=== PATIENT | female | born 1960 | race Caucasian/White ===

== ENCOUNTER 2020-04-12 08:00 | Outpatient (CLI) | payer OTHER, SELFPAY ==
--- NOTE | ~2020-04-12 | MM_ITS ---
EXAMINATION: MM screening cisco BI w dragan HISTORY: Screening TECHNIQUE: Craniocaudal and mediolateral oblique 3-D tomosynthesis images were obtained and synthetic 2-D images were generated. CAD analysis was submitted and interpreted. COMPARISON: No prior mammogram is available for comparison at this institution. BREAST PARENCHYMAL COMPOSITION: There are scattered areas of fibroglandular density. FINDINGS: There is a new focal asymmetry laterally in the right breast on CC view. The left breast is stable without evidence for malignancy. IMPRESSION: 1. Focal right breast asymmetry laterally in the right breast on CC view. 2. Additional mammographic views and possible breast ultrasound are recommended. BI-RADS Category 0: Incomplete: Needs additional imaging evaluation. Reviewed, dictated and finalized at location A. CAL PRACTITIONERS IMPRESSION: 1. Focal right breast asymmetry laterally in the right breast on CC view. 2. Additional mammographic views and possible breast ultrasound are recommended . BI-RADS Category 0: Incomplete: Needs additional imaging evaluation.
== END 2020-04-12 08:01 | disposition home or self-care (01) ==
PROVIDERS: PCP Nurse Practitioner Adult Health; Visit Provider Nurse Practitioner Adult Health
DX: Z12.31 Encounter for screening mammogram for malignant neoplasm of breast (principal); R92.8 Other abnormal and inconclusive findings on diagnostic imaging of breast
CPT/HCPCS: 77063; 77067

== ENCOUNTER 2020-05-13 11:16 | Outpatient (CLI) | payer OTHER, SELFPAY ==
--- NOTE | ~2020-05-13 | MMUS_ITS ---
EXAMINATION: MM diagnostic mammo unilat RT, US breast RT limited HISTORY: Right breast asymmetry on screening mammogram TECHNIQUE: Additional 3-D tomosynthesis images of the right breast were performed and synthetic 2-D i mages were generated. CAD analysis was submitted and interpreted. High resolution limited right breas t ultrasound was performed. COMPARISON: 04/12/2020, 04/17/2018, 03/13/2017 BREAST PARENCHYMAL COMPOSITION: There are scattered areas of fibroglandular density. FINDINGS: MAMMOGRAPHIC FINDINGS: There is an 8 mm oval, equal density mass with indistinct margins in the middle third of the outer br east at the 10:00 location 11 cm from the nipple. No suspicious calcification or architectural distor tion are identified. ULTRASOUND: There is a 6 mm x 5 mm oval, circumscribed, parallel mass with thin internal septation at the 10:00 l ocation 8 cm from the nipple. On some images, there is a questionable tiny peripheral nodular compone nt. The mass demonstrates posterior acoustic enhancement and no internal vascularity. IMPRESSION: 1. Probably benign right breast mass. 2. Recommend 6 month follow-up right diagnostic mammogram and ultrasound BI-RADS category 3, probably benign findings. Reviewed, dictated and finalized at location A. IMPRESSION: 1. Probably benign right breast mass. 2. Recommend 6 month follow-up right diagnostic mammogram and ultrasound BI-RADS category 3, probably benign findings.
== END 2020-05-13 11:17 | disposition home or self-care (01) ==
PROVIDERS: PCP Nurse Practitioner Adult Health; Visit Provider Nurse Practitioner Adult Health
DX: R92.8 Other abnormal and inconclusive findings on diagnostic imaging of breast (principal)
CPT/HCPCS: 76642; 77065

== ENCOUNTER 2020-12-02 11:17 | Outpatient (CLI) | payer OTHER, SELFPAY ==
--- NOTE | ~2020-12-02 | CT_ITS ---
EXAMINATION: CT shoulder LT wo con DATE: 12/02/2020 12:04 INDICATION: Primary osteoarthritis, left shoulder. TECHNIQUE: Computed tomography (CT) of the left shoulder was performed without intravenous contrast. Automated exposure control and iterative reconstruction technique were employed. The dose-length prod uct was 437.48 mGy-cm. COMPARISON: Left shoulder radiographs 11/08/2020 FINDINGS: Bone alignment is normal. No fracture. There is mild osteoarthritis of acromioclavicular renzo int and severe osteoarthritis of glenohumeral joint. There is a benign bone island in the glenoid. Th ere is no asymmetric fatty atrophy of the rotator cuff muscle bellies. IMPRESSION: 1. Severe glenohumeral joint osteoarthritis. Reviewed, dictated and finalized at location A.
== END 2020-12-02 11:18 | disposition home or self-care (01) ==
LOC: ANHIMG 11:20
PROVIDERS: PCP Nurse Practitioner Adult Health; Visit Provider Orthopaedic Surgery
DX: Z01.818 Encounter for other preprocedural examination (principal); M19.012 Primary osteoarthritis, left shoulder
CPT/HCPCS: 73200

== ENCOUNTER 2021-01-12 11:55 | Outpatient (CLI) | payer OTHER, SELFPAY ==
--- NOTE | 2021-01-12 12:57 | ECG_ITS ---
Measurements Intervals [place] Rate: 74 P: 46 KS: 238 QRS: 17 QRSD: 88 T: 25 QT: 397 QTc: 442 Interpretive Statements SINUS RHYTHM WITH FIRST DEGREE AV BLOCK LOW QRS VOLTAGE IN PRECORDIAL LEADS BORDERLINE R WAVE PROGRESSION, ANTERIOR LEADS CONSIDER INFERIOR INFARCT, AGE INDETERMINATE BASELINE ARTIFACT- I, III, AVR, AVL ABNORMAL ECG Electronically Signed On 01-12-2021 13:22:59 STEAM TENDER by Damon Yu D.O.
[2021-01-12 13:36] LABS: Basophils Absolute Auto 0.1 K/mm3 (0.0-0.1); Basophils Percent Auto 0.6 % (0.2-1.2); Eosinophils Absolute Auto 0.2 K/mm3 (0-0.3); Eosinophils Percent Auto 2.1 % (0-4.4); Hematocrit 43.1 % (37.0-47.0); Hemoglobin 14.3 g/dL (12.0-15.0); Immature Granulocyte Absolute 0.03 K/mm3 (0.00-0.031); Immature Granulocyte Percent A 0.3 % (0-0.5); Lymphocytes Absolute Auto 2.32 K/mm3 (0.9-3.2); Lymphocytes Percent Auto 24.7 % (18.3-44.2); Mean Corpuscular HGB Conc 33.2 g/dl (32-36); Mean Corpuscular Hemoglobin 32.6 pg (26-34); Mean Corpuscular Volume 98.2 fl (80-100); Monocytes Absolute Auto 0.9 K/mm3 (0.1-0.6); Monocytes Percent Auto 9.2 % (2.6-8.5); Neutrophils Absolute Auto 5.9 K/mm3 (1.3-6.7); Neutrophils Percent Auto 63.1 % (45.5-73.1); Platelet Count Result 315 k/mm3 (150-375); Red Blood Count 4.39 M/mm3 (4.2-5.4); Red Cell Distribution Width 12.2 % (11.5-14.5); White Blood Count 9.4 K/mm3 (4.5-10.0)
[2021-01-12 13:42] LABS: Anion Gap 9 mmol/L (8-16); Blood Urea Nitrogen 14 mg/dL (7-17); Calcium 9.4 mg/dL (8.4-10.2); Carbon Dioxide 32 mmol/L (22-30); Chloride 99 mmol/L (98-107); Estimated Glomerular Filt Rate > 60; Glucose 102 mg/dL (65-110); Potassium 3.8 mmol/L (3.4-5.0); Sodium 140 mmol/L (137-145)
== END 2021-01-12 11:56 | disposition home or self-care (01) ==
LOC: ANHSURGERY 11:58
PROVIDERS: Anesthesiology; PCP Nurse Practitioner Adult Health; Visit Provider Orthopaedic Surgery
DX: M19.012 Primary osteoarthritis, left shoulder (principal); I10 Essential (primary) hypertension; Z01.818 Encounter for other preprocedural examination; I44.0 Atrioventricular block, first degree
CPT/HCPCS: 36415; 80048; 85025; 87081; 93005

== ENCOUNTER 2021-02-07 01:28 | Day surgery (SDC) | payer OTHER, SELFPAY ==
[2021-01-12 12:05] VITALS: BMI 36.6
--- NOTE | 2021-01-12 12:37 | PC.NURSE ---
Report to the Outpatient Waiting Room, entrance under the green pavilion located off [facility], at time _1000 on date 02/07/21 . OR Time: _1200 . - You and your visitor will be asked a series of questions to screen for COVID 19 for your protection. - A mask is required within the hospital. - Only one visitor is allowed at this time. Patient visitors will be guided where to wait when not with patient. Preoperative COVID Testing Requirements: No COVID Test needed if: (proof is required; if not received patient will have Rapid Test prior to entry) - Patient has received COVID Vaccine at least 14 days prior to procedure date or - Patient has positive COVID test result within last 90 days of surgery date. COVID Test needed if above criteria is not met If not COVID vaccinated a COVID test must be conducted within 72 hours of surgery and patient is asked to isolate self from time of testing until procedure. You will go to the [facility] Testing Site for your COVID testing. The [facility] site is located at the corner of [address] [facility]. You will only be called if COVID results are positive and your surgeon may reschedule your elective surgery date. Patients may have clear liquids (water, carbonated beverages, clear teas, apple juice) until 3 hours prior to surgery with a maximum of 20 ounces. - No food from midnight until time of surgery - Infants may have breast milk until 4 hours before surgery, formula 6 hours prior to surgery. - Children will be allowed to drink immediately following surgery. If applicable, please bring a bottle or sippy cup to assist with drinking. Juice, water, soda, and popsicles are readily available. For infants on formula, please bring formula the day of surgery. Pacifiers are allowed. Take the following medications with a SIP of water the morning of surgery: ____INHALER AND LEVOTHYROXINE Medications to discontinue per physician ___ALL VITAMINS AND SUPPLEMENTS 3 DAYS PRE OP Date to take last dose__02/03/21 Please no make-up, nail martiniquais, hairspray, perfume, deodorant, or body powder the day of surgery. No jewelry (including any body piercings) or valuables the day of surgery, leave them at home. Please take a shower or bath the night before, or the morning of, surgery with an antibacterial soap. Wear comfortable, loose fitting clothing. Children are encouraged to wear pajamas. - Jewelry must be removed prior to entering the operating room. Rings and piercings that are not removed may be cut off. - The hospital will not accept responsibility for valuables. - Please leave all valuables, including medications, at home the day of surgery. If you are going home after surgery, a licensed front load trash truck driver must drive you home. - NO public transportation without another adult. - We recommend that an adult stay with you for 24 hours following discharge. - We also recommend that you do not drive, make important decision, drink alcoholic beverages, or take any drugs that were not prescribed by your health care provider for at least 24 hours after your discharge time. For Pediatric surgeries, we recommend two adults accompany the child home (only one inside the building at this time). Follow any additional instructions given to you from your surgeon. VERBAL instructions given to ___PATIENT AND SPOUSE and asked if any additional questions and then verbalized understanding. Patient advised to call surgeon office or pre surgery nurse liaison [phone] if any additional questions.
[2021-01-12 12:59] VITALS: BP 152/75; PULSE 85; RESP 16; TEMP 36.6; O2SAT 98
--- NOTE | 2021-02-03 13:31 | WPDANESEPPF ---
Anes - Initial Pre Proc Eval Procedure: Operation Date: 02/07/21 12:00 Proposed Procedures p Left Anatomic Total Shoulder Arthroplasty - Raoul Chong MD Date/Time: 02/03/21 13:31 Surgeon: Raoul Chong MD Pre Op Diagnosis: primary OA left shoulder Patient Data Age: 60 Gender: F Height: 1.73 m Weight: 109.2 kg Last Vital Signs Temp 36.6 C 01/12/21 12:59 Pulse 85 01/12/21 12:59 Resp 16 01/12/21 12:59 BP 152/75 H 01/12/21 12:59 Pulse Ox 98 01/12/21 12:59 Allergies Allergy/AdvReac Type Severity Reaction Status Date / Time acetone Allergy Severe ANAPHYLAXIS Verified 02/07/21 10:34 carrot Allergy Unknown Gastrointestinal Verified 02/07/21 10:34 Upset omeprazole Allergy Unknown Diarrhea Verified 02/07/21 10:34 pollen extracts Allergy Unknown Unknown Verified 02/07/21 10:34 Sulfa (Sulfonamide Allergy Unknown Rash AND Verified 02/07/21 10:34 Antibiotics) HIVES NSAIDS (Non-Steroidal AdvReac Unknown HX GI BLEED Verified 02/07/21 10:34 Anti-Inflamma SHRIMP AdvReac Unknown GI UPSET. Uncoded 02/07/21 10:34 Home Medications Medication Instructions Recorded Confirmed Type levothyroxine 25 mcg PO DAILY 03/06/19 02/07/21 History montelukast 10 mg PO DAILY 03/06/19 01/12/21 History verapamil 180 mg PO HS 03/06/19 02/07/21 History acetaminophen 650 mg 650 mg PO Q12H 01/12/21 01/12/21 History tablet,extended release acetaminophen [Tylenol Arthritis] 650 mg PO Q8H PRN 01/12/21 01/12/21 History albuterol sulfate 1 puff INHALATION PRN PRN 01/12/21 01/12/21 History albuterol sulfate 90 mcg/actuation 1 puff INHALATION Q4H PRN 01/12/21 01/12/21 History aerosol inhaler beclomethasone dipropionate 40 2 inh INHALATION Q12H 01/12/21 01/12/21 History mcg/actuation HFA breath activated aerosol beclomethasone dipropionate [Qvar 2 inh INHALATION BID 01/12/21 02/07/21 History RediHaler] calcium carbonate-vitamin D3 2 tablet PO DAILY 01/12/21 02/07/21 History [Calcium 600 + D(3)] cetirizine [Zyrtec] 10 mg PO DAILY 01/12/21 02/07/21 History chlorthalidone 50 mg PO QAM 01/12/21 01/12/21 History fluticasone furoate 27.5 1 spray INTRANASAL DAILY 01/12/21 01/12/21 History mcg/actuation nasal spray,suspension fluticasone propionate [Flonase 1 spray INTRANASAL HS 01/12/21 01/12/21 History Allergy Relief] rizatriptan 10 mg PO PRN PRN 01/12/21 01/12/21 History rizatriptan 10 mg tablet 10 mg PO ONCE 01/12/21 01/12/21 History valacyclovir 1 gram tablet 1,000 mg PO DAILY 01/12/21 01/12/21 History Patient hx anesthesia problems: none Family hx anesthesia problems: none Results Review: All pre-operative results and documents have been reviewed as part of the pre-operative evaluation. [facility] Past Medical History Medical History (Updated 02/03/21 @ 13:32 by Frank Rose MD) Asthma Hypertension Hypothyroid Migraine Obesity Surgical History Surgical History History of adenoidectomy (~1986) History of (~1984) History of eye surgery (~1977) History of kyphoplasty (~11/29/17) History of myringotomy (~1986) Marino - w/Tube Placement History of total left knee replacement (~07/30/18) Presence of left artificial knee joint Family History Family History Father Family history of chronic obstructive pulmonary disease Family history of congestive heart failure Other Family history of atrial fibrillation Family history of malignant neoplasm Family history of osteoarthritis Hypertension Social History Social History Alcohol intake: never Living arrangements: with family Spiritual care concerns: No Anes - Eval Final PreProcedure Day of Procedure 02/03/21 13:31 Patient weight: obese Heart: regular rate and rhythm Lungs: clear to auscultation and normal air movement
--- NOTE | 2021-02-03 13:33 | WPDANESPNB ---
Anes - Peripheral Nerve Block Date/Time: 02/03/21 13:33 I have discussed with the patient/family/POA the placement of a peripheral nerve block for post-operative pain management, including associated risks, benefits, complications, and side effects. Alternative methods of post-operative analgesia were detailed. Questions were solicited and answers provided to the satisfaction of the patient/family/POA. Time-Out: A pre-procedural Time-Out was completed immediately before starting the procedure and confirmed: Patient Identification, Site, Procedure, Patient Position and the Availability of Requisite Equipment. Clinical Indications: Acute post-operative pain management requested by the operative surgeon. Nerve Block Insertion Note Anes-nerve block: supraclavicular left Patient position: supine Skin prep: chlorhexidine Needle: 22 gauge, stimulating, insulated echogenic needle. Needle length: 80 mm Technique: ultrasound (in plane) Injectate: bupivacaine 0.5% with epi 5 mcg/ml (20cc) Observations: tolerated well Complications: none Procedure start time:: 1255 Procedure end time:: 1300
[2021-02-07] VITALS (9 sets, daily range): BP systolic 105–159; BP diastolic 43–102; PULSE 84–96; RESP 11–19; TEMP 36–37.7; O2SAT 93–100; BMI 36.1
--- NOTE | ~2021-02-07 | XR_ITS ---
XR shoulder LT min 2V DATE: 02/07/2021 17:38 INDICATION: Post operative left total shoulder TECHNIQUE: 4 views COMPARISON: 12/02/2020 CT left shoulder 11/08/2020 left shoulder FINDINGS: There is interval left glenohumeral joint replacement since 12/02/2020. Diffuse osteopenia. IMPRESSION: Left glenohumeral joint replacement Reviewed, dictated and finalized at location A. INUM POOL INSTALLER
[2021-02-07] MEDS: TRANEXAMIC ACID 1,000MG/ISO100 1,000 MG/100 ML BAG 200 MG IVPB (10:51)
[2021-02-07] MEDS: ACETAMINOPHEN 500 MG TABLET 1000 MG PO (10:52)
[2021-02-07] MEDS: LACTATED RINGERS 1,000 ML 30 ML IV CONT ×2 (10:52→17:12)
--- NOTE | 2021-02-07 11:59 | SUR.PREOP ---
1130; PT NOTIFIED SURGERY WILL BE DELAYED ABOUT 1 HOUR. PT VERBALIZED UNDERSTANDING.
--- NOTE | 2021-02-07 12:39 | WPDANESEPPF ---
Anes - Initial Pre Proc Eval Procedure: Operation Date: 02/07/21 12:00 Proposed Procedures p Left Anatomic Total Shoulder Arthroplasty - Raoul Chong MD Date/Time: 02/07/21 12:39 Surgeon: Raoul Chong MD Pre Op Diagnosis: primary OA left shoulder Patient Data Age: 60 Gender: F Height: 1.73 m Weight: 108 kg Last Vital Signs Temp 36.0 C L 02/07/21 10:09 Pulse 96 02/07/21 10:09 Resp 18 02/07/21 10:09 BP 159/102 H 02/07/21 10:09 Pulse Ox 96 02/07/21 10:09 Allergies Allergy/AdvReac Type Severity Reaction Status Date / Time acetone Allergy Severe ANAPHYLAXIS Verified 02/07/21 10:34 carrot Allergy Unknown Gastrointestinal Verified 02/07/21 10:34 Upset omeprazole Allergy Unknown Diarrhea Verified 02/07/21 10:34 pollen extracts Allergy Unknown Unknown Verified 02/07/21 10:34 Sulfa (Sulfonamide Allergy Unknown Rash AND Verified 02/07/21 10:34 Antibiotics) HIVES NSAIDS (Non-Steroidal AdvReac Unknown HX GI BLEED Verified 02/07/21 10:34 Anti-Inflamma SHRIMP AdvReac Unknown GI UPSET. Uncoded 02/07/21 10:34 Home Medications Medication Instructions Recorded Confirmed Type levothyroxine 25 mcg PO DAILY 03/06/19 02/07/21 History montelukast 10 mg PO DAILY 03/06/19 01/12/21 History verapamil 180 mg PO HS 03/06/19 02/07/21 History acetaminophen 650 mg 650 mg PO Q12H 01/12/21 01/12/21 History tablet,extended release acetaminophen [Tylenol Arthritis] 650 mg PO Q8H PRN 01/12/21 01/12/21 History albuterol sulfate 1 puff INHALATION PRN PRN 01/12/21 01/12/21 History albuterol sulfate 90 mcg/actuation 1 puff INHALATION Q4H PRN 01/12/21 01/12/21 History aerosol inhaler beclomethasone dipropionate 40 2 inh INHALATION Q12H 01/12/21 01/12/21 History mcg/actuation HFA breath activated aerosol beclomethasone dipropionate [Qvar 2 inh INHALATION BID 01/12/21 02/07/21 History RediHaler] calcium carbonate-vitamin D3 2 tablet PO DAILY 01/12/21 02/07/21 History [Calcium 600 + D(3)] cetirizine [Zyrtec] 10 mg PO DAILY 01/12/21 02/07/21 History chlorthalidone 50 mg PO QAM 01/12/21 01/12/21 History fluticasone furoate 27.5 1 spray INTRANASAL DAILY 01/12/21 01/12/21 History mcg/actuation nasal spray,suspension fluticasone propionate [Flonase 1 spray INTRANASAL HS 01/12/21 01/12/21 History Allergy Relief] rizatriptan 10 mg PO PRN PRN 01/12/21 01/12/21 History rizatriptan 10 mg tablet 10 mg PO ONCE 01/12/21 01/12/21 History valacyclovir 1 gram tablet 1,000 mg PO DAILY 01/12/21 01/12/21 History Laboratory Tests 02/07/21 10:50 Blood Type A Positive Antibody Screen Negative Patient hx anesthesia problems: none Family hx anesthesia problems: none Results Review: All pre-operative results and documents have been reviewed as part of the pre-operative evaluation. [facility] Past Medical History Medical History (Updated 02/03/21 @ 13:32 by Frank Rose MD) Asthma Hypertension Hypothyroid Migraine Obesity Surgical History Surgical History History of adenoidectomy (~1986) History of (~1984) History of eye surgery (~1977) History of kyphoplasty (~11/29/17) History of myringotomy (~1986) Marino - w/Tube Placement History of total left knee replacement (~07/30/18) Presence of left artificial knee joint Family History Family History Father Family history of chronic obstructive pulmonary disease Family history of congestive heart failure Other Family history of atrial fibrillation Family history of malignant neoplasm Family history of osteoarthritis Hypertension Social History Social History Alcohol intake: never Living arrangements: with family Spiritual care concerns: No Anes - Eval Final PreProcedure Day of Procedure 02/07/21 12:39 P
--- NOTE | 2021-02-07 13:03 | WPDHPUPDATE1 ---
History and Physical Update Update Date/Time: 02/07/21 13:03 History and Physical has been reviewed, including an updated exam of the patient. There are NO changes in the patient's condition. Risks, benefits, and alternatives have been discussed and questions answered. Patient agrees to proceed with procedure.
[2021-02-07] MEDS: ceFAZolin 2 GM/D5W 50 ML 2 GM/50 ML BAG IVPB ×2 (13:06→18:45)
[2021-02-07] MEDS: VANCOMYCIN HCL 1,000 MG VIAL 1000 MG TOPICAL (14:07)
--- NOTE | 2021-02-07 17:57 | W.PM.PROC2 ---
Procedure Note - Detailed Date of Procedure 02/07/21 Pre-op Diagnosis primary OA left shoulder Post-op Diagnosis same Procedure Performed Anatomic left total shoulder arthroplasty. Surgeon Raoul Chong MD Hardscape Foreman Armida Rodriguez PA-C Anesthesia general Description of Procedure The patient was given an interscalene block in the preoperative area. Preoperative antibiotics were given. The patient was transferred to the operating room and a general anesthetic was administered. The beach chair position was used at 35 degrees. All bony prominences were padded. The head was carefully stabilized on the [place] hogshead wrecker. A sterile prep and drape was performed in the usual manner with Chloraprep. A longitudinal incision was created at the anterior shoulder just lateral to the deltopectoral interval. Careful dissection was performed to expose the interval and protect the cephalic vein. The vein was retracted medially. The upper border of the pectoralis was released. Anterior circumflex vessel branches were suture ligated. The biceps was tenodesed. A small lesser tuberosity osteotomy was performed after opening the joint capsule at the rotator interval. The inferior capsule was released, exposing the humeral head. Osteophytes were removed. Care was taken to stay on bone to protect the axillary nerve. A Fukuda was placed in the joint. The subscapularis was mobilized, the inferior capsule and long head of triceps released, and the superior and middle glenohumeral ligaments released as well. Attention was turned to the humerus again. The anatomic head cut was taken with the oscillating saw. Sounding and broaching was performed. The neck anteversion and inclination were carefully assessed. Head sizing and offset were determined. The cut protector was placed, and attention was turned to the glenoid. Retractors were placed. Releases were carried out for exposure. Labral tissue was resected. The sizing template was used and a guide pin was placed. No deformity correction was performed. The reamer was placed over the guide pin taken down to create a 2-3 millimeter minimal wall. The peg drill guide was applied and the pegs drilled. The trial component was placed and fit very nicely. Excellent stability was confirmed. The real component was cemented into position. Excess cement was carefully removed. The humerus was prepared for subscapularis repair with the drilling and passage of 3 suture leaders. The real humeral stem and head were impacted into position. The shoulder was copiously irrigated periodically with pulsatile lavage. The shoulder was reduced and the subscapularis repaired with number 5 Ethibond suture modified Douglas-Jus sutures, and reinforced with multiple number 2 Ethibond suture. The rotator interval was reapproximated laterally. The biceps tenodesis was incorporated with the pectoralis tendon repair using 5. Ethibond suture. The deltopectoral space was reapproximated with 2-0 Vicryl. The remaining tissue was closed with 0 Quill and 2-0 Quill running suture and steri-strips. A sterile dressing and shoulder immobilizer was placed. The patient was transferred to the recovery room. Physician physical therapy assistant instructor, Armida Rodriguez PA-C, required for surgery; including patient positioning, draping, tissue retraction, maintaining instrument position, cement removal, wound closure, and dressing placement. Implants Shoulder Innovations Inset Shoulder System; humeral short stem size 32 x 6mm. Offset Humeral Head 16 x 42, R23, Articulation. Glenoid Circular In Line Peg 22 x 6mm. Depuy CMW 2 (quick set) Gentamicin Bone Cement 20 g. Estimated Blood Loss -100.0 Drains No Packing No Pathology none sent Complications No immediate complications Condition stable Disposition PACU
[2021-02-07] MEDS: SODIUM CHLORIDE 0.9% IV 1,000 ML 125 ML IV CONT (18:26)
[2021-02-07] MEDS: ONDANSETRON INJ 4 MG/2 ML VIAL IV PUSH (18:43)
[2021-02-07] MEDS: FLUTICASONE PROPIONATE 0.05% NA SPR 16 GM BTL (*BKC) 1 SPRAY NASAL (22:00)
[2021-02-08] MEDS: FAMOTIDINE 20 MG TABLET PO ×2 (00:05→08:58)
[2021-02-08] MEDS: oxyCODONE HCL (*CRX) 5 MG TAB IR PO ×3 (00:05→11:20)
[2021-02-08] MEDS: VERAPAMIL HCL 180 MG TABLET ER PO (00:05)
[2021-02-08] MEDS: ceFAZolin 2 GM/D5W 50 ML 2 GM/50 ML BAG IVPB ×2 (03:32→10:34)
[2021-02-08 03:36] VITALS: BP 113/59; PULSE 74; RESP 17; TEMP 36.9; O2SAT 98
[2021-02-08] MEDS: LEVOTHYROXINE SODIUM 25 MCG TABLET PO (06:04)
[2021-02-08 07:42] VITALS: BP 125/54; PULSE 88; RESP 16; TEMP 36.8; O2SAT 97
[2021-02-08] MEDS: CHLORTHALIDONE 25 MG TABLET 50 MG PO (08:56)
[2021-02-08] MEDS: ASPIRIN 81 MG ENTERIC TABLET PO (08:57)
[2021-02-08] MEDS: SENNA/DOCUSATE SODIUM TABLET 2 TAB PO (08:57)
[2021-02-08] MEDS: polyethylene glycoL 3350 17 GM POWD.PACK PO (08:58)
--- NOTE | 2021-02-08 10:01 | WPDANESPN ---
Anes - Prog Note Post-Op Date/Time: 02/08/21 10:01 Cardiovascular status: normal Respiratory status: normal Airway patency: baseline Mental status: baseline Post-Op hydration status: normal Vital Signs: Last Vital Signs Temp 98.3 F 02/08/21 07:42 Pulse 88 02/08/21 07:42 Resp 16 02/08/21 07:42 BP 125/54 L 02/08/21 07:42 Pulse Ox 97 02/08/21 07:42 Pain Score (VAS): 0/10 I/O: Intake & Output 02/07/21 02/08/21 02/08/21 23:59 07:59 15:59 Intake Total 650 2482 Balance 650 2482 02/07/21 10:50 Blood Type A Positive Antibody Screen Negative Patient Feedback: Patient satisfied with anesthetic care.
--- NOTE | 2021-02-08 10:45 | PM.DS ---
DS: Admitting Diagnosis Discharge Date 02/08/21 Admitting Diagnosis Glenohumeral joint arthritis DS: Discharge Diagnosis Discharge Diagnosis (1) Status post total replacement of left shoulder: Code(s): Z96.612 - Presence of left artificial shoulder joint Status: Acute Assessment and Plan: Postop day 1: Left total shoulder arthroplasty. Patient tolerated procedure well. No complications. Pain manageable with pain medication. No numbness or tingling. We had a lengthy discussion regarding postoperative wound care, limitations, expectations, and exercises. Patient shows good understanding. She has had initial physical therapy and is tolerating it well. DVT prophylaxis: 81 mg baby aspirin b.i.d. for 14 days. Pain medication: Percocet. Patient has followup appointment with Dr. Chong in 3 weeks. DS: Summary Hospital Course Hospital Course: Left anatomic total shoulder arthroplasty. No complications. Patient has had initial physical therapy and occupational therapy. Status at Discharge Functional status at discharge: independent ambulation Overall status at discharge: patient is progressing back to baseline Time Spent with Patient Time attestation: Total time spent providing and/or coordinating discharge services: Exam Narrative: Overweight 60 y/o Female. Alert and oriented x3. No acute distress. Resting comfortably in chair. Wearing sling. Dressing dry and intact with no drainage. Moderate swelling. Moderate ecchymosis. No erythema. Range of motion limited due to pain. Good finger, wrist, elbow range of motion. Neurologic status intact. Light touch sensation intact. Normal capillary refill. No varicosities. Distal pulses palpable. DS: Data Data Completed and Pending Labs on day of discharge: Labs from last 24 hours 02/07/21 10:50 Blood Type A Positive Antibody Screen Negative Discharge Plan Discharge Patient Disposition: Home, Self-Care Discharge Instructions: See instruction sheet Stand Alone Forms: General Discharge Instructions Follow-up/Referrals: Armida Rodriguez PA [Physician [facility] Sk[facility]der] - Discharge Medications: New aspirin 81 mg tablet,delayed release (DR/EC) 81 mg PO BID 14 Days Qty: 28 RF: 0 oxycodone-acetaminophen 5-325 mg tablet 1 - 2 tablet PO Q4-6H MDD 6 PRN (Reason: pain) Qty: 30 RF: 0 Continued verapamil 180 mg Tablet Extended Release 180 mg PO HS RF: 0 levothyroxine 25 mcg Tablet 25 mcg PO DAILY RF: 0 montelukast 10 mg Tablet 10 mg PO DAILY RF: 0 Qvar RediHaler 40 mcg/actuation HFA aerosol breath activated 2 inh inhalation Q12H RF: 0 albuterol sulfate 90 mcg/actuation HFA aerosol inhaler 1 puff inhalation Q4H PRNRF: 0 Flonase Sensimist 27.5 mcg/actuation spray,suspension 1 spray intranasal DAILY RF: 0 rizatriptan 10 mg tablet 10 mg PO ONCE RF: 0 valacyclovir 1 gram tablet 1,000 mg PO DAILY RF: 0 Qvar RediHaler 40 mcg/actuation HFA aerosol breath activated 2 inh INHALATION BID RF: 0 albuterol sulfate 90 mcg/actuation HFA aerosol inhaler 1 puff INHALATION PRN PRN (Reason: SOB) RF: 0 chlorthalidone 50 mg tablet 50 mg PO QAM RF: 0 rizatriptan 10 mg tablet,disintegrating 10 mg PO PRN PRN (Reason: Migraine Headache) RF: 0 fluticasone propionate [Flonase Allergy Relief] 50 mcg/actuation Chamberlain,Suspension 1 spray INTRANASAL HS RF: 0 cetirizine [Zyrtec] 10 mg Tablet 10 mg PO DAILY RF: 0 calcium carbonate-vitamin D3 600-125 mg-unit Tablet 2 tablet PO DAILY RF: 0 Held acetaminophen 650 mg tablet extended release 650 mg PO Q12H RF: 0 Hold Instructions: Resume on 03/08/21. acetaminophen 650 mg Tablet Extended Release 650 mg PO Q8H PRN (Reason: Pain) RF: 0 Hold Instructions: Resume on 03/08/21.
== END 2021-02-08 11:55 | disposition home or self-care (01) ==
LOC: ANHSURGERY 10:02 → ANHSUROVER 18:06
PROVIDERS: PCP Nurse Practitioner Adult Health; Visit Provider Orthopaedic Surgery
PROC: (CPT 23472; principal; 2021-02-07 12:00)
DX: M19.012 Primary osteoarthritis, left shoulder (principal); G89.18 Other acute postprocedural pain; J45.909 Unspecified asthma, uncomplicated; I10 Essential (primary) hypertension; E03.9 Hypothyroidism, unspecified; E66.9 Obesity, unspecified; Z68.36 Body mass index [BMI] 36.0-36.9, adult; Z79.51 Long term (current) use of inhaled steroids
CPT/HCPCS: 23472; 64415; 36415; 73030; 80048; 85025; 86850; 86900; 86901; 87081; 93005; 97162; 97165; A4565; A9270; C1713; C1776; J0131; J0171; J0330; J0690; J1100; J1885; J2250; J2270; J2370; J2405; J2704; J2710; J2795; J3010; J3370; J7030; J7120

== ENCOUNTER → 2021-03-01 08:05 | Outpatient (CLI) | payer OTHER, SELFPAY ==
[2021-03-01 19:52] LABS: SARS-CoV-2 RNA PCR Negative
== END ==
PROVIDERS: PCP Nurse Practitioner Adult Health; Visit Provider Nurse Practitioner Adult Health
DX: R50.9 Fever, unspecified (principal); Z20.822 Contact with and (suspected) exposure to COVID-19
CPT/HCPCS: C9803; U0003; U0005

== ENCOUNTER 2021-06-16 09:36 | Outpatient (CLI) | payer OTHER, SELFPAY ==
--- NOTE | ~2021-06-16 | MM_ITS ---
EXAMINATION: MM screening cisco BI w dragan HISTORY: Screening mammogram TECHNIQUE: Craniocaudal and mediolateral oblique 3-D tomosynthesis images were obtained and synthetic 2-D images were generated. CAD analysis was submitted and interpreted. COMPARISON: 05/13/2020 diagnostic right mammogram and limited right breast ultrasound 04/12/2020, 04/17/2018 bilateral screening mammogram examinations BREAST PARENCHYMAL COMPOSITION: The breasts are almost entirely fatty. FINDINGS: Interval resolution of previously reported focal lateral right breast asymmetry since 021. There is no evidence of suspicious mass, calcification, or architectural distortion to suggest m alignancy in either breast. There has been no suspicious interval change. IMPRESSION: 1. No mammographic evidence of malignancy. 2. Recommend routine screening mammography in one year. BI-RADS Category 1: Negative Reviewed, dictated and finalized at location A.
== END 2021-06-16 09:37 | disposition home or self-care (01) ==
LOC: ANHIMG 09:37
PROVIDERS: PCP Nurse Practitioner Adult Health; Visit Provider Nurse Practitioner Adult Health
DX: Z12.31 Encounter for screening mammogram for malignant neoplasm of breast (principal)
CPT/HCPCS: 77063; 77067

== ENCOUNTER 2021-11-01 12:48 | Outpatient (CLI) | payer OTHER, SELFPAY ==
--- NOTE | ~2021-11-01 | DEXA_ITS ---
Bone Density Report Name: NIKUNJ RUVALCABA Age: 61 Sex: Female Ethnicity: White Date of : 1960 Indication: postmenopausal; screening for osteoporosis; parental hip fracture; height loss; prior fracture; asthma or emphysema; Referring Provider: ERNIE, SHENG Study: Bone densitometry was performed. Exam Date: November 01, 2021 Accession number: [id number] Bone Density: Region BMD T-score Z-score Classification AP Spine(L1, L2, L4) 0.815 -2.0 -0.5 Osteopenia Femoral Neck (Left) 0.610 -2.2 -0.8 Osteopenia Total Hip (Left) 0.727 -1.8 -0.8 Osteopenia Femoral Neck (Right) 0.789 -0.5 0.8 Normal Total Hip (Right) 0.801 -1.2 -0.1 Osteopenia Total Hip Mean 0.764 -1.5 -0.5 Osteopenia World Health Organization criteria for BMD impression classify patients as: Normal (T-score at or above -1.0), Osteopenia (T-score between -1.0 and -2.5), or Osteoporosis (T-score at or below -2.5). 10-year Fracture Risk: FRAX not reported because: Prior hip or vertebral fracture Clinical Information Provided by Patient: Have had a previous hip or vertebral fracture Has had a low trauma fracture Parent has had a hip fracture Has used the following medications: Vitamin D, Calcium Has the following medical conditions: Asthma or Emphysema Patient maximum height was 68.5 Menopause Age: 49 Onset of menses at age 13 Number of children 2 Impression: The patient has low bone mass, based on the Left Femoral Neck T-score. The patient has risk factors, including: parental hip fracture, previous fracture. Discussion: INCREASED RISK OF FRACTURE DUE TO HISTORY OF FRACTURE. The patient's previous fracture puts the patient at high risk of a future fracture. In untreated patients, the risk of osteoporotic fracture increases approximately two-fold for each 1.0 SD decrease in T-score. Low bone density is not the only risk factor for fracture; also consider factors such as patient's age, frailty or poor health, risk of falling, risk of injury, previous osteoporotic fracture, family history of osteoporosis, cigarette smoking, low body weight, etc. Not everyone with a low trauma fracture has osteoporosis; osteomalacia and other metabolic bone disorders should also be considered. Patients who have osteoporosis should be evaluated for specific diseases and conditions (secondary causes) that may cause or contribute to bone loss and fracture risk. National Osteoporosis Foundation (NOF) recommends pharmacologic intervention for patients with a prior hip or vertebral fracture regardless of BMD T-score. The patient should follow a healthful lifestyle (good nutrition with adequate calcium and vitamin D, and appropriate weight-bearing exercise). Follow-Up: Consider a repeat BMD and Vertebral Fracture Assessment (VFA) exam in 2 years or sooner if medically
== END 2021-11-01 12:49 | disposition home or self-care (01) ==
PROVIDERS: PCP Nurse Practitioner Adult Health; Visit Provider Nurse Practitioner Adult Health
DX: Z78.0 Asymptomatic menopausal state (principal); M85.88 Other specified disorders of bone density and structure, other site; M85.851 Other specified disorders of bone density and structure, right thigh; M85.852 Other specified disorders of bone density and structure, left thigh
CPT/HCPCS: 77080

== ENCOUNTER 2022-01-17 10:23 | Outpatient (CLI) | payer OTHER, SELFPAY ==
--- NOTE | 2022-01-17 11:10 | ECG_ITS ---
Measurements Intervals Sandy Rate: 92 P: 46 AL: 198 QRS: 21 QRSD: 89 T: 30 QT: 355 QTc: 439 Interpretive Statements SINUS RHYTHM WITH OCCASIONAL VENTRICULAR PREMATURE COMPLEXES POSSIBLE LEFT ATRIAL ENLARGEMENT [-0.1mV P WAVE IN V1/V2] LOW QRS VOLTAGE IN PRECORDIAL LEADS [QRS DEFLECTION < 1.0 mV IN CHEST LEADS] COMPARED TO ECG 01/12/2021 13:15:29 NO SIGNIFICANT CHANGES Electronically Signed On 01-17-2022 15:33:05 PRODUCTION DEPARTMENT SUPERVISOR by Marylu De La Cruz M.D.
[2022-01-17 11:15] LABS: Hematocrit 43.5 % (37.0-47.0); Hemoglobin 14.6 g/dL (12.0-15.0)
[2022-01-17 11:24] LABS: Urine Cotinine NEGATIVE
[2022-01-17 11:42] LABS: Hemoglobin A1C 5.7 % (<5.7)
[2022-01-17 16:32] LABS: Albumin Level 4.2 g/dL (3.5-5.1); Estimated Glomerular Filt Rate > 60; Glucose 112 mg/dL (65-110)
== END 2022-01-17 10:24 | disposition home or self-care (01) ==
PROVIDERS: PCP Nurse Practitioner Adult Health; Visit Provider Orthopaedic Surgery
DX: E03.9 Hypothyroidism, unspecified (principal); I10 Essential (primary) hypertension; M16.11 Unilateral primary osteoarthritis, right hip
CPT/HCPCS: 80307; 82040; 82565; 82947; 83036; 85014; 85018; 93005

== ENCOUNTER 2022-03-06 10:34 | Outpatient (CLI) | payer OTHER, SELFPAY ==
[2022-03-06 12:01] LABS: Basophils Absolute Auto 0.1 K/mm3 (0.0-0.1); Basophils Percent Auto 0.5 % (0.2-1.2); Eosinophils Absolute Auto 0.2 K/mm3 (0-0.3); Eosinophils Percent Auto 1.4 % (0-4.4); Hematocrit 43.8 % (37.0-47.0); Hemoglobin 14.4 g/dL (12.0-15.0); Immature Granulocyte Absolute 0.04 K/mm3 (0.00-0.031); Immature Granulocyte Percent A 0.3 % (0-0.5); Lymphocytes Absolute Auto 2.14 K/mm3 (0.9-3.2); Lymphocytes Percent Auto 18.4 % (18.3-44.2); Mean Corpuscular HGB Conc 32.9 g/dl (32-36); Mean Corpuscular Hemoglobin 32.1 pg (26-34); Mean Corpuscular Volume 97.6 fl (80-100); Mean Platelet Volume 9.7 fl (7.4-10.4); Monocytes Absolute Auto 0.8 K/mm3 (0.1-0.6); Neutrophils Absolute Auto 8.4 K/mm3 (1.3-6.7); Neutrophils Percent Auto 72.4 % (45.5-73.1); Platelet Count Result 302 k/mm3 (150-375); Red Blood Count 4.49 M/mm3 (4.2-5.4); Red Cell Distribution Width 12.9 % (11.5-14.5); White Blood Count 11.6 K/mm3 (4.5-10.0)
[2022-03-06 12:07] LABS: Albumin Level 3.9 g/dL (3.5-5.1)
[2022-03-06 12:11] LABS: Anion Gap 5 mmol/L (8-16); Blood Urea Nitrogen 14 mg/dL (7-17); Calcium 9.2 mg/dL (8.4-10.2); Carbon Dioxide 33 mmol/L (22-30); Chloride 101 mmol/L (98-107); Estimated Glomerular Filt Rate > 60; Glucose 99 mg/dL (65-110); Potassium 3.7 mmol/L (3.4-5.0); Sodium 139 mmol/L (137-145)
[2022-03-06 12:31] LABS: Urine Cotinine NEGATIVE
== END 2022-03-06 10:35 | disposition home or self-care (01) ==
PROVIDERS: Anesthesiology; PCP Nurse Practitioner Family; Visit Provider Orthopaedic Surgery
DX: M16.11 Unilateral primary osteoarthritis, right hip (principal); I10 Essential (primary) hypertension; Z01.818 Encounter for other preprocedural examination
CPT/HCPCS: 36415; 80048; 80307; 82040; 85025; 87081

== ENCOUNTER 2022-03-28 02:05 | Day surgery (SDC) | payer OTHER, SELFPAY ==
[2022-03-06 10:47] VITALS: BMI 35.4
--- NOTE | 2022-03-06 11:16 | PC.NURSE ---
Report to the Outpatient Waiting Room, entrance under the green pavilion located off [facility], at time __1200 on date __03/28/22 . Planned Procedure Time: __2:00 PM . Time changes happen often and if your time is changed the preop area will call you the afternoon before. - You and your visitor will be asked to self-screen and do not enter if you have any COVID symptoms. - Only one visitor is requested with a max of two and NO children visitors are allowed at this time. - The patient visitor may be requested to leave or wait in car when not with patient due to distancing restrictions. - A mask is optional within the hospital. Patients may have clear liquids (water, carbonated beverages, clear teas, apple juice) until 3 hours prior to surgery with a maximum of 20 ounces. - No food from midnight until time of surgery - Infants may have breast milk until 4 hours before surgery, infant formula 6 hours prior to surgery. - Children will be allowed to drink immediately following surgery. If applicable, please bring a bottle or sippy cup to assist with drinking. Juice, water, soda, and popsicles are readily available. For infants on formula, please bring formula the day of surgery. Pacifiers are allowed. Take the following medications with a SIP of water the morning of surgery: ___LEVOTHYROXINE Medications to discontinue per physician ___ ALL VITAMINS AND SUPPLEMENTS _3 DAYS PRE OP LAST DOSE 03/24/22 Please no make-up, nail belizean, hairspray, perfume, deodorant, or body powder the day of surgery. No jewelry (including any body piercings) or valuables the day of surgery, leave them at home. Please take a shower or bath the night before, or the morning of, surgery with an antibacterial soap. Wear comfortable, loose fitting clothing. Children are encouraged to wear pajamas. - Jewelry must be removed prior to entering the operating room. Rings and piercings that are not removed may be cut off. - The hospital will not accept responsibility for valuables. - Please leave all valuables, including medications, at home the day of surgery. If you are going home after surgery, a licensed substitute bus driver must drive you home. - NO public transportation without another adult if you receive anesthesia. - We recommend that an adult stay with you for 24 hours following discharge. - We also recommend that you do not drive, make important decision, drink alcoholic beverages, or take any drugs that were not prescribed by your health care provider for at least 24 hours after your discharge time. Follow any additional instructions given to you from your surgeon. If you or anyone in your household have experienced Covid symptoms in the past week, please notify your surgeon or the nurse liaison at the phone number below for possible testing. VERBAL AND WRITTEN instructions given to __PATIENT and asked if any additional questions and then verbalized understanding. Patient advised to call surgeon office or pre surgery nurse liaison [phone] if any additional questions.
[2022-03-06 11:37] VITALS: BP 141/78; PULSE 83; RESP 18; TEMP 37.2; O2SAT 98
--- NOTE | 2022-03-27 15:41 | WPDANESEPPF ---
Anes - Initial Pre Proc Eval Procedure: Operation Date: 03/28/22 10:30 Proposed Procedures p Right Total Hip Arthroplasty - Raoul Chong MD Date/Time: 03/27/22 15:41 Surgeon: Raoul Chong MD Pre Op Diagnosis: primary oa right hip Patient Data Age: 61 Gender: F Height: 1.73 m Weight: 105.7 kg Last Vital Signs Temp 37.2 C 03/06/22 11:37 Pulse 83 03/06/22 11:37 Resp 18 03/06/22 11:37 BP 141/78 H 03/06/22 11:37 Pulse Ox 98 03/06/22 11:37 O2 Del Method Room Air 03/06/22 11:37 Allergies Allergy/AdvReac Type Severity Reaction Status Date / Time acetone Allergy Severe ANAPHYLAXIS Verified 03/06/22 10:50 carrot Allergy Unknown Gastrointestinal Verified 03/06/22 10:50 Upset omeprazole Allergy Unknown Diarrhea Verified 03/06/22 10:50 pollen extracts Allergy Unknown Unknown Verified 03/06/22 10:50 Sulfa (Sulfonamide Allergy Unknown Rash AND Verified 03/06/22 10:50 Antibiotics) HIVES NSAIDS (Non-Steroidal AdvReac Unknown HX GI BLEED Verified 03/06/22 10:50 Anti-Inflamma SHRIMP AdvReac Unknown GI UPSET. Uncoded 03/06/22 10:50 Home Medications Medication Instructions Recorded Confirmed Type levothyroxine 25 mcg tablet 25 mcg PO DAILY 03/06/19 03/06/22 History montelukast 10 mg tablet 10 mg PO DAILY 03/06/19 03/06/22 History verapamil 180 mg tablet,extended 180 mg PO HS 03/06/19 03/06/22 History release acetaminophen 650 mg 650 mg PO Q8H PRN Pain 01/12/21 03/06/22 History tablet,extended release albuterol sulfate 90 mcg/actuation 1 puff inhalation PRN PRN SOB 01/12/21 03/06/22 History aerosol inhaler cetirizine 10 mg tablet (Zyrtec) 10 mg PO DAILY 01/12/21 03/06/22 History chlorthalidone 50 mg tablet 50 mg PO QAM 01/12/21 03/06/22 History fluticasone furoate 27.5 1 spray intranasal DAILY 01/12/21 03/06/22 History mcg/actuation nasal spray,suspension (Flonase Sensimist) rizatriptan 10 mg disintegrating 10 mg PO PRN PRN Migraine Headache 01/12/21 03/06/22 History tablet valacyclovir 1 gram tablet 1,000 mg PO DAILY PRN Cold Sores 02/22/22 03/06/22 History azelastine 137 mcg (0.1 %) nasal 137 mcg intranasal Q12H 03/06/22 03/06/22 History spray aerosol cholecalciferol (vitamin D3) 50 50 mcg PO DAILY 03/06/22 03/06/22 History mcg (2,000 unit) tablet fluticasone fur. 200 mcg-umeclid 1 inh inhalation HS 03/06/22 03/06/22 History 62.5 mcg-vilant 25 mcg inhalat.powder (Trelegy Ellipta) multivitamin 1 tablet PO DAILY 03/06/22 03/06/22 History rosuvastatin 5 mg tablet 5 mg PO HS 03/06/22 03/06/22 History ECG: Date of Service: 01/17/22 Procedure(s): CA 12 lead EKG Accession Number(s): [id number] cc: ~ ? Measurements Intervals? [place]? Rate: ? 92 ? P:? 46 TN: ? 198? QRS:? 21 QRSD: ? 89 ? T:? 30 QT: ? 355? QTc:? 439? Interpretive Statements SINUS RHYTHM WITH OCCASIONAL VENTRICULAR PREMATURE COMPLEXES POSSIBLE LEFT ATRIAL ENLARGEMENT? [-0.1mV P WAVE IN V1/V2] LOW QRS VOLTAGE IN PRECORDIAL LEADS? [QRS DEFLECTION < 1.0 mV IN CHEST LEADS] COMPARED TO ECG 01/12/2021 13:15:29 NO SIGNIFICANT CHANGES Electronically Signed On 01-17-2022 15:33:05 ELECTRICAL ELECTRONICS TECHNICIAN by Marylu De La Cruz M.D. Patient hx anesthesia problems: none Family hx anesthesia problems: none Results Review: All pre-operative results and documents have been reviewed as part of the pre-operative evaluation. [facility] Past Medical History Medical History (Updated 03/27/22 @ 15:42 by Frank Rose MD) Asthma Hyperlipidemia Hypertension Hypothyroid Migraine Obesity Surgical History Surgical History History of adenoidectomy (~1986) History of C-sec
[2022-03-28] VITALS (17 sets, daily range): BP systolic 105–150; BP diastolic 51–85; PULSE 79–97; RESP 12–20; TEMP 36.2–36.7; O2SAT 93–100; BMI 34.7
--- NOTE | ~2022-03-28 | XR_ITS ---
EXAMINATION: XR hip RT min 2V DATE: 03/28/2022 13:55 INDICATION: Right hip arthroplasty. Postop. TECHNIQUE: 2 views of right hip were obtained. COMPARISON: Right hip radiographs 01/12/2022 FINDINGS: There is a total right hip arthroplasty in near-anatomic alignment. No fracture. There is g as in the soft tissues, consistent with recent surgery. IMPRESSION: 1. Total right hip arthroplasty in near-anatomic alignment. Reviewed, dictated and finalized at location A. PICKER
--- NOTE | 2022-03-28 07:25 | WPDHPUPDATE1 ---
History and Physical Update Update Date/Time: 03/28/22 07:25 History and Physical has been reviewed, including an updated exam of the patient. There are NO changes in the patient's condition. Risks, benefits, and alternatives have been discussed and questions answered. Patient agrees to proceed with procedure.
[2022-03-28] MEDS: LACTATED RINGERS 1,000 ML 30 ML IV CONT ×2 (09:35→13:35)
[2022-03-28] MEDS: ACETAMINOPHEN 500 MG TABLET 1000 MG PO (09:42)
[2022-03-28] MEDS: SCOPOLAMINE 1.5 MG PATCH TRANSDERM (09:42)
[2022-03-28] MEDS: TRANEXAMIC ACID 1,000MG/ISO100 1,000 MG/100 ML BAG 200 MG IVPB (10:03)
[2022-03-28] MEDS: ceFAZolin 2 GM/D5W 50 ML 2 GM/50 ML BAG IVPB ×2 (11:09→18:36)
[2022-03-28] MEDS: TRANEXAMIC ACID 1,000 MG/10 ML AMPUL 1000 MG IV PUSH (13:05)
--- NOTE | 2022-03-28 14:10 | SUR.PHASEI ---
1410: Simple mask removed.
[2022-03-28] MEDS: fentaNYL CITRATE INJ (*CRX) 100 MCG/2 ML VIAL 25 MCG IV PUSH ×6 (14:15→14:52)
--- NOTE | 2022-03-28 15:01 | SUR.PHASEI ---
Patient meets PACU discharge criteria, no transfer orders at this time. Patient placed in extended recovery status.
--- NOTE | 2022-03-28 17:13 | W.PM.PROC2 ---
Procedure Note - Detailed Date of Procedure 03/28/22 Pre-op Diagnosis primary oa right hip Post-op Diagnosis Same Procedure Performed Right Total Hip Arthroplasty Surgeon Raoul Chong MD Hvac Design Engineer Armida Rodriguez PA-C Anesthesia General Findings Significant osteoporosis. Poor bone quality. Description of Procedure The patient was given preoperative antibiotics. A general anesthetic was administered. The patient was carefully placed in the lateral decubitus position on the PEG board. The shoulders and hips were carefully positioned for component and leg length positioning reference. The hip was prepped and draped in the usual sterile fashion. A longitudinal incision was created over the posterior aspect of the greater trochanter. Careful dissection was brought down through the deep fascia with electrocautery. A minimally invasive optimized posterior approach to the hip was performed. The short external rotators and capsule were taken down in an L-shaped capsulotomy. The tissue was tagged for later repair using number 2 high strength suture. The femoral neck was measured and taken in situ. The femoral head was removed. The acetabulum was carefully exposed. The inferior capsule was released. The labrum was resected. The acetabulum was sequentially reamed to the intended cup size. The cup was impacted into position with excellent press-fit. Due to the osteoporosis, additional screws were placed x2. Typical anatomic landmarks, including the bony contact points as well as the inferior transverse acetabular ligament were used to confirm cup positioning with preoperative templating. Osteophytes were removed from the inferior and anterior acetabulum. Attention was turned to the femur, which was carefully exposed. The hip was reamed and then broached sequentially. Excellent press-fit was obtained with the broach. The hip was trialed. Measurements were utilized, including the lesser trochanter as well as the center of the femoral head and the tip of the trochanter, and excellent assessment of the offset and leg lengths were confirmed. The real component was impacted into position. Trialing confirmed appropriate leg length and offset with soft tissue balancing as well apparent feel of the leg, both at the knee and the heel. Soft tissues were assessed using the the iliotibial band. Reduction of the posterior capsule and external rotators were also used as a secondary assessment. The hip was copiously irrigated with pulsatile lavage antibiotic solution periodically throughout the procedure. The real components were then assembled and reduced. The hip was stable throughout typical maneuvers, including extension, external rotation to 70 degrees, the position of sleep as well as flexion to 90 degrees with internal rotation past 30 degrees. The short external rotators and capsule were repaired back to the posterior trochanter through drill holes. The deep fascia was repaired with running number 2 Quill suture, followed by 0 Stratafix suture and 2-0 Stratafix suture in the dermis. Steri-Strips were placed on the skin, followed by a sterile silver occlusive dressing. There were no complications. Meticulous hemostasis was maintained with the AquaMantys device. The patient was brought to the recovery room in stable condition. There were no complications. Physician fitter's assistant, Armida Rodriguez PA-C, required for surgery; including patient positioning, draping, tissue retraction, maintaining instrument position, hip dislocation/ relocation, wound closure, and dressing placement. Implants The Accolade II hip stem, 127 degree size 6 , was utilized with excellent press-fit. The 52 mm Trident II acetabular component was impacted with excellent press-fit stability. 10 degree elevated liner polyethylene 36 mm alpha code E. The -2.5, 36 mm Biolox ceramic femoral head was utilized. Estimated Blood Loss 500 Drains No Packing No Pathology None sent Compl
[2022-03-28] MEDS: oxyCODONE HCL (*CRX) 5 MG TAB IR PO (17:30)
[2022-03-28] MEDS: SENNA/DOCUSATE SODIUM TABLET 2 TAB PO (17:58)
[2022-03-28] MEDS: ASPIRIN 81 MG ENTERIC TABLET PO (17:58)
--- NOTE | 2022-03-28 18:57 | ADMGEN ---
This patient, Marlen Pemberton, was admitted to 2 Medical Room 241-01. Patient/family oriented to hospital policies and general routines including ID bracelet, bed and alarms, visiting hours, pain management, procedures, bathroom and other care routines, personal items, smoking policy, room service/diet, and visiting hours. Information on how to activate the Rapid Response Team has been discussed. Patient/Family are encouraged to report perceived risks to care and to ask questions if they do not understand what they are told or what they should do.
[2022-03-28] MEDS: ONDANSETRON INJ 4 MG/2 ML VIAL IV PUSH (19:20)
[2022-03-28] MEDS: FAMOTIDINE 20 MG TABLET PO (22:21)
[2022-03-28] MEDS: ROSUVASTATIN 5 MG TABLET PO (22:21)
[2022-03-28] MEDS: VERAPAMIL HCL 180 MG TABLET ER PO (22:21)
[2022-03-29 01:08] VITALS: BP 103/49; PULSE 94; RESP 18; TEMP 37.2; O2SAT 94
[2022-03-29] MEDS: oxyCODONE HCL (*CRX) 5 MG TAB IR PO (01:11)
[2022-03-29] MEDS: ceFAZolin 2 GM/D5W 50 ML 2 GM/50 ML BAG IVPB ×2 (02:02→10:45)
[2022-03-29 03:54] VITALS: BP 108/50; PULSE 90; RESP 18; TEMP 37.4; O2SAT 94
[2022-03-29] MEDS: LEVOTHYROXINE SODIUM 25 MCG TABLET PO (06:00)
[2022-03-29 06:18] LABS: Basophils Percent Auto 0.2 % (0.2-1.2); Hematocrit 33.9 % (37.0-47.0); Hemoglobin 11.1 g/dL (12.0-15.0); Immature Granulocyte Absolute 0.12 K/mm3 (0.00-0.031); Immature Granulocyte Percent A 0.6 % (0-0.5); Lymphocytes Absolute Auto 1.69 K/mm3 (0.9-3.2); Lymphocytes Percent Auto 8.4 % (18.3-44.2); Mean Corpuscular HGB Conc 32.7 g/dl (32-36); Mean Corpuscular Hemoglobin 31.9 pg (26-34); Mean Corpuscular Volume 97.4 fl (80-100); Mean Platelet Volume 10.4 fl (7.4-10.4); Monocytes Absolute Auto 1.5 K/mm3 (0.1-0.6); Monocytes Percent Auto 7.2 % (2.6-8.5); Neutrophils Absolute Auto 16.8 K/mm3 (1.3-6.7); Neutrophils Percent Auto 83.6 % (45.5-73.1); Platelet Count Result 260 k/mm3 (150-375); Red Blood Count 3.48 M/mm3 (4.2-5.4); Red Cell Distribution Width 12.9 % (11.5-14.5); White Blood Count 20.2 K/mm3 (4.5-10.0)
[2022-03-29 06:27] LABS: Anion Gap 3 mmol/L (8-16); Blood Urea Nitrogen 14 mg/dL (7-17); Calcium 8.1 mg/dL (8.4-10.2); Carbon Dioxide 35 mmol/L (22-30); Chloride 96 mmol/L (98-107); Estimated CRCL calculation 105 ml/min; Estimated Glomerular Filt Rate > 60; Glucose 104 mg/dL (65-110); Potassium 3.2 mmol/L (3.4-5.0); Sodium 134 mmol/L (137-145)
--- NOTE | 2022-03-29 08:01 | P.PNAN_ITS ---
Anes - Prog Note Post-Op Date/Time: 03/29/22 08:01 Cardiovascular status: normal Respiratory status: normal Airway patency: baseline Mental status: baseline Post-Op hydration status: normal Vital Signs: Last Vital Signs Temp 37.4 C 03/29/22 03:54 Pulse 90 03/29/22 03:54 Resp 18 03/29/22 03:54 BP 108/50 L 03/29/22 03:54 Pulse Ox 94 03/29/22 03:54 O2 Del Method Room Air 03/28/22 16:15 O2 Flow Rate 3 03/28/22 16:05 Pain Score (VAS): 0 I/O: Intake & Output 03/28/22 03/29/22 03/29/22 23:59 07:59 15:59 Intake Total 550 450 Output Total 75 Balance 475 450 Laboratory Tests 03/29/22 05:08 03/29/22 05:08 03/28/22 03/29/22 03/29/22 09:38 05:08 05:08 WBC 20.2 H RBC 3.48 L Hgb 11.1 L D Hct 33.9 L MCV 97.4 MCH 31.9 MCHC 32.7 RDW 12.9 Plt Count 260 MPV 10.4 Immature Gran % (Auto) 0.6 H Neut % (Auto) 83.6 H Lymph % (Auto) 8.4 L [place] % (Auto) 7.2 Eos % (Auto) 0.0 Baso % (Auto) 0.2 Lymph # (Auto) 1.69 [place] # (Auto) 1.5 H Eos # (Auto) 0.0 Baso # (Auto) 0.0 Abs Immat Gran (auto) 0.12 H Absolute Neuts (auto) 16.8 H Absolute Nucleated RBC 0.0 Nucleated RBC % 0.0 Sodium 134 L Potassium 3.2 L Chloride 96 L Carbon Dioxide 35 H Anion Gap 3 L BUN 14 Creatinine 0.60 L Estim Creat Clear Calc 105 Estimated GFR > 60 Glucose 104 Calcium 8.1 L Blood Type A Positive Antibody Screen Negative Post-procedural complaints: none Patient Feedback: Patient satisfied with anesthetic care.
[2022-03-29] MEDS: ASPIRIN 81 MG ENTERIC TABLET PO (08:18)
[2022-03-29] MEDS: predniSONE 5 MG TABLET PO (08:18)
[2022-03-29] MEDS: MONTELUKAST SODIUM 10 MG TABLET PO (08:18)
[2022-03-29] MEDS: CHLORTHALIDONE 25 MG TABLET 50 MG PO (08:18)
[2022-03-29] MEDS: polyethylene glycoL 3350 17 GM POWD.PACK PO (08:18)
[2022-03-29] MEDS: FAMOTIDINE 20 MG TABLET PO (08:18)
[2022-03-29] MEDS: SENNA/DOCUSATE SODIUM TABLET 2 TAB PO (08:18)
[2022-03-29] MEDS: oxyCODONE HCL (*CRX) 5 MG TAB IR 10 MG PO ×2 (08:19→12:57)
--- NOTE | 2022-03-29 09:10 | PM.DS ---
DS: Admitting Diagnosis Discharge Date 03/29/22 Admitting Diagnosis OA Right hip DS: Discharge Diagnosis Discharge Diagnosis (1) Status post total hip replacement, right: Code(s): Z96.641 - Presence of right artificial hip joint Status: Acute Assessment and Plan: Postop day 1: Right Total hip arthroplasty. Patient tolerated procedure well. No complications. Pain manageable with pain medication. No numbness or tingling. She does have a slightly elevated white count. Will cover with an extended 10 days of Keflex. Likely just reactionary to surgery. We had a lengthy discussion regarding postoperative wound care, limitations, expectations, and exercises. Patient shows good understanding. Patient has had initial physical therapy and is tolerating it well. DVT prophylaxis: 81 mg baby aspirin b.i.d. for 14 days. Short frequent walks. Pain medication: Percocet. Antibiotic: Keflex for 10 days. Patient has followup appointment with Dr. Chong in 3 weeks DS: Summary Hospital Course Reason for hospitalization: Total hip arthroplasty Hospital Course: Patient tolerated procedure well. Has had initial PT/OT and made good progress. Status at Discharge Functional status at discharge: uses cane/walker Overall status at discharge: patient is progressing back to baseline Time Spent with Patient Time attestation: Total time spent providing and/or coordinating discharge services: Exam Narrative: Overweight 61 y/o female. Resting comfortably in bed. Wearing compression socks bilaterally. Dressing dry and intact with no drainage. Moderate swelling. No ecchymosis. No erythema. No hematoma. Range of motion limited due to pain. Calf nontender. Thigh nontender. Neurologic status intact. No varicosities. Distal pulses palpable. DS: Data Data Completed and Pending Labs on day of discharge: Labs from last 24 hours 03/29/22 03/29/22 03/28/22 05:08 05:08 09:38 WBC 20.2 H RBC 3.48 L Hgb 11.1 L D Hct 33.9 L MCV 97.4 MCH 31.9 MCHC 32.7 RDW 12.9 Plt Count 260 MPV 10.4 Immature Gran % (Auto) 0.6 H Neut % (Auto) 83.6 H Lymph % (Auto) 8.4 L [place] % (Auto) 7.2 Eos % (Auto) 0.0 Baso % (Auto) 0.2 Lymph # (Auto) 1.69 [place] # (Auto) 1.5 H Eos # (Auto) 0.0 Baso # (Auto) 0.0 Abs Immat Gran (auto) 0.12 H Absolute Neuts (auto) 16.8 H Absolute Nucleated RBC 0.0 Nucleated RBC % 0.0 Sodium 134 L Potassium 3.2 L Chloride 96 L Carbon Dioxide 35 H Anion Gap 3 L BUN 14 Creatinine 0.60 L Estim Creat Clear Calc 105 Estimated GFR > 60 Glucose 104 Calcium 8.1 L Blood Type A Positive Antibody Screen Negative Discharge Plan Discharge Patient Disposition: Home, Self-Care Discharge Instructions: Remove the Scopolamine patch that was placed behind your ear (on 03/28/2022) in 72 hours or less. Wash your hands after touching. Follow green instruction sheets. Added an extended oral antibiotic due to elevated white count. Stand Alone Forms: General Discharge Instructions Discharge Medications: New aspirin 81 mg tablet,delayed release (DR/EC) 81 mg PO BID 14 Days Qty: 28 0RF oxycodone-acetaminophen 5-325 mg tablet 1 - 2 tablet PO Q4-6H MDD 6 PRN (Reason: pain) Qty: 30 0RF cephalexin 500 mg capsule 500 mg PO BID 10 Days Qty: 20 0RF Rx Instructions: Take twice a day for 10 days. Continued verapamil 180 mg Tablet Extended Release 180 mg PO HS levothyroxine 25 mcg Tablet 25 mcg PO DAILY montelukast 10 mg Tablet 10 mg PO DAILY Flonase Sensimist 27.5 mcg/actuation spray,suspension 1 spray intranasal DAILY Label Comments: TAKES AT HS Rx Instructions: into each nostril valacyclovir 1 gram tablet 1,000 mg PO DAILY PRN (Reason: Cold Sores) azelastine 137 mcg (0.1 %) aerosol,spray 137 mcg intranasal Q12H PRN (Reaso
[2022-03-29 10:02] VITALS: BP 134/65; PULSE 90; RESP 18; TEMP 37.1; O2SAT 96
== END 2022-03-29 13:25 | disposition home or self-care (01) ==
LOC: ANHSURGERY 09:58 → ANH2MED 16:39
PROVIDERS: Physician Assistant Surgical; PCP Nurse Practitioner Family; Visit Provider Orthopaedic Surgery
PROC: (CPT 27130; principal; 2022-03-28 10:30)
DX: M16.11 Unilateral primary osteoarthritis, right hip (principal); J45.909 Unspecified asthma, uncomplicated; I10 Essential (primary) hypertension; E78.5 Hyperlipidemia, unspecified; E03.9 Hypothyroidism, unspecified; E66.9 Obesity, unspecified; Z68.34 Body mass index [BMI] 34.0-34.9, adult; F12.90 Cannabis use, unspecified, uncomplicated; Z79.51 Long term (current) use of inhaled steroids
CPT/HCPCS: 27130; 36415; 73502; 80048; 80307; 82040; 85025; 86850; 86900; 86901; 87081; 97110; 97161; 97165; 97530; 97535; A9270; C1776; J0131; J0171; J0690; J1100; J1170; J2270; J2405; J2704; J2710; J2795; J3010; J7120; J7512

== ENCOUNTER 2022-08-24 10:18 | Emergency (ER) | payer OTHER, SELFPAY ==
--- NOTE | 2022-08-24 10:23 | ED.SKABFB ---
HPI - Skin/Abscess/Foreign Bdy General Chief complaint: Extremity Injury, Upper Stated complaint: insect bite lt hand Time Seen by Provider: 08/24/22 10:37 Source: patient, RN notes reviewed and old records reviewed Mode of arrival: ambulatory Limitations: no limitations History of Present Illness HPI narrative: 62-year-old female presents to [facility] with complaints of an insect bite to the 1st finger left hand distal dorsal aspect that occurred on Sunday, 3 days ago. No treatment prior to arrival States it keeps getting increasingly red, swollen. Onset (ago): day(s) (3) Treatments prior to arrival: none Related Data Home Medications Medication Instructions Recorded Confirmed levothyroxine 25 mcg tablet 25 mcg PO DAILY 03/06/19 08/24/22 montelukast 10 mg tablet 10 mg PO DAILY 03/06/19 08/24/22 verapamil 180 mg tablet,extended 180 mg PO HS 03/06/19 08/24/22 release acetaminophen 650 mg 650 mg PO Q8H PRN Pain 01/12/21 08/24/22 tablet,extended release albuterol sulfate 90 mcg/actuation 1 puff inhalation PRN PRN SOB 01/12/21 08/24/22 aerosol inhaler cetirizine 10 mg tablet (Zyrtec) 10 mg PO DAILY 01/12/21 08/24/22 chlorthalidone 50 mg tablet 50 mg PO QAM 01/12/21 08/24/22 fluticasone furoate 27.5 1 spray intranasal DAILY 01/12/21 08/24/22 mcg/actuation nasal spray,suspension (Flonase Sensimist) rizatriptan 10 mg disintegrating 10 mg PO PRN PRN Migraine Headache 01/12/21 08/24/22 tablet valacyclovir 1 gram tablet 1,000 mg PO DAILY PRN Cold Sores 02/22/22 08/24/22 azelastine 137 mcg (0.1 %) nasal 137 mcg intranasal Q12H PRN 03/06/22 08/24/22 spray aerosol Allergies fluticasone fur. 200 mcg-umeclid 1 inh inhalation HS 03/06/22 08/24/22 62.5 mcg-vilant 25 mcg inhalat.powder (Trelegy Ellipta) multivitamin 1 tablet PO DAILY 03/06/22 08/24/22 rosuvastatin 5 mg tablet 5 mg PO HS 03/06/22 08/24/22 alendronate 10 mg tablet 10 mg PO WEEKLY 08/24/22 08/24/22 triamcinolone acetonide 0.1 % 1 applic topical BID 08/24/22 08/24/22 topical cream Allergies Allergy/AdvReac Type Severity Reaction Status Date / Time acetone Allergy Severe ANAPHYLAXIS Verified 08/24/22 10:33 omeprazole Allergy Unknown Diarrhea Verified 08/24/22 10:33 pollen extracts Allergy Unknown Unknown Verified 08/24/22 10:33 Sulfa (Sulfonamide Allergy Unknown Rash AND Verified 08/24/22 10:33 Antibiotics) HIVES NSAIDS (Non-Steroidal AdvReac Unknown HX GI BLEED Verified 08/24/22 10:33 Anti-Inflamma Review of Systems Review of Systems: All systems reviewed & are unremarkable except as noted in HPI and below Constitutional: Constitutional: Reports no additional constitutional complaints Eyes: Eyes: Reports no additional eye complaints ENT: Reports system reviewed and no additional complaints, except as documented Cardiovascular: Cardiovascular: Reports no additional cardiovascular complaints, Denies chest pain and Denies dyspnea Respiratory: Respiratory: Reports no additional respiratory complaints, Denies chest congestion, Denies cough and Denies dyspnea Gastrointestinal: Gastrointestinal: Reports no additional gastrointestinal complaints, Denies abdominal pain, Denies nausea and Denies vomiting Musculoskeletal: Musculoskeletal: Reports as per HPI Integumentary/Breasts: Skin/Breast: Reports as per HPI Neurologic: Reports system reviewed and no additional complaints, except as documented Psychiatric: Psychiatric: Reports no additional psychiatric complaints Allergic/Immunologic: Allergic/Immunologic: Reports no additional allergic/immunologic complaints [facility] Past Medical History Medical History Asthma Hyperlipidemia Hypertension Hypothyroid Migraine Obesity Surgical History Surgical History History of adenoidectomy (~1986) History of (~1984) History of eye surgery (~1977) History of kyphopl
[2022-08-24 10:31] VITALS: BP 152/73; PULSE 90; RESP 18; TEMP 36.5; O2SAT 97
[2022-08-24 10:36] VITALS: BP 152/73; PULSE 90; RESP 18; TEMP 36.5; O2SAT 97
== END 2022-08-24 11:00 | disposition home or self-care (01) ==
PROVIDERS: Emergency Provider Nurse Practitioner; PCP Nurse Practitioner Family
DX: S60.362A Insect bite (nonvenomous) of left thumb, initial encounter (principal); W57.XXXA Bitten or stung by nonvenomous insect and other nonvenomous arthropods, initial encounter; J45.909 Unspecified asthma, uncomplicated; E78.5 Hyperlipidemia, unspecified; I10 Essential (primary) hypertension; E03.9 Hypothyroidism, unspecified; Z96.652 Presence of left artificial knee joint; Z96.641 Presence of right artificial hip joint
CPT/HCPCS: 99213; G0463

== ENCOUNTER 2022-09-22 09:17 | Outpatient (CLI) | payer OTHER, SELFPAY ==
--- NOTE | ~2022-09-22 | XR_ITS ---
AP and lateral views of the right hip Clinical history: Pain Findings: No acute fracture or dislocation is seen. Right hip arthroplasty in place. No hardware comp lication is evident. Soft tissues are unremarkable. Impression: No acute abnormality. Right hip arthroplasty in place. Reviewed, dictated and finalized at location . Impression: No acute abnormality. Right hip arthroplasty in place.
== END 2022-09-22 09:18 | disposition home or self-care (01) ==
PROVIDERS: PCP Nurse Practitioner Family; Visit Provider Orthopaedic Surgery
DX: Z47.1 Aftercare following joint replacement surgery (principal)
CPT/HCPCS: 73502

== ENCOUNTER 2022-11-28 09:00 | Outpatient (CLI) | payer OTHER, SELFPAY ==
--- NOTE | ~2022-11-28 | MM_ITS ---
EXAMINATION: MM screening cisco BI w dragan HISTORY: Screening TECHNIQUE: Craniocaudal and mediolateral oblique 3-D tomosynthesis images were obtained and synthetic 2-D images were generated. CAD analysis was submitted and interpreted. COMPARISON: Comparison to multiple prior studies sequentially, with oldest reviewed study dated 09/2014. BREAST PARENCHYMAL COMPOSITION: The breasts are almost entirely fatty. FINDINGS: There is no evidence of suspicious mass, calcification, or architectural distortion to sugg est malignancy in either breast. There has been no suspicious interval change. IMPRESSION: 1. No mammographic evidence of malignancy. 2. Recommend routine screening mammography in one year. BI-RADS Category 1: Negative Reviewed, dictated and finalized at location A.
== END 2022-11-28 09:01 | disposition home or self-care (01) ==
PROVIDERS: PCP Nurse Practitioner Family; Visit Provider Nurse Practitioner Family
DX: Z12.31 Encounter for screening mammogram for malignant neoplasm of breast (principal)
CPT/HCPCS: 77063; 77067

== ENCOUNTER 2023-01-19 12:28 | Outpatient (CLI) | payer OTHER, SELFPAY ==
--- NOTE | 2023-01-23 11:32 | P.PCNPFT_ITS ---
PFT Procedure Performed PFT Procedure Performed Spirometry with Pre/Post Bronchodilator Plethysmography (Lung Vol) Diffusing Cap (DLCO) Flow Vol Loop PFT Interpretation DOS: 01/19/2023 REQUESTING: Almas Ruelas APRN REASON FOR TESTING: asthma PULMONARY FUNCTION TESTS Testing performed and results interpreted in accordance with the 2019 and 2005 ATS /ERS Task Force guidelines respectively using the GLI 2012 reference equations. Repeatability of spirometry FEV1 maneuver pre-bronchodilator and post- bronchodilator Grade A. All testing completed with optimal patient effort and comfort Spirometry: Pre-bronchodilator FEV1 is 1.63 L, 60%, reduced. Pre- bronchodilator FVC is 2.19 L, 63%, reduced. FEV1/FVC ratio 74%, in the normal range. After bronchodilator there is a 16% increase in the FEV1, 1 more 0.90 L, 70%, mildly reduced. After bronchodilator there is a 7% increase in the FVC, 2.35 L, 67%, reduced. FEV1/ FVC ratio is 81%. This is still below normal. The FEF 25-75 is 1.22 L, 52%, low end of normal. After bronchodilator administration there is a 61% increase in the flows, 1.96 L, 84% predicted. Lung volumes: Total lung capacity 3.81 L, 69%, decreased, consistent with restriction. The slow vital capacity is 2.56 L, 74% predicted, significantly higher than the forced vital capacity obtained in spirometry. This difference between these two values is consistent with dynamic airway collapse, and this is seen in obstructive airways. Residual volume is 1.25 L, 57% predicted, decreased. RV/TLC is 33%, normal range. Airway resistance 1.82, 124%, normal. Diffusion: DLCO is 19.1, 84%, normal. DLCO / VA 5.20, 122%, normal. Flow volume loop: Unremarkable. IMPRESSION: This study shows a mild obstructive ventilatory impairment, significant in the small airways, with a robust response to bronchodilator; mild restriction and normal diffusion. This study may represent an overlap of conditions such as asthma plus restriction from another process. No prior studies for comparison. Clinical correlation is recommended. Gricelda Iglesias MD
== END 2023-01-19 12:29 | disposition home or self-care (01) ==
PROVIDERS: PCP Nurse Practitioner Adult Health; Visit Provider Nurse Practitioner Family
DX: J45.909 Unspecified asthma, uncomplicated (principal); R94.2 Abnormal results of pulmonary function studies
CPT/HCPCS: 94060; 94726; 94729

== ENCOUNTER 2023-01-25 15:06 | Outpatient (CLI) | payer OTHER, SELFPAY ==
--- NOTE | ~2023-01-25 | XR_ITS ---
EXAMINATION: XR chest 2V DATE: 01/25/2023 15:21 INDICATION: Abnormal pulmonary function studies TECHNIQUE: PA and lateral views of the chest were obtained. COMPARISON: None FINDINGS: The lungs are clear with no focal airspace opacities, pulmonary edema, pleural effusion or pneumothor ax. The cardiomediastinal silhouette is normal. Moderate degenerative skeletal changes in the visuali zed spine and bilateral shoulders with left total shoulder arthroplasty. IMPRESSION: 1. No acute cardiopulmonary disease. Reviewed, dictated and finalized at location A. K BLENDER
== END 2023-01-25 15:07 | disposition home or self-care (01) ==
PROVIDERS: PCP Nurse Practitioner Adult Health; Visit Provider Nurse Practitioner Family
DX: R06.09 Other forms of dyspnea (principal); R94.2 Abnormal results of pulmonary function studies
CPT/HCPCS: 71046

== ENCOUNTER 2023-03-06 13:26 | Outpatient (CLI) | payer OTHER, SELFPAY ==
--- NOTE | ~2023-03-06 | CT_ITS ---
EXAMINATION:CT diagnostic chest wo con DATE: 03/06/2023 13:56 INDICATION: Other disorders of lung. TECHNIQUE: Computed tomography (CT) of the chest was performed without intravenous contrast. Automate d exposure control and iterative reconstruction technique were employed. The dose-length product (DLP ) was 484.67 mGy-cm. COMPARISON: Chest 2 views 01/25/2023 FINDINGS: There is mild scarring at the lung apices. There is mild atelectasis bilaterally. There is a 3 mm nodule in right lower lobe, likely benign. Calcified bilateral lung nodules and calcified righ t hilar and mediastinal lymph nodes are consistent with old granulomatous disease. No pleural effusio n. The heart size is normal. No pericardial effusion. Calcifications in the spleen are consistent wit h old granulomatous disease. There is a left shoulder arthroplasty. There are bridging endplate osteo phytes at multiple levels in the spine, consistent with diffuse idiopathic skeletal hyperostosis (DIS H). IMPRESSION: 1. No significant lung disease. Reviewed, dictated and finalized at location E. T BREEDER SCIENTIST
[2023-03-08 18:24] LABS: ANA Cascade Screen Negative (Negative)
[2023-03-16 10:50] LABS: Aspergillus fumigatus Negative
== END 2023-03-06 13:27 | disposition home or self-care (01) ==
PROVIDERS: PCP Nurse Practitioner Adult Health; Visit Provider Physician Assistant
DX: J98.4 Other disorders of lung (principal); R06.09 Other forms of dyspnea
CPT/HCPCS: 36415; 71250; 86038; 86225; 86235; 86331; 86364; 86606; 86609

== ENCOUNTER 2023-10-10 09:26 | Outpatient (CLI) | payer OTHER, SELFPAY ==
--- NOTE | 2023-10-11 21:00 | WPDHOMESLEEP ---
Sleep Study - Home Unattended Date of Study: 10/10/23 Ordering Provider: SERGIO Miller Interpreting Provider: Gricelda Iglesias MD Home Sleep Study Type: Watch PAT Height: 1.71 m Weight: 99.79 kg Body Mass Index: 33.9 Neck Circumference (inches): 15.5 [place]: 4 Reason for Sleep Study Snoring over the last few years, multiple episodes of urination during the night, non-restorative sleep Sleep History Marlen Cifuentes is a 63-year-old woman with hypertension, acid reflux and allergies. She has been treated with allergy shots and medications including Zyrtec, Flonase, Astelin, montelukast and Breztri 160/9/4.8. She has a cough productive of significant sputum due to allergens. She rarely awakens from sleep feeling short of breath, rarely awakens at night with heartburn, belching or coughing. She occasionally snores loudly enough that others complain about it. She occasionally has difficulty sleeping when she has a cold. She does not wake up gasping for breath at night. She rarely has breathing problems at night observed by others. She occasionally sweats excessively at night. She occasionally notices her heart pounding or beating irregularly at night. She occasionally falls asleep during the day, occasionally falls asleep involuntarily, never falls asleep while driving. She does not have loss of muscle tone with strong emotion. She does not have daytime difficulties due to excessive sleepiness. She does not feel paralyzed on waking or falling asleep. She does not have vivid dreamlike scenes upon awakening or falling asleep. She does not feel afraid to go to sleep. She does not have nightmares. She frequently remembers her dreams. Interestingly, if she sleeping soundly and needs to urinate, she dreams about trying to find a working bathroom. In her dreams, the toilets are all in operable, broken, clogged, blocked doors. She finally wakes up in goes to the bathroom. Sometimes she awakens hourly to urinate and this is been going on about 5 years. She 1st frequently has racing thoughts. She does not feel sad or depressed. She occasionally has anxiety. She occasionally has muscular tension. She occasionally notices parts of her body jerking. She does not kick at night. She occasionally has aching feelings in her legs. She occasionally has leg pain at night. She she does not have morning jaw pain. She does not grind her teeth during sleep. She occasionally is bothered by pain during the day, occasionally awakened by pain at night, and occasionally wakes up feeling stiff in the morning. She occasionally wakes up with sore achy muscles and pain in the neck and spine. Her normal bedtime is between 9:30 p.m. and 10:00 p.m., falling asleep within 15-30 minutes, typically waking between 2 and 6 times during the night to urinate or get a drink of water. She is able to return to sleep within 15-20 minutes. Her normal wake time is 6:30 a.m. to 7:00 a.m.. She keeps the same schedule on weekends. She estimates getting 8-1/2 hours of sleep at night. She takes naps in the afternoon or evening. A short nap may be refreshing. She is usually drowsy for 1 hour after waking. Tobacco: never smoker Caffeine: 1 cup of coffee in the morning Alcohol: none Recreational substances: none PMFSH Past Medical History Medical History Allergic rhinitis Asthma Hyperlipidemia Hypertension Hypothyroid Migraine Obesity Surgical History Surgical History History of adenoidectomy (~1986) History of (~1984) History of eye surgery (~1977) History of kyphoplasty (~11/29/17) History of myringotomy (~1986) [place] - w/Tube Placement History of total left knee replacement (~07/30/18) History of total right hip replacement (~03/28/22) Presence of left artificial knee joint Family History Family History (Reviewed 10/10
[2023-10-11 21:46] VITALS: BMI 33.9
== END 2023-10-11 13:43 | disposition home or self-care (01) ==
PROVIDERS: PCP Nurse Practitioner Adult Health; Visit Provider Physician Assistant
DX: G47.33 Obstructive sleep apnea (adult) (pediatric) (principal); G47.10 Hypersomnia, unspecified; I10 Essential (primary) hypertension; Z68.33 Body mass index [BMI] 33.0-33.9, adult
CPT/HCPCS: 95800

== ENCOUNTER 2023-11-02 12:18 | Outpatient (CLI) | payer OTHER, SELFPAY ==
--- NOTE | 2023-11-02 | ECHO_ITS ---
Patient Info Name: Marlen Cifuentes Age: 63 years : 1960 Gender: Female Ht: 68 in Wt: 222 lbs BSA: 2.23 m2 HR: 94 bpm BP: 130 / 85 mmHg Heart Rhythm: Sinus Rhythm Technical Quality: Fair Exam Date: 11/02/2023 12:52 PM Exam Location: Echo Lab Patient Status: Outpatient Admit Date: 11/02/2023 Staff Ordering Physician: Almas Ruelas APRN Product Safety Lead: Genesis Mendieta RDCS Attending Provider: Almas Ruelas APRN Referring Physician: Suraj COYNE; Exam Type: CA echo doppler color flow Study Info Indications - asthma Complete two-dimensional, color flow and Doppler transthoracic echocardiogram is performed. Summary 1. Complete two-dimensional, color flow and Doppler transthoracic echocardiogram is performed. 2. Left ventricular chamber dimension is normal. 3. Left ventricular systolic function is normal, estimated at 60-65%. 4. There is mild concentric increased left ventricular wall thickness. 5. The left ventricular diastolic function is grade I diastolic dysfunction. 6. E/e' 7 is not elevated. 7. There is severe aortic valve sclerosis. 8. There is moderate aortic valve stenosis with a peak velocity of 290 cm/s, mean gradient of 18 mmHg, and aortic valve area of 1.1 cm2. 9. There is trace tricuspid valve regurgitation. 10. No pulmonary hypertension, estimated pulmonary arterial systolic pressure is 21 mmHg. Left Ventricle E/e' 7 is not elevated. Left ventricular chamber dimension is normal. Left ventricular systolic function is normal, estimated at 60-65%. There is mild concentric increased left ventricular wall thickness. The left ventricular diastolic function is grade I diastolic dysfunction. Right Ventricle Right ventricular systolic function is normal and with normal TAPSE 2.5 cm. Right ventricular chamber dimension is normal. Left Atria Left atrial chamber dimension is normal. Right Atria Right atrial chamber dimension is normal. Aortic Valve The aortic valve is trileaflet. There is severe aortic valve sclerosis. There is moderate aortic valve stenosis with a peak velocity of 290 cm/s, mean gradient of 18 mmHg, and aortic valve area of 1.1 cm2. There is no aortic valve regurgitation. Pulmonic Valve There is no pulmonic regurgitation. Mitral Valve There is no mitral valve stenosis. There is no mitral valve regurgitation. Tricuspid Valve There is trace tricuspid valve regurgitation. No pulmonary hypertension, estimated pulmonary arterial systolic pressure is 21 mmHg. Pericardium/Pleural There is no pericardial effusion. Inferior Vena Cava Normal inferior vena cava with >50% collapse upon inspiration consistent with normal right atrial pressure, 5 mmHg. Aorta The aortic root size at the sinus of Valsalva is normal. Left Ventricular Outflow Tract Name Value Normal LVOT 2D LVOT Diameter 2.0 cm LVOT Doppler LVOT Peak Gradient 3 mmHg LVOT Mean Gradient 2 mmHg LVOT VTI 20 cm LVOT VTI/AV VTI Ratio 0.3 LVOT Stroke Volume 62 ml LVOT CO 4.0 l/min LVOT CI
--- NOTE | 2023-11-02 15:47 | WPDPFTINT ---
PFT Procedure Performed PFT Procedure Performed Spirometry with Pre/Post Bronchodilator Plethysmography (Lung Vol) Diffusing Cap (DLCO) Flow Vol Loop PFT Interpretation This is a pulmonary function test with pre and post-bronchodilator spirometry, plethysmography and diffusing capacity. The test was performed and results interpreted in accordance with the 2019 and 2005 ATS/ERS Task Force guidelines respectively using the Global Lung Function Initiative-2012 reference equations. Patient demonstrated good effort and cooperation. Reproducibility criteria were met. The quality of the pre bronchodilator spirometry maneuver was Grade A and post bronchodilator spirometry maneuver was Grade A. Findings: Spirometry: The contour the inspiratory and expiratory flow tracing are normal. The pre bronchodilator FVC is 2.49 L, 70% predicted. The pre bronchodilator FEV1 is 1.80 L, 65% predicted. The pre bronchodilator FEV1: FVC ratio 72%. The post bronchodilator FVC is 2.46 L, representing 1% decrease. The post bronchodilator FEV1 is 1.86 L, representing a 3% increase. The post bronchodilator FEV1: FVC ratio 75%. Plethysmography: The total lung capacity is 4.22 L, 74% predicted. The functional residual capacity is 1.76 L, 54% predicted. The residual volume is 1.66 L, 73% predicted. Diffusing capacity: The diffusing capacity unadjusted for hemoglobin and carboxyhemoglobin is 17.4, 76% predicted. The diffusing capacity adjusted for alveolar volume is 4.28, 102% predicted. In comparison to previous pulmonary function testing on 01/19/2023 the post bronchodilator FVC is unchanged from 2.35 L to 2.46 L. The post bronchodilator FEV1 is unchanged from 1.90 L to 1.86 L. The total lung capacity is unchanged from 3.81 L to 4.22 L. The functional residual capacity is increased from 1.54 L to 1.76 L. The residual volume is increased from 1.25 L to 1.66 L. The diffusing capacity unadjusted for hemoglobin and carboxyhemoglobin is unchanged from 19.1 to 17.4. The diffusing capacity adjusted for alveolar volume is decreased from 5.20 to 4.28. Impression: There is a moderate restrictive ventilatory abnormality. The spirometry is normal without evidence of an obstructive abnormality. There is no significant improvement after inhaling a single dose of albuterol. The diffusing capacity is normal. In comparison to previous pulmonary function testing on 01/19/2023 there is no longer a positive bronchodilator response. There has been a greater than anticipated time dependent increase in the functional residual capacity and residual volume. There has been a greater than anticipated time dependent decrease in the diffusing capacity adjusted for alveolar volume with no significant change in the FVC, FEV1, total lung capacity or diffusing capacity unadjusted for hemoglobin and carboxyhemoglobin. Clinical correlation is recommended.
== END 2023-11-02 12:19 | disposition home or self-care (01) ==
PROVIDERS: PCP Nurse Practitioner Adult Health; Visit Provider Nurse Practitioner Family
DX: J45.20 Mild intermittent asthma, uncomplicated (principal)
CPT/HCPCS: 93306; 94060; 94375; 94726; 94729

== ENCOUNTER 2023-12-05 09:41 | Outpatient (CLI) | payer OTHER, SELFPAY ==
--- NOTE | 2024-01-02 08:02 | WPDSLEEPSTUD ---
Sleep Study Date of Study: 12/05/23 Ordering Provider: Almas Ruelas APRN Interpreting Physician: Rylie Cortez DO Sleep Study Type: CPAP Titration Height: 1.7 m Weight: 99.79 kg Body Mass Index: 34.4 Neck Circumference (inches): 16 [place]: 4 Reason for Sleep Study She had a [employer] home sleep test on 10/10/2023 that showed an overall AHI of 71.6 with a RUTHANN of 20.4. Man-Dietrich respirations was present 22.6% of the study. Sleep History Marlen Cifuentes is a 63-year-old woman with hypertension, acid reflux and allergies. She has been treated with allergy shots and medications including Zyrtec, Flonase, Astelin, montelukast and Breztri 160/4.8. She has a cough productive of significant sputum due to allergens. She rarely awakens from sleep feeling short of breath, rarely awakens at night with heartburn, belching or coughing. She occasionally snores loudly enough that others complain about it. She occasionally has difficulty sleeping when she has a cold. She does not wake up gasping for breath at night. She rarely has breathing problems at night observed by others. She occasionally sweats excessively at night. She occasionally notices her heart pounding or beating irregularly at night. She occasionally falls asleep during the day, occasionally falls asleep involuntarily, never falls asleep while driving. She does not have loss of muscle tone with strong emotion. She does not have daytime difficulties due to excessive sleepiness. She does not feel paralyzed on waking or falling asleep. She does not have vivid dreamlike scenes upon awakening or falling asleep. She does not feel afraid to go to sleep. She does not have nightmares. She frequently remembers her dreams. Interestingly, if she sleeping soundly and needs to urinate, she dreams about trying to find a working bathroom. In her dreams, the toilets are all in operable, broken, clogged, blocked doors. She finally wakes up in goes to the bathroom. Sometimes she awakens hourly to urinate and this is been going on about 5 years. She 1st frequently has racing thoughts. She does not feel sad or depressed. She occasionally has anxiety. She occasionally has muscular tension. She occasionally notices parts of her body jerking. She does not kick at night. She occasionally has aching feelings in her legs. She occasionally has leg pain at night. She she does not have morning jaw pain. She does not grind her teeth during sleep. She occasionally is bothered by pain during the day, occasionally awakened by pain at night, and occasionally wakes up feeling stiff in the morning. She occasionally wakes up with sore achy muscles and pain in the neck and spine. Her normal bedtime is between 9:30 p.m. and 10:00 p.m., falling asleep within 15-30 minutes, typically waking between 2 and 6 times during the night to urinate or get a drink of water. She is able to return to sleep within 15-20 minutes. Her normal wake time is 6:30 a.m. to 7:00 a.m.. She keeps the same schedule on weekends. She estimates getting 8-1/2 hours of sleep at night. She takes naps in the afternoon or evening. A short nap may be refreshing. She is usually drowsy for 1 hour after waking. Tobacco: never smoker Caffeine: 1 cup of coffee in the morning Alcohol: none Recreational substances: none PMFSH Past Medical History Medical History Allergic rhinitis Asthma Hyperlipidemia Hypertension Hypothyroid Migraine Obesity Surgical History Surgical History History of adenoidectomy (~1986) History of (~1984) History of eye surgery (~1977) History of kyphoplasty (~11/29/17) History of myringotomy (~1986) Marino - w/Tube Placement History of total left knee replacement (~07/30/18) History of total right hip replacement (~03/28/22) Presence of left artificial knee joint Family History Family History Father Family history of chronic obstructive pulmonary disease Family history of congestive heart failure Other Family history of atrial fibrillation Family history of malignant neoplasm Family history of osteoarthritis Hypertension Social History Social History (Reviewed 11/20/24 @ 08:04 by COSTA Meyer Smoking status: Never smoker Additional smoking assessment comments: DENIES ANY FORM OF TOBACCO USE Alcohol intake: never Substance use: never Other substance usage details: CBD GELS AT HS Lack of Transportation: No Lack of Food: Never True Current Housing: I Have Housing Concerned About Future Housing: No Difficulty Paying Gas/Electric Bills: No Difficulty Paying for Meds: No Currently Unemployed: No Education: Master's Degree or Higher Difficulty w/ Childcare or Family Care: No Living arrangements: with family Spiritual care concerns: No Medications Home Medications Medication Instructions Recorded Confirmed Type albuterol sulfate 90 mcg/actuation 1 puff inhalation PRN PRN SOB 01/12/21 08/22/23 History aerosol inhaler cetirizine 10 mg tablet (Zyrtec) 10 mg PO DAILY 01/12/21 08/22/23 History fluticasone furoate 27.5 1 spray intranasal DAILY 01/12/21 08/22/23 History mcg/actuation nasal spray,suspension (Flonase Sensimist) rizatriptan 10 mg disintegrating 10 mg PO PRN PRN Migraine Headache 01/12/21 08/22/23 History tablet azelastine 137 mcg (0.1 %) nasal 137 mcg intranasal Q12H PRN 03/06/22 08/22/23 History spray Allergies multivitamin 1 tablet PO DAILY 03/06/22 08/22/23 History triamcinolone acetonide 0.1 % 1 applic topical BID PRN 01/08/23 08/22/23 History topical cream epinephrine 0.3 mg/0.3 mL 0.3 ml IM 01/25/23 08/22/23 History injection, auto-injector levothyroxine 25 mcg tablet 25 mcg PO DAILY #90 tabs 03/26/23 08/22/23 Rx montelukast 10 mg tablet 10 mg PO DAILY #90 tabs 03/26/23 08/22/23 Rx budesonide 160 mcg-glycopyr 9 2 inh inhalation BID 03/28/23 08/22/23 History mcg-formot 4.8 mcg/actuation HFA inhaler (Breztri Aerosphere) valacyclovir 1 gram tablet 1,000 mg PO DAILY PRN Cold Sores 04/03/23 08/22/23 Rx #30 tabs verapamil 180 mg tablet,extended 180 mg PO HS #90 tabs 06/05/23 08/22/23 Rx release alendronate 70 mg tablet 70 mg PO WEEKLY #12 tabs 06/11/23 08/22/23 Rx chlorthalidone 50 mg tablet 50 mg PO QAM #90 tabs 06/11/23 08/22/23 Rx rosuvastatin 5 mg tablet 5 mg PO HS #90 tabs 06/18/23 08/22/23 Rx eszopiclone 2 mg tablet 2 mg PO ONCE #1 tablet 10/12/23 Rx Sleep Procedure A full night polysomnogram using the [employer] SleepNewlans multi-channel system recorded the standard physiologic parameters including EEG, EOG, submentalis EMG, anterior tibialis EMG, EKG, body position, nasal and oral airflow using nasal pressure sensor and thermistor.? Respiratory parameters of chest and abdominal movements were recorded with Respiratory Inductance Plethysmography belts. Oxygen saturation was recorded by pulse oximetry. Video monitoring was also performed. Sleep stages, periodic limb movements, and EEG arousals were scored in 30 second epochs according to the criteria of the AASM Scoring Manual. The Apnea-Hypopnea Index was calculated using CMS guidelines for definition of hypopnea with 4% O2 desaturations while scoring respiratory events. Sleep Architecture The total recording time was 457.5 minutes.? The total sleep time was 396.0 minutes. Sleep latency was 5.4 minutes. REM latency was 99.0 minutes. Sleep efficiency was 86.6%. The patient had 16 awakenings for an awakening index of 2.4. Wake after Sleep Onset time was 56.0 minutes. The patient spent 18.0 minutes, 4.5% of total sleep time in Stage N1. The patient spent 133.0 minutes, 33.6% in Stage N2. The patient spent 142.0 minutes, 35.9% in Stage N3. The patient spent 103.0 minutes, 26.0% in Stage REM. Respiratory Analysis The patient had 84 hypopneas, 1 obstructive apnea and 1 central apnea for an overall Apnea Hypopnea Index of 13.0 events per hour. The REM Apnea Hypopnea Index was 2.9. The NREM Apnea Hypopnea Index was 16.6. The patient had a Central Apnea Hypopnea Index of 0.2. There were 8 Respiratory Effort Related Arousals resulting in a RERA index of 1.2 events per hour. The Respiratory Disturbance Index is 14.2 events per hour. There was no evidence of Man-Dietrich Respirations. The patient was started on CPAP 5 cm H2O and titrated to CPAP 16 cm H2O due to hypopneas. The patient was able to fall asleep starting on CPAP 5 cm H2O. The patient was able to achieve REM sleep starting on CPAP 12 cm H2O. The patient was able to achieve a residual AHI less than 5 with both NREM and REM sleep in the supine position on the final 2 pressures. On CPAP 15 cm H2O, the patient spent 53.5 minutes in NREM and 61.5 minutes in REM with 8 hypopneas, resulting in an AHI of 4.2. On CPAP 16 cm H2O, the patient spent 58.5 minutes in NREM and 24.5 minutes in REM with 2 hypopneas, resulting in an AHI of 1.4. The patient had a sleep efficiency of 98.7% on 15 cm H2O and 76.1% on 16 cm H2O. Arousals There were 103 total arousals for an arousal index of 15.6. There were 33 spontaneous arousals for an index of 5.0. ?There were 34 arousals due to respiratory events for an index of 5.2. There were 1 arousals due to periodic limb movements for an index of 0.2.? There were 35 arousals due to isolated limb movements for an index of 5.3. Periodic Limb Movements The patient had 71 isolated limb movements with an index of 10.8. The patient had 22 periodic limb movements with index of 3.3. Patient had a total of 93 limb movements with a total limb movement index of 14.1. Oximetry Data The patient had an average oxygen saturation of 91.4% in sleep with a minimum oxygen saturation of 76.0% and a maximum oxygen saturation of 98.0%. The patient had 94 oxygen desaturations that were 4% or greater resulting in an Oxygen Desaturation Index of 14.2.? The patient spent 72.8 minutes, 16.1% of total sleep time with an oxygen saturation below 88%. Snoring Profile Moderate snoring was present in the beginning of the study. The snoring resolved once the patient was titrated to CPAP 12 cm H2O. Cardiac Profile The EKG showed normal sinus rhythm with frequent PVCs. The patient had an average pulse rate of 71.6 bpm with a minimum pulse rate of 58.0 bpm and a maximum pulse rate of 93.0 bpm. ? EEG Profile No signs of seizure activity seen. Assessment and Plan Assessment and Plan (1) Obstructive sleep apnea: Code(s): G47.33 - Obstructive sleep apnea (adult) (pediatric) Status: Acute Assessment and Plan: The patient was started on CPAP 5 cm H2O and titrated to CPAP 16 cm H2O due to hypopneas. The patient's sleep apnea resolved on the final two pressures. I recommend that the patient be prescribed CPAP 15 cm H2O, size medium Resmed AirTouch F20 full face mask, CPAP filters/tubing and heated humidity. This should be used with all episodes of sleep.? Compliance should be reviewed within 31-90 days of starting therapy for usage greater than 4 hours per night greater than 70% of the nights. The patient should be asked about symptoms such as?excessive daytime sleepiness, quality of sleep, decreased nocturia, increased?mental functioning such as memory, mood, and concentration. Data The data obtained during this sleep study is adequate for interpretation. Certification This sleep study has been reviewed by a board certified sleep medicine physician.
[2024-01-02 12:36] VITALS: BMI 34.4
== END 2023-12-06 07:11 | disposition home or self-care (01) ==
LOC: ANHCSM 09:53
PROVIDERS: PCP Nurse Practitioner Adult Health; Visit Provider Nurse Practitioner Family
DX: G47.33 Obstructive sleep apnea (adult) (pediatric) (principal)
CPT/HCPCS: 95811

== ENCOUNTER 2023-12-10 08:03 | Outpatient (CLI) | payer OTHER, SELFPAY ==
--- NOTE | ~2023-12-10 | DEXA_ITS ---
Bone Density Report Name: NIKUNJ RUVALCABA Age: 63 Sex: Female Ethnicity: White Date of : 1960 Indication: osteopenia; parental hip fracture; height loss; prior fracture; Referring Provider: SHENG KLEIN Study: Bone densitometry was performed. Exam Date: December 10, 2023 Accession number: [id number] Bone Density: Region BMD T-score Z-score Classification AP Spine(L1, L2, L4) 0.872 -1.5 0.2 Osteopenia Femoral Neck (Left) 0.632 -2.0 -0.5 Osteopenia Total Hip (Left) 0.752 -1.6 -0.4 Osteopenia World Health Organization criteria for BMD impression classify patients as: Normal (T-score at or above -1.0), Osteopenia (T-score between -1.0 and -2.5), or Osteoporosis (T-score at or below -2.5). 10-year Fracture Risk: FRAX not reported because: Prior hip or vertebral fracture Previous Exams: Region Exam Age BMD T-score BMD Change BMD Change Date g/cm2 vs Baseline vs Previous AP Spine (L1-L2,L4) 12/10/2023 63 0.872 -1.5 0.057 (7.0%)# 0.057 (7.0%)# 11/01/2021 61 0.815 -2.0 Total Hip(Left) 12/10/2023 63 0.752 -1.6 0.025 (3.4%)# 0.025 (3.4%)# 11/01/2021 61 0.727 -1.8 *Denotes significance at 95% confidence level, LSC for AP Spine = 0.022 g/cm2, LSC for Total Hip = 0.027 g/cm2 # Denotes dissimilar scan types or analysis methods Clinical Information Provided by Patient: Have had a previous hip or vertebral fracture Has had a low trauma fracture Parent has had a hip fracture Has used the following medications: Fosamax (i.e. alendronate), Vitamin D, Calcium Patient maximum height was 68.5 Menopause Age: 49 Drinks caffeinated beverages Onset of menses at age 13 Number of children 2 Impression: The patient has low bone mass, based on the Left Femoral Neck T-score. The patient has risk factors, including: parental hip fracture, previous fracture. No significant bone loss was observed. Discussion: INCREASED RISK OF FRACTURE DUE TO HISTORY OF FRACTURE. The patient's previous fracture puts the patient at high risk of a future fracture. In untreated patients, the risk of osteoporotic fracture increases approximately two-fold for each 1.0 SD decrease in T-score. Low bone density is not the only risk factor for fracture; also consider factors such as patient's age, frailty or poor health, risk of falling, risk of injury, previous osteoporotic fracture, family history of osteoporosis, cigarette smoking, low body weight, etc. Not everyone with a low trauma fracture has osteoporosis; osteomalacia and other metabolic bone disorders should also be considered. Patients who have osteoporosis should be evaluated for specific diseases and conditions (secondary causes) that may cause or contribute to bone loss and fracture risk. National Osteoporosis Foundation (NOF) recommends pharmacologic intervention for patients with a prior hip or vertebral fracture regardless of BMD T-score. The patient should follow a healthful lifestyle (good nutrition with adequate calcium and vitamin D, and appropriate weight-bearing exercise). Follow-Up: Consider a repeat BMD and Vertebral Fracture Assessment (VFA) exam in 2 years or sooner if medically necessary, to reassess this patient's status. Reported by: AXEL on 12/10/2023 8:33:00 AM. Reviewed, dictated and finalized at location [facility] STOV[facility]
== END 2023-12-10 08:04 | disposition home or self-care (01) ==
LOC: ANHIMG 08:05
PROVIDERS: PCP Nurse Practitioner Adult Health; Visit Provider Nurse Practitioner Adult Health
DX: M85.851 Other specified disorders of bone density and structure, right thigh (principal); M85.852 Other specified disorders of bone density and structure, left thigh; M85.88 Other specified disorders of bone density and structure, other site
CPT/HCPCS: 77080

== ENCOUNTER 2024-01-31 10:58 | Outpatient (CLI) | payer OTHER, SELFPAY ==
[2024-01-31 19:46] LABS: Basophils Absolute Auto 0.1 K/mm3 (0.0-0.1); Basophils Percent Auto 0.8 % (0.2-1.2); Eosinophils Absolute Auto 0.2 K/mm3 (0-0.3); Eosinophils Percent Auto 1.7 % (0-4.4); Hematocrit 46.4 % (37.0-47.0); Hemoglobin 14.7 g/dL (12.0-15.0); Immature Granulocyte Absolute 0.01 K/mm3 (0.00-0.031); Immature Granulocyte Percent A 0.1 % (0-0.5); Lymphocytes Absolute Auto 2.33 K/mm3 (0.9-3.2); Mean Corpuscular HGB Conc 31.7 g/dl (32-36); Mean Corpuscular Hemoglobin 31.3 pg (26-34); Mean Corpuscular Volume 98.9 fl (80-100); Mean Platelet Volume 10.7 fl (7.4-10.4); Monocytes Absolute Auto 0.8 K/mm3 (0.1-0.6); Monocytes Percent Auto 8.4 % (2.6-8.5); Platelet Count Result 301 k/mm3 (150-375); Red Blood Count 4.69 M/mm3 (4.2-5.4); Red Cell Distribution Width 12.1 % (11.5-14.5); White Blood Count 9.3 K/mm3 (4.5-10.0)
[2024-01-31 19:55] LABS: Add Urine Microscopic? YES; Appearance Urine Cloudy (Clear); Bacteria Urine 4+ /hpf; Bilirubin Urine Negative (Negative); Blood Urine Negative (Negative); Color Urine Yellow (Yellow); Glucose Urine UA Negative (Negative); Ketones Urine Negative (Negative); Leukocyte Esterase Ur Trace LEU/UL (Negative); Nitrate Urine Positive (Negative); Non Pathogenic Casts 0-2; Protein Urine Negative (Negative); RBC Urine 0-2 /hpf (0-2); Specific Grav Ur 1.019 (1.001-1.035); Squamous Epithelial Cell Urine None Seen /hpf (Few); Urobilinogen Urine 0.2 mg/dL (<2.0)
[2024-01-31 19:57] LABS: Alanine Aminotransferase 21 U/L (6-35); Albumin Level 4.5 g/dL (3.5-5.1); Alkaline Phosphatase 63 U/L (38-126); Anion Gap 4 mmol/L (4-12); Aspartate Amino Transferase 50 U/L (14-36); Bilirubin,Total 0.6 mg/dL (0.2-1.3); Blood Urea Nitrogen 14 mg/dL (7-17); Calcium 9.8 mg/dL (8.4-10.2); Carbon Dioxide 33 mmol/L (22-30); Chloride 101 mmol/L (98-107); Cholesterol 164 mg/dL (0-200); Estimated Glomerular Filt Rate > 60; Glucose 87 mg/dL (65-110); HDL Direct 62 mg/dL; Potassium 3.5 mmol/L (3.4-5.0); Sodium 138 mmol/L (137-145); Triglycerides 137 mg/dL (<150)
[2024-01-31 20:08] LABS: LDL Cholesterol Direct 60 mg/dL
[2024-01-31 20:37] LABS: Thyroid Stimulating Hormone Reflex 0.022 uIU/mL (0.465-4.68)
[2024-01-31 21:44] LABS: Free T4 Free Thyroxine Reflex 1.32 ng/dL (0.78-2.19)
[2024-01-31 23:07] LABS: Total Triiodothyronine (T3) 1.87 NG/ML (0.97-1.69)
== END 2024-01-31 10:59 | disposition home or self-care (01) ==
PROVIDERS: PCP Nurse Practitioner Adult Health; Visit Provider Nurse Practitioner Adult Health
DX: E78.5 Hyperlipidemia, unspecified (principal); R39.9 Unspecified symptoms and signs involving the genitourinary system; G47.33 Obstructive sleep apnea (adult) (pediatric)
CPT/HCPCS: 36415; 80053; 80061; 81001; 84439; 84443; 84480; 85025; 87077; 87086; 87186

== ENCOUNTER 2024-03-27 11:26 | Outpatient (CLI) | payer OTHER, SELFPAY ==
--- NOTE | ~2024-03-27 | XR_ITS ---
HISTORY: anyylosing hyperstosis COMPARISON: None TECHNIQUE: 3 views of the bilateral sacroiliac joints were performed FINDINGS: No acute or subacute fracture,. Joint spaces are preserved and alignment is maintained. Soft tissues are unremarkable without foreign body or significant calcification. Normal mineralization. IMPRESSION: No acute fracture or dislocation. Reviewed, dictated and finalized at location A. SANDER
--- NOTE | ~2024-03-27 | XR_ITS ---
Cervical Spine: AP, lateral, open-mouth views Clinical History: Pain Findings: There is straightening of the normal cervical lordosis. There is advanced degenerative disc narrowing throughout the cervical spine. There is moderate facet arthropathy throughout the cervical spine.. Pre-vertebral soft tissues are unremarkable. Impression: Advanced degenerative spondylosis, as above. Reviewed, dictated and finalized at location . OMA DENTAL ASSISTANT Impression: Advanced degenerative spondylosis, as above.
--- NOTE | ~2024-03-27 | XR_ITS ---
HISTORY: anyylosing hyperstosis COMPARISON: None. Reference is made to CT examination of the lumbar spine performed TECHNIQUE: 4 view lumbar spine. FINDINGS: Lumbar vertebral bodies are normally aligned. There are 5 non-rib bearing lumbar vertebral bodies. Disc spaces and vertebral body heights are well maintained. There are no lytic or sclerotic lesions. Paraspinal soft tissues are unremarkable. Evidence of prior vertebral augmentation is present. IMPRESSION: No acute or subacute fractures are identified. Reviewed, dictated and finalized at location A. OR JAVA ARCHITECT
--- NOTE | ~2024-03-27 | XR_ITS ---
Thoracic spine: Clinical Indication: Ankylosing spondylitis AP and lateral views were performed. No fracture is seen. There is normal alignment of the vertebrae. There is moderate degenerative disc changes throughout the thoracic spine. 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 Paravertebral s oft tissues appear normal. Impression: Moderate degenerative disc disease throughout the thoracic spine. Reviewed, dictated and finalized at location . MANAGER PUBLIC Impression: Moderate degenerative disc disease throughout the thoracic spine.
--- OUTSIDE RECORDS SUMMARY | 2024-03-27 11:39 | XMS_ITS | Referral Summary ---
Author Organization [facility] Address [address] [place] [id number] Care Team Providers Care Main Galley Scullion Name Role Phone Leonora Terrazas NP Primary Care Provider [phone] Allergies Active Allergy Reactions Criticality Noted Date Comments Acetone Anaphylaxis High 06/24/2020 Omeprazole Diarrhea Low 06/24/2020 Slo-Phyllin Anaphylaxis High 11/25/2020 Sulfa (Sulfonamide Antibiotics) Hives Medium 06/12 Sulfamethoxazole-Trimethoprim Rash Medium 2020 Theophylline-Guaifenesin Other (See comments) Low 0 09/06/2016 shakes Medications No known medications Active Problems Problem Noted Date Diagnosed Date Abnormal mammogram 06/24/2020 Social History Tobacco Use Types Packs/Day Years Used Date Smoking Tobacco: Never Personal Safety Answer Date Recorded Getting School Help Needed Not on file 04/07 Comments Unknown Sex and Gender Information Value Date Recorded Sex Assigned at Not on file Legal Sex Female 8:43 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 Gender Identity Not on file Sexual Orientation Not on file Last Filed Vital Signs Vital Sign Reading Time Taken Comments Blood Pressure 131/76 02/25/2016 7:18 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 Pulse 89 02/25/2016 7:18 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 Temperature - - Respiratory Rate - - Oxygen Saturation 93% 02/25/2016 7:18 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 Inhaled Oxygen Concentration - - Weight 104.3 kg (229 lb 15 oz) 11/25/2020 12:07 PM CDT Height 172.7 cm (5' 8 ) 11/25/2020 12:07 PM CDT Body Mass Index 34.96 11/25/2020 12:07 PM CDT Plan of Treatment Not on file Insurance CIGNA IBEW CIGNA IBEW CIGNA IBEW CIGNA IBEW Care Teams Main Galley Scullion Relationship Specialty Start Date End Date Leonora Terrazas NP PCP - General 10/03/16
--- OUTSIDE RECORDS SUMMARY | 2024-03-27 11:39 | XMS_ITS ---
Author Organization [facility] Address [address] [place] [address] Care Team Providers Care Contract Admin Name Role Phone Leonora Lundy Primary Care Provider Maryam Maldonado Unavailable [phone] Missael Ruiz Unavailable [phone] REASON FOR VISIT SCIT - Traditional Schedule Allergy immunotherapy Encounters Encounter Location Date Provider Diagnosis [facility] [address] [facility] [address] [place] [address] 03/27/2024 Missael Ruiz Allergic rhinitis du e to pollen J30.1 ; Allergic rhinitis due to animal (cat) (dog) hair and dander J30.81 ; Other allergic rhinitis J30.89 and Other chronic allergic conjunctivitis H10.45 Assessments Encounter Date Diagnosis (ICD Code) Assessment Notes Treatment Notes Treatment Clinical Notes Section Notes 03/27/2024 Allergic rhinitis due to pollen (ICD-10 - J30.1) 03/27/2024 Allergic rhinitis due to animal (cat) (dog) hair and dander (ICD-10 - J30.81) 03/27/2024 Other allergic rhinitis (ICD-10 - J30.89) 03/27/2024 Other chronic allergic conjunctivitis (ICD-10 - H10.45) Plan Of Treatment Next Appt Details Follow Up: 2 Weeks, Reason: Provider Name:Missael Ruiz , 04/24/2024 10:30:00 AM, [address], [address], [place], [address], Provider Name:Maryam Trujillo , 05/22/2024 10:00:00 AM, [address] [facility], [address], [place], [address], Progress Notes * Marlen PEMBERTONDOB:1960 ( 63 yo F)Acc No.[id number]:03/27/2024 SCIT-Aeroallergen Patient: Marlen LUI Provider: Lorrie Ruiz MD :1960 A ge:63 Y S ex:Female Date:03/27/2024 Address:[address] [place], [place] [id number] Pcp:SON Palafox- Subjective: * Chief Complaints: * 1 . SCIT - Traditional Schedule Allergy immunotherapy. * HPI: * Introduction: The patient is here for scheduled immunotherapy. Please see the attached specialty form regarding the specifics of the administration of these vaccines. As per our protocol, they must undergo a screening health questionnaire (medication changes, reaction(s) to last immunotherapy dose(s), current health status, ACT (if appropriate), self-injectable epinephrine on patient(?) and peak flow (if appropriate)). Also, the patient must wait in our office for 30 minutes after receiving the vaccine(s). Furthermore, every patient must have an epinephrine pen (self-injectable) with them at the time of administration--and carry if for the following 1.5 hours after they leave our office. The patient must also have taken their antihistamine the day of the injection, preferably 2 hours prior. The consent form for SCIT (subcutaneous immunotherapy) is on file. * Medical History: Objective: * Vitals: Assessment: * Assessment: 1. A llergic rhinitis due to pollen - J30.1 (Primary) 2 . A llergic rhinitis due to animal (cat) (dog) hair and dander - J30.81 3 . O ther allergic rhinitis - J30.89 4 . O ther chronic allergic conjunctivitis - H10.45 Plan: * Treatment: * Follow Up: 2 Weeks * Billing Information: * Visit Code: * Procedure Codes: 03702 IMMUNOTHERAPY INJECTIONS. * Electronic signature of Patkevin Ruiz MD, FAAAAI on 03/27/2024 at 11:39 AM ATHLETIC EQUIPMENT CUSTODIAN Sign off status: Pending * Provider: Lorrie Ruiz MD Date: 0 03/27/2024 Generated for Sukhjinder zayas/Wale/Yumiko on: 03/27/2024 11:39 AM ATHLETIC EQUIPMENT CUSTODIAN History and Physical Notes * HPI (History of Present Illness) Category Sub-Category Detail Notes Category Not es *Introduction The patient is here for scheduled immunotherapy. Please see the attached specialty form regarding the specifics of the administration of these vaccines. As per our protocol, they must undergo a screening health questionnaire (medication changes, reaction(s) to last immunotherapy dose(s), current health status, ACT (if appropriate), self-injectable epinephrine on patient(?) and peak flow (if appropriate)). Also, the patient must wait in our office for 30 minutes after receiving the vaccine(s). Furthermore, every patient must have an epinephrine pen (self-injectable) with them at the time of administration--and carry if for the following 1.5 hours after they leave our office. The patient must also have taken their antihistamine the day of the injection, preferably 2 hours prior. The consent form for SCIT (subcutaneous immunotherapy) is on file.
--- OUTSIDE RECORDS SUMMARY | 2024-03-27 11:39 | XMS_ITS | Clinical Summary ---
Author Organization [facility] Address [address] [place] [id number] Care Team Providers Care Shoe Stainer Name Role Phone Leonora Terrazas NP Primary Care Provider [phone] Allergies Active Allergy Reactions Criticality Noted Date Comments Acetone Anaphylaxis High 06/24/2020 Omeprazole Diarrhea Low 06/24/2020 Slo-Phyllin Anaphylaxis High 11/25/2020 Sulfa (Sulfonamide Antibiotics) Hives Medium 06/12 Sulfamethoxazole-Trimethoprim Rash Medium 2020 Theophylline-Guaifenesin Other (See comments) Low 0 09/06/2016 shakes Medications No known medications Active Problems Problem Noted Date Diagnosed Date Abnormal mammogram 06/24/2020 Family History Medical History Relation Name Comments Prostate cancer Maternal Grandfather Breast cancer Maternal Grandmother Endometrial cancer Sister Relation Name Status Comments Maternal Grandfather Maternal Grandmother Sister Social History Tobacco Use Types Packs/Day Years Used Date Smoking Tobacco: Never Personal Safety Answer Date Recorded Getting School Help Needed Not on file 04/07 Comments Unknown Sex and Gender Information Value Date Recorded Sex Assigned at Not on file Legal Sex Female 8:43 AM BORDER GUARD Gender Identity Not on file Sexual Orientation Not on file Obstetrics History Last Filed Vital Signs Vital Sign Reading Time Taken Comments Blood Pressure 131/76 02/25/2016 7:18 AM BORDER GUARD Pulse 89 02/25/2016 7:18 AM BORDER GUARD Temperature - - Respiratory Rate - - Oxygen Saturation 93% 02/25/2016 7:18 AM BORDER GUARD Inhaled Oxygen Concentration - - Weight 104.3 kg (229 lb 15 oz) 11/25/2020 12:07 PM CDT Height 172.7 cm (5' 8 ) 11/25/2020 12:07 PM CDT Body Mass Index 34.96 11/25/2020 12:07 PM CDT Plan of Treatment Not on file Insurance CIGNA IBEW CIGNA IBEW CIGNA IBEW CIGYANG IBEW Care Teams Shoe Stainer Relationship Specialty Start Date End Date Leonora Terrazas NP PCP - General 10/03/16
--- OUTSIDE RECORDS SUMMARY | 2024-03-27 11:39 | XMS_ITS | Data Portability ---
Author Organization [place] [facility] [email or web address], Main Office Address [address] [place] [address] Assessment Encounter Date Assessment Date Assessment LastModified by Organization Details LastModified Time 07/18/2022 07/18/2022 Cologuard negative 02/2022. Mammogram due. Not available 07/18/2022 11:00:06 Plan of Treatment Reminders Order Date Submit Date Provider Last Modified By Organization Details Last Modified Time Details Appointments None recorded. Lab None recorded. Referral None recorded. Procedures None recorded. Surgeries None recorded. Imaging None recorded. Medication Orders Fosamax 70 mg tablet 023 023 [id number], [address] [facility], [place], [place], [id number], 11:01:13 Patient TargetsNo targets recorded. Patient Instructions Encounter Date Encounter Id Patient Instructions Last Modified By Organization Details Last Modified Time 07/18/2022 [id number] FU in 6 mo thyroid, lipid, htn, osteoporosis, migraine, vit d def, asthma, obese Not available 07/18/2022 11:08:47 Reason for Referral None Reported. Results Created Date Observation Date Name Description Value Unit Range Abnormal Flag Note LastModifiedBy Organization Detail LastModifiedTime 07/10/19 21 07/10/2020 vitam in D, 25-hy droxy , total , serum vitamin D,25-oh,tota l,ia 29 NG/mL 30-100 low Vitam in D Statu s 25-OH Vitam in D: Defic iency : <20 ng/mL Insuf ficie ncy: 20 - 29 ng/mL Optim al: > or = 30 ng/mL For 25-OH Vitam in D testi ng on patie nts on D2-jennings pplem entat ion and patie nts for whom quant itati on of D2 and D3 fract ions is requi red, the Quest Assur eD(TM ) 25-OH VIT D, (D2,D 3), LC/MS /MS is recom giuseppe d: order code [id number] (rayray ents >2yrs ). See Note 1 Note 1 For addit ional infor fredy em refer to http: //[facility] ashok Montes stDia gnost ics.c om/fa q/FAQ 199 (This link is being provi ded for infor lucia john/ jadiel molina purpo ses only. ) Not Available [address], [address], 07/10/2020 07:17:19 07/10/19 21 07/10/2020 TSH, serum or plasm a TSH 1.44 mIU/L 0.40-4 .50 normal Not Available [address], [address], 07/10/2020 07:17:19 07/10/19 21 07/10/2020 hepat ic funct ion panel , serum protein, total 7.1 g/dL 6.1-8. 1 normal Not Available [address], [address], 07/10/2020 07:17:18 07/10/19 21 07/10/2020 hepat ic funct ion panel , serum albumin 4.3 g/dL 3.6-5. 1 normal Not Available [address], [address], 07/10/2020 07:17:18 07/10/19 21 07/10/2020 hepat ic funct ion panel , serum globulin 2.8 g/dL_ (calc ) 1.9-3. 7 normal Not Available [address], [address], 07/10/2020 07:17:18 07/10/19 21 07/10/2020 hepat ic funct ion panel , serum albumin/glob ulin ratio 1.5 (calc ) 1.0-2. 5 normal Not Available [address], [address], 07/10/2020 07:17:18 07/10/19 21 07/10/2020 hepat ic funct ion panel , serum bilirubin, total 0.5 mg/dL 0.2-1. 2 normal Not Available [address], [address], 07/10/2020 07:17:18 07/10/19 21 07/10/2020 hepat ic funct ion panel , serum bilirubin, direct 0.1 mg/dL < or = 0.2 normal Not Available [address], [address], 07/10/2020 07:17:18 07/10/19 21 07/10/2020 hepat ic funct ion panel , serum bilirubin, indirect 0.4 mg/dL _(arabella c) 0.2-1. 2 normal Not Available [address], [address], 07/10/2020 07:17:18 07/10/1907/10/2020 hepat ic funct ion panel , serum alkaline phosphatase 85 U/L 37-153 normal Not Available [address] [address] [place], [address], 07/10/2020 07:17:18 07/10/1907/10/2020 hepat ic funct ion panel , serum AST 31 U/L 10-35 normal Not Available [address] [address] [place], [address], 07/10/2020 07:17:18 07/10/1907/10/2020 hepat ic funct ion panel , serum ALT 32 U/L 6-29 high Not Available [address] [address] [place], [address], 07/10/2020 07:17:18 07/10/1907/10/2020 BMP, serum or plasm a glucose 94 mg/dL 65-139 normal Non-f astin g refer ence inter kang Not Available [address], [address], 07/10/2020 07:17:18 07/10/19 21 07/10/2020 BMP, serum or plasm a urea nitrogen (BUN) 14 mg/dL 7-25 normal Not Available [address], [address], 07/10/2020 07:17:18 07/10/1907/10/2020 BMP, serum or plasm a creatinine 0.68 mg/dL 0.50-1 .05 normal For patie nts >49 years of age, the refer ence limit for Creat inine is appro ximat xavi 13% highe r for peopl e ident ified as Afric an-Am ehsan n. Not Available [address] [address] [place], [address], 07/10/2020 07:17:18 07/10/1907/10/2020 BMP, serum or plasm a eGFR non-afr. prydeinig 96 mL/mi n/1.7 3m2 > or = 60 normal Not Available [facility] [address] [address] [place], [address], 07/10/2020 07:17:18 07/10/1907/10/2020 BMP, serum or plasm a eGFR 111 mL/mi n/1.7 3m2 > or = 60 normal Not Available [facility] [address] [address] [place], [address], 07/10/2020 07:17:18 07/10/19 21 07/10/2020 BMP, serum or plasm a BUN/creatini ne ratio not applic able (calc ) 6-22 Not Available [address], [address], 07/10/2020 07:17:18 07/10/19 21 07/10/2020 BMP, serum or plasm a sodium 140 mmol/ L 135-14 6 normal Not Available [address], [address], 07/10/2020 07:17:18 07/10/19 21 07/10/2020 BMP, serum or plasm a potassium 3.6 mmol/ L 3.5-5. 3 normal Not Available [address], [address], 07/10/2020 07:17:18 07/10/19 21 07/10/2020 BMP, serum or plasm a chloride 98 mmol/ L 98-110 normal Not Available [address], [address], 07/10/2020 07:17:18 07/10/19 21 07/10/2020 BMP, serum or plasm a carbon dioxide 33 mmol/ L 20-32 high Not Available [address], [address], 07/10/2020 07:17:18 07/10/19 21 07/10/2020 BMP, serum or plasm a calcium 9.9 mg/dL 8.6-10 .4 normal Not Available [address], [address], 07/10/2020 07:17:18 07/10/19 21 07/10/2020 lipid panel , serum cholesterol, total 209 mg/dL <200 high Not Available [address], [address], 07/10/2020 07:17:18 07/10/19 21 07/10/2020 lipid panel , serum HDL cholesterol 53 mg/dL > or = 50 normal Not Available [address], [address], 07/10/2020 07:17:18 07/10/1907/10/2020 lipid panel , serum triglyceride s 175 mg/dL <150 high Not Available [facility] [address], [address], 07/10/2020 07:17:18 07/10/1907/10/2020 lipid panel , serum LDL-choleste rol 127 mg/dL _(arabella c) high Refer ence range : <100 Cuca able range <100 mg/dL for prima ry preve ntion ; <70 mg/dL for patie nts with CHD or diabe tic patie nts with > or = 2 CHD risk facto rs. LDL-C is now calcu lated using the Jennifer doe-Hop kins sidrau finn n, which is a valid ated novel metho d katerini janet heather r accur acy than the Fried ignacia equat ion in the estim ation of LDL-C . Jennifer doe SS et al. MARNIE. 2013; 310(1 9): 2061- 2068 (http ://ed ucati on.Qu [employer]. com/f aq/FA Q164) Not Available [facility] [address], [address], 07/10/2020 07:17:18 07/10/1907/10/2020 lipid panel , serum chol/HDLC ratio 3.9 (calc ) <5.0 normal Not Available [facility] [address], [address], 07/10/2020 07:17:18 07/10/1907/10/2020 lipid panel , serum non HDL cholesterol 156 mg/dL _(arabella c) <130 high For patie nts with diabe yenny plus 1 major ASCVD risk facto r, treat ing to a non-H DL-C goal of <100 mg/dL (LDL- C of <70 mg/dL ) is consi dered a carlotta malone optio n. Not Available [facility] [address] [place], [address], 07/10/2020 07:17:18 01/28/20 21 01/28/2021 VITAM IN D,25- OH,TO GÓMEZ,I A vitamin D,25-oh,tota l,ia 43 NG/mL 30-100 normal Vitam in D Statu s 25-OH Vitam in D: Defic iency : <20 ng/mL Insuf ficie ncy: 20 - 29 ng/mL Optim al: > or = 30 ng/mL For 25-OH Vitam in D testi ng on patie nts on D2-jennings pplem entat ion and patie nts for whom quant itati on of D2 and D3 fract ions is requi red, the Quest Assur eD(TM ) 25-OH VIT D, (D2,D 3), LC/MS /MS is recom giuseppe d: order code [id number] (rayray ents >2yrs ). See Note 1 Note 1 For addit ional infor fredy em refer to http: //darek Chapman gnost ics.c om/fa q/FAQ 199 (This link is being provi ded for infor lucia john/ jadiel molina purpo ses only. ) Not Available [facility] [address] [address] [place], [address], 01/28/2021 12:47:55 01/28/20 21 01/28/2021 TSH TSH 2.24 mIU/L 0.40-4 .50 normal Not Available [facility] [address] [address] [place], [address], 01/28/2021 12:47:54 01/28/20 21 01/28/2021 LIPID PANEL , STAND ANTHONY cholesterol, total 222 mg/dL <200 high Not Available [facility] [address] [address] [place], [address], 01/28/2021 12:47:53 01/28/20 21 01/28/2021 LIPID PANEL , STAND ANTHONY HDL cholesterol 60 mg/dL > or = 50 normal Not Available [facility] [address] [place] [address], [address], 01/28/2021 12:47:53 01/28/20 21 01/28/2021 LIPID PANEL , STAND ANTHONY triglyceride s 170 mg/dL <150 high Not Available [address], [address], 01/28/2021 12:47:53 01/28/20 21 01/28/2021 LIPID PANEL , STAND ANTHONY LDL-choleste rol 131 mg/dL _(arabella c) high Refer ence range : <100 Cuca able range <100 mg/dL for prima ry preve ntion ; <70 mg/dL for patie nts with CHD or diabe tic patie nts with > or = 2 CHD risk facto rs. LDL-C is now calcu lated using the Jennifer n-Hop kins calcu finn n, which is a valid ated novel denisse grimm than the Fried ignacia equat ion in the estim ation of LDL-C . Jennifer doe SS et al. MARNIE. 2013; 310(1 9): 2061- 2068 (http ://ed ucati on.Ger lee [employer]. com/f aq/FA Q164) Not Available [address], [address], 01/28/2021 12:47:53 01/28/20 21 01/28/2021 LIPID PANEL , STAND ANTHONY chol/HDLC ratio 3.7 (calc ) <5.0 normal Not Available [facility] [address] [place] [address], [address], 01/28/2021 12:47:53 01/28/20 21 01/28/2021 LIPID PANEL , STAND ANTHONY non HDL cholesterol 162 mg/dL _(arabella c) <130 high For patie nts with diabe yenny plus 1 major ASCVD risk facto r, treat ing to a non-H DL-C goal of <100 mg/dL (LDL- C of <70 mg/dL ) is madelin laguerre peuti c optio n. Not Available [facility] [address] [address], [place], [address], 01/28/2021 12:47:53 08/27/19 22 08/27/2021 VITAM IN D, 25-HY DROXY vitamin D, 25-hydroxy 43.0 NG/mL 30.0-1 00.0 Vitam in D defic iency has been defin ed by the Insti tute of Medic ine and an Endoc rine Socie ty pract ice guide line as a level of serum 25-OH vitam in D less than 20 ng/mL (1,2) . The Endoc rine Socie ty went on to furth er defin e vitam in D insuf ficie ncy as a level betwe en 21 and 29 ng/mL (2). 1. IOM (Inst itute of Medic ine). 2009. Dieta ry refer ence intak es for calci um and D. Alton li [place]: [facility] . 2. Angel Luis damon MF, Bib hamm [place], Rufino off-F usha i MONROE, et al. Evalu ation , treat ment, and preve ntion of vitam in D defic iency : an Endoc rine Socie ty clini arabella pract ice guide line. JCEM. 2010; 96(7) :1911 -30. Not Available [facility] ([facility]) [address] [facility], [place], [address], 08/31/2021 03:07:29 08/27/19 22 08/30/2021 THYRO ID STIMU LATIN G HORMO NE TSH-icma 2.3 uu/mL Refer ence Range : Non-P regna nt Adult 0.450 -4.50 0 Pregn justice First Trime ster 0.100 -4.00 0 Secon d Trime ster 0.200 -4.00 0 Third Trime ster 0.300 -4.50 0 Not Available [facility] [address] [facility], [place], [address], 08/31/2021 03:07:29 08/27/19 22 08/27/2021 LIPID PANEL cholesterol, total 216 mg/dL 100-19 9 above high normal Not Available [facility] ([facility]) [address] [place], [address], 08/31/2021 03:07:28 08/27/19 22 08/27/2021 LIPID PANEL triglyceride s 106 mg/dL 0-149 Not Available [facility] ([facility]) [address] [place], [address], 08/31/2021 03:07:28 08/27/19 22 08/27/2021 LIPID PANEL HDL cholesterol 59 mg/dL >39 Not Available [facility] ([facility]) [address] [place], [address], 08/31/2021 03:07:28 08/27/19 22 08/27/2021 LIPID PANEL VLDL cholesterol arabella 19 mg/dL 5-40 Not Available [facility] ([facility]) [address] [place], [address], 08/31/2021 03:07:28 08/27/19 22 08/27/2021 LIPID PANEL LDL chol calc ([facility]) 138 mg/dL 0-99 above high normal Not Available [facility] ([facility]) [address] [place], [address], 08/31/2021 03:07:28 08/27/19 22 08/27/2021 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 METAB OLIC PANEL (14) glucose 93 mg/dL 65-99 Not Available [facility] ([facility]) [address] [place], [address], 08/31/2021 03:07:28 08/27/19 22 08/27/2021 COMP. METAB OLIC PANEL (14) BUN 15 mg/dL 8-27 Not Available [facility] ([facility]) [address] [place], [address], 08/31/2021 03:07:28 08/27/19 22 08/27/2021 COMP. METAB OLIC PANEL (14) creatinine 0.66 mg/dL 0.57-1 .00 Not Available [facility] ([facility]) [address] [place], [address], 08/31/2021 03:07:28 08/27/19 22 08/27/2021 COMP. METAB OLIC PANEL (14) eGFR 100 mL/mi n/1.7 3 >59 Not Available [facility] ([facility]) [address] [place], [address], 08/31/2021 03:07:28 08/27/19 22 08/27/2021 COMP. METAB OLIC PANEL (14) BUN/creatini ne ratio 23 12-28 Not Available [facility] ([facility]) [address] [place], [address], 08/31/2021 03:07:28 08/27/19 22 08/27/2021 COMP. METAB OLIC PANEL (14) sodium 142 mmol/ L 134-14 4 Not Available [facility] ([facility]) [address] [place], [address], 08/31/2021 03:07:28 08/27/19 22 08/27/2021 COMP. METAB OLIC PANEL (14) potassium 4.0 mmol/ L 3.5-5. 2 Not Available [facility] ([facility]) [address] [place], [address], 08/31/2021 03:07:28 08/27/19 22 08/27/2021 COMP. METAB OLIC PANEL (14) chloride 99 mmol/ L 96-106 Not Available [facility] ([facility]) [address] [place], [address], 08/31/2021 03:07:28 08/27/19 22 08/27/2021 COMP. METAB OLIC PANEL (14) carbon dioxide, total 28 mmol/ L 20-29 Not Available [facility] ([facility]) [address] [place], [address], 08/31/2021 03:07:28 08/27/19 22 08/27/2021 COMP. METAB OLIC PANEL (14) calcium 9.4 mg/dL 8.7-10 .3 Not Available [facility] ([facility]) [address] [place], [address], 08/31/2021 03:07:28 08/27/19 22 08/27/2021 COMP. METAB OLIC PANEL (14) protein, total 6.6 g/dL 6.0-8. 5 Not Available [facility] ([facility]) [address] [place], [address], 08/31/2021 03:07:28 08/27/19 22 08/27/2021 COMP. METAB OLIC PANEL (14) albumin 4.1 g/dL 3.8-4. 8 Not Available [facility] ([facility]) [address] [place], [address], 08/31/2021 03:07:28 08/27/19 22 08/27/2021 COMP. METAB OLIC PANEL (14) globulin, total 2.5 g/dL 1.5-4. 5 Not Available [facility] ([facility]) [address] [place], [address], 08/31/2021 03:07:28 08/27/19 22 08/27/2021 COMP. METAB OLIC PANEL (14) A/G ratio 1.6 1.2-2. 2 Not Available [facility] ([facility]) [address] [place], [address], 08/31/2021 03:07:28 08/27/19 22 08/27/2021 COMP. METAB OLIC PANEL (14) bilirubin, total 0.3 mg/dL 0.0-1. 2 Not Available [facility] ([facility]) [address] [place], [address], 08/31/2021 03:07:28 08/27/19 22 08/27/2021 COMP. METAB OLIC PANEL (14) alkaline phosphatase 78 IU/L 44-121 Not Available [facility] ([facility]) [address] [place], [address], 08/31/2021 03:07:28 08/27/19 22 08/27/2021 COMP. METAB OLIC PANEL (14) AST (SGOT) 21 IU/L 0-40 Not Available [facility] ([facility]) [address] [place], [address], 08/31/2021 03:07:28 08/27/19 22 08/27/2021 COMP. METAB OLIC PANEL (14) ALT (SGPT) 17 IU/L 0-32 Not Available [facility] ([facility]) [address] [place], [address], 08/31/2021 03:07:28 07/07/19 23 07/07/2022 LIPID PANEL , STAND ANTHONY cholesterol, total 132 mg/dL <200 normal Not Available [facility] [address] [place], [address], 07/07/2022 08:34:15 07/07/19 23 07/07/2022 LIPID PANEL , STAND ANTHONY HDL cholesterol 68 mg/dL > or = 50 normal Not Available [facility] [address] [place], [address], 07/07/2022 08:34:15 07/07/1907/07/2022 LIPID PANEL , STAND ANTHONY triglyceride s 77 mg/dL <150 normal Not Available [facility] [address] [address] [place], [address], 07/07/2022 08:34:15 07/07/1907/07/2022 LIPID PANEL , STAND ANTHONY LDL-choleste rol 48 mg/dL _(arabella c) normal Refer ence range : <100 Cuca able range <100 mg/dL for prima ry preve ntion ; <70 mg/dL for patie nts with CHD or diabe tic patie nts with > or = 2 CHD risk facto rs. LDL-C is now calcu lated using the Jennifer doe-Hop kins vesna briseno n, which is a valid ated novel leydao d joe gonzales heather r accur acy than the Fried ignacia equat ion in the estim ation of LDL-C . Jennifer doe SS et al. MARNIE. 2013; 310(1 9): 2061- 2068 (http ://ed ucati on.Ger [employer]. com/f aq/FA Q164) Not Available [facility] [address] [place], [address], 07/07/2022 08:34:15 07/07/1907/07/2022 LIPID PANEL , STAND ANTHONY chol/HDLC ratio 1.9 (calc ) <5.0 normal Not Available [facility] [address] [place], [address], 07/07/2022 08:34:15 07/07/1907/07/2022 LIPID PANEL , STAND ANTHONY non HDL cholesterol 64 mg/dL _(arabella c) <130 normal For patie nts with diabe yenny plus 1 major ASCVD risk facto r, treat ing to a non-H DL-C goal of <100 mg/dL (LDL- C of <70 mg/dL ) is consi dered a thera peuti c optio n. Not Available [facility] [address] [place], [address], 07/07/2022 08:34:15 07/07/19 23 07/07/2022 TSH W/REF AMY TO FT4 TSH w/reflex to FT4 1.55 mIU/L 0.40-4 .50 normal Not Available [facility] [address] , [place], [address], 07/07/2022 08:34:17 12/03/19 21 12/02/2020 XR, shoul tremaine No observ ation record ed. [id number] [address], [place], [address], 04/12/2022 05:18:19 06/17/19 22 06/16/2021 MAMMO , scree masoud, digit al, bilat eral No observ ation record ed. [id number] [address], [place], [address], 04/12/2022 05:18:19 11/09/19 22 11/01/2021 DEXA No observ ation record ed. [id number] Not Available 04/12/2022 05:18:19 03/28/19 23 03/28/2022 XR, arthr ogram , hip No observ ation record ed. [id number] [address], [place], [address], 04/12/2022 05:18:19 04/26/19 23 04/19/2022 XR, hip + pelvi s, unila teral No observ ation record ed. [email or web address] [address], [place], [address], 04/26/2022 09:38:51 05/24/19 23 05/17/2022 XR, hip + pelvi s, bilat eral No observ ation record ed. [email or web address] [facility] [address], [place], [address], 05/23/2022 17:54:58 09/23/1909/22/2022 XR, hip, unila teral No observ ation record ed. [email or web address] [facility] [address], [place], [address], 09/22/2022 11:36:04 11/29/1911/28/2022 MAMMO , scree masoud, bilat eral No observ ation record ed. [facility] [address] [facility] [address], [place], [address], 11/30/2022 08:49:32 Result Notes None recorded. Problems Name Problem SNOMED Code Status Onset Date Resolution Date Notes Provider Name and Address Organization Details Recorded Time Edema of lower extremit y 078271785 Completed Not Available [facility] 3 05:11:07 Tricuspi d valve regurgit ation 057272300 Completed Not Available [facility] 3 05:11:07 History of total knee arthropl asty 99829263451 05 Active 2018 Not Available [facility] 3 17:52:04 Asthma 026278521 Active Not Available [facility] 3 17:52:04 Sciatica 05701655 Completed Not Available [facility] 3 05:11:08 Osteopen ia 884781056 Active 2017 Diagnose d Not Available [facility] 3 17:52:04 Systolic murmur 00589253 Active Not Available [facility] 3 17:52:04 Pain in left knee Active 2018 Not Available [facility] 3 17:52:04 Vitamin D deficien cy 60949416 Active Not Available [facility] 3 17:52:04 Migraine 58699450 Active Not Available [facility] 3 17:52:04 Osteoart hritis 839241313 Active Not Available [facility] 3 17:52:04 Hypothyr oidism 15439184 Active Not Available [facility] 3 17:52:04 Obesity 235758351 Active Not Available [facility] 3 17:52:04 Refracto ry migraine 599097692 Completed Not Available [facility] 3 05:11:08 Environm ental allergy 517468654 Active 2019 Not Available [facility] 3 17:52:04 Small vessel cerebrov ascular disease 519027804 Completed Not Available [facility] 3 05:11:08 Seasonal allergy 752384604 Active Not Available [facility] 3 17:52:04 Hip pain 75526257 Active Not Available [facility] 3 17:52:04 Hyperlip idemia 81873796 Active Not Available [facility] 3 17:52:04 Essentia l hyperten amilcar 86063131 Active Not Available [facility] 3 17:52:04 Aortic valve regurgit ation 23941375 Active Not Available [facility] 3 17:52:04 Allergic rhinitis 31019344 Active Not Available [facility] 3 17:52:04 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 Procedures Surgical History Date Name Laterality Status Provider Name and Address Organization Details Recorded Time 11/29/19 Most Recent Mammogram completed [address]I [address], [place], [address], [place] [facility] 11/29/2022 07:50:47 03/28/19 23 total replacement of right hip joint completed Not Available [facility] 04/12/2022 05:05:00 11/02/19 22 Most Recent Bone Density completed Not Available [facility] 04/12/2022 05:04:57 02/09/20 21 total shoulder replacement completed Not Available [facility] 04/12/2022 05:05:00 02/12/19 19 Knee Replacement completed Not Available [facility] 04/12/2022 05:05:00 06/23/19 17 Date of Last Colonoscopy completed Not Available [facility] 04/12/2022 05:04:57 06/23/19 17 Colonoscopy completed Not Available [facility] 04/13/19 23 05:05:00 Ear Tubes completed Not Available [facility] 0 04/12/2022 05:05:00 completed Not Available [facility] 0 04/12/2022 05:05:00 Eye Surgery completed Not Available [facility] 04/12/2022 05:05:00 Imaging Results Imaging Date Name Status LastModified by Organiz ation Details LastModified Time 03/28/2022 XR, arthrogram, hip completed [id number], [address], 04/12/2022 05:18:19 11/01/2021 DEXA completed [id number] Information not available 04/12/2022 05:18:19 06/16/2021 MAMMO, screening, digital, bilateral completed [id number] [place] [address], [address], 04/12/2022 05:18:19 12/02/2020 XR, shoulder completed [id number] [place] [address], [address], 04/12/2022 05:18:19 04/19/2022 XR, hip + pelvis, unilateral completed [email or web address] [address] [place] [address] [place], [address], 04/26/2022 09:38:51 05/17/2022 XR, hip + pelvis, bilateral completed [address], [address], 05/23/2022 17:54:58 09/22/2022 XR, hip, unilateral completed [address], [address], 09/22/2022 11:36:04 11/28/2022 MAMMO, screening, bilateral completed [address], [address], 11/30/2022 08:49:32 Procedure Notes None recorded. Medical Equipment None Reported. Allergies Allergen ID Allergen Name Allergen Category Reaction Reaction Severity Criticality Documentation Date Start Date Code Code System Note Provider Name and Address Organization Details Recorded Time 9484 Substance with sulfonami de structure and antibacte rial mechanism of action (substanc e) medicatio n rash Not available Not available 04/12/2022 15585 8003 SNOMED Not Available [facility] 3 05:17:55 9485 theophyll ine anhydrous medicatio n Not available Not available Not available 04/12/2022 07854 RxNorm shake s Not Available [facility] 3 05:17:55 9486 omeprazol e medicatio n Not available Not available Not available 04/12/2022 7646 RxNorm Not Available [facility] 3 05:17:55 9487 Bactrim medicatio n rash Not available Not available 04/12/2022 24047 9 RxNorm Not Available [facility] 3 05:17:55 9488 acetone medicatio n anaphylax is severe Not available 04/12/2022 178 RxNorm Not Available [facility] 3 05:17:55 Medications Name Sig Start Date Stop Date Status Note LastModified by Organization Details LastModified Time verapamil ER (SR) 120 mg tablet,ext ended release TAKE 1 TABLET BY MOUTH DAILY active Not Available Not Available No t Available cyclobenza lianet 10 mg tablet TAKE 1 TABLET BY MOUTH TWICE DAILY NEEDED 10/08 completed Not Available Not Available Not Available amoxicilli n 500 mg capsule Take 4 capsules every day by oral route for 1 day. active Not Available Not Available No t Available doxycyclin e hyclate 100 mg capsule Take 1 capsule twice a day by oral route for 10 days. active Not Available Not Available No t Available triamcinol one acetonide 0.5 % topical cream APPLY A THIN LAYER TO THE AFFECTED AREA(S) left hand BY TOPICAL ROUTE 2 TIMES PER DAY for 10-14 days active Not Available Not Available No t Available azithromyc in 250 mg tablet TAKE 2 TABLETS (500 MG) BY ORAL ROUTE ONCE DAILY FOR 1 DAY THEN 1 TABLET (250 MG) BY ORAL ROUTE ONCE DAILY FOR 4 DAYS 03/08 completed Not Available Not Available Not Available valacyclov ir 1 gram tablet TK 1 T PO TID FOR 10 DAYS 2022 active Not Available Not Available Not Avai lable hydrocodon e 5 mg-acetami nophen 325 mg tablet Take 1 tablet every 6 hours by oral route as needed. 11/06 completed Not Available Not Available Not Available metronidaz ole 0.75 % (37.5 mg/5 gram) vaginal gel 10/29 completed Not Available Not Available Not Available prednisone 20 mg tablet 09/01 completed Not Available Not Available Not Available alendronat e 70 mg tablet TAKE 1 TABLET BY MOUTH EVERY WEEK active Not Available Not Available No t Available rizatripta n 10 mg tablet 02/15 completed Not Available Not Available Not Available simvastati n 10 mg tablet Take 1 tablet by mouth daily 06/04 completed Not Available Not Available Not Available prednisone 5 mg tablet TAKE 1 TABLET BY MOUTH DAILY FOR 3 WEEKS 07/18 completed Not Available Not Available Not Available chlorthali done 25 mg tablet TK 1 T PO QD active Not Available Not Available No t Available chlorthali done 50 mg tablet TAKE 1 TABLET BY MOUTH EVERY DAY 2022 active Not Available Not Available Not Avai lable ciprofloxa therese 500 mg tablet active Not Available Not Available Not Available amitriptyl ine 50 mg tablet TK 2 TS PO QHS active Not Available Not Available No t Available triamcinol one acetonide 0.1 % topical cream APPLY TOPICALL Y TO THE AFFECTED AREA THREE TIMES DAILY 07/18 completed Not Available Not Available Not Available levothyrox ine 25 mcg tablet TAKE 1 TABLET BY MOUTH DAILY active Not Available Not Available No t Available Kenalog 40 mg/mL suspension for injection Take 1 mL every day by injectio n route. 10/08 completed Not Available Not Available Not Available verapamil ER 180 mg 24 hr capsule,ex tended release TAKE 1 CAPSULE BY MOUTH DAILY 2022 active Not Available Not Available Not Avai lable oxycodone- acetaminop hen 5 mg-325 mg tablet TAKE 1-2 TABLETS BY MOUTH EVERY 4 TO 6 HOURS NEEDED FOR PAIN MAX OF 6 PER DAY 07/18 completed Not Available Not Available Not Available Guaiatussi n AC 10 mg-100 mg/5 mL oral liquid 01/18 completed Not Available Not Available Not Available rizatripta n 10 mg disintegra ting tablet DISSOLVE 1 TABLET ON THE TONGUE AT ONSET OF HEADACHE AND REPEAT IN 2 HOURS IF NEEDED. MAX OF 2 TABLETS DAILY. active Not Available Not Available No t Available flunisolid e 25 mcg (0.025 %) nasal spray 2 sprays each nostril bid 07/20 completed Not Available Not Available Not Available cephalexin 500 mg capsule TAKE 1 CAPSULE BY MOUTH TWICE DAILY FOR 10 DAYS 07/18 completed Not Available Not Available Not Available pantoprazo le 40 mg tablet,del ayed release 06/05 completed Not Available Not Available Not Available erythromyc in 5 mg/gram (0.5 %) eye ointment active Not Available Not Available Not Available acyclovir 5 % topical ointment APPLY TO THE AFFECTED AREA(S) BY TOPICAL ROUTE EVERY 3 HOURS 6 TIMES PER DAY active Not Available Not Available No t Available nitrofuran toin macrocryst al 100 mg capsule TK 1 C PO Q 6 H WITH MEALS FOR 7 DAYS. active Not Available Not Available No t Available Qvar 40 mcg/actuat ion Metered Aerosol oral inhaler USE 2 PUFFS TWICE DAILY active Not Available Not Available No t Available omeprazole 20 mg capsule,de layed release Take 1 capsule every day by oral route for 30 days. active Not Available Not Available No t Available lisinopril 20 mg-hydroch lorothiazi de 25 mg tablet TAKE 1 TABLET DAILY 07/01 completed pt takes 1/2 a tablet Not Available Not Available Not Available montelukas t 10 mg tablet TAKE 1 TABLET BY MOUTH DAILY active Not Available Not Available No t Available hydrochlor othiazide 25 mg tablet Take 1 tablet every day by oral route for 30 days. active Not Available Not Available No t Available mupirocin 2 % topical ointment APPLY WITH A QTIP TOPICALL Y TO THE AFFECTED AREA TWICE DAILY FOR 5 DAYS 07/18 completed Not Available Not Available Not Available ergocalcif katy (vitamin D2) 1,250 mcg (50,000 unit) capsule TAKE 1 CAPSULE BY MOUTH EVERY WEEK 07/20 completed Not Available Not Available Not Available azelastine 137 mcg (0.1 %) nasal spray USE 2 SPRAYS IN EACH NOSTRIL TWICE DAILY active Not Available Not Available No t Available epinephrin e 0.3 mg/0.3 mL injection, auto-injec tor INJECT IN THE MUSCLE DIRECTED IF EXPOSURE TO ACETINE active Not Available Not Available No t Available levofloxac in 500 mg tablet 03/08 completed Not Available Not Available Not Available methylpred nisolone 4 mg tablets in a dose pack FPD active Not Available Not Available Not Available albuterol sulfate HFA 90 mcg/actuat ion aerosol inhaler INHALE 2 PUFFS BY MOUTH EVERY 4 TO 6 HOURS NEEDED active Not Available Not Available No t Available doxycyclin e hyclate 100 mg tablet Take 1 tablet twice a day by oral route for 10 days. active Not Available Not Available No t Available amoxicilli n 875 mg-potassi um clavulanat e 125 mg tablet Take 1 tablet every 12 hours by oral route for 10 days. active Not Available Not Available No t Available amoxicilli n 500 mg-potassi um clavulanat e 125 mg tablet TK 1 T PO Q 12 H FOR 10 DAYS 07/15 completed Not Available Not Available Not Available rosuvastat in 5 mg tablet TAKE 1 TABLET BY MOUTH EVERY DAY active Not Available Not Available No t Available nitrofuran toin monohydrat e/macrocry stals 100 mg capsule Take 1 capsule every 12 hours by oral route for 7 days. 06/28 completed pt is not taking Not Available Not Available Not Available Glucosamin e sulfate 01/17 completed Not Available Not Available Not Available hydrochlor othiazide 12.5 mg tablet Take 1 tablet every day by oral route. active Not Available Not Available No t Available Xifaxan 550 mg tablet TK 1 T PO BID 04/03 completed Not Available Not Available Not Available Suprep Bowel Prep Kit 17.5 gram-3.13 gram-1.6 gram oral solution MIX AND DRINK UTD 07/17 completed Not Available Not Available Not Available Pennsaid 20 mg/gram/ac tuation (2 %) topical soln in metered-do se pump apply TWO pumps TWICE DAILY 07/17 completed Not Available Not Available Not Available Fluvirin 2597-8026 45 mcg (15 mcg x 3)/0.5 mL intramuscu lar suspension ADM 0.5ML IM UTD active Not Available Not Available No t Available Fluvirin 9752-7608 45 mcg (15 mcg x 3)/0.5 mL intramuscu lar suspension ADM 0.5ML IM UTD 04/03 completed Not Available Not Available Not Available Qvar RediHaler 80 mcg/actuat ion HFA breath activated aerosol INHALE 2 PUFFS BY MOUTH TWICE DAILY 07/18 completed Not Available Not Available Not Available Qvar RediHaler 40 mcg/actuat ion HFA breath activated aerosol Inhale 2 puffs twice a day by inhalati on route. 01/17 completed Not Available Not Available Not Available Shingrix (PF) 50 mcg/0.5 mL intramuscu lar suspension , kit ADMINIST ER 0.5ML IN THE MUSCLE DIRECTED 07/20 completed Not Available Not Available Not Available Afluria Quad (PF) 60 mcg (15 mcg x 4)/0.5 mL IM syringe ADM 0.5ML IM UTD 10/08 completed Not Available Not Available Not Available Flucelvax Quad (PF) 60 mcg (15 mcg x 4)/0.5 mL IM syringe ADM 0.5ML IM UTD 07/20 completed Not Available Not Available Not Available ID NOW COVID-19 Test Kit TEST DIRECTED TODAY 02/15 completed Not Available Not Available Not Available Flucelvax Quad (PF) 60 mcg (15 mcg x 4)/0.5 mL IM syringe active Not Available Not Available N ot Available Trelegy Ellipta 200 mcg-62.5 mcg-25 mcg powder for inhalation INHALE 1 PUFF BY MOUTH EVERY DAY active Not Available Not Available No t Available Vitals Date Recorded Body mass index (BMI) Body mass index (BMI) Body mass index (BMI) Body mass index (BMI) Body height Body height Body height Body height Oxygen saturation Oxygen saturation in Arterial blood by Pulse oximetry Oxygen saturation Oxygen saturation in Arterial blood by Pulse oximetry Oxygen saturation Oxygen saturation in Arterial blood by Pulse oximetry Oxygen saturation Oxygen saturation in Arterial blood by Pulse oximetry Heart rate Heart rate Heart rate Heart rate Respiratory rate Body temperature Body temperature Body temperature Body weight Body weight Body weight Body weight Systolic blood pressure Diastolic blood pressure Systolic blood pressure Diastolic blood pressure Systolic blood pressure Diastolic blood pressure Systolic blood pressure Diastolic blood pressure Provider Name and Address Organization Details Last Updated DateTime 3 38.3 kg/m2 37.6 kg/m2 37.4 kg/m2 36.5 kg/m2 170.18 cm 170.18 cm 170.18 cm 170.18 cm 96 % 96 % 94 % 94 % 96 % 96 % 98 % 98 % 94 /min 109 /min 94 /min 105 /min 16 /min 97.3 [degF] 96.7 [degF] 97 [degF] 492598. 34 g 954778. 17 g 333101. 58 g 358109. 02 g 134 mm[Hg] 86 mm[Hg] 140 mm[Hg] 84 mm[Hg] 136 mm[Hg] 82 mm[Hg] 164 mm[Hg] 88 mm[Hg] Not Available [employer] 3 05:08:36 Date Recorded Body height Body mass index (BMI) Body weight Body temperature Heart rate Respiratory rate Oxygen saturation Oxygen saturation in Arterial blood by Pulse oximetry Pain severity - 0-10 verbal numeric rating [Score] - Reported Systolic blood pressure Diastolic blood pressure Provider Name and Address Organization Details Last Updated DateTime 3 170.18 cm 36.2 kg/m2 740369. 24 g 97.3 [degF] 88 /min 16 /min 93 % 93 % 0 140 mm[Hg] 80 mm[Hg] PADMINI Mullen [facility] [place] [employer] 3 10:18:54 Social History Question Answer Notes LastModified by Organizat ion Details LastModified Time Tobacco Smoking Status Never Smoker AM[facility] [place] [employer] 07/18/2022 09:55:49 Do You Have An Advance Directive? Yes Information not available 07/18/2022 What Is Your Level Of Alcohol Consumption? None Socially Information not available 07/18/2022 Is Blood Transfusion Acceptable In An Emergency? Yes Information not available 07/18/2022 What Is Your Level Of Caffeine Consumption? Occasional 1 Cup In Am Information not available 07/18/2022 What Is Your Code Status? Full Code Information not available 07/18/2022 In The 14 Days Before Symptom Onset, Have You Had Close Contact With A Laboratory-conf jb [id number] While That Case Was Ill? No Information not available 07/18/2022 Are You Currently Employed? No Information not available 07/18/2022 What Type Of Diet Are You Following? REGULAR Tries To Eat Healthy [id number] Information not available 04/12/2022 What Is The Highest Grade Or Level Of School You Have Completed Or The Highest Degree You Have Received? 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 60 Information not available 07/18/2022 Have There Been Any Changes To Your Family Or Social Situation? No [email or web address] Information not available 07/18/2022 Are There Any Guns Present In Your Home? No [email or web address] Information not available 07/18/2022 Do You Use Insect Repellent Routinely? Yes [email or web address] Information not available 07/18/2022 Where Do You Live[place] [email or web address] Information not available 07/18/2022 Do You Have A Medical Power Of Senior Sales Consultant? Yes Information not available 07/18/2022 Do You Have Any Pets? No [email or web address] Information not available 07/18/2022 What Is Your Relationship Status? [id number] Information not available 04/12/2022 Do You Use Your Seat Belt Or Car Seat Routinely? Yes Information not available 07/18/2022 Do You Have Smoke And Carbon Monoxide Detectors In Your Home? Yes [email or web address] Information not available 07/18/2022 Are You Passively Exposed To Smoke? No [email or web address] Information not available 07/18/2022 Are There Any Smokers In Your House? No [email or web address] Information not available 07/18/2022 Do You Participate In Social Media? Yes Information not available 07/18/2022 What Types Of Sporting Activities Do You Participate In? Swimming Information not available 07/18/2022 Do You Feel Stressed (tense, Restless, Nervous, Or Anxious, Or Unable To Sleep At Night)? [id number] [email or web address] Information not available 07/18/2022 Do You Use Sunscreen Routinely? Yes [email or web address] Information not available 07/18/2022 Have You Recently Traveled Abroad? No [email or web address] Information not available 07/18/2022 Do You Have Any Dietary Restrictions? No [email or web address] Information not available 07/18/2022 Sex: Unknown Functional Status Question Answer Note LastModified by [employer] ion Details LastModified Time What is your exercise level? Occasional swimming Information not available 07/18/2022 Mental Status None recorded. Family History Relationship Description Onset Age of this Age Resolved Age Notes LastModified by Organization Details LastModified Time Father Hypertensive disorder [id number] Not available 04/12/2022 05:05:04 Father Atrial fibrillation [email or web address] Not available 07/2022 09:55:48 Mother Hypertensive disorder [id number] Not available 04/12/2022 05:05:04 Mother Atrial fibrillation [email or web address] Not available 07/2022 09:55:48 Paternal Grandmother Hypertensive disorder [id number] Not available 04/12/2022 05:05:04 Paternal Grandfather Hypertensive disorder [id number] Not available 04/12/2022 05:05:04 Paternal Uncle Myocardial infarction [id number] Not available 04/12/2022 05:05:04 Maternal Grandfather Alzheimer's disease [email or web address] Not available 2022 09:55:48 Maternal Grandfather Malignant tumor of prostate [email or web address] Not available 2022 09:55:48 Maternal Grandfather Malignant neoplasm of brain [email or web address] Not available 2022 09:55:48 Maternal Grandmother Malignant tumor of breast [email or web address] Not available 2022 09:55:48 Sister Malignant neoplasm of uterus [email or web address] Not available 2022 09:55:48 Medical History Condition Response ARTHRITIS Y ALLERGIES/HAYFEVER Y EYE PROBLEMS Y EAR OR HEARING PROBLEMS Y ASTHMA Y HEADACHES/MIGRAINES Y DIZZINESS Y KIDNEY DISEASE Y HYPERTENSION Y ANEMIA/BLOOD DISORDER Y BRONCHITIS Y Gynecological History Statement/Question Response If Post Menopausal, Age at Menopause 48 Date of Last Mammogram 06/16/2021 Date of Last Colonoscopy 06/22/2016 Most Recent Mammogram 11/28/2022 Most Recent Bone Density 11/01/2021 Obstetrics History GPAL:G 2 P 2 0 0 2 Type Value Full Term 2 Living 2 Total 2 Immunizations Vaccine Type Date Status Note Provider Nam e and Address Organization Details Recorded Time COVID-19, mRNA, LNP-S, PF, 100 mcg/0.5mL dose or 50 mcg/0.25mL dose 1 completed Not Available [facility] 07/21/2022 17:52:05 Influenza, split virus, quadrivalent, preservative 1 completed Not Available [facility] 07/21/2022 17:52:05 Influenza, split virus, quadrivalent, preservative 0 completed Not Available [facility] 07/21/2022 17:52:05 Influenza, split virus, quadrivalent, preservative 9 completed Not Available [facility] 07/21/2022 17:52:05 Influenza, split virus, quadrivalent, preservative 8 completed Not Available [facility] 07/21/2022 17:52:05 Influenza, split virus, trivalent, preservative 5 completed Not Available [facility] 07/21/2022 17:52:05 Tdap 1 completed Not Available [facility] 07/21/2022 17:52:05 Influenza, split virus, quadrivalent, PF 4 completed Not Available [facility] 07/21/2022 17:52:05 pneumococcal polysaccharide PPV23 4 completed [facility] 07/[facility]/2022 17:52:05 Past Encounters Encounter ID Performer Location Encounter Start Date Encounter Closed Date Diagnosis/Indication Diagnosis SNOMED-CT Code Diagnosis ICD10 Code Diagnosis Note [id number] [facility] [address] [place] [address] [place] [address] 07/20/2020 00:00:00 07/20/2020 11:04:56 [id number] [facility] [address] [place] [address] [place] [address] 01/20/2021 00:00:00 01/20/2021 11:06:33 [id number] [facility] [address] [place] [address] [place] [address] 07/20/2021 00:00:00 07/20/2021 11:29:[id number] [address] 02/15/2022 00:00:00 02/15/2022 14:58:38 [id number] Alice Mcconnell NP [address] [address] 07/18/2022 09:52:42 07/18/2022 11:09:49 Hypothyroidism 82424439 E03.9 levothyrox ine 25 mcg po daily.[facility] 07/06/22 ok. Hyperlipidemia 48884136 E78.5 Rosuvastat in 5 mg po nightly.2022 good Essential hypertension 67540873 I10 Verapamil ER 180 mg po daily.Chlo rthalidone 50 mg Osteopenia 227695333 M85 .80 Imani wants pt treated for osteoporos is due to looking at bone health after dexa. Allergic rhinitis 424348 04 J30.9 stable. Osteoarthritis 497304584 M19.90 Migraine 27947116 G43.90 9 Stable. Vitamin D deficiency 347 97541 E55.9 Vit d 2000 Iu po daily.Calc ium 1100 po daily. Asthma 986476059 J45.90 9 Albuterol inhaler prn. Obesity 733729597 E66.9 Diet and exercise routinely. Osteoporosis 10945736 M8 1.0 Imani wants pt on medication for osteoporos is after seeing in her bones. Had to use a larger giovanny due to deteriorat ion. Dexa 'osteopeni a' in 2021.On vit d3 2000 IU and calcium 1100 mg daily. Health Concerns Section Related Observation LastModified by Organization Detai ls LastModified Time None Recorded Concern Status LastModified by Organization Details LastModified Time None Recorded Advance Directives Directive Y: Payers Encounter Date Sequence Insurance Name Policy Number Policy Henning Covered Member ID Henning Member ID Guarantor Name 07/18/2022 1 [employer] PLAN - DOS PRIOR TO 02.12.23 (PPO) Nitin Cifuentes [id number] Marlen Cifuentes Notes Date Note Type Note Provider Name and Address Organization Details Recorded Time 07/18/2022 text/html Here for check u p 6 mo, last office visit new patient on 02/15/22. Thyroid- Takes meds daily on empty stomach.Lipid- Trying to eat well balanced meals,htn- stable.allergic rhinitis- stable.osteoarthr itis- Has been seeing Imani and was told she has osteoporosis. Had Dexa stating ostepoenia. Here today asking for fosamax be started. Will get note from imani stating his views of pt bone status.Migraine- sucralose is a trigger. Recently found out mouthwash and toothpaste had sucralose. Had a couple in one week, but now better. Only one migraine in the past month.vit d deficiency- Taking daily supplement with calcium.asthma- Flare on sunday. 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 Was beter, but also used inhaler- wasn't helping. Air quality was worse.Obesity- Diet and exercise when able. Alice Mcconnell, HALI [address] [facility], [facility] [address], [place], [address], [place] [employer] 07/18/2022 11:09:08 OBGyn Episode No OBEpisode recorded.
--- OUTSIDE RECORDS SUMMARY | 2024-03-27 11:40 | XMS_ITS | Referral Summary ---
Author Organization [facility] Address [address] [place] [address] Care Team Providers Care Chemical Research Worker Name Role Phone iKntigist Leonora FRANCO-COMMUNITY ORGANIZER Primary Care Provider + Source Comments [facility],non-owned Affiliates and Associated Physician Practices is amultiple site organization consisting of ambulatory clinics and hospital sitesin [place], [place], [place] and [place]. This disclosure is being madepursuant to the Care Everywhere program and may not contain all information available regarding this patient. Last updated 17.[facility] Allergies Active Allergy Reactions Criticality Noted Date Comments Omeprazole Diarrhea Low 09/06/2016 Sulfa Drugs Rash Medium 09/06/2016 Theophylline-Guaifenesin Other Low 09/06/2016 shakes Medications * Be aware that medications may not be up to date on this document. Alwaysverify current medications with the patient. Medication Sig Dispensed Refills Start Date End Date Status PROAIR HFA 108 (90 BASE) MCG/ACT inhaler 07/26/2017 Act karen QVAR REDIHALER 40 MCG/ACT inhaler 06/20/2017 Active chlorthalidone (HYGROTON) 25 MG tablet Take 25 mg by mouth once daily 06/09/2017 Active Multiple Minerals-Vitamins (CALCIUM & VIT D3 BONE HEALTH PO) Take 2,000 mg by mouth once daily Active vitamin D, ergocalciferol, (DRISDOL) 77691 UNITS capsule Take 50,000 Units by mouth every 7 days 1 08/02/2017 Active CRANBERRY CONCENTRATE PO Take 1,000 mg by mouth once daily Active flunisolide (NASALIDE) 25 MCG/ACT (0.025%) nasal solution 06/09/2017 Active GLUCOSAMINE HCL PO Take 3,000 mg by mouth once daily Active levothyroxine (SYNTHROID) 25 MCG tablet Take 25 mcg by mouth once daily 06/25/2017 Active montelukast (SINGULAIR) 10 MG tablet Take 10 mg by mouth once daily 06/28/2017 Active Multiple Vitamins-Minerals (MULTIVITAMIN ADULT PO) Take 1 tablet by mouth once daily Active rizatriptan, disintegrating, (MAXALT BRIDGE WORKER) 10 MG tablet Take 10 mg by mouth Activ e valACYclovir (VALTREX) 1 GM tablet Take 2,000 mg by mouth 2 times daily as needed Active verapamil CR (ISOPTIN-SR) 120 MG tablet Take 120 mg by mouth once daily 07/05/2017 Active OtherIndications:Inst a-Flex Advanced Supplement Take 1 tablet by mouth once daily Reasons: Insta-Flex Advanced Supplement Active TURMERIC CURCUMIN PO Take 375 mg by mouth once daily Active Guggulipid-Black Pepper (GUGLIPID/BIOPERINE PO) Take 1 tablet by mouth once daily Active Active Problems Problem Noted Date Diagnosed Date Small intestinal bacterial overgrowth 08/22/2017 Fatty liver 08/22/2017 Social History Tobacco Use Types Packs/Day Years Used Date Smoking Tobacco: Never Smokeless Tobacco: Never Alcohol Use Standard Drinks/Week Comments No 0 (1 standard drink = 0.6 oz pur e alcohol) Sex and Gender Information Value Date Recorded Sex Assigned at Not on file Gender Identity Not on file Sexual Orientation Not on file Last Filed Vital Signs Vital Sign Reading Time Taken Comments Blood Pressure 169/83 08/22/2017 11:22 AM CDT Pulse 103 08/22/2017 11:22 AM CDT Temperature 36.6 C (97.9 F) 08/22/2017 11:22 AM CDT Respiratory Rate 18 09/06/2016 8:07 AM CDT Oxygen Saturation 94% 08/22/2017 11:22 AM CDT Inhaled Oxygen Concentration - - Weight 101.4 kg (223 lb 8 oz) 08/22/2017 11:22 A M CDT Height 172.7 cm (5' 8 ) 08/22/2017 11:22 AM CDT Body Mass Index 33.98 08/22/2017 11:22 AM CDT Plan of Treatment Not on file Procedures Procedure Name Priority Date/Time Associated Diagnosis Comments HEMOGLOBIN A1C (EXTERNAL RESULT ENTRY) Routine 06/19/2017 LIPID PROFILE (EXTERAL RESULT ENTRY) Routine 06/19/2017 HEPATITIS C RNA QUANTITATIVE Routine 09/08/2016 12:39 PM CDT from Last 3 Months or Most Recently Relevant to Health Maintenance Results * (ABNORMAL) LIPID PROFILE (EXTERAL RESULT ENTRY) (06/19/2017) Cholesterol (EXTERNAL RESULT) 207(A) 140 - 199 mg/dL Triglycerides (EXTERNAL RESULT) 109 0 - 150 mg/dL HDL (EXTERNAL RESULT) 62 >40 mg/dL LDL (EXTERNAL RESULT) 123 0 - 130 mg/dL VLDL (EXTERNAL RESULT) mg/dL Chol HDL Ratio (External Result) Blood BLOOD SPECIMEN / Unknown 06/19/2017 Historical Provider LAB - CHEMISTRY O RDERABLES * HEMOGLOBIN A1C (EXTERNAL RESULT ENTRY) (06/19/2017) Pathologist [facility] Hemoglobin A1c (EXTERNAL RESULT) 5.4 4 - 6 % Blood BLOOD SPECIMEN / Unknown 06/19/2017 Historical Provider LAB - CHEMISTRY O RDERABLES * HEPATITIS C RNA QUANTITATIVE PCR (09/08/2016 12:39 PM CDT) Pathologist [facility] Hepatitis C Virus RNA IU/mL HCV Not Detected IU/mL [facility] Test Information [facility] Comment:The quantitative ran ge of this assay is 15 IU/mL to 100 million IU/mL. 09/08/2016 12:3 9 PM CDT 09/08/2016 Narrative [facility] [employer] ([employer]) - 09/10/2016 6:39 AM CDT Performed at: [address] [place] [id number] Desk Director: Leonid Starks MD, Phone: [phone] Arlene Chen MD LAB - CHEMISTRY ORDERABLES [facility] (АННА) from Last 3 Months or Most Recently Relevant to Health Maintenance Care Teams Chemical Research Worker Relationship Specialty Start Date End Date Leonora Terrazas APRN-TERRIE [address] [facility] [address] [place] [address] PCP - General 08/22/17
--- OUTSIDE RECORDS SUMMARY | 2024-03-27 11:40 | XMS_ITS ---
Author Organization [facility] Address [address] [place] [address] Care Team Providers Care Currency Machine Operator Name Role Phone Leonora Lundy Primary Care Provider María Elena mcclureamanda RonnieMaryam Unavailable [phone] JosephMissael Unavailable [phone] REASON FOR VISIT SCIT - Traditional Schedule Allergy immunotherapy Medications Medication SIG (Take, Route, Frequency, Duration) Notes Start Date End Date Status Xopenex HFA 45 MCG/ACT 2 puffs Inhalation every 4 hrs for 30 days 11/22/2023 Active Breztri Aerosphere 160 MCG-4.8 MCG-9 MCG/INH 2 PUFF(S) INHALED 2 TIMES A DAY0 for 90 DAYS *Please review and pick correct strength-formula tion from Medispan options. If intended option is not shown, discontinue and re-order from Quick Search* 03/22/2023 Active TRELEGY ELLIPTA 200 mcg-62.5 mcg-25 mcg/inh INHALE 1 PUFF BY MOUTH EVERY DAY for 90 Not-Taking VENTOLIN HFA 90 mcg/inh 2 puff(s) inhaled every 6 hours for 30 day(s) Not-Taking AZELASTINE HYDROCHLORIDE NASAL 137 mcg/inh 2 spray(s) intranasally 2 times a day for 30 days Not-Taking ROSUVASTATIN 5 mg 1 tab(s) orally once a day Not-Taking VALACYCLOVIR 1 g 1 tab(s) orally 2 times a day for 10 day(s) Not-Taking RIZATRIPTAN 10 mg 1 tab(s) orally once a day Not-Taking VERAPAMIL 180 mg/24 hours 1 cap(s) orally once a day for 30 day(s) Not-Taking 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 Not-Taking FOSAMAX 70 mg 1 tab(s) orally once a week Not-Taking CHLORTHALIDONE 50 mg 1 tab(s) orally once a day for 30 day(s) Not-Taking LEVOTHYROXINE 25 mcg (0.025 mg) 1 tab(s) orally once a day for 30 day(s) Not-Taking Ventolin HFA 108 (90 Base) MCG/ACT 2 puff(s) inhaled every 6 hours for 30 day(s) Active Azelastine HCl 137 MCG/SPRAY 2 spray(s) intranasally 2 times a day for 30 days Active valACYclovir HCl 1 GM 1 tab(s) orally 2 times a day for 10 day(s) Active Rizatriptan Benzoate 10 MG 1 tab(s) orally once a day Active Verapamil HCl ER 180 MG 1 cap(s) orally once a day for 30 day(s) Active Louisa Nasal Moisturizer *Please review and pick correct strength-formula tion from Baland[employer] options. If intended option is not shown, discontinue and re-order from Quick Search* Active Trelegy Ellipta 200 MCG-62.5 MCG-25 MCG/INH INHALE 1 PUFF BY MOUTH EVERY DAY for 90 *Please review and pick correct strength-formula tion from Baland[employer] options. If intended option is not shown, discontinue and re-order from Quick Search* Not-Taking Fosamax 70 MG 1 tab(s) orally once a week Active Chlorthalidone 50 MG 1 tab(s) orally once a day for 30 day(s) Active Levothyroxine Sodium 25 MCG 1 tab(s) orally once a day for 30 day(s) Active Rosuvastatin Calcium 5 MG 1 tab(s) orally once a day Active LEVALBUTEROL TARTRATE HFA 45 MCG/INH 2 PUFF(S) INHALED EVERY 4 HOURS for 30 DAYS *Please review for potential replacement for e-prescription and drug interaction check* Active ZyrTEC Allergy 10 MG 1 tab(s) orally once a day Active Flonase Allergy Relief 50 MCG/ACT 2 spray(s) intranasally Qday Active EpiPen 2-Anatoly 0.3 MG/0.3ML as directed intramuscularly once Active Famotidine 40 MG 1 tab(s) orally 1 hour prior to SCIT Active Montelukast Sodium 10 MG 1 tab(s) orally once a day Active SIT (TRADITIONAL) variable per schedule SC per schedule for to be determined Active MONTELUKAST 10 mg 1 tab(s) orally once a day Active BREZTRI AEROSPHERE 160 mcg-4.8 mcg-9 mcg/inh 2 puff(s) inhaled 2 times a day0 for 90 days Active Triamcinolone Acetonide 0.1 % 1 jackson applied topically 3 times a day Active FAMOTIDINE 40 mg 1 tab(s) orally 1 hour prior to SCIT Active ZYRTEC 10 mg 1 tab(s) orally once a day Active FLONASE 50 mcg/inh 2 spray(s) intranasally Qday Active AZELASTINE HYDROCHLORIDE NASAL 137 mcg/inh 2 spray(s) intranasally 2 times a day Active NASAL WASHES N/A as directed intranasally as needed Active EPIPEN 2-ANATOLY 0.3 mg as directed intramuscularly once Active TRIAMCINOLONE TOPICAL 0.1% 1 jackson applied topically 3 times a day Active Encounters Encounter Location Date Provider Diagnosis [facility] [email or web address] [facility] [address] [place] [address] 02/28/2024 Missael Ruiz Allergic rhinitis du e to pollen J30.1 ; Allergic rhinitis due to animal (cat) (dog) hair and dander J30.81 ; Other allergic rhinitis J30.89 and Other chronic allergic conjunctivitis H10.45 Assessments Encounter Date Diagnosis (ICD Code) Assessment Notes Treatment Notes Treatment Clinical Notes Section Notes 02/28/2024 Allergic rhinitis due to pollen (ICD-10 - J30.1) 02/28/2024 Allergic rhinitis due to animal (cat) (dog) hair and dander (ICD-10 - J30.81) 02/28/2024 Other allergic rhinitis (ICD-10 - J30.89) 02/28/2024 Other chronic allergic conjunctivitis (ICD-10 - H10.45) Plan Of Treatment Next Appt Details Follow Up: 2 Weeks, Reason: Provider Name:Missael Ruiz , 04/24/2024 10:30:00 AM, [address], [address], [place], [address], Provider Name:Maryam Trujillo , 05/22/2024 10:00:00 AM, [address] [facility], [address], [place], [address], Progress Notes * Marlen PEMBERTONDOB:1960 ( 63 yo F)Acc No.[id number]:02/28/2024 SCIT-Aeroallergen Patient: Marlen LUI Provider: Lorrie Ruiz MD :1960 A ge:63 Y S ex:Female Date:02/28/2024 Address:[address] [place], [place] [id number] Pcp:Leonora Terrazas, [facility]- Subjective: * Chief Complaints: * S CIT - Traditional Schedule Allergy immunotherapy * HPI: * Introduction: The patient is [...] immunotherapy) is on file. * Medical History: * Surgical History: * Hospitalization/Major Diagno stic Procedure: * Medications: T akingTRIAMCINOLONE TOPICAL 0.1% cream 1 jackson applied topically 3 times a day ZYRTEC 10 mg tablet 1 tab(s) orally once a day FLONASE 50 mcg/inh spray 2 spray(s) intranasally Qday AZELASTINE HYDROCHLORIDE NASAL 137 mcg/inh spray 2 spray(s) intranasally 2 times a day NASAL WASHES N/A 1 quart of sterilized tap water or distilled water, 1 tsp NaCl, 1 pinch of baking soda as directed intranasally as needed EPIPEN 2-ANATOLY 0.3 mg kit as directed intramuscularly once FAMOTIDINE 40 mg tablet 1 tab(s) orally 1 hour prior to SCIT SIT (TRADITIONAL) variable see record per schedule SC per schedule MONTELUKAST 10 mg tablet 1 tab(s) orally once a day BREZTRI AEROSPHERE 160 mcg- 4.8 mcg-9 mcg/inh aerosol 2 puff(s) inhaled 2 times a day0 Triamcinolone Acetonide 0.1 % Cream 1 jackson applied topically 3 times a day ZyrTEC Allergy 10 MG Tablet 1 tab(s) orally once a day Flonase Allergy Relief 50 MCG/ACT Suspension 2 spray(s) intranasally Qday EpiPen 2-Anatoly 0.3 MG/0.3ML Solution Auto-injector as directed intramuscularly once Famotidine 40 MG Tablet 1 tab(s) orally 1 hour prior to SCIT Montelukast Sodium 10 MG Tablet 1 tab(s) orally once a day LEVALBUTEROL TARTRATE HFA 45 MCG/INH AEROSOL 2 PUFF(S) INHALED EVERY 4 HOURS , Notes to Pharmacist: *Please review for potential replacement for e-prescription and drug interaction check*Fosamax 70 MG Tablet 1 tab(s) orally once a week Chlorthalidone 50 MG Tablet 1 tab(s) orally once a day Levothyroxine Sodium 25 MCG Tablet 1 tab(s) orally once a day Rosuvastatin Calcium 5 MG Tablet 1 tab(s) orally once a day valACYclovir HCl 1 GM Tablet 1 tab(s) orally 2 times a day Rizatriptan Benzoate 10 MG Tablet 1 tab(s) orally once a day Verapamil HCl ER 180 MG Capsule Extended Release 24 Hour 1 cap(s) orally once a day Louisa Nasal Moisturizer , Notes to Pharmacist: *Please review and pick correct strength-formulation from [employer] options. If intended option is not shown, discontinue and re-order from Quick Search*Ventolin HFA 108 (90 Base) MCG/ACT Aerosol Solution 2 puff(s) inhaled every 6 hours Azelastine HCl 137 MCG/SPRAY Solution 2 spray(s) intranasally 2 times a day Xopenex HFA 45 MCG/ACT Aerosol 2 puffs Inhalation every 4 hrs Breztri Aerosphere 160 MCG-4.8 MCG-9 MCG/INH AEROSOL 2 PUFF(S) INHALED 2 TIMES A DAY0 , Notes to Pharmacist: *Please review and pick correct strength-formulation from Balandras options. If intended option is not shown, discontinue and re-order from Quick Search*Taking TRIAMCINOLONE TOPICAL 0.1% cream 1 jackson applied topically 3 times a day Taking ZYRTEC 10 mg tablet 1 tab(s) orally once a day Taking FLONASE 50 mcg/inh spray 2 spray(s) intranasally Qday Taking AZELASTINE HYDROCHLORIDE NASAL 137 mcg/inh spray 2 spray(s) intranasally 2 times a day Taking NASAL WASHES N/A 1 quart of sterilized tap water or distilled water, 1 tsp NaCl, 1 pinch of baking soda as directed intranasally as needed Taking EPIPEN 2-ANATOLY 0.3 mg kit as directed intramuscularly once Taking FAMOTIDINE 40 mg tablet 1 tab(s) orally 1 hour prior to SCIT Taking SIT (TRADITIONAL) variable see record per schedule SC per schedule Taking MONTELUKAST 10 mg tablet 1 tab(s) orally once a day Taking BREZTRI AEROSPHERE 160 mcg-4.8 mcg-9 mcg/inh aerosol 2 puff(s) inhaled 2 times a day0 Taking Triamcinolone Acetonide 0.1 % Cream 1 jackson applied topically 3 times a day Taking ZyrTEC Allergy 10 MG Tablet 1 tab(s) orally once a day Taking Flonase Allergy Relief 50 MCG/ACT Suspension 2 spray(s) intranasally Qday Taking EpiPen 2-Anatoly 0.3 MG/0.3ML Solution Auto-injector as directed intramuscularly once Taking Famotidine 40 MG Tablet 1 tab(s) orally 1 hour prior to SCIT Taking Montelukast Sodium 10 MG Tablet 1 tab(s) orally once a day Taking LEVALBUTEROL TARTRATE HFA 45 MCG/INH AEROSOL 2 PUFF(S) INHALED EVERY 4 HOURS , Notes to Pharmacist: *Please review for potential replacement for e-prescription and drug interaction check*Taking Fosamax 70 MG Tablet 1 tab(s) orally once a week Taking Chlorthalidone 50 MG Tablet 1 tab(s) orally once a day Taking Levothyroxine Sodium 25 MCG Tablet 1 tab(s) orally once a day Taking Rosuvastatin Calcium 5 MG Tablet 1 tab(s) orally once a day Taking valACYclovir HCl 1 GM Tablet 1 tab(s) orally 2 times a day Taking Rizatriptan Benzoate 10 MG Tablet 1 tab(s) orally once a day Taking Verapamil HCl ER 180 MG Capsule Extended Release 24 Hour 1 cap(s) orally once a day Taking Louisa Nasal Moisturizer , Notes to Pharmacist: *Please review and pick correct strength-formulation from Balandras options. If intended option is not shown, discontinue and re-order from Quick Search*Taking Ventolin HFA 108 (90 Base) MCG/ACT Aerosol Solution 2 puff(s) inhaled every 6 hours Taking Azelastine HCl 137 MCG/SPRAY Solution 2 spray(s) intranasally 2 times a day Taking Xopenex HFA 45 MCG/ACT Aerosol 2 puffs Inhalation every 4 hrs Taking Breztri Aerosphere 160 MCG-4.8 MCG-9 MCG/INH AEROSOL 2 PUFF(S) INHALED 2 TIMES A DAY0 , Notes to Pharmacist: *Please review and pick correct strength-formulation from Balandras options. If intended option is not shown, discontinue and re-order from Quick Search*Not-Taking/PRNTrelegy Ellipta 200 MCG-62.5 MCG-25 MCG/INH POWDER INHALE 1 PUFF BY MOUTH EVERY DAY , Notes to Pharmacist: *Please review and pick correct strength-formulation from Balandras options. If intended option is not shown, discontinue and re-order from Quick Search*FOSAMAX 70 mg tablet 1 tab(s) orally once a week CHLORTHALIDONE 50 mg tablet 1 tab(s) orally once a day LEVOTHYROXINE 25 mcg (0.025 mg) tablet 1 tab(s) orally once a day ROSUVASTATIN 5 mg tablet 1 tab(s) orally once a day VALACYCLOVIR 1 g tablet 1 tab(s) orally 2 times a day RIZATRIPTAN 10 mg tablet 1 tab(s) orally once a day VERAPAMIL 180 mg/24 hours capsule, extended release 1 cap(s) orally once a day 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 TRELEGY ELLIPTA 200 mcg-62.5 mcg-25 mcg/inh powder INHALE 1 PUFF BY MOUTH EVERY DAY VENTOLIN HFA 90 mcg/inh aerosol 2 puff(s) inhaled every 6 hours AZELASTINE HYDROCHLORIDE NASAL 137 mcg/inh spray 2 spray(s) intranasally 2 times a day Not-Taking/PRN Trelegy Ellipta 200 MCG-62.5 MCG-25 MCG/INH POWDER INHALE 1 PUFF BY MOUTH EVERY DAY , Notes to Pharmacist: *Please review and pick correct strength-formulation from Medispan options. If intended option is not shown, discontinue and re-order from Quick Search*Not-Taking/PRN FOSAMAX 70 mg tablet 1 tab(s) orally once a week Not- Taking/PRN CHLORTHALIDONE 50 mg tablet 1 tab(s) orally once a day Not-Taking/PRN LEVOTHYROXINE 25 mcg (0.025 mg) tablet 1 tab(s) orally once a day Not-Taking/PRN ROSUVASTATIN 5 mg tablet 1 tab(s) orally once a day Not-Taking/PRN VALACYCLOVIR 1 g tablet 1 tab(s) orally 2 times a day Not-Taking/PRN RIZATRIPTAN 10 mg tablet 1 tab(s) orally once a day Not-Taking/PRN VERAPAMIL 180 mg/24 hours capsule, extended release 1 cap(s) orally once a day Not-Taking/PRN 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 Not-Taking/PRN TRELEGY ELLIPTA 200 mcg-62.5 mcg-25 mcg/inh powder INHALE 1 PUFF BY MOUTH EVERY DAY Not-Taking/PRN VENTOLIN HFA 90 mcg/inh aerosol 2 puff(s) inhaled every 6 hours Not-Taking/PRN AZELASTINE HYDROCHLORIDE NASAL 137 mcg/inh spray 2 spray(s) intranasally 2 times a day Objective: * Vitals: Assessment: * Assessment: 1. A llergic rhinitis due to pollen - J30.1 (Primary) 2 . A llergic rhinitis due to animal (cat) (dog) hair and dander - J30.81 3 . O ther allergic rhinitis - J30.89 4 . O ther chronic allergic conjunctivitis - H10.45 Plan: * Treatment: * Procedure Codes: 9 5117 IMMUNOTHERAPY INJECTIONS * Follow Up: 2 Weeks * Billing Information: * Visit Code: * Procedure Codes: 95649 IMMUNOTHERAPY INJECTIONS. * MACHINE SET UP OPERATOR Sign off status: Completed true * Provider: Lorrie Ruiz MD Date: 0 02/28/2024 Generated for Sukhjinder zayas/Wale/Yumiko on: 0 03/27/2024 11:39 AM BAG MACHINE SET UP OPERATOR History and Physical Notes * HPI (History [...]
--- OUTSIDE RECORDS SUMMARY | 2024-03-27 11:40 | XMS_ITS ---
Author Organization [facility] Address [address] [place] [address] Care Team Providers Care Health Unit Supervisor Name Role Phone Leonora Lundy Primary Care Provider María Elena mcclureamanda RonnieMaryam Unavailable [phone] JosephMissael Unavailable [phone] REASON FOR VISIT SCIT - Traditional Schedule Allergy immunotherapy Medications Medication SIG (Take, Route, Frequency, Duration) Notes Start Date End Date Status TRELEGY ELLIPTA 200 mcg-62.5 mcg-25 mcg/inh INHALE 1 PUFF BY MOUTH EVERY DAY for 90 Not-Taking Breztri Aerosphere 160 MCG-4.8 MCG-9 MCG/INH 2 PUFF(S) INHALED 2 TIMES A DAY0 for 90 DAYS *Please review and pick correct strength-formula tion from Medispan options. If intended option is not shown, discontinue and re-order from Quick Search* 03/22/2023 Active VENTOLIN HFA 90 mcg/inh 2 puff(s) inhaled every 6 hours for 30 day(s) Not-Taking AZELASTINE HYDROCHLORIDE NASAL 137 mcg/inh 2 spray(s) intranasally 2 times a day for 30 days Not-Taking Xopenex HFA 45 MCG/ACT 2 puffs Inhalation every 4 hrs for 30 days 11/22/2023 Active RIZATRIPTAN 10 mg 1 tab(s) orally once a day Not-Taking VERAPAMIL 180 mg/24 hours 1 cap(s) orally once a day for 30 day(s) Not-Taking 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 Not-Taking ROSUVASTATIN 5 mg 1 tab(s) orally once a day Not-Taking VALACYCLOVIR 1 g 1 tab(s) orally 2 times a day for 10 day(s) Not-Taking LEVOTHYROXINE 25 mcg (0.025 mg) 1 tab(s) orally once a day for 30 day(s) Not-Taking Ventolin HFA 108 (90 Base) MCG/ACT 2 puff(s) inhaled every 6 hours for 30 day(s) Active Azelastine HCl 137 MCG/SPRAY 2 spray(s) intranasally 2 times a day for 30 days Active FOSAMAX 70 mg 1 tab(s) orally once a week Not-Taking CHLORTHALIDONE 50 mg 1 tab(s) orally once a day for 30 day(s) Not-Taking Rizatriptan Benzoate 10 MG 1 tab(s) orally once a day Active Verapamil HCl ER 180 MG 1 cap(s) orally once a day for 30 day(s) Active Dewey Nasal Moisturizer *Please review and pick correct strength-formula tion from Ecovision options. If intended option is not shown, discontinue and re-order from Quick Search* Active Trelegy Ellipta 200 MCG-62.5 MCG-25 MCG/INH INHALE 1 PUFF BY MOUTH EVERY DAY for 90 *Please review and pick correct strength-formula tion from Ecovision options. If intended option is not shown, discontinue and re-order from Quick Search* Not-Taking valACYclovir HCl 1 GM 1 tab(s) orally 2 times a day for 10 day(s) Active Rosuvastatin Calcium 5 MG 1 tab(s) orally once a day Active Levothyroxine Sodium 25 MCG 1 tab(s) orally once a day for 30 day(s) Active LEVALBUTEROL TARTRATE HFA 45 MCG/INH 2 PUFF(S) INHALED EVERY 4 HOURS for 30 DAYS *Please review for potential replacement for e-prescription and drug interaction check* Active Fosamax 70 MG 1 tab(s) orally once a week Active Chlorthalidone 50 MG 1 tab(s) orally once a day for 30 day(s) Active ZyrTEC Allergy 10 MG 1 tab(s) orally once a day Active Flonase Allergy Relief 50 MCG/ACT 2 spray(s) intranasally Qday Active EpiPen 2-Anatoly 0.3 MG/0.3ML as directed intramuscularly once Active Famotidine 40 MG 1 tab(s) orally 1 hour prior to SCIT Active Montelukast Sodium 10 MG 1 tab(s) orally once a day Active Triamcinolone Acetonide 0.1 % 1 jackson applied topically 3 times a day Active MONTELUKAST 10 mg 1 tab(s) orally once a day Active BREZTRI AEROSPHERE 160 mcg-4.8 mcg-9 mcg/inh 2 puff(s) inhaled 2 times a day0 for 90 days Active FAMOTIDINE 40 mg 1 tab(s) orally 1 hour prior to SCIT Active SIT (TRADITIONAL) variable per schedule SC per schedule for to be determined Active ZYRTEC 10 mg 1 tab(s) orally [...] Active Encounters Encounter Location Date Provider Diagnosis [facility] [address] [facility] [address] [place] [address] 01/31/2024 Missael Ruiz Allergic rhinitis du e to pollen J30.1 ; Allergic rhinitis due to animal (cat) (dog) hair and dander J30.81 ; Other allergic rhinitis J30.89 and Other chronic allergic conjunctivitis H10.45 Assessments Encounter Date Diagnosis (ICD Code) Assessment Notes Treatment Notes Treatment Clinical Notes Section Notes 01/31/2024 Allergic rhinitis due to pollen (ICD-10 - J30.1) 01/31/2024 Allergic rhinitis due to animal (cat) (dog) hair and dander (ICD-10 - J30.81) 01/31/2024 Other allergic rhinitis (ICD-10 - J30.89) 01/31/2024 Other chronic allergic conjunctivitis (ICD-10 - H10.45) Plan Of Treatment Next Appt Details Follow Up: 2 Weeks, Reason: Provider Name:Missael Ruiz , 04/24/2024 10:30:00 AM, [address], [address], [place], [address], Provider Name:Maryam Trujillo , 05/22/2024 10:00:00 AM, [address] [facility], [address], [place], [address], Progress Notes * Marlen PEMBERTONDOB:1960 ( 63 yo F)Acc No.[id number]:01/31/2024 SCIT-Aeroallergen Patient: Marlen LUI Provider: Lorrie Ruiz MD :1960 A ge:63 Y S ex:Female Date:01/31/2024 Address:[address] [place], [place] [id number] Pcp:Leonora Terrazas, [facility]- Subjective: * Chief Complaints: * S CIT [...] Hour 1 cap(s) orally once a day Dewey Nasal Moisturizer , Notes to Pharmacist: *Please review and pick correct strength-formulation from Scopelyan options. If intended option is not shown, [...] *Please review and pick correct strength-formulation from Ecovision options. If intended option is not shown, [...] 1 cap(s) orally once a day Taking Dewey Nasal Moisturizer , Notes to Pharmacist: *Please review and pick correct strength-formulation from Ecovision options. If intended option is not shown, [...] *Please review and pick correct strength-formulation from Ecovision options. If intended option is not shown, discontinue and re-order from Quick Search*Not-Taking/PRNTrelegy Ellipta 200 MCG-62.5 MCG-25 MCG/INH POWDER INHALE 1 PUFF BY MOUTH EVERY DAY , Notes to Pharmacist: *Please review and pick correct strength-formulation from Ecovision options. If intended option is not shown, [...] Information: * Visit Code: * Procedure Codes: 54742 IMMUNOTHERAPY INJECTIONS. * E GROOMER Sign off status: Completed true * Provider: Lorrie Ruiz MD Date: 04/02/2023 Generated for Sukhjinder zayas/Wale/Yumiko on: 0 03/27/2024 11:39 AM HORSE GROOMER History and Physical Notes * HPI (History [...]
--- OUTSIDE RECORDS SUMMARY | 2024-03-27 11:40 | XMS_ITS | Clinical Summary ---
Author Organization [facility] Address [address] [place] [address] Care Team Providers Care Restaurant Hourly Team Member Name Role Phone Mk Leonora FRANCO-OPEN HEARTH MELTER Primary Care Provider + Source Comments [facility] [employer],non-owned Affiliates and Associated Physician Practices is amultiple site organization consisting of ambulatory clinics and hospital sitesin [place], [place], [place] and [place]. This disclosure is being madepursuant to the Care Everywhere program and may not contain all information available regarding this patient. Last updated 17.[facility] [employer] Allergies Active Allergy Reactions Criticality Noted Date [...] once daily Active vitamin D, ergocalciferol, (DRISDOL) 83147 UNITS capsule Take 50,000 Units by mouth [...] mouth once daily Active rizatriptan, disintegrating, (MAXALT CIRCULAR HEAD SAW OPERATOR) 10 MG tablet Take 10 mg by [...] 08/22/2017 11:22 AM CDT Plan of Treatment Health Maintenance Due Date Last Done Comments REBECCA (AGES 45-75) - COL ON CA SCREENING 1960 COLON MONITORING 1960 COLONOSCOPY - COLON CA SCREENING 1960 CT COLONOGRAPHY - COLON CA SCREENING 1960 Colorectal Cancer Screening 1960 FIT - COLON CA SCREENING 1960 FLEX SIG - COLON CA SCREENING 1960 MAMMOGRAM 1960 PAP SMEAR 1960 HIV SCREENING 08/20/1975 DTAP/TDAP/TD VACCINES (1 - Tdap) 08/20/1979 PNEUMOCOCCAL VACCINE 50+ (1 of 1 - PCV) 2010 ZOSTER VACCINE (1 of 2) 2010 SCREENING FOR DIABETES 06/19/2020 8, 06/19/2017 LIPID TESTING 06/19/2022 06/19/2017, 06/19/2017 COVID-19 VACCINE (1 - 2023-2 5 season) 2023 INFLUENZA VACCINE (#1) 2023 DEPRESSION SCREENING 02/13/2024 Respiratory Syncytial Virus (RSV) Vaccine Pt: or over 60 yrs (1 - 1-dose 75+ series) 08/20/2035 HEPATITIS C SCREENING Completed 09/08/2016 HEPATITIS B VACCINE Aged Out No longe r eligible based on patient's age to complete this topic HIB VACCINE Aged Out No longer eligi ble based on patient's age to complete this topic HPV VACCINE Aged Out No longer eligi ble based on patient's age to complete this topic MENINGOCOCCAL (Group B) VACCINE Aged Out No longer eligible b ased on patient's age to complete this topic MENINGOCOCCAL VACCINE Aged Out No milagros lizeth eligible based on patient's age to complete this topic PNEUMOCOCCAL VACCINE Aged Out No long er eligible based on patient's age to complete this topic Procedures Procedure Name Priority Date/Time Associated Diagnosis [...] HEMOGLOBIN A1C (EXTERNAL RESULT ENTRY) (06/19/2017) Pathologist [facility] Hemoglobin A1c (EXTERNAL RESULT) 5.4 4 - 6 % Blood BLOOD SPECIMEN / Unknown 06/19/2017 Historical Provider LAB - CHEMISTRY O RDERABLES * HEPATITIS C RNA QUANTITATIVE PCR (09/08/2016 12:39 PM CDT) Pathologist [facility] Hepatitis C Virus RNA IU/mL HCV Not Detected IU/mL [facility] [address] [employer] ([employer]) Test Information [facility] [address] ([employer]) Comment:The quantitative ran ge of this assay is 15 IU/mL to 100 million IU/mL. 09/08/2016 12:3 9 PM CDT 09/08/2016 Narrative [facility] [address] [facility] (АННА) - 09/10/2016 6:39 AM CDT Performed at: [address] [place] [id number] Landscape Painter: Leonid Starks MD, Phone: [phone] Arlene Chen MD LAB - CHEMISTRY ORDERABLES [facility] [address] [employer] BECCMOSHE) from Last 3 Months or Most Recently Relevant to Health Maintenance Care Teams Restaurant Hourly Team Member Relationship Specialty Start Date End Date Leonora Terrazas APRN-TERRIE [address] [address] PCP - General 08/22/17
--- OUTSIDE RECORDS SUMMARY | 2024-03-27 11:40 | XMS_ITS | Patient Health Summary ---
Author Organization [facility] Address [address] [place] [address] Care Team Providers Care Geomorphology Teacher Name Role Phone Kintigist Leonora GAMEZ-COMMERCIAL LINES MANAGER Primary Care Provider + Note from [facility],non-owned Affiliates and Associated Physician Practices is amultiple site organization consisting of ambulatory clinics and hospital sitesin [place], [place], [place] and [place]. This disclosure is being madepursuant to the Care Everywhere program and may not contain all information available regarding this patient. Last updated 17.[facility] Allergies * Omeprazole(Diarrhea) -Low Criticality * Sulfa Drugs(Rash) -Medium Criticality * Theophylline-Guaifenesin(Other) -Low Criticality Medications * Be aware that medications may not be up to date on this document. Alwaysverify current medications with the patient. * PROAIR HFA 108 (90 BASE) MCG/ACT inhaler(Started 07/26/2017) * QVAR REDIHALER 40 MCG/ACT inhaler(Started 06/20/2017) * chlorthalidone (HYGROTON) 25 MG tablet(Started 06/09/2017) Take 25 mg by mouth once daily * Multiple Minerals-Vitamins (CALCIUM & VIT D3 BONE HEALTH PO) Take 2,000 mg by mouth once daily * vitamin D, ergocalciferol, (DRISDOL) 42085 UNITS capsule(Started 08/02/2017) Take 50,000 Units by mouth every 7 days 1 refill left * CRANBERRY CONCENTRATE PO Take 1,000 mg by mouth once daily * flunisolide (NASALIDE) 25 MCG/ACT (0.025%) nasal solution(Started 06/09/2017) * GLUCOSAMINE HCL PO Take 3,000 mg by mouth once daily * levothyroxine (SYNTHROID) 25 MCG tablet(Started 06/25/2017) Take 25 mcg by mouth once daily * montelukast (SINGULAIR) 10 MG tablet(Started 06/28/2017) Take 10 mg by mouth once daily * Multiple Vitamins-Minerals (MULTIVITAMIN ADULT PO) Take 1 tablet by mouth once daily * rizatriptan, disintegrating, (MAXALT JACK WINDER) 10 MG tablet Take 10 mg by mouth * valACYclovir (VALTREX) 1 GM tablet Take 2,000 mg by mouth 2 times daily as needed * verapamil CR (ISOPTIN-SR) 120 MG tablet(Started 07/05/2017) Take 120 mg by mouth once daily * Other Take 1 tablet by mouth once daily Reasons: Insta-Flex Advanced Supplement * TURMERIC CURCUMIN PO Take 375 mg by mouth once daily * Guggulipid-Black Pepper (GUGLIPID/BIOPERINE PO) Take 1 tablet by mouth once daily Active Problems Problem Noted Date Diagnosed Date [...] Mass Index 33.98 08/22/2017 11:22 AM CDT Procedures * VITAMIN D HYDROXY (EXTERNAL RESULT)(Performed 06/20/2017) * VITAMIN D HYDROXY (EXTERNAL RESULT)(Performed 06/19/2017) * HEMOGLOBIN A1C (EXTERNAL RESULT ENTRY)(Performed 06/19/2017) * COMP MET PANEL (EXTERNAL RESULT ENTRY)(Performed 06/19/2017) * LIPID PROFILE (EXTERAL RESULT ENTRY)(Performed 06/19/2017) * COMP MET PANEL (EXTERNAL RESULT ENTRY)(Performed 06/19/2017) * LIPID PROFILE (EXTERAL RESULT ENTRY)(Performed 06/19/2017) * TSH (EXTERNAL RESULT ENTRY)(Performed 06/19/2017) * HEMOGLOBIN A1C (EXTERNAL RESULT ENTRY)(Performed 06/19/2017) * HEPATITIS C RNA QUANTITATIVE(Performed 09/08/2016) Results * (ABNORMAL) VITAMIN D HYDROXY (EXTERNAL RESULT) (06/20/2017) Only the most recent of2 resultswithin the time period is included. Vitamin D Hydroxy (External Result) 23.3(A) 30 - 100 Blood 06/20/2017 Historical Provider LAB - CHEMISTRY O RDERABLES * COMP MET PANEL (EXTERNAL RESULT ENTRY) (06/19/2017) Only the most recent of2 resultswithin the time period is included. Glucose (EXTERNAL) mg/dL Sodium (EXTERNAL RESULT) 144 137 - 145 mmol/L Potassium (EXTERNAL RESULT) 4.4 3.5 - 5.1 mmol/L Chloride (EXTERNAL RESULT) 98 98 - 107 mmol/L CO2 (EXTERNAL) mmol/L Calcium (EXTERNAL RESULT) 9.9 8.4 - 10.2 mg/dL Anion Gap (EXTERNAL RESULT) 16.4 14 - 22 mmol/L BUN (EXTERNAL RESULT) mg/dL Creatinine (EXTERNAL RESULT) 0.67 0.66 - 1.25 mg/dl Alkaline Phosphatase (EXTERNAL RESULT) U/L ALT (EXTERNAL RESULT) U/L AST (EXTERNAL RESULT) U/L Protein Total (EXTERNAL RESULT) gm/dL Albumin (EXTERNAL RESULT) gm/dL Bilirubin Total (EXTERNAL RESULT) mg/dL eGFR MDRD (EXTERNAL RESULT) mL/min/1.7 3m2 eGFR (EXTERNAL) mL/min/1.7 3m2 Blood BLOOD SPECIMEN / Unknown 06/19/2017 Historical Provider LAB - CHEMISTRY O RDERABLES * (ABNORMAL) LIPID PROFILE (EXTERAL RESULT ENTRY) (06/19/2017) Only the most recent of2 resultswithin the time period is included. Cholesterol (EXTERNAL RESULT) 207(A) 140 - 199 mg/dL Triglycerides (EXTERNAL RESULT) 109 150 mg/dL HDL (EXTERNAL RESULT) 62 40 mg/dL LDL (EXTERNAL RESULT) 123 0 - 130 mg/dL VLDL (EXTERNAL RESULT) mg/dL Chol HDL Ratio (External Result) Blood BLOOD SPECIMEN / Unknown 06/19/2017 Historical Provider LAB - CHEMISTRY O RDERABLES * TSH (EXTERNAL RESULT ENTRY) (06/19/2017) TSH (EXTERNAL RESULT) 2.080 0.465 - 4.680 uIU/mL Blood BLOOD SPECIMEN / Unknown 06/19/2017 Historical Provider LAB - CHEMISTRY O RDERABLES * HEMOGLOBIN A1C (EXTERNAL RESULT ENTRY) (06/19/2017) Only the most recent of2 resultswithin the time period is included. Hemoglobin A1c (EXTERNAL RESULT) 5.4 4.0 - 6.0 % Blood BLOOD SPECIMEN / Unknown 06/19/2017 Historical Provider LAB - CHEMISTRY O RDERABLES * HEPATITIS C RNA QUANTITATIVE PCR (09/08/2016 12:39 PM CDT) Hepatitis C Virus RNA IU/mL HCV Not Detected IU/mL [facility] [employer] ([employer]) Test Information [facility] ([employer]) Comment:The quantitative ran ge of this assay is 15 IU/mL to 100 million IU/mL. 09/08/2016 12:3 9 PM CDT 09/08/2016 Narrative [facility] (АННА) - 09/10/2016 6:39 AM CDT Performed at: - [address] [id number] Net Ui Developer: Leonid Starks MD, Phone: [phone] Arlene Chen MD LAB - CHEMISTRY ORDERABLES [facility] (АННА) Care Teams Geomorphology Teacher Relationship Specialty Start Date End Date Leonora Terrazas APRN-COMMERCIAL LINES MANAGER [address] [address] PCP - General 08/22/17
== END 2024-03-27 11:27 | disposition home or self-care (01) ==
PROVIDERS: PCP Nurse Practitioner Adult Health; Visit Provider Internal Medicine
DX: M48.10 Ankylosing hyperostosis [Forestier], site unspecified (principal); G89.29 Other chronic pain
CPT/HCPCS: 72040; 72070; 72110; 72202

== ENCOUNTER 2024-04-11 11:08 | Outpatient (CLI) | payer OTHER, SELFPAY | END 2024-04-11 11:09 | disposition home or self-care (01) | PROVIDERS: PCP Nurse Practitioner Adult Health; Visit Provider Orthopaedic Surgery | DX: M19.011 Primary osteoarthritis, right shoulder (principal) | CPT/HCPCS: 73200 ==

== ENCOUNTER 2024-06-18 11:09 | Outpatient (CLI) | payer OTHER, SELFPAY ==
--- NOTE | 2024-06-18 11:24 | ECG_ITS ---
Test Date: 2024-06-18 11:33:20 Measurements Intervals [place] Rate: 74 P: 49 MT: 239 QRS: 12 QRSD: 97 T: 23 QT: 423 QTc: 471 Interpretive Statements SINUS RHYTHM WITH FIRST DEGREE AV BLOCK LOW QRS VOLTAGE IN PRECORDIAL LEADS [QRS DEFLECTION < 1.0 mV IN CHEST LEADS] POSSIBLE ANTERIOR MYOCARDIAL INFARCTION [30 ms Q WAVE IN V3/V4, OR R < 0.2 mV IN V4], PROBABLY OLD INFERIOR MYOCARDIAL INFARCTION [40+ ms Q WAVE AND/OR ST/T ABNORMALITY IN II/aVF], PROBABLY OLD No previous ECG available for comparison Electronically Signed On 06-18-2024 14:11:18 CDT by Marylu De La Cruz M.D.
[2024-06-18 11:31] LABS: Hemoglobin 13.8 g/dL (12.0-15.0)
--- OUTSIDE RECORDS SUMMARY | 2024-06-18 11:56 | XMS_ITS | Referral Summary ---
Author Organization [facility] Address [address] [place] [phone] Care Team Providers Care Director Software Development Name Role Phone Leonora Terrazas NP Primary Care Provider [phone] Allergies Active Allergy Reactions Criticality Noted Date [...] on file Legal Sex Female 8:43 AM SHIATSU THERAPIST Gender Identity Not on file Sexual Orientation Not on file Last Filed Vital Signs Vital Sign Reading Time Taken Comments Blood Pressure 131/76 02/25/2016 7:18 AM SHIATSU THERAPIST Pulse 89 02/25/2016 7:18 AM SHIATSU THERAPIST Temperature - - Respiratory Rate - - Oxygen Saturation 93% 02/25/2016 7:18 AM SHIATSU THERAPIST Inhaled Oxygen Concentration - - Weight 104.3 kg (229 lb 15 oz) 11/25/2020 12:07 PM CDT Height 172.7 cm (5' 8 ) 11/25/2020 12:07 PM CDT Body Mass Index 34.96 11/25/2020 12:07 PM CDT Plan of Treatment Not on file Insurance CIGNA IBEW CIGNA IBEW CIGNA IBEW CIGNA IBEW Care Teams Director Software Development Relationship Specialty Start Date End Date Leonora Terrazas NP PCP - General 10/03/16
--- OUTSIDE RECORDS SUMMARY | 2024-06-18 11:56 | XMS_ITS | Clinical Summary ---
Author Organization [facility] Address [address] [place] [address] Care Team Providers Care Workers' Compensation Commissioner Name Role Phone Leonora Terrazas NP Primary Care Provider [phone] Allergies Active Allergy Reactions Criticality Noted Date [...] on file Legal Sex Female 8:43 AM IN FLIGHT TECHNICIAN Gender Identity Not on file Sexual Orientation Not on file Obstetrics History Last Filed Vital Signs Vital Sign Reading Time Taken Comments Blood Pressure 131/76 02/25/2016 7:18 AM IN FLIGHT TECHNICIAN Pulse 89 02/25/2016 7:18 AM IN FLIGHT TECHNICIAN Temperature - - Respiratory Rate - - Oxygen Saturation 93% 02/25/2016 7:18 AM IN FLIGHT TECHNICIAN Inhaled Oxygen Concentration - - Weight 104.3 kg (229 lb 15 oz) 11/25/2020 12:07 PM CDT Height 172.7 cm (5' 8 ) 11/25/2020 12:07 PM CDT Body Mass Index 34.96 11/25/2020 12:07 PM CDT Plan of Treatment Not on file Insurance CIGNA IBEW CIGNA IBEW CIGNA IBEW CIGYANG IBEW Care Teams Workers' Compensation Commissioner Relationship Specialty Start Date End Date Leonora Terrazas NP PCP - General 10/03/16
[2024-06-18 11:57] LABS: Albumin Level 4.3 g/dL (3.5-5.1); Estimated Glomerular Filt Rate > 60; Glucose 94 mg/dL (65-110)
--- OUTSIDE RECORDS SUMMARY | 2024-06-18 11:57 | XMS_ITS ---
Author Organization [facility] [employer] ([address]) Address [address] [place] [address] Care Team Providers Care Sand Sifter Name Role Phone Leonora Lundy Primary Care Provider María Elena Maryam Paredes Unavailable [phone] Allergies Allergen (clinical drug ingredient) Drug/Non Drug Allergy documented on EMR Reaction Allergy Type Onset Date Status omeprazole Omeprazole diarrhea Drug Allergy Activ e Sulfamethoxazole hives Drug Allergy Active albuterol Ventolin HFA other reaction Drug Allergy Active REASON FOR VISIT Presumed asthma - reports diagnosis years ago. The last 2 years with persistent dyspnea, cough, and thick mucus. Previously on QVAR. Stepped up to Trelegy with clinical improvement but no changed in spirometry. Sent to Pulmonary recently. Now on Breztri., ARC f/u, continues on meds, avoidance andSCIT. Tolerating without issues. Had large local reactionm at a prior visit with Vials C and D. Nowheld at a 0.2 dosing., JAIMEE - now on CPAP, Now followed by Pulmonary, Slated for shoulder replacement Medications Medication SIG (Take, Route, Frequency, Duration) Notes Start Date End Date Status VERAPAMIL 180 mg/24 hours 1 cap(s) orally once a day for 30 day(s) Not-Taking 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 Not-Taking AZELASTINE HYDROCHLORIDE NASAL 137 mcg/inh 2 spray(s) intranasally 2 times a day for 30 days Not-Taking TRELEGY ELLIPTA 200 mcg-62.5 mcg-25 mcg/inh INHALE 1 PUFF BY MOUTH EVERY DAY for 90 Not-Taking VENTOLIN HFA 90 mcg/inh 2 puff(s) inhale d every 6 hours for 30 day(s) Not-Taking LEVOTHYROXINE 25 mcg (0.025 mg) 1 tab(s) orally once a day for 30 day(s) Not-Taking ROSUVASTATIN 5 mg 1 tab(s) orally once a day Not-Taking CHLORTHALIDONE 50 mg 1 tab(s) orally onc e a day for 30 day(s) Not-Taking VALACYCLOVIR 1 g 1 tab(s) orally 2 times a day for 10 day(s) Not-Taking RIZATRIPTAN 10 mg 1 tab(s) orally once a day Not-Taking FOSAMAX 70 mg 1 tab(s) orally once a week Not-Taking AZELASTINE HYDROCHLORIDE NASAL 137 mcg/inh 2 spray(s) intranasally 2 times a day Not-Taking Breztri Aerosphere 160-9-4.8 MCG/ACT INHALE 2 PUFFS BY MOUTH TWICE A DAY for 30 Active Ventolin HFA 108 (90 Base) MCG/ACT 2 puff(s) inhaled every 6 hours for 30 day(s) Not-Taking Trelegy Ellipta 200 MCG-62.5 MCG-25 MCG/INH INHALE 1 PUFF BY MOUTH EVERY DAY for 90 *Please review and pick correct strength-formul ation from [employer]ero Rock options. If intended option is not shown, discontinue and re-order from Quick Search* Not-Taking Verapamil HCl ER 180 MG 1 cap(s) orally once a day for 30 day(s) Active Berkshire Nasal Moisturizer *Please review and pick correct strength-formul ation from [employer]ero Rock options. If intended option is not shown, discontinue and re-order from Quick Search* Active valACYclovir HCl 1 GM 1 tab(s) orally 2 times a day for 10 day(s) Active Rizatriptan Benzoate 10 MG 1 tab(s) orally once a day Active Azelastine HCl 137 MCG/SPRAY 2 spray(s) intranasally 2 times a day for 30 days Active Levothyroxine Sodium 25 MCG 1 tab(s) orally once a day for 30 days Active Rosuvastatin Calcium 5 MG 1 tab(s) orally once a day Active Fosamax 70 MG 1 tab(s) orally once a week Active Chlorthalidone 50 MG 1 tab(s) orally onc e a day for 30 day(s) Active LEVALBUTEROL TARTRATE HFA 45 MCG/INH 2 PUFF(S) INHALED EVERY 4 HOURS for 30 DAYS *Please review for potential replacement for e-prescription and drug interaction check* Active MONTELUKAST 10 mg 1 tab(s) orally once a day Active BREZTRI AEROSPHERE 160 mcg-4.8 mcg-9 mcg/inh 2 puff(s) inhaled 2 times a day0 for 90 days Active Xopenex HFA 45 MCG/ACT 2 puffs Inhalatio n every 4 hrs for 30 days Active Famotidine 40 MG 1 tab(s) orally 1 hour prior to SCIT Active Montelukast Sodium 10 MG 1 tab(s) orally once a day Active SIT (TRADITIONAL) variable per schedule SC per schedule for to be determined Active Flonase Allergy Relief 50 MCG/ACT 2 spray(s) intranasally Qday Active EpiPen 2-Ramya 0.3 MG/0.3ML as directed intramuscularly once Active ZyrTEC Allergy 10 MG 1 tab(s) orally onc e a day Active FAMOTIDINE 40 mg 1 tab(s) orally 1 hour prior to SCIT Active Hydroxychloroquine Sulfate 200 MG as directed Orally Active FLONASE 50 mcg/inh 2 spray(s) intranasally Qday Active Triamcinolone Acetonide 0.1 % 1 jackson applied topically 3 times a day Active NASAL WASHES N/A as directed intranasally as needed Active EPIPEN 2-RAMYA 0.3 mg as directed intramuscularly once Active TRIAMCINOLONE TOPICAL 0.1% 1 jackson applied topically 3 times a day Active Azelastine HCl 137 MCG/SPRAY 2 sprays in each nostril Nasally Twice a day for 30 days As needed 5 Active ZYRTEC 10 mg 1 tab(s) orally once a day Active Triamcinolone Acetonide 0.1 % 1 application Externally Twice a day for 5 days 5 Active Social History Tobacco Use: Social History Observation Description Date Details (start date - stop date) Never Smoker NA - NA Tobacco Control (Standard) Question Answer Notes Tobacco use: Nonsmoker AUDIT-C (Standard) Question Answer Notes Did you have a drink containing alcohol in the p ast year? No Points 0 Interpretation Negative Vital Signs Blood pressure systolic 137 mm Hg 05/23/19 25 Blood pressure diastolic 76 mm Hg 025 Respiratory Rate 17 /min 05/22/2024 Height 67 in 05/22/2024 Weight 237 lbs 05/22/2024 BMI 37.12 kg/m2 05/22/2024 Oximetry 96 % 05/22/2024 Encounters Encounter Location Date Provider Diagnosis [facility] [address] [place] [address] 05/22/2024 Maryam Trujillo Moderate persistent asthma, uncomplicated J45.40 ; Chronic rhinitis J31.0 ; Allergic rhinitis due to pollen J30.1 ; Allergic rhinitis due to animal (cat) (dog) hair and dander J30.81 ; Other allergic rhinitis J30.89 ; Other chronic allergic conjunctivitis H10.45 ; Allergic contact dermatitis due to other agents L23.89 and Allergic contact dermatitis due to plants, except food L23.7 Assessments Encounter Date Diagnosis (ICD Code) Assessment Notes Treatment Notes Treatment Clinical Notes Section Notes 05/22/2024 Moderate persistent asthma, uncomplicated (ICD-10 - J45.40) 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 As above since 2021 she was having reduction in lung function + increased episodes of dyspnea, coughing, and mucus production. She feels GUILLERMO makes breathing worse .Stepped up to Trelegy in 11/2021 clinically improved but no improvement on spirometry. I sent her to Pulmonary questioning her diagnosis of asthm and to r/o restrictive lung disease. Did not tolerate after PFT. It showed mild restriction with normal DLCO. Records requested for reivew. Suspects she needs a methacholine challenge. This also just may be a weight issues. Slated to see Cardiology again. She does not tolerate albuterol. Would stick to Lealbuterol - will request records and send my note over to Larisa. Will request Pulmonary records -pulse ox readings at home between 96-94%. Normal in office today -Continue Breztri due to hoarseness and throat irritation with Trelegy. Again want input by Pulmonary -IgE=33 VYE=481 -last CXR was normal 05/22/2024 Chronic rhinitis (ICD-10 - J31.0) Previously treated with nasal washes and Mupirocin with clean q-tip BID x 5 days. Then switch to AYR, now using PRN 05/22/2024 Allergic rhinitis due to pollen (ICD-10 - J30.1) Marlen clearly suffers from atopic disease based upon skin testing. She continues on meds, avoidance measures and SCIT with great control of symptoms. - Encouraged meds as above. Discussed increasing SCIT frequency PRN for symptomatic control. - Not due for dosing today. Hold at reduced dosing of 0.2 mL for Vials C an D. Discussed titrating weekly as tolerated. Consider refomulation of shots if she continues to have symptom regression. As she is due for new vials will see if she can titrate weekly to a higher dose - Increase SCIT frequency PRN in peak seasons for increased symptoms 05/22/2024 Allergic rhinitis due to animal (cat) (dog) hair and dander (ICD-10 - J30.81) Follow allergen avoidance, meds and continue SCIT as an adjunctive treatment to current regimen. 05/22/2024 Other allergic rhinitis (ICD-10 - J30.89) Follow allergen avoidance, meds and continue SCIT as an adjunctive treatment to current regimen. 05/22/2024 Other chronic allergic conjunctivitis (ICD-10 - H10.45) I encouraged allergy avoidance measures and meds as above. If symptoms persist, consider adding additional medications including intraocular antihistamine/ma st cell stabilizer, PRN and continue SCIT as an adjunctive measure. 05/22/2024 Allergic contact dermatitis due to other agents (ICD-10 - L23.89) S/p patch testing with several positives. She continues avoidance without any interval rashes - Continue prn triamcinolone. - Skin is clear today 05/22/2024 Allergic contact dermatitis due to plants, except food (ICD-10 - L23.7) History of recurrent urushiol dermatitis. Also reports dermatitis to other plants, including honeysuckle. Recommend continued avoidance. Wear long pants and avoid yard work where offending plants grow - No issues currently 05/22/2024 Other Plan Of Treatment Medication Medication Name Sig Start Date Stop Date Notes MONTELUKAST 10 mg 1 tab(s) orally once a day BREZTRI AEROSPHERE 160 mcg-4.8 mcg-9 mcg/inh 2 puff(s) inhaled 2 times a day0 for 90 days Xopenex HFA 45 MCG/ACT 2 puffs Inhalatio n every 4 hrs for 30 days SIT (TRADITIONAL) variable per schedule SC per schedule for to be determined FAMOTIDINE 40 mg 1 tab(s) orally 1 ho ur prior to SCIT FLONASE 50 mcg/inh 2 spray(s) intranasally Qday NASAL WASHES N/A as directed intranas ally as needed EPIPEN 2-RAMYA 0.3 mg as directed intramus cularly once TRIAMCINOLONE TOPICAL 0.1% 1 jackson applied topically 3 times a day Azelastine HCl 137 MCG/SPRAY 2 sprays in each nostril Nasally Twice a day for 30 days 05/22/2024 ZYRTEC 10 mg 1 tab(s) orally once a day Triamcinolone Acetonide 0.1 % 1 application Externally Twice a day for 5 days 05/22/2024 Treatment Notes Assessment Notes Moderate persistent asthma, uncomplicate d 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 As above since 2021 she was having reduction in lung function + increased episodes of dyspnea, coughing, and mucus production. She feels GUILLERMO makes breathing worse .Stepped up to Trelegy in 11/2021 clinically improved but no improvement on spirometry. I sent her to Pulmonary questioning her diagnosis of asthm and to r/o restrictive lung disease. Did not tolerate after PFT. It showed mild restriction with normal DLCO. Records requested for bessie. Suspects she needs a methacholine challenge. This also just may be a weight issues. Slated to see Cardiology again. She does not tolerate albuterol. Would stick to Lealbuterol - will request records and send my note over to Larisa. Will request Pulmonary records -pulse ox readings at home between 96-94%. Normal in office today -Continue Breztri due to hoarseness and throat irritation with Trelegy. Again want input by Pulmonary -IgE=33 DRL=121 -last CXR was normal Chronic rhinitis Previously treated w ith nasal washes and Mupirocin with clean q-tip BID x 5 days. Then switch to AYR, now using PRN Allergic rhinitis due to pollen Marlen clearly suffers from atopic disease based upon skin testing. She continues on meds, avoidance measures and SCIT with great control of symptoms. - Encouraged meds as above. Discussed increasing SCIT frequency PRN for symptomatic control. - Not due for dosing today. Hold at reduced dosing of 0.2 mL for Vials C an D. Discussed titrating weekly as tolerated. Consider refomulation of shots if she continues to have symptom regression. As she is due for new vials will see if she can titrate weekly to a higher dose - Increase SCIT frequency PRN in peak seasons for increased symptoms Allergic rhinitis due to ani mal (cat) (dog) hair and dander Follow allergen avoidance, meds and continue SCIT as an adjunctive treatment to current regimen. Other allergic rhinitis Follow allergen avoidance, meds and continue SCIT as an adjunctive treatment to current regimen. Other chronic allergic conjunctivitis I encouraged allergy avoidance measures and meds as above. If symptoms persist, consider adding additional medications including intraocular antihistamine/mast cell stabilizer, PRN and continue SCIT as an adjunctive measure. Allergic contact dermatitis due to other agents S/p patch testing with several positives. She continues avoidance without any interval rashes - Continue prn triamcinolone. - Skin is clear today Allergic contact dermatitis due to plants, except food History of recurrent urushiol dermatitis. Also reports dermatitis to other plants, including honeysuckle. Recommend continued avoidance. Wear long pants and avoid yard work where offending plants grow - No issues currently Next Appt Details Follow Up: 4 Weeks,6 Months, Reason: SCIT,Evaluation and Management Provider Name:Missael Ruiz , 06/19/2024 10:30:00 AM, [facility], [address], [phone], Provider Name:Maryam Trujillo , 11/20/2024 10:00:00 AM, [facility] [facility], [address] [place] [address], [phone], Procedure Notes * Category Sub-Category Detail Notes SCIT Traditional Aeroallergen Schedul e Administration:: Full dosing administered per SOP and [facility]'s titration schedule and/or specific instructions as outlined on the patient's shot record; see attached for specifics re: content, concentration, volume and location of injection(s). Progress Notes * Marlen PEMBERTONDOB:1960 ( 63 yo F)Acc No.[id number]:05/22/2024 Asthma F/U Patient: Rick Marlen EMANUEL Provider: Santo Trujillo PA-C :1960 A ge:63 Y S ex:Female Date:05/22/2024 Address:[address] [place] [address] [place], [place] [id number] Pcp:Leonora Terrazas, ANP- Subjective: * Chief Complaints: * P resumed asthma - reports diagnosis years ago. The last 2 years with persistent dyspnea, cough, and thick mucus. Previously on QVAR. Stepped up to Trelegy with clinical improvement but no changed in spirometry. Sent to Pulmonary recently. Now on Breztri.ARC f/u, continues on meds, avoidance and SCIT. Tolerating without issues. Had large local reactionm at a prior visit with Vials C and D. Now held at a 0.2 dosing.JAIMEE - now on CPAPNow followed by PulmonarySlated for shoulder replacement * HPI: * Introduction: I had the pleasure of seeing Lorrie Pemberton, a 63 y/o female with ARC, asthma, urticaria and allergic contact dermatitis who returns for continued evaluation and management. She returns doing well. Vials C and D were lowered in the past due to large locals. She is doing well on shots. Last seen by Pulmonary in January. Continues Breztri and Levalbuterol. Now followed by Dr. Iglesias, Almas Ruelas and Larisa Crocker of Pulmonary. S/P PFT, CXR< and nodule as well as blood test and alpha-1. She continues Trelegy but she has questions today to review. Historically I met Marlen in 2021. At the time she was having episodes of dyspnea, coughing, and thick mucus production despite QVAR. She had been on inhalers for years but she states her asthma diagnosis was from a prior provider. Spirometry here has never demonstrated reversbility but she has also been on controllers. With the additional of Trelegy she clincially responded with less symptoms but spirometry still suggestive of restriction with borderline FVC. With the step up to Trelegy 200 there was no change in lung function. I questioned her diagnosis of asthma and found that she took rather shallow breaths. Sent to Pulmonary for evaluation. PFT showed restriction and she had a paradoxical response to albuterol with dypnea, tightness, tingling of arms and legs. Took her hours to recover. She does have a history of an arrhythma, was followed by Cardiology for years, Plans on going back at the recommendation of her PCP. H er only complaint today is persistent mucus/PND. She also has woke up twice gasping for breath. No prior sleep study. She continues to receive immunotherapy for ARC, tolerating wihtout issues. AIE on hand for today's dosing. Having increased mucus this fall. 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 Re contact dermatitis, she completed patch testing in 10/2019 with several positives (records attached to chart), and is practicing avoidance. No interval rash. Today, she reports no fevers, chills, night sweats or other constitutional symptoms . The patient is here for scheduled specific allergen immunotherapy. Please see the attached specialty form regarding the specifics of the administration of these vaccines. As per our protocol, they must undergo a screening health questionnaire (medication changes, reaction(s) to last immunotherapy dose(s), current health status, ACT (if appropriate), self-injectable epinephrine on patient(?) and peak flow (if appropriate)). Also, the patient must wait in our office for 30 minutes after receiving immunotherapy. Furthermore, every patient must have an epinephrine pen (self-injectable) with them at the time of administration--and carry if for the following 1.5 hours after they leave our office. The patient must also have taken their antihistamine the day of the injection, preferably 2 hours prior. The consent form for SCIT (subcutaneous immunotherapy) is on file. * ROS: A LLERGY: Positive p er the HPI and history, otherwise unremarkable.?runny nose Y es. s cratchy throat Y es. i tchy eyes Y es. e ar fullness?Yes. s inus congestion Y es. S PECIAL SENSES: Positve for n one. c ataracts Y es. g laucoma?No. l oss of hearing N o. i tching in ears Y es. r inging in ears Y es.?loss of balance N o. l oss of smell N o. d ry eyes Y es. e xcessive tearing N o. i tching eyes Y es. l oss of taste N o. c onjunctivitis Y es.?ear infections Y es. C ONSTITUTIONAL: weight gain N o. l oss of appetite N o. f ever?No. w eakness N o. w eight loss N o. f atigue N o. n ight sweats?No. P ositive for n one. E NT: cold N o. c ough Y es. e pistaxis N o. h earing loss N o. s ore throat Y es. r inging in ears Y es. s inus pain?Yes. P ositive p er the HPI and history, otherwise unremarkable. R ESPIRATORY: shortness of breath Y es. c hest pain N o. c hest congestion Y es. c ough Y es. P ositive p er the HPI and history, otherwise unremakable. O PHTHALMOLOGY: diminished vision N o. e ye irritation Y es. d rainage from eyes Y es. b lurring of vision Y es. s easonal eye sx Y es. P ositive for p er the HPI and history, othewise unremarkable. i tching Y es. s ensitivity to light Y es. d ischarge Y es. w atering Y es. s welling of the eyelids?No. r edness Y es. E NDOCRINOLOGY: fatigue N o. p olydipsia N o. p olyuria Y es. w eight loss N o. s leep disturbance N o. c old intolerance N o. h eat intolerance Y es. d iabetes N o. P ositive for n one. C ARDIOLOGY: chest pain N o. p alpitations Y es. l eg edema?Yes. d izziness N o. s hortness of breath Y es. P ositive for n one.? G ASTROENTEROLOGY: dysphagia N o. a bdominal pain N o. v omiting?No. c onstipation N o. d iarrhea N o. b lood in stool N o. i ndigestion N o. h emorrhoids N o. P ositive for n one. U ROLOGY: difficulty urinating N o. b lood in urine N o. f requent urination Y es. u rinary incontinence Y es. P ositive for n one. ? D ERMATOLOGY: rash Y es. m ole Y es. l umps N o. d ry or sensitive skin Y es. h nidhi (urticaria) Y es. a cne N o. s kin cancer?No. P ositive for p er the HPI and history, otherwise unremakable. N EUROLOGY: headache Y es. t ingling numbness N o. s eizures N o. i nsomnia N o. m lisa loss N o. d izziness N o. g ait abnormality N o. P ositive for n one. H EMATOLOGY/LYMPH: Positive for n one. M USCULOSKELETAL: joint swelling Y es. j oint pain Y es. l eg cramps Y es. j oint stiffness Y es. s ciatica Y es. o steoporosis N o. f racture Y es. c arpal tunnel Y es. g out N o. P ositive for n one.? P SYCHOLOGY: high stress level N o. d epression N o. s leep disturbances N o. s uicidal ideation N o. e ating disorder N o. m ental or physical abuse N o. a nxiety N o. P ositive for n one. F EMALE REPRODUCTIVE: heavy periods N o. h ot flashes Y es. a bnormal vaginal discharge N o. s exually active Y es. f requent yeat infections N o.?pelvic pain N o. b reast pain Y es. n ipple discharge N o. A re you ? N o. A re you planning on a future pregancy? N o. A ll other review of systems per the HPI and history, othwise unremarkable. * Medical History: * Surgical History: E ye muscle reattachment 02/27/1977C-section 12/22/1984Adenoidectomy 09/21/1986Total knee replacement 07/30/2018Kyphoplasty 12/27/2017shoulder replacement 1Right hip replacement 03/28/2022 * Hospitalization/Major Diagno stic Procedure: G astric bleed 02/27/2015 * Family History: F ather: Yes. M other: Yes. P aternal Grand Father: No. P aternal Grand Mother: Yes. M aternal Grand Father: Yes. M aternal Grand Mother: Yes. S iblings: Yes. C jeffersondren: Yes. 3 sister(s) - healthy. 2 daughter(s) - healthy. . both daughters have asthma 1 daughter allergic to pine trees. * Social History: M arital Status What is your marital status? m arried A lcohol Screening Do you ever drink alcoholic beverages? Y es Number of drinks per occasion: 1 Frequency? E very 6 months S moking Have you ever smoked tobacco: n ever smoked Are you a : n ever smoker R ecreational drug use Have you ever used recreational drugs? N o D etails on consumption of certain products? Do you regularly consume products with aspartame; Equal or NutraSweet? N o Do you regularly consume products with artificial coloring??No Have you ever noticed worsening of your rash with these food items? N o E xercise What kind(s) of exercise do you perform regularly? o ther,age-appropriate participation in physical activites How often do you perform this exercise? w eekly A re any of the following personal care products containing fragrance, dye or preservatives used regularly? Shampoo: Y es Conditioner: Y es Soap: Y es Laundry Detergent: Y es Fabric Softener: N o Deodorant: Y es Perfume, cologne, after shave: N o Air freshners or other scented products: N o Hair coloring dyes or rinses: N o Other: N o O ccupation Are you currenly employed? N o Have you had any job with high exposure to fumes, chemicals, dust or other noxious substances? N o Are you currently a student? N o E nvironmental History Living environment: p rivate home Where is the home located? [place] Age of home: 1 4 How long have you lived there? 5 years or more How many people live in the home? 2 H ome description Basement: Y es Any water damage in basement? N o Smokers in the home? N o Smokers outside the home? N o Air Conditioning? Y es Central Air? Y es Forced air heating? Y es Gas or electric? o ther Fireplace? N o Wood burning stove? N o Do you vacuum the home? N o Air purification systems? Y es Is it a HEPA (high-efficiency particulate air filter)? Y es Ionizer on air purification system? Y es Pillow and mattress dust-proof encasings? Y es Do you use a humidifier? Y es Whole house or room? w hole house humidifier Does it have a humidistat? Y es Is it used year-round, seasonal, or as needed? s easonal Is the humidifier cleaned regularly? Y es Do you own any pets? N o Fabric softeners used? N o Plants in the home? Y es How many? 1 0 Where are they kept? k itchen,outside,other room in home Is there carpeting in your bedroom? Y es Age of carpet? 1 4 Do you have xcph-lo-ifym carpeting? Y es What is the age of your carpeting? 1 4 What is the age of your mattress (years)? 1 What material(s) are used to manufacture your bedding and pillow? s ynthetic What is the age of your pillow (years)? 1 What material are your bedding items made of? n atural fiber (e.g. cotton) Do you sleep with quilts or blankets or a duvet? Y es What material? n atural fiber (e.g. cotton) T obacco Control (Standard) Tobacco use: N onsmoker A BUCKY-C (Standard) Did you have a drink containing alcohol in the past year? N o Points 0 Interpretation N egative * Medications: T akingHydroxychloroquine Sulfate 200 MG Tablet as directed Orally SIT (TRADITIONAL) variable see record per schedule SC per schedule Triamcinolone Acetonide 0.1 % Cream 1 jackson applied topically 3 times a day ZyrTEC Allergy 10 MG Tablet 1 tab(s) orally once a day Flonase Allergy Relief 50 MCG/ACT Suspension 2 spray(s) intranasally Qday EpiPen 2-Ramya 0.3 MG/0.3ML Solution Auto-injector as directed intramuscularly [...] Hour 1 cap(s) orally once a day [place] Nasal Moisturizer , Notes to Pharmacist: *Please review and pick correct strength-formulation from [employer] [place] options. If intended option is not shown, discontinue and re-order from Quick Search*Azelastine HCl 137 MCG/SPRAY Solution 2 spray(s) intranasally 2 times a day Breztri Aerosphere 160-9-4.8 MCG/ACT Aerosol INHALE 2 PUFFS BY MOUTH TWICE A DAY Taking Hydroxychloroquine Sulfate 200 MG Tablet as directed Orally Taking SIT (TRADITIONAL) variable see record per schedule SC per schedule Taking Triamcinolone Acetonide 0.1 % Cream 1 jackson applied topically 3 times a day Taking ZyrTEC Allergy 10 MG Tablet 1 tab(s) orally once a day Taking Flonase Allergy Relief 50 MCG/ACT Suspension 2 spray(s) intranasally Qday Taking EpiPen 2-Ramya 0.3 MG/0.3ML Solution Auto-injector as directed intramuscularly [...] 1 cap(s) orally once a day Taking [place] Nasal Moisturizer , Notes to Pharmacist: *Please review and pick correct strength-formulation from [employer] [place] options. If intended option is not shown, discontinue and re-order from Quick Search*Taking Azelastine HCl 137 MCG/SPRAY Solution 2 spray(s) intranasally 2 times a day Taking Breztri Aerosphere 160-9-4.8 MCG/ACT Aerosol INHALE 2 PUFFS BY MOUTH TWICE A DAY Not-Taking/PRNVentolin HFA 108 (90 Base) MCG/ACT Aerosol Solution 2 puff(s) inhaled every 6 hours Xopenex HFA 45 MCG/ACT Aerosol 2 puffs Inhalation every 4 hrs TRIAMCINOLONE TOPICAL 0.1% cream 1 jackson applied [...] soda as directed intranasally as needed EPIPEN 2-RAMYA 0.3 mg kit as directed intramuscularly once FAMOTIDINE 40 mg tablet 1 tab(s) orally 1 hour prior to SCIT MONTELUKAST 10 mg tablet 1 tab(s) orally once a day BREZTRI AEROSPHERE 160 mcg-4.8 mcg-9 mcg/inh aerosol 2 puff(s) inhaled 2 times a day0 Trelegy Ellipta 200 MCG-62.5 MCG-25 MCG/INH POWDER INHALE 1 PUFF BY MOUTH EVERY DAY , Notes to Pharmacist: *Please review and pick correct strength-formulation from [employer] [place] options. If intended option is not shown, [...] 2 spray(s) intranasally 2 times a day Medication List reviewed and reconciled with the patientNot-Taking/PRN Ventolin HFA 108 (90 Base) MCG/ACT Aerosol Solution 2 puff(s) inhaled every 6 hours Not-Taking/PRN Xopenex HFA 45 MCG/ACT Aerosol 2 puffs Inhalation every 4 hrs Not-Taking/PRN TRIAMCINOLONE TOPICAL 0.1% cream 1 jackson applied topically 3 times a day Not-Taking/PRN ZYRTEC 10 mg tablet 1 tab(s) orally once a day Not-Taking/PRN FLONASE 50 mcg/inh spray 2 spray(s) intranasally Qday Not-Taking/PRN AZELASTINE HYDROCHLORIDE NASAL 137 mcg/inh spray 2 spray(s) intranasally 2 times a day Not-Taking/PRN NASAL WASHES N/A 1 quart of sterilized tap water or distilled water, 1 tsp NaCl, 1 pinch of baking soda as directed intranasally as needed Not-Taking/PRN EPIPEN 2-RAMYA 0.3 mg kit as directed intramuscularly once Not-Taking/PRN FAMOTIDINE 40 mg tablet 1 tab(s) orally 1 hour prior to SCIT Not-Taking/PRN MONTELUKAST 10 mg tablet 1 tab(s) orally once a day Not-Taking/PRN BREZTRI AEROSPHERE 160 mcg-4.8 mcg-9 mcg/inh aerosol 2 puff(s) inhaled 2 times a day0 Not-Taking/PRN Trelegy Ellipta 200 MCG-62.5 MCG-25 MCG/INH POWDER INHALE 1 PUFF BY MOUTH EVERY DAY , Notes to Pharmacist: *Please review and pick correct strength-formulation from [employer] options. If intended option is not shown, discontinue and re-order from Quick Search*Not-Taking/PRN FOSAMAX 70 mg tablet 1 tab(s) orally once a week Not-Taking/PRN CHLORTHALIDONE 50 mg tablet 1 tab(s) orally once a day Not-Taking/PRN LEVOTHYROXINE 25 mcg (0.025 mg) tablet 1 tab(s) orally once a day Not-Taking/PRN ROSUVASTATIN 5 mg tablet 1 tab(s) orally once a day Not-Taking/PRN VALACYCLOVIR 1 g tablet 1 tab(s) orally 2 times a day Not- Taking/PRN RIZATRIPTAN 10 mg tablet 1 tab(s) orally [...] 2 spray(s) intranasally 2 times a day Medication List reviewed and reconciled with the patient * Allergies: S ulfamethoxazole: hivesOmeprazole: diarrheaVentolin HFA: other reactionno[Allergies Verified] Objective: * Vitals: B P:137/76mm Hg, HR:95/min, RR:17/min, Pulse Oximetry:96%, ACT:24, Ht: 67 in, Wt: 237 lbs, BMI:37.12Index. * Examination: G eneral examination: General appearance: p leasant, well-developed, well-nourished, female, in no apparent distress, speaking in full sentences - using a walker. HEENT: c onjunctiva are clear bilaterally, no tenderness to palpation of the sinuses, TM's without evidence of acute infection, turbinates 2+ swollen and pale inferiorly bilaterally, clear rhinorrhea is present, no polyps noted, no septal perforation, anterior nasal passge with dryness, b/l septum with slight excoriation, bleeding, and crusting, posterior oropharynx is clear, no exudates, no tongue swelling, and uvula is midline. Oral cavity: n ormal, no lesions. Neck, thyroid : s upple, non-tender, no anterior cervical lymphadenopathy. Heart: R RR, S1-S2, no murmurs, no rubs, no gallops. Lungs: c lear to auscultation and percussion in all lung ford, no wheezes or crackles. Neurologic exam: u nremarkable. Skin: normal, no rash, dermatographism, urticaria, angioedema. Peripheral pulses: n ormal (2+) bilaterally. Back: n ormal. Extremities: n ormal ROM, no clubbing, no cyanosis, no edema. Genitalia: n ot performed. Assessment: * Assessment: 1. M oderate persistent asthma, uncomplicated - J45.40 (Primary) 2 . C hronic rhinitis - J31.0 3 . A llergic rhinitis due to pollen - J30.1 ?4. A llergic rhinitis due to animal (cat) (dog) hair and dander - J30.81 5 . Other allergic rhinitis - J30.89 6 . O ther chronic allergic conjunctivitis - H10.45 7 . A llergic contact dermatitis due to other agents - L23.89 ? 8 . A llergic contact dermatitis due to plants, except food - L23.7 Plan: * Treatment: 2. C hronic rhinitis Notes: Previously treated with nasal washes and Mupirocin with clean q-tip BID x 5 days. Then switch to AYR, now using PRN 3. A llergic rhinitis due to pollen Continue ZYRTEC tablet, 10 mg, 1 tab(s), orally, once a day; C ontinue FLONASE spray, 50 mcg/inh, 2 spray(s), intranasally, Qday; C ontinue NASAL WASHES 1 quart of sterilized tap water or distilled water, 1 tsp NaCl, 1 pinch of baking soda, N/A, as directed, intranasally, as needed; C ontinue EPIPEN 2-RAMYA kit, 0.3 mg, as directed, intramuscularly, once; C ontinue FAMOTIDINE tablet, 40 mg, 1 tab(s), orally, 1 hour prior to SCIT; I ncrease SIT (TRADITIONAL) see record, variable, per schedule, SC, per schedule, to be determined; S tart Triamcinolone Acetonide Ointment, 0.1 %, 1 application, Externally, Twice a day, 5 days, 60 g, Refills 0; S tart Azelastine HCl Solution, 137 MCG/SPRAY, 2 sprays in each nostril, Nasally, Twice a day As needed, 30 days, 1, Refills 3. Notes: Marlen clearly suffers from atopic disease based upon skin testing. She continues on meds, avoidance measures and SCIT with great control of symptoms. - Encouraged meds as above. Discussed increasing SCIT frequency PRN for symptomatic control. - Not due for dosing today. Hold at reduced dosing of 0.2 mL for Vials C an D. Discussed titrating weekly as tolerated. Consider refomulation of shots if she continues to have symptom regression. As she is due for new vials will see if she can titrate weekly to a higher dose - Increase SCIT frequency PRN in peak seasons for increased symptoms 4. A llergic rhinitis due to animal (cat) (dog) hair and dander Notes: Follow allergen avoidance, meds and continue SCIT as an adjunctive treatment to current regimen. 5. O ther allergic rhinitis Notes: Follow allergen avoidance, meds and continue SCIT as an adjunctive treatment to current regimen. 6. O ther chronic allergic conjunctivitis Notes: I encouraged allergy avoidance measures and meds as above. If symptoms persist, consider adding additional medications including intraocular antihistamine/mast cell stabilizer, PRN and continue SCIT as an adjunctive measure. 7. A llergic contact dermatitis due to other agents Continue TRIAMCINOLONE TOPICAL cream, 0.1%, 1 jackson, applied topically, 3 times a day. Notes: S/p patch testing with several positives. She continues avoidance without any interval rashes - Continue prn triamcinolone. - Skin is clear today 8. A llergic contact dermatitis due to plants, except food Notes: History of recurrent urushiol dermatitis. Also reports dermatitis to other plants, including honeysuckle. Recommend continued avoidance. Wear long pants and avoid yard work where offending plants grow - No issues currently * Procedures: S CIT: Traditional Aeroallergen Schedule A dministration: F ull dosing administered per SOP and AAIC's titration schedule and/or specific instructions as outlined on the patient's shot record; see attached for specifics re: content, concentration, volume and location of injection(s). * Procedure Codes: G 8427 DOC MEDS VERIFIED W/PT OR [id number] PT-FOCUSED HLTH RISK [id number] Kaushik Trujillo Incident-[id number] TOT # ED VSTS & IP HOSP<2 PAST 12 [id number] IMMUNOTHERAPY INJECTIONS * Preventive Medicine: Counseling: D iet a s tolerated. E xercise C ontinue activity as usual, Consider GUILLERMO use PRN, prior to exercise as per the asthma action plan, Avoid heavy lifting on days of allergy immunotherapy. M edication instruction: W atch for side effects of prescribed medications, Nasal steroid/antihistamine instruction: avoid septum, Injectable epinephrine education and instruction w/ discussion of signs and symptoms of anaphylaxis and reasons to seek urgent or emergent care, Use prescribed inhaler(s) with spacer. If taking a inhaled corticorsteroid rinse out mouth after use and brush teeth. Oral hygiene reviewed at length. , [place] teeth or rinse out mouth after the use of oral, inhaled steroids to prevent oral thrush, Use 2 puffs of GUILLERMO with spacer prior to exercise and environmental exposures known to cause wheezing, Singulair (montelukast: serious neuropsychiatric events have been reported in patients; monitor for neuropsychiatric symptoms.? E ducation: G ENERAL EDUCATION:, Our staff spent an additional 30 minutes in direct contact with the patient educating them on their current diagnoses and proper treatment and prevention of symptoms and the proper use of medications, ASTHMA EDUCATION:, Our staff updated an asthma action plan with the patient/family, Our staff reviewed the patient's asthma action plan. E ducation 2: A RC EDUCATION:, Our staff discussed the appropriate allergen avoidance measures and medication utilization including upper airway hygiene with nasal washes given the patient's clinical status and diagnoses, SCIT EDUCATION:, Discussed allergy immunotherapy including the relative risks, benefits and alternatives to this treatment as an adjunctive measure to current therapy, Allergy Immunotherapy: Risks: bleeding, infection, allergic reaction, anaphylaxis = severe allergic reaction that can cause ; Benefits: reduced need for medications, improved symptoms, disease modification. Alternatives: watch/wait, change medication regimen, improve allergy avoidance measures, Our staff discussed the warning signs of anaphylaxis and the indications to use self-injectable epinephrine and seek urgent or emergent care. P atient education material sent to portal? Y es C are goal follow up plan BMI management provided Y es Above Normal BMI Follow-up G iving encouragement to exercise B P Management: PRE-HYPERTENSIVE FOLLOW-UP PLAN: P atient follow-up planned and scheduled LIFESTYLE RECOMMENDATION: H ypertension education FIRST HYPERTENSIVE BP READING FOLLOW-UP PLAN: F ollow-up 1 month REFERRAL TO ALTERNATIVE / PRIMARY CARE PROVIDER: Jenni kiddal to general physician Screenings: F all Risk Fall Risk Assessment: N o falls in the past year * Follow Up: 4 Weeks,6 Months (Reason: SCIT,Evaluation and Management) * Billing Information: * Visit Code: 88810 Office Visit, Est Pt., Level 4. Modifiers: 25 * Procedure Codes: G8427 DOC MEDS VERIFIED W/[place]. [address] PT-FOCUSED HLTH RISK ASSMT. 45872 SantoLisseth Trujillo Incident-to. G9521 TOT # ED VSTS & IP HOSP<2 PAST 12 M. 89964 IMMUNOTHERAPY INJECTIONS. * Electronically signed by Reshma Trujillo PA-C, [facility] C[facility] SERVICESRancho on 05/22/2024 at 10:42 AM CDT Sign off status: Completed true * Provider: Santo Trujillo PA-C Date: 0 05/22/2024 Generated for Sukhjinder zayas/Wale/Austinsmitting on: 0 06/18/2024 11:57 AM CDT History and Physical Notes * HPI (History of Present Illness) Category Sub-Category Detail Notes Category Notes *Introduction I had the pleasure of seeing Marlen Pemberton, a 63 y/o female with ARC, asthma, urticaria and allergic contact dermatitis who returns for continued evaluation and management. She returns doing well. Vials C and D were lowered in the past due to large locals. She is doing well on shots. Last seen by Pulmonary in January. Continues Breztri and Levalbuterol. Now followed by Dr. Iglesias, Almas Ruelas and Larisa Crocker of Pulmonary. S/P PFT, CXR< and nodule as well as blood test and alpha-1. She continues Trelegy but she has questions today to review. Historically I met Marlen in 2021. At the time she was having episodes of dyspnea, coughing, and thick mucus production despite QVAR. She had been on inhalers for years but she states her asthma diagnosis was from a prior provider. Spirometry here has never demonstrated reversbility but she has also been on controllers. With the additional of Trelegy she clincially responded with less symptoms but spirometry still suggestive of restriction with borderline FVC. With the step up to Trelegy 200 there was no change in lung function. I questioned her diagnosis of asthma and found that she took rather shallow breaths. Sent to Pulmonary for evaluation. PFT showed restriction and she had a paradoxical response to albuterol with dypnea, tightness, tingling of arms and legs. Took her hours to recover. She does have a history of an arrhythma, was followed by Cardiology for years, Plans on going back at the recommendation of her PCP. Her only complaint today is persistent mucus/PND. She also has woke up twice gasping for breath. No prior sleep study. She continues to receive immunotherapy for ARC, tolerating wihtout issues. AIE on hand for today's dosing. Having increased mucus this fall. 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 Re contact dermatitis, she completed patch testing in 10/2019 with several positives (records attached to chart), and is practicing avoidance. No interval rash. Today, she reports no fevers, chills, night sweats or other constitutional symptoms The patient is here for scheduled specific allergen immunotherapy. Please see the attached specialty form regarding the specifics of the administration of these vaccines. As per our protocol, they must undergo a screening health questionnaire (medication changes, reaction(s) to last immunotherapy dose(s), current health status, ACT (if appropriate), self-injectable epinephrine on patient(?) and peak flow (if appropriate)). Also, the patient must wait in our office for 30 minutes after receiving immunotherapy. Furthermore, every patient must have an epinephrine pen (self-injectable) with them at the time of administration--and carry if for the following 1.5 hours after they leave our office. The patient must also have taken their antihistamine the day of the injection, preferably 2 hours prior. The consent form for SCIT (subcutaneous immunotherapy) is on file. Examination Category Sub-Category Detail Notes Category Not es General examination HEENT: conjunctiva are clear bilaterally, no tenderness to palpation of the sinuses, TM's without evidence of acute infection, turbinates 2+ swollen and pale inferiorly bilaterally, clear rhinorrhea is present, no polyps noted, no septal perforation, anterior nasal passge with dryness, b/l septum with slight excoriation, bleeding, and crusting, posterior oropharynx is clear, no exudates, no tongue swelling, and uvula is midline Neck, thyroid : supple, non-tender, no anterior cervical lymphadenopathy Heart: RRR, S1-S2, no murmu rs, no rubs, no gallops Lungs: clear to auscultatio n and percussion in all lung ford, no wheezes or crackles Extremities: normal ROM, no clubb ing, no cyanosis, no edema General appearance: pleasant, well-devel oped, well-nourished, female, in no apparent distress, speaking in full sentences - using a walker Skin: normal, no rash, tremaine matographism, urticaria, angioedema Neurologic exam: unremarkable Oral cavity: normal,no lesions Peripheral pulses: normal (2+) bilatera lly Back: normal Genitalia: not performed
--- OUTSIDE RECORDS SUMMARY | 2024-06-18 11:57 | XMS_ITS ---
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 Name Role Phone Leonora Lundy Primary Care Provider María Elena Maryam Paredes Unavailable [phone] Missael Ruiz Unavailable [phone] REASON FOR VISIT SCIT - Traditional Schedule Allergy immunotherapy Medications Medication SIG (Take, Route, Frequency, Duration) Notes Start Date End Date Status Rosuvastatin Calcium 5 MG 1 tab(s) orally once a day Active valACYclovir HCl 1 GM 1 tab(s) orally 2 times a day for 10 day(s) Active Rizatriptan Benzoate 10 MG 1 tab(s) orally once a day Active Verapamil HCl ER 180 MG 1 cap(s) orally once a day for 30 day(s) Active Levothyroxine Sodium 25 MCG 1 tab(s) orally once a day for 30 day(s) Active Famotidine 40 MG 1 tab(s) orally [...] once a day for 30 day(s) Active BREZTRI AEROSPHERE 160 mcg-4.8 mcg-9 mcg/inh 2 puff(s) inhaled 2 times a day0 for 90 days Active Triamcinolone Acetonide 0.1 % 1 jackson applied topically 3 times a day Active ZyrTEC Allergy 10 MG 1 tab(s) orally once a day Active Flonase Allergy Relief 50 MCG/ACT 2 spray(s) intranasally Qday Active EpiPen 2-Anatoly 0.3 MG/0.3ML as directed intramuscularly once Active NASAL WASHES N/A as directed intranasally as needed Active EPIPEN 2-ANATOLY 0.3 mg as directed intramuscularly once Active FAMOTIDINE 40 mg 1 tab(s) orally 1 hour prior to SCIT Active SIT (TRADITIONAL) variable per schedule SC per schedule for to be determined Active MONTELUKAST 10 mg 1 tab(s) orally once a day Active TRIAMCINOLONE TOPICAL 0.1% 1 jackson applied topically 3 times a day Active ZYRTEC 10 mg 1 tab(s) orally once a day Active FLONASE 50 mcg/inh 2 spray(s) intranasally Qday Active AZELASTINE HYDROCHLORIDE NASAL 137 mcg/inh 2 spray(s) intranasally 2 times a day Active Breztri Aerosphere 160 MCG-4.8 MCG-9 MCG/INH 2 PUFF(S) INHALED 2 TIMES A DAY0 for 90 DAYS *Please review and pick correct strength-formula tion from [employer] options. If intended option is not shown, discontinue and re-order from Quick Search* 03/22/2023 Active 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 Not-Taking TRELEGY ELLIPTA 200 mcg-62.5 mcg-25 mcg/inh INHALE 1 PUFF BY MOUTH EVERY DAY for 90 Not-Taking VENTOLIN HFA 90 mcg/inh 2 puff(s) inhaled every 6 hours for 30 day(s) Not-Taking AZELASTINE HYDROCHLORIDE NASAL 137 mcg/inh 2 spray(s) intranasally 2 times a day for 30 days Not-Taking Xopenex HFA 45 MCG/ACT 2 puffs Inhalation every 4 hrs for 30 days 11/22/2023 Active ROSUVASTATIN 5 mg 1 tab(s) orally once a day Not-Taking VALACYCLOVIR 1 g 1 tab(s) orally 2 times a day for 10 day(s) Not-Taking RIZATRIPTAN 10 mg 1 tab(s) orally once a day Not-Taking VERAPAMIL 180 mg/24 hours 1 cap(s) orally once a day for 30 day(s) Not-Taking LEVOTHYROXINE 25 mcg (0.025 mg) 1 tab(s) orally once a day for 30 day(s) Not-Taking Trelegy Ellipta 200 MCG-62.5 MCG-25 MCG/INH INHALE 1 PUFF BY MOUTH EVERY DAY for 90 *Please review and pick correct strength-formula tion from [employer] options. If intended option is not shown, discontinue and re-order from Quick Search* Not-Taking Ventolin HFA 108 (90 Base) MCG/ACT 2 puff(s) inhaled every 6 hours for 30 day(s) Active Azelastine HCl 137 MCG/SPRAY 2 spray(s) intranasally 2 times a day for 30 days Active FOSAMAX 70 mg 1 tab(s) orally once a week Not-Taking CHLORTHALIDONE 50 mg 1 tab(s) orally once a day for 30 day(s) Not-Taking [place] Nasal Moisturizer *Please review and pick correct strength-formula tion from [employer] options. If intended option is not shown, discontinue and re-order from Quick Search* Active Encounters Encounter Location Date Provider Diagnosis [facility] [address] [facility] [employer] [address] [place] [address] 04/24/2024 Missael Ruiz Allergic rhinitis du e to pollen J30.1 ; Allergic rhinitis due to animal (cat) (dog) hair and dander J30.81 ; Other allergic rhinitis J30.89 and Other chronic allergic conjunctivitis H10.45 Assessments Encounter Date Diagnosis (ICD Code) Assessment Notes Treatment Notes Treatment Clinical Notes Section Notes 04/24/2024 Allergic rhinitis due to pollen (ICD-10 - J30.1) 04/24/2024 Allergic rhinitis due to animal (cat) (dog) hair and dander (ICD-10 - J30.81) 04/24/2024 Other allergic rhinitis (ICD-10 - J30.89) 04/24/2024 Other chronic allergic conjunctivitis (ICD-10 - H10.45) Plan Of Treatment Next Appt Details Follow Up: 2 Weeks, Reason: Provider Name:Missael Ruiz , 06/19/2024 10:30:00 AM, [address] [employer], [address], [place], [address], Provider Name:Maryam Trujillo , 11/20/2024 10:00:00 AM, [address] [facility], [address], [place], [address], Progress Notes * Marlen PEMBERTONDOB:1960 ( 63 yo F)Acc No.[id number]:04/24/2024 SCIT-Aeroallergen Patient: Marlen LUI Provider: Lorrie Ruiz MD :1960 A ge:63 Y S ex:Female Date:04/24/2024 Address:[address] [place], [place] [id number] Pcp:Leonora Terrazas [facility]- Subjective: * Chief Complaints: * [...] Hour 1 cap(s) orally once a day [place] Nasal Moisturizer , Notes to Pharmacist: *Please review and pick correct strength-formulation from [employer] options. If intended option is not shown, [...] *Please review and pick correct strength-formulation from [employer] options. If intended option is not shown, [...] 1 cap(s) orally once a day Taking [place] Nasal Moisturizer , Notes to Pharmacist: *Please review and pick correct strength-formulation from [employer] options. If intended option is not shown, [...] *Please review and pick correct strength-formulation from [employer] options. If intended option is not shown, discontinue and re-order from Quick Search*Not-Taking/PRNTrelegy Ellipta 200 MCG-62.5 MCG-25 MCG/INH POWDER INHALE 1 PUFF BY MOUTH EVERY DAY , Notes to Pharmacist: *Please review and pick correct strength-formulation from [employer] options. If intended option is not shown, [...] Information: * Visit Code: * Procedure Codes: 93254 IMMUNOTHERAPY INJECTIONS. * Sign off status: Completed true * Provider: Lorrie Ruiz MD Date: 0 04/24/2024 Generated for Sukhjinder zayas/Wale/[place] on: 0 06/18/2024 11:57 AM CDT History [...]
--- OUTSIDE RECORDS SUMMARY | 2024-06-18 11:57 | XMS_ITS | Clinical Summary ---
Author Organization [facility] Address [address] [place] [address] Care Team Providers Care Emergency Management Coordinator Name Role Phone Kintigist Leonora FRANCO-CRIMP SETTER Primary Care Provider + Source Comments [facility],non-owned Affiliates and Associated Physician Practices is amultiple site organization consisting of ambulatory clinics and hospital sitesin [place], [place], [place] and [place]. This disclosure is being madepursuant to the Care Everywhere program and may not contain all information available regarding this patient. Last updated 17.[facility] Allergies Active Allergy Reactions Criticality Noted Date Comments Omeprazole Diarrhea Low 09/06/2016 Sulfa Drugs Rash Medium 09/06/2016 Theophylline-Guaifenesin Other Low 09/06/2016 shakes Medications * Be aware that medications may not be up to date on this document. Alwaysverify current medications with the patient. PROAIR HFA 108 (90 BASE) MCG/ACT inhaler 8 Active QVAR REDIHALER 40 MCG/ACT inhaler 8 Active chlorthalidone (HYGROTON) 25 MG tablet Take 25 mg by mouth once daily 8 Active Multiple Minerals-Vitamin s (CALCIUM & VIT D3 BONE HEALTH PO) Take 2,000 mg by mouth once daily Active vitamin D, ergocalciferol, (DRISDOL) 58999 UNITS capsule Take 50,000 Units by mouth every 7 days 1 8 Active CRANBERRY CONCENTRATE PO Take 1,000 mg by mouth once daily Active flunisolide (NASALIDE) 25 MCG/ACT (0.025%) nasal solution 8 Active GLUCOSAMINE HCL PO Take 3,000 mg by mouth once daily Active levothyroxine (SYNTHROID) 25 MCG tablet Take 25 mcg by mouth once daily 8 Active montelukast (SINGULAIR) 10 MG tablet Take 10 mg by mouth once daily 8 Active Multiple Vitamins-Mineral s (MULTIVITAMIN ADULT PO) Take 1 tablet by mouth once daily Active rizatriptan, disintegrating, (MAXALT BEHAVIOR SUPPORT SPECIALIST) 10 MG tablet Take 10 mg by mouth Active valACYclovir (VALTREX) 1 GM tablet Take 2,000 mg by mouth 2 times daily as needed Active verapamil CR (ISOPTIN-SR) 120 MG tablet Take 120 mg by mouth once daily 8 Active OtherIndications :Insta-Flex Advanced Supplement Take 1 tablet by mouth once daily Reasons: Insta-Flex Advanced Supplement Active TURMERIC CURCUMIN PO Take 375 mg by mouth once daily Active Guggulipid-Black Pepper (GUGLIPID/BIOPER INE PO) Take 1 tablet by mouth once daily Active Active Problems Problem Noted Date Diagnosed Date Small intestinal bacterial overgrowth 08/22/2017 Fatty liver 08/22/2017 Social History Tobacco Use Types Packs/Day Years Used Date Smoking Tobacco: Never Smokeless Tobacco: Never Alcohol Use Standard Drinks/Week Comments No 0 (1 standard drink = 0.6 oz pur e alcohol) Comments Unknown Sex and Gender Information Value Date Recorded Sex Assigned at Not on file Legal Sex Female 2:37 PM CDT Gender Identity Not on file Sexual Orientation [...] Health Maintenance Due Date Last Done Comments COLOGUARD (AGES 45-75) - COL ON CA SCREENING 1960 COLON MONITORING 1960 COLONOSCOPY - COLON CA SCREENING 1960 CT COLONOGRAPHY - COLON CA SCREENING 1960 Colorectal Cancer Screening 1960 FIT - COLON CA SCREENING 1960 FLEX SIG - COLON CA SCREENING 1960 MAMMOGRAM 1960 HIV SCREENING 08/20/1975 DTAP/TDAP/TD VACCINES (1 - Tdap) 08/20/1979 PNEUMOCOCCAL VACCINE 50+ (1 of 1 - PCV) 2010 ZOSTER VACCINE (1 of 2) 2010 SCREENING FOR DIABETES 06/19/2020 8, 06/19/2017 LIPID TESTING 06/19/2022 06/19/2017, 06/19/2017 COVID-19 VACCINE (1 - 2023-2 5 season) 2023 DEPRESSION SCREENING 02/13/2024 INFLUENZA VACCINE (Season Ended) 2024 Respiratory Syncytial Virus (RSV) Vaccine Pt: or [...] complete this topic MENINGOCOCCAL (Group B) VACCINE SHARED DECISION-MAKING Aged Out No longer eligible based on patient's age to complete this topic MENINGOCOCCAL GROUPS A/C/Y/W VACCINE Aged Out No longer eligible b [...] Unknown 06/19/2017 Historical Provider LAB - CHEMISTRY ORDERABLE S Final Result * HEMOGLOBIN A1C (EXTERNAL RESULT ENTRY) (06/19/2017) Pathologist [facility] Hemoglobin A1c (EXTERNAL RESULT) 5.4 4 - 6 % Blood BLOOD SPECIMEN / Unknown 06/19/2017 Historical Provider LAB - CHEMISTRY ORDERABLE S Final Result * HEPATITIS C RNA QUANTITATIVE PCR (09/08/2016 12:39 PM CDT) Pathologist [facility] Hepatitis C Virus RNA IU/mL HCV Not Detected IU/mL [facility] ([facility]) Test Information [facility] ([facility]) Comment:The quantitative ran ge of this assay is 15 IU/mL to 100 million IU/mL. 09/08/2016 12:3 9 PM CDT 09/08/2016 Narrative [facility] ([facility]) - 09/10/2016 6:39 AM CDT Performed at: [facility] [id number] [place] Supervisor: Leonid Starks MD, Phone: [phone] Arlene Chen MD LAB - CHEMISTR Y ORDERABLES Final Result [facility] ([facility]) [address] [place] [address] from Last 3 Months or Most Recently Relevant to Health Maintenance Insurance [facility] Care Teams Emergency Management Coordinator Relationship Specialty Start Date End Date Leonora Terrazas APRN-CNP [address] [id number] PCP - General 08/22/17
--- OUTSIDE RECORDS SUMMARY | 2024-06-18 11:57 | XMS_ITS ---
Author Organization [facility] [employer] [place] ([address]) Address [address] [place] [address] Care Team Providers Care Brand Sales Manager Name Role Phone Leonora Lundy Primary Care Provider María Elena Maryam Paredes Unavailable [phone] Missael Ruiz Unavailable [phone] REASON FOR VISIT SCIT - Traditional Schedule Allergy immunotherapy Medications Medication SIG (Take, Route, Frequency, Duration) Notes Start Date End Date Status Azelastine HCl 137 MCG/SPRAY 2 spray(s) intranasally 2 times a day for 30 days Active FOSAMAX 70 mg 1 tab(s) orally once a week Not-Taking CHLORTHALIDONE 50 mg 1 tab(s) orally once a day for 30 day(s) Not-Taking LEVOTHYROXINE 25 mcg (0.025 mg) 1 tab(s) orally once a day for 30 day(s) Not-Taking ROSUVASTATIN 5 mg 1 tab(s) orally once a day Not-Taking Rizatriptan Benzoate 10 MG 1 tab(s) orally once a day Active Verapamil HCl ER 180 MG 1 cap(s) orally once a day for 30 day(s) Active Corcovado Nasal Moisturizer *Please review and pick correct strength-formula tion from Medispan options. If intended option is not shown, discontinue and re-order from Quick Search* Active Trelegy Ellipta 200 MCG-62.5 MCG-25 MCG/INH INHALE 1 PUFF BY MOUTH EVERY DAY for 90 *Please review and pick correct strength-formula tion from Datamspan options. If intended option is not shown, discontinue and re-order from Quick Search* Not-Taking Ventolin HFA 108 (90 Base) MCG/ACT 2 puff(s) inhaled every 6 hours for 30 day(s) Active Fosamax 70 MG 1 tab(s) orally [...] times a day for 10 day(s) Active Flonase Allergy Relief 50 MCG/ACT 2 [...] for e-prescription and drug interaction check* Active SIT (TRADITIONAL) variable per schedule SC [...] 1 tab(s) orally once a day Active FAMOTIDINE 40 mg 1 tab(s) orally 1 hour prior to SCIT Active FLONASE 50 mcg/inh 2 spray(s) intranasally Qday Active AZELASTINE HYDROCHLORIDE NASAL 137 mcg/inh 2 spray(s) intranasally 2 times a day Active NASAL WASHES N/A as directed intranasally as needed Active EPIPEN 2-ANATOLY 0.3 mg as directed intramuscularly once Active TRIAMCINOLONE TOPICAL 0.1% 1 jackson applied topically 3 times a day Active ZYRTEC 10 mg 1 tab(s) orally once a day Active AZELASTINE HYDROCHLORIDE NASAL 137 mcg/inh 2 spray(s) intranasally 2 times a day for 30 days Not-Taking Xopenex HFA 45 MCG/ACT 2 puffs Inhalation every 4 hrs for 30 days 11/22/2023 Active Breztri Aerosphere 160 MCG-4.8 MCG-9 MCG/INH 2 PUFF(S) INHALED 2 TIMES A DAY0 for 90 DAYS *Please review and pick correct strength-formula tion from TenTwenty7an options. If intended option is not shown, discontinue and re-order from Quick Search* 03/22/2023 Active RIZATRIPTAN 10 mg 1 tab(s) orally once a day Not-Taking VERAPAMIL 180 mg/24 hours 1 cap(s) orally once a day for 30 day(s) Not-Taking 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 Not-Taking TRELEGY ELLIPTA 200 mcg-62.5 mcg-25 mcg/inh INHALE 1 PUFF BY MOUTH EVERY DAY for 90 Not-Taking VENTOLIN HFA 90 mcg/inh 2 puff(s) inhaled every 6 hours for 30 day(s) Not-Taking VALACYCLOVIR 1 g 1 tab(s) orally 2 times a day for 10 day(s) Not-Taking Encounters Encounter Location Date Provider Diagnosis [facility] [address] [facility] [address] [place] [address] 03/27/2024 Missael Ruiz Allergic rhinitis du e [...] Name:Missael Ruiz , 06/19/2024 10:30:00 AM, [address], [place], [address], Provider Name:Maryam Trujillo , 11/20/2024 10:00:00 AM, [address] [facility] [address], [place], [address], Progress Notes * Marlen PEMBERTONDOB:1960 ( 63 yo F)Acc No.[id number]:03/27/2024 SCIT-Aeroallergen Patient: Marlen LUI Provider: Lorrie Ruiz MD :1960 A ge:63 Y S ex:Female Date:03/27/2024 Address:[address] [place], [place] [id number] Pcp:Leonora Terrazas [facility]- Subjective: * Chief Complaints: * S CIT [...] Hour 1 cap(s) orally once a day Corcovado Nasal Moisturizer , Notes to Pharmacist: *Please review and pick correct strength-formulation from GigsWiz options. If intended option is not shown, [...] *Please review and pick correct strength-formulation from Datamspan options. If intended option is not shown, [...] 1 cap(s) orally once a day Taking Corcovado Nasal Moisturizer , Notes to Pharmacist: *Please review and pick correct strength-formulation from GigsWiz options. If intended option is not shown, [...] *Please review and pick correct strength-formulation from GigsWiz options. If intended option is not shown, discontinue and re-order from Quick Search*Not-Taking/PRNTrelegy Ellipta 200 MCG-62.5 MCG-25 MCG/INH POWDER INHALE 1 PUFF BY MOUTH EVERY DAY , Notes to Pharmacist: *Please review and pick correct strength-formulation from GigsWiz options. If intended option is not shown, [...] Information: * Visit Code: * Procedure Codes: 60798 IMMUNOTHERAPY INJECTIONS. * EL MAN Sign off status: Completed true * Provider: Lorrie Ruiz MD Date: 0 03/27/2024 Generated for Sukhjinder zayas/Faxing/eTransmitting on: 0 06/18/2024 11:56 AM CDT History and Physical Notes * [...]
--- OUTSIDE RECORDS SUMMARY | 2024-06-18 11:58 | XMS_ITS | Patient Health Record ---
Author Organization Formerly [facility] ([address]) Address [address] [place] [address] Care Team Providers Care Staff Field Engineer Name Role Phone Leonora Lundy Primary Care Provider María Elena Maryam Paredes Unavailable [phone] Missael Ruiz Unavailable [phone] [employer], Provider Unavailable Unavailab le Allergies Allergen (clinical drug ingredient) Drug/Non Drug Allergy documented on EMR Reaction Allergy Type Onset Date Status omeprazole Omeprazole diarrhea Drug Allergy Activ e Sulfamethoxazole hives Drug Allergy Active albuterol Ventolin HFA other reaction Drug Allergy Active Reason For Referral No Information Medications Medication SIG (Take, Route, Frequency, Duration) Notes Start Date End Date Status SIT (TRADITIONAL) variable per schedule SC per schedule for to be determined Active Levothyroxine Sodium 25 MCG 1 tab(s) orally once a day for 30 days Active LEVOTHYROXINE 25 mcg (0.025 mg) 1 tab(s) orally once a day for 30 day(s) Not-Taking MONTELUKAST 10 mg 1 tab(s) orally once a day Active Rosuvastatin Calcium 5 MG 1 tab(s) orally once a day Active ROSUVASTATIN 5 mg 1 tab(s) orally once a day Not-Taking BREZTRI AEROSPHERE 160 mcg-4.8 mcg-9 mcg/inh 2 puff(s) inhaled 2 times a day0 for 90 days Active Fosamax 70 MG 1 tab(s) orally once a week Active FOSAMAX 70 mg 1 tab(s) orally once a week Not-Taking Xopenex HFA 45 MCG/ACT 2 puffs Inhalatio n every 4 hrs for 30 days Active Chlorthalidone 50 MG 1 tab(s) orally onc e a day for 30 day(s) Active CHLORTHALIDONE 50 mg 1 tab(s) orally onc e a day for 30 day(s) Not-Taking Verapamil HCl ER 180 MG 1 cap(s) orally once a day for 30 day(s) Active VERAPAMIL 180 mg/24 hours 1 cap(s) orally once a day for 30 day(s) Not-Taking [place] Nasal Moisturizer *Please review and pick correct strength-formul ation from iRewind options. If intended option is not shown, discontinue and re-order from Quick Search* Active valACYclovir HCl 1 GM 1 tab(s) orally 2 times a day for 10 day(s) Active VALACYCLOVIR 1 g 1 tab(s) orally 2 times a day for 10 day(s) Not-Taking Rizatriptan Benzoate 10 MG 1 tab(s) orally once a day Active RIZATRIPTAN 10 mg 1 tab(s) orally once a day Not-Taking LEVALBUTEROL TARTRATE HFA 45 MCG/INH 2 PUFF(S) INHALED EVERY 4 HOURS for 30 DAYS *Please review for potential replacement for e-prescription and drug interaction check* Active Trelegy Ellipta 200 MCG-62.5 MCG-25 MCG/INH INHALE 1 PUFF BY MOUTH EVERY DAY for 90 *Please review and pick correct strength-formul ation from iRewind options. If intended option is not shown, discontinue and re-order from Quick Search* Not-Taking EPIPEN 2-ANATOLY 0.3 mg as directed intramuscularly once Active FAMOTIDINE 40 mg 1 tab(s) orally 1 hour prior to SCIT Active Azelastine HCl 137 MCG/SPRAY 2 spray(s) intranasally 2 times a day for 30 days Active Hydroxychloroquine Sulfate 200 MG as directed Orally Active TRIAMCINOLONE TOPICAL 0.1% 1 jackson applied topically 3 times a day Active Azelastine HCl 137 MCG/SPRAY 2 sprays in each nostril Nasally Twice a day for 30 days As needed 5 Active Flonase Allergy Relief 50 MCG/ACT 2 spray(s) intranasally Qday Active ZYRTEC 10 mg 1 tab(s) orally once a day Active EpiPen 2-Anatoly 0.3 MG/0.3ML as directed intramuscularly once Active 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 Not-Taking FLONASE 50 mcg/inh 2 spray(s) intranasally Qday Active Triamcinolone Acetonide 0.1 % 1 jackson applied topically 3 times a day Active AZELASTINE HYDROCHLORIDE NASAL 137 mcg/inh 2 spray(s) intranasally 2 times a day Not-Taking Triamcinolone Acetonide 0.1 % 1 application Externally Twice a day for 5 days 5 Active ZyrTEC Allergy 10 MG 1 tab(s) orally onc e a day Active Breztri Aerosphere 160-9-4.8 MCG/ACT INHALE 2 PUFFS BY MOUTH TWICE A DAY for 30 Active Ventolin HFA 108 (90 Base) MCG/ACT 2 puff(s) inhaled every 6 hours for 30 day(s) Not-Taking NASAL WASHES N/A as directed intranasally as needed Active AZELASTINE HYDROCHLORIDE NASAL 137 mcg/inh 2 spray(s) intranasally 2 times a day for 30 days Not-Taking Famotidine 40 MG 1 tab(s) orally 1 hour prior to SCIT Active TRELEGY ELLIPTA 200 mcg-62.5 mcg-25 mcg/inh INHALE 1 PUFF BY MOUTH EVERY DAY for 90 Not-Taking Montelukast Sodium 10 MG 1 tab(s) orally once a day Active VENTOLIN HFA 90 mcg/inh 2 puff(s) inhale d every 6 hours for 30 day(s) Not-Taking Immunizations Vaccine Route Administration Date Status Comme nts COVID-19 (Moderna) Unknown 04/14/2020 Administered COVID-19 (Moderna) Unknown 05/17/2020 Administered DTaP < 7 y/o Unknown 09/26/1965 Administered Portal Inf ormation FluZone Quadrivalent Unknown 10/30/2018 Administered Po rtal Information H1N1 Influenza Unknown 10/28/2009 Administered Portal I nformation Influenza Unknown 12/27/2014 Administered Portal Infor mation NOC Fluzone Quadrivalent Unknown 11/27/2019 Refused NOC Influenza-Afluria PFS Unknown 11/04/2020 Administer ed NOC Pneumovax 23 Unknown 10/29/2013 Administered Portal Information NOC Tdap Unknown 09/12/2010 Administered Portal Infor mation Allergy Immunotherapy Weekly Unknown 02/12/2005 Administered Portal Informati on Social History Tobacco Use: Social History Observation Description Date Details (start date - stop date) Never Smoker NA - NA Tobacco Control (Standard) Question Answer Notes Tobacco use: Nonsmoker AUDIT-C (Standard) Question Answer Notes Did you have a drink containing alcohol in the p ast year? No Points 0 Interpretation Negative Problems Problem Type SNOMED Code ICD Code Onset Dates Problem Status W/U Status Risk Notes Problem Idiopathic urticaria (08582571) Idiopathic urticaria (L50.1) Active confirmed Problem Angioneurotic edema (35470807) Angioneurotic edema, initial encounter (T78.3XXA) Active confirmed Problem Eruption of skin (879644564) Rash and other nonspecific skin eruption (R21) Active confirmed Problem Chronic allergic conjunctivitis (86471117) Other chronic allergic conjunctivitis (H10.45) Active confirmed Problem Allergic rhinitis caused by pollen (disorder) (01769063) Allergic rhinitis due to pollen (J30.1) Active confirmed Problem Allergic rhinitis caused by animal hair and dander (935073443891340) Allergic rhinitis due to animal (cat) (dog) hair and dander (J30.81) Active confirmed Problem Allergic rhinitis (77040316) Other allergic rhinitis (J30.89) Active confirmed Problem Chronic rhinitis (13733425) Chronic rhinitis (J31.0) Active confirmed Problem Uncomplicated mild persistent asthma (283714192) Mild persistent asthma, uncomplicated (J45.30) Active confirmed Problem Allergic contact dermatitis caused by plant material (disorder) (2719396985774194 1) Allergic contact dermatitis due to plants, except food (L23.7) Active confirmed Problem Allergic contact dermatitis (615041519) Allergic contact dermatitis due to other agents (L23.89) Active confirmed Problem Elevated blood pressure reading without diagnosis of hypertension (470631807) Elevated blood-pressure reading, without diagnosis of hypertension (R03.0) Active confirmed Problem Allergic rhinitis caused by pollen (disorder) (02194027) Allergic rhinitis due to pollen (J30.1) Active confirmed Problem Allergic rhinitis caused by animal hair and dander (622330669476211) Allergic rhinitis due to animal (cat) (dog) hair and dander (J30.81) Active confirmed Problem Allergic rhinitis (56322772) Other allergic rhinitis (J30.89) Active confirmed Problem Uncomplicated moderate persistent asthma (134268817) Moderate persistent asthma, uncomplicated (J45.40) Active confirmed Problem Chronic allergic conjunctivitis (09620624) Other chronic allergic conjunctivitis (H10.45) Active confirmed Vital Signs Respiratory Rate 17 /min 05/22/2024 Oximetry 96 % 05/22/2024 Blood pressure diastolic 76 mm Hg 05/22/2024 Height 67 in 05/22/2024 Blood pressure systolic 137 mm Hg 05/22/2024 Weight 237 lbs 05/22/2024 BMI 37.12 kg/m2 05/22/2024 Encounters Encounter Location Date Provider Diagnosis [address] [address] 07/28/2023 Provider [facility] [address] [place] [phone] 07/17/2023 Missael Ruiz Allergic rhinitis du e to pollen J30.1 ; Allergic rhinitis due to animal (cat) (dog) hair and dander J30.81 ; Other allergic rhinitis J30.89 and Other chronic allergic conjunctivitis H10.[address] [address] 08/22/2023 Missael Ruiz Allergic rhinitis du e to pollen J30.1 ; Allergic rhinitis due to animal (cat) (dog) hair and dander J30.81 ; Other allergic rhinitis J30.89 and Other chronic allergic conjunctivitis H10.[address] [address] 09/24/2023 Missael Ruiz Allergic rhinitis du e to pollen J30.1 ; Allergic rhinitis due to animal (cat) (dog) hair and dander J30.81 ; Other allergic rhinitis J30.89 and Other chronic allergic conjunctivitis H10.[address] [address] 10/23/2023 Missael Ruiz Allergic rhinitis du e to pollen J30.1 ; Allergic rhinitis due to animal (cat) (dog) hair and dander J30.81 ; Other allergic rhinitis J30.89 and Other chronic allergic conjunctivitis H10.[address] [address] 11/22/2023 Maryam Young Moderate persistent asthma, uncomplicated J45.40 ; Chronic rhinitis J31.0 ; Allergic rhinitis due to pollen J30.1 ; Allergic rhinitis due to animal (cat) (dog) hair and dander J30.81 ; Other allergic rhinitis J30.89 ; Other chronic allergic conjunctivitis H10.45 ; Allergic contact dermatitis due to other agents L23.89 ; Allergic contact dermatitis due to plants, except food L23.7 and Elevated blood-pressure reading, without diagnosis of hypertension R03.0 [facility] [address] [place] [phone] 12/20/2023 Missael Ruiz Allergic rhinitis du e to pollen J30.1 ; Allergic rhinitis due to animal (cat) (dog) hair and dander J30.81 ; Other allergic rhinitis J30.89 and Other chronic allergic conjunctivitis H10.45 [facility] [address] [place] [address] 12/27/2023 Missael Ruiz Allergic rhinitis du e to pollen J30.1 ; Allergic rhinitis due to animal (cat) (dog) hair and dander J30.81 ; Other allergic rhinitis J30.89 and Other chronic allergic conjunctivitis H10.45 [facility] [address] [place] [address] 01/03/2024 Missael Ruiz Allergic rhinitis du e to pollen J30.1 ; Allergic rhinitis due to animal (cat) (dog) hair and dander J30.81 ; Other allergic rhinitis J30.89 and Other chronic allergic conjunctivitis H10.45 [facility] [address] [place] [address] 01/31/2024 Missael Ruiz Allergic rhinitis du e to pollen J30.1 ; Allergic rhinitis due to animal (cat) (dog) hair and dander J30.81 ; Other allergic rhinitis J30.89 and Other chronic allergic conjunctivitis H10.[address] [address] 02/28/2024 Missael Ruiz Allergic rhinitis du e to pollen J30.1 ; Allergic rhinitis due to animal (cat) (dog) hair and dander J30.81 ; Other allergic rhinitis J30.89 and Other chronic allergic conjunctivitis H10.45 [facility] [address] [place] [address] [employer] [address] [address] 03/27/2024 Missael Ruiz Allergic rhinitis du e to pollen J30.1 ; Allergic rhinitis due to animal (cat) (dog) hair and dander J30.81 ; Other allergic rhinitis J30.89 and Other chronic allergic conjunctivitis H10.45 [facility] [address] [place] [phone] 04/24/2024 Missael Ruiz Allergic rhinitis du e to pollen J30.1 ; Allergic rhinitis due to animal (cat) (dog) hair and dander J30.81 ; Other allergic rhinitis J30.89 and Other chronic allergic conjunctivitis H10.45 [facility] [address] [place] [phone] 05/22/2024 Maryam Young Moderate persistent asthma, uncomplicated J45.40 ; Chronic rhinitis J31.0 ; Allergic rhinitis due to pollen J30.1 ; Allergic rhinitis due to animal (cat) (dog) hair and dander J30.81 ; Other allergic rhinitis J30.89 ; Other chronic allergic conjunctivitis H10.45 ; Allergic contact dermatitis due to other agents L23.89 and Allergic contact dermatitis due to plants, except food L23.[address] [address] 07/17/2023 Maryam Young Moderate persistent asthma, uncomplicated J45.40 [facility] [address] [place] [phone] 10/23/2023 Maryam Young Moderate persistent asthma, uncomplicated J45.[address] [address] 11/22/2023 Maryam Young [address] [address] 12/31/2023 Maryam Young Moderate persistent asthma, uncomplicated J45.[address] [address] 11/12/2023 Maryam Young [address] [address] 11/20/2023 Maryam Young [place] [id number] [facility] [address] [place] [address] 11/20/2023 Maryam Trujillo Assessments Encounter Date Diagnosis (ICD Code) Assessment Notes Treatment Notes Treatment Clinical Notes Section Notes 07/17/2023 Allergic rhinitis due to pollen (ICD-10 - J30.1) 08/22/2023 Allergic rhinitis due to pollen (ICD-10 - J30.1) 07/17/2023 Moderate persistent asthma, uncomplicated (ICD-10 - J45.40) 09/24/2023 Allergic rhinitis due to pollen (ICD-10 - J30.1) 10/23/2023 Allergic rhinitis due to pollen (ICD-10 - J30.1) 10/23/2023 Moderate persistent asthma, uncomplicated (ICD-10 - J45.40) 11/22/2023 Chronic rhinitis (ICD-10 - J31.0) Previously treated with nasal washes and Mupirocin with clean q-tip BID x 5 days. Then switch to AYR, now using PRN 11/22/2023 Moderate persistent asthma, uncomplicated (ICD-10 - J45.40) Asthma diagnosis carried from prior bagman/woman in [place] since 1991. As above since 2021 she [...] Trelegy. Again want input by Pulmonary -IgE=33 JZU=166 -last CXR was normal 12/20/2023 Allergic rhinitis due to pollen (ICD-10 - J30.1) 12/27/2023 Allergic rhinitis due to pollen (ICD-10 - J30.1) 12/31/2023 Moderate persistent asthma, uncomplicated (ICD-10 - J45.40) 01/03/2024 Allergic rhinitis due to pollen (ICD-10 - J30.1) 01/31/2024 Allergic rhinitis due to pollen (ICD-10 - J30.1) 02/28/2024 Allergic rhinitis due to pollen (ICD-10 - J30.1) 03/27/2024 Allergic rhinitis due to pollen (ICD-10 - J30.1) 04/24/2024 Allergic rhinitis due to pollen (ICD-10 - J30.1) 05/22/2024 Chronic rhinitis (ICD-10 - J31.0) Previously treated with nasal washes and Mupirocin with clean q-tip BID x 5 days. Then switch to AYR, now using PRN 05/22/2024 Moderate persistent asthma, uncomplicated (ICD-10 - J45.40) Asthma diagnosis carried from prior bagman/woman in [place] since 1991. As above since 2021 she [...] Trelegy. Again want input by Pulmonary -IgE=33 NQY=944 -last CXR was normal 05/22/2024 Allergic rhinitis due to pollen (ICD-10 [...] PRN in peak seasons for increased symptoms 04/24/2024 Allergic rhinitis due to animal (cat) (dog) hair and dander (ICD-10 - J30.81) 03/27/2024 Allergic rhinitis due to animal (cat) (dog) hair and dander (ICD-10 - J30.81) 02/28/2024 Allergic rhinitis due to animal (cat) (dog) hair and dander (ICD-10 - J30.81) 01/31/2024 Allergic rhinitis due to animal (cat) (dog) hair and dander (ICD-10 - J30.81) 01/03/2024 Allergic rhinitis due to animal (cat) (dog) hair and dander (ICD-10 - J30.81) 12/27/2023 Allergic rhinitis due to animal (cat) (dog) hair and dander (ICD-10 - J30.81) 12/20/2023 Allergic rhinitis due to animal (cat) (dog) hair and dander (ICD-10 - J30.81) 11/22/2023 Allergic rhinitis due to pollen (ICD-10 - [...] PRN in peak seasons for increased symptoms 10/23/2023 Allergic rhinitis due to animal (cat) (dog) hair and dander (ICD-10 - J30.81) 09/24/2023 Allergic rhinitis due to animal (cat) (dog) hair and dander (ICD-10 - J30.81) 08/22/2023 Allergic rhinitis due to animal (cat) (dog) hair and dander (ICD-10 - J30.81) 07/17/2023 Allergic rhinitis due to animal (cat) (dog) hair and dander (ICD-10 - J30.81) 07/17/2023 Other allergic rhinitis (ICD-10 - J30.89) 08/22/2023 Other allergic rhinitis (ICD-10 - J30.89) 09/24/2023 Other allergic rhinitis (ICD-10 - J30.89) 10/23/2023 Other allergic rhinitis (ICD-10 - J30.89) 12/20/2023 Other allergic rhinitis (ICD-10 - J30.89) 12/27/2023 Other allergic rhinitis (ICD-10 - J30.89) 11/22/2023 Allergic rhinitis due to animal (cat) (dog) hair and dander (ICD-10 - J30.81) Follow allergen avoidance, meds and continue SCIT as an adjunctive treatment to current regimen. 01/03/2024 Other allergic rhinitis (ICD-10 - J30.89) 01/31/2024 Other allergic rhinitis (ICD-10 - J30.89) 02/28/2024 Other allergic rhinitis (ICD-10 - J30.89) 03/27/2024 Other allergic rhinitis (ICD-10 - J30.89) 04/24/2024 Other allergic rhinitis (ICD-10 - J30.89) 05/22/2024 Allergic rhinitis due to animal (cat) (dog) hair and dander (ICD-10 - J30.81) Follow allergen avoidance, meds and continue SCIT as an adjunctive treatment to current regimen. 05/22/2024 Other allergic rhinitis (ICD-10 - J30.89) Follow allergen avoidance, meds and continue SCIT as an adjunctive treatment to current regimen. 04/24/2024 Other chronic allergic conjunctivitis (ICD-10 - H10.45) 03/27/2024 Other chronic allergic conjunctivitis (ICD-10 - H10.45) 02/28/2024 Other chronic allergic conjunctivitis (ICD-10 - H10.45) 01/31/2024 Other chronic allergic conjunctivitis (ICD-10 - H10.45) 12/20/2023 Other chronic allergic conjunctivitis (ICD-10 - H10.45) 01/03/2024 Other chronic allergic conjunctivitis (ICD-10 - H10.45) 12/27/2023 Other chronic allergic conjunctivitis (ICD-10 - H10.45) 11/22/2023 Other allergic rhinitis (ICD-10 - J30.89) Follow allergen avoidance, meds and continue SCIT as an adjunctive treatment to current regimen. 10/23/2023 Other chronic allergic conjunctivitis (ICD-10 - H10.45) 07/17/2023 Other chronic allergic conjunctivitis (ICD-10 - H10.45) 09/24/2023 Other chronic allergic conjunctivitis (ICD-10 - H10.45) 08/22/2023 Other chronic allergic conjunctivitis (ICD-10 - H10.45) 11/22/2023 Other chronic allergic conjunctivitis (ICD-10 - H10.45) I encouraged allergy avoidance measures and meds as above. If symptoms persist, consider adding additional medications including intraocular antihistamine/mast cell stabilizer, PRN and continue SCIT as an adjunctive measure. 05/22/2024 Other chronic allergic conjunctivitis (ICD-10 - [...] prn triamcinolone. - Skin is clear today 11/22/2023 Allergic contact dermatitis due to other agents (ICD-10 - L23.89) S/p patch testing with several positives. She continues avoidance without any interval rashes - Continue prn triamcinolone. - Skin is clear today 11/22/2023 Allergic contact dermatitis due to plants, except food (ICD-10 - L23.7) History of recurrent urushiol dermatitis. Also reports dermatitis to other plants, including honeysuckle. Recommend continued avoidance. Wear long pants and avoid yard work where offending plants grow - No issues currently 05/22/2024 Allergic contact dermatitis due to plants, except food (ICD-10 - L23.7) History of recurrent urushiol dermatitis. Also reports dermatitis to other plants, including honeysuckle. Recommend continued avoidance. Wear long pants and avoid yard work where offending plants grow - No issues currently 11/22/2023 Elevated blood-pressure reading, without diagnosis of hypertension (ICD-10 - R03.0) BP elevated today without symptoms of urgency or emergency. Continue serial checks and follow-up with PCP, Consider avoiding beta-blockers if antihypertensives are needed given their relative contraindication in the setting of allergen immunotherapy 11/22/2023 Other 05/22/2024 Other Plan Of Treatment Pending Test Test Name Order Date Alpha-1 Antitrypsin Phenotyp ing (Grifols AlphaID-Alphakit) Buccal Swab (FREE) 10/21/2020 Alpha-1 Antitrypsin Phenotyp ing (Grifols AlphaID-Alphakit) Buccal Swab (FREE) 01/27/2021 Next Appt Details Provider Name:Missael HLisseth Ruiz , 06/19/2024 10:30:00 AM, [address] [employer], [address], [address], Provider Name:Maryam Trujillo , 11/20/2024 10:00:00 AM, [address] [employer], [address], [place], [address], Insurance Providers Payer Name Payer Address Payer Phone Subscriber Number Group Number Insured Name Patient Relationship to Insured Coverage Start Date Coverage End Date [employer] [address] [place] [address] [phone] [id number] Nitin Pemberton Spouse - patient is the spouse of the insured 2023 Medical (General) History Medical History History ICD Code Migraines Hypothyroidism, unspecified E03.9 Essential (primary) hypertension I10 Allergic rhinitis due to pollen J30.1 Allergic rhinitis due to animal (cat) (d og) hair and dander J30.81 Other allergic rhinitis J30.89 Other chronic allergic conjunctivitis H1 0.45 Mild persistent asthma, uncomplicated J4 5.30 Allergic contact dermatitis due to plant s, except food L23.7 Surgical History Surgery Date(Month/Year) Eye muscle reattachment 02/27/1977 12/22/1984 Adenoidectomy 09/21/1986 Total knee replacement 07/30/2018 Kyphoplasty 12/27/2017 shoulder replacement 02/07/2021 Right hip replacement 03/28/2022 Hospitalization History Reason Date(Month/Year) Gastric bleed 02/27/2015
--- OUTSIDE RECORDS SUMMARY | 2024-06-18 11:58 | XMS_ITS | Data Portability ---
Author Organization [place] [email or web address], Main Office Address [address] [place] [address] Assessment Encounter Date Assessment Date Assessment LastModified [...] Orders Fosamax 70 mg tablet 023 023 [id number], [address] [facility], [place], [place], [id number], 11:01:13 Patient TargetsNo targets recorded. Patient Instructions Encounter Date Encounter Id Patient Instructions Last Modified By Organization Details Last Modified Time 07/18/2022 [id number] FU in 6 mo thyroid, lipid, htn, [...] /MS is recom giuseppe d: order code [id number] (rayray ents >2yrs ). See Note 1 Note 1 For addit ional infor fredy em refer to http: //[facility] ashok Montes stDia gnost ics.c om/fa q/FAQ 199 (This link is being provi ded for infor lucia john/ jadiel molina purpo ses only. ) Not Available [address], [address], 07/10/2020 07:17:19 07/10/19 21 07/10/2020 TSH, serum or plasm a TSH 1.44 mIU/L 0.40-4 .50 normal Not Available [address], [address], 07/10/2020 07:17:19 07/10/19 21 07/10/2020 hepat ic funct ion panel , serum protein, total 7.1 g/dL 6.1-8. 1 normal Not Available [address], [address], 07/10/2020 07:17:18 07/10/19 21 07/10/2020 hepat ic funct ion panel , serum albumin 4.3 g/dL 3.6-5. 1 normal Not Available [address], [address], 07/10/2020 07:17:18 07/10/19 21 07/10/2020 hepat ic funct ion panel , serum globulin 2.8 g/dL_ (calc ) 1.9-3. 7 normal Not Available [address], [address], 07/10/2020 07:17:18 07/10/19 21 07/10/2020 hepat ic funct ion panel , serum albumin/glob ulin ratio 1.5 (calc ) 1.0-2. 5 normal Not Available [address], [address], 07/10/2020 07:17:18 07/10/19 21 07/10/2020 hepat ic funct ion panel , serum bilirubin, total 0.5 mg/dL 0.2-1. 2 normal Not Available [address], [address], 07/10/2020 07:17:18 07/10/19 21 07/10/2020 hepat ic funct ion panel , serum bilirubin, direct 0.1 mg/dL < or = 0.2 normal Not Available [address], [address], 07/10/2020 07:17:18 07/10/19 21 07/10/2020 hepat ic funct ion panel , serum bilirubin, indirect 0.4 mg/dL _(arabella c) 0.2-1. 2 normal Not Available [address], [address], 07/10/2020 07:17:18 07/10/1907/10/2020 hepat ic funct ion panel , serum alkaline phosphatase 85 U/L 37-153 normal Not Available [address] [address] [place], [address], 07/10/2020 07:17:18 07/10/1907/10/2020 hepat ic funct ion panel , serum AST 31 U/L 10-35 normal Not Available [address] [address] [place], [address], 07/10/2020 07:17:18 07/10/1907/10/2020 hepat ic funct ion panel , serum ALT 32 U/L 6-29 high Not Available [address] [address] [place], [address], 07/10/2020 07:17:18 07/10/1907/10/2020 BMP, serum or plasm a glucose 94 mg/dL 65-139 normal Non-f astin g refer ence inter kang Not Available [address], [address], 07/10/2020 07:17:18 07/10/19 21 07/10/2020 BMP, serum or plasm a urea nitrogen (BUN) 14 mg/dL 7-25 normal Not Available [address], [address], 07/10/2020 07:17:18 07/10/1907/10/2020 BMP, serum or plasm a creatinine 0.68 mg/dL 0.50-1 .05 normal For patie nts >49 years of age, the refer ence limit for Creat inine is appro ximat xavi 13% highe r for peopl e ident ified as Afric an-Am ehsan n. Not Available [address] [address] [place], [address], 07/10/2020 07:17:18 07/10/1907/10/2020 BMP, serum or plasm a eGFR non-afr. turkish 96 mL/mi n/1.7 3m2 > or = 60 normal Not Available [facility] [address] [address] [place], [address], 07/10/2020 07:17:18 07/10/1907/10/2020 BMP, serum or plasm a eGFR 111 mL/mi n/1.7 3m2 > or = 60 normal Not Available [facility] [address] [address] [place], [address], 07/10/2020 07:17:18 07/10/19 21 07/10/2020 BMP, serum or plasm a BUN/creatini ne ratio not applic able (calc ) 6-22 Not Available [address], [address], 07/10/2020 07:17:18 07/10/19 21 07/10/2020 BMP, serum or plasm a sodium 140 mmol/ L 135-14 6 normal Not Available [address], [address], 07/10/2020 07:17:18 07/10/19 21 07/10/2020 BMP, serum or plasm a potassium 3.6 mmol/ L 3.5-5. 3 normal Not Available [address], [address], 07/10/2020 07:17:18 07/10/19 21 07/10/2020 BMP, serum or plasm a chloride 98 mmol/ L 98-110 normal Not Available [address], [address], 07/10/2020 07:17:18 07/10/19 21 07/10/2020 BMP, serum or plasm a carbon dioxide 33 mmol/ L 20-32 high Not Available [address], [address], 07/10/2020 07:17:18 07/10/19 21 07/10/2020 BMP, serum or plasm a calcium 9.9 mg/dL 8.6-10 .4 normal Not Available [address], [address], 07/10/2020 07:17:18 07/10/19 21 07/10/2020 lipid panel , serum cholesterol, total 209 mg/dL <200 high Not Available [address], [address], 07/10/2020 07:17:18 07/10/19 21 07/10/2020 lipid panel , serum HDL cholesterol 53 mg/dL > or = 50 normal Not Available [address], [address], 07/10/2020 07:17:18 07/10/1907/10/2020 lipid panel , serum triglyceride s 175 mg/dL <150 high Not Available [facility] [address], [address], 07/10/2020 07:17:18 07/10/1907/10/2020 lipid panel , serum [...] 2061- 2068 (http ://ed ucati on.Qu Freddy Hapticom. com/f aq/FA Q164) Not Available [facility] [address], [address], 07/10/2020 07:17:18 07/10/1907/10/2020 lipid panel , serum chol/HDLC ratio 3.9 (calc ) <5.0 normal Not Available [facility] [address], [address], 07/10/2020 07:17:18 07/10/1907/10/2020 lipid panel , serum non HDL cholesterol 156 mg/dL _(arabella c) <130 high For patie nts with diabe yenny plus 1 major ASCVD risk facto r, treat ing to a non-H DL-C goal of <100 mg/dL (LDL- C of <70 mg/dL ) is consi dered a carlotta malone optio n. Not Available [facility] [address] [place], [address], 07/10/2020 07:17:18 01/28/20 21 01/28/2021 VITAM IN [...] /MS is recom giuseppe d: order code [id number] (rayray ents >2yrs ). See Note 1 Note 1 For addit ional infor fredy em refer to http: //darek Chapman gnost ics.c om/fa q/FAQ 199 (This link is being provi ded for infor lucia john/ jadiel molina purpo ses only. ) Not Available [facility] [address] [address] [place], [address], 01/28/2021 12:47:55 01/28/20 21 01/28/2021 TSH TSH 2.24 mIU/L 0.40-4 .50 normal Not Available [facility] [address] [address] [place], [address], 01/28/2021 12:47:54 01/28/20 21 01/28/2021 LIPID PANEL , STAND ANTHONY cholesterol, total 222 mg/dL <200 high Not Available [facility] [address] [address] [place], [address], 01/28/2021 12:47:53 01/28/20 21 01/28/2021 LIPID PANEL , STAND ANTHONY HDL cholesterol 60 mg/dL > or = 50 normal Not Available [facility] [address] [place] [address], [address], 01/28/2021 12:47:53 01/28/20 21 01/28/2021 LIPID PANEL , STAND ANTHONY triglyceride s 170 mg/dL <150 high Not Available [address], [address], 01/28/2021 12:47:53 01/28/20 21 01/28/2021 LIPID PANEL [...] 2061- 2068 (http ://ed ucati on.Ger lee Joobilis. com/f aq/FA Q164) Not Available [address], [address], 01/28/2021 12:47:53 01/28/20 21 01/28/2021 LIPID PANEL , STAND ANTHONY chol/HDLC ratio 3.7 (calc ) <5.0 normal Not Available [facility] [address] [place] [address], [address], 01/28/2021 12:47:53 01/28/20 21 01/28/2021 LIPID PANEL , STAND ANTHONY non HDL cholesterol 162 mg/dL _(arabella c) <130 high For patie nts with diabe yenny plus 1 major ASCVD risk facto r, treat ing to a non-H DL-C goal of <100 mg/dL (LDL- C of <70 mg/dL ) is madelin laguerre peuti c optio n. Not Available [facility] [address] [address], [place], [address], 01/28/2021 12:47:53 08/27/19 22 08/27/2021 VITAM IN [...] um and D. Alton li [place]: [facility] . 2. Angel Luis damon MF, Bib hamm [place], Rufino off-F usha i MONROE, et al. Evalu ation , treat ment, and preve ntion of vitam in D defic iency : an Endoc rine Socie ty clini arabella pract ice guide line. JCEM. 2010; 96(7) :1911 -30. Not Available [facility] ([facility]) [address] [facility], [place], [address], 08/31/2021 03:07:29 08/27/19 22 08/30/2021 THYRO ID STIMU LATIN G HORMO NE TSH-icma 2.3 uu/mL Refer ence Range : Non-P regna nt Adult 0.450 -4.50 0 Pregn justice First Trime ster 0.100 -4.00 0 Secon d Trime ster 0.200 -4.00 0 Third Trime ster 0.300 -4.50 0 Not Available [facility] [address] [facility], [place], [address], 08/31/2021 03:07:29 08/27/19 22 08/27/2021 LIPID PANEL cholesterol, total 216 mg/dL 100-19 9 above high normal Not Available [facility] ([facility]) [address] [place], [address], 08/31/2021 03:07:28 08/27/19 22 08/27/2021 LIPID PANEL triglyceride s 106 mg/dL 0-149 Not Available [facility] ([facility]) [address] [place], [address], 08/31/2021 03:07:28 08/27/19 22 08/27/2021 LIPID PANEL HDL cholesterol 59 mg/dL >39 Not Available [facility] ([facility]) [address] [place], [address], 08/31/2021 03:07:28 08/27/19 22 08/27/2021 LIPID PANEL VLDL cholesterol arabella 19 mg/dL 5-40 Not Available [facility] ([facility]) [address] [place], [address], 08/31/2021 03:07:28 08/27/19 22 08/27/2021 LIPID PANEL LDL chol calc ([facility]) 138 mg/dL 0-99 above high normal Not Available [facility] ([facility]) [address] [place], [address], 08/31/2021 03:07:28 08/27/19 22 08/27/2021 LIPID PANEL comment: inpatient care manager rn Not Available [facility] ([facility]) [address] [place], [address], 08/31/2021 03:07:28 08/27/19 22 08/27/2021 COMP. METAB OLIC PANEL (14) glucose 93 mg/dL 65-99 Not Available [facility] ([facility]) [address] [place], [address], 08/31/2021 03:07:28 08/27/19 22 08/27/2021 COMP. METAB OLIC PANEL (14) BUN 15 mg/dL 8-27 Not Available [facility] ([facility]) [address] [place], [address], 08/31/2021 03:07:28 08/27/19 22 08/27/2021 COMP. METAB OLIC PANEL (14) creatinine 0.66 mg/dL 0.57-1 .00 Not Available [facility] ([facility]) [address] [place], [address], 08/31/2021 03:07:28 08/27/19 22 08/27/2021 COMP. METAB OLIC PANEL (14) eGFR 100 mL/mi n/1.7 3 >59 Not Available [facility] ([facility]) [address] [place], [address], 08/31/2021 03:07:28 08/27/19 22 08/27/2021 COMP. METAB OLIC PANEL (14) BUN/creatini ne ratio 23 12-28 Not Available [facility] ([facility]) [address] [place], [address], 08/31/2021 03:07:28 08/27/19 22 08/27/2021 COMP. METAB OLIC PANEL (14) sodium 142 mmol/ L 134-14 4 Not Available [facility] ([facility]) [address] [place], [address], 08/31/2021 03:07:28 08/27/19 22 08/27/2021 COMP. METAB OLIC PANEL (14) potassium 4.0 mmol/ L 3.5-5. 2 Not Available [facility] ([facility]) [address] [place], [address], 08/31/2021 03:07:28 08/27/19 22 08/27/2021 COMP. METAB OLIC PANEL (14) chloride 99 mmol/ L 96-106 Not Available [facility] ([facility]) [address] [place], [address], 08/31/2021 03:07:28 08/27/19 22 08/27/2021 COMP. METAB OLIC PANEL (14) carbon dioxide, total 28 mmol/ L 20-29 Not Available [facility] ([facility]) [address] [place], [address], 08/31/2021 03:07:28 08/27/19 22 08/27/2021 COMP. METAB OLIC PANEL (14) calcium 9.4 mg/dL 8.7-10 .3 Not Available [facility] ([facility]) [address] [place], [address], 08/31/2021 03:07:28 08/27/19 22 08/27/2021 COMP. METAB OLIC PANEL (14) protein, total 6.6 g/dL 6.0-8. 5 Not Available [facility] ([facility]) [address] [place], [address], 08/31/2021 03:07:28 08/27/19 22 08/27/2021 COMP. METAB OLIC PANEL (14) albumin 4.1 g/dL 3.8-4. 8 Not Available [facility] ([facility]) [address] [place], [address], 08/31/2021 03:07:28 08/27/19 22 08/27/2021 COMP. METAB OLIC PANEL (14) globulin, total 2.5 g/dL 1.5-4. 5 Not Available [facility] ([facility]) [address] [facility] [place], [address], 08/31/2021 03:07:28 08/27/19 22 08/27/2021 COMP. METAB OLIC PANEL (14) A/G ratio 1.6 1.2-2. 2 Not Available [facility] ([facility]) [address] [place], [address], 08/31/2021 03:07:28 08/27/19 22 08/27/2021 COMP. METAB OLIC PANEL (14) bilirubin, total 0.3 mg/dL 0.0-1. 2 Not Available [facility] ([facility]) [address] [place], [address], 08/31/2021 03:07:28 08/27/19 22 08/27/2021 COMP. METAB OLIC PANEL (14) alkaline phosphatase 78 IU/L 44-121 Not Available [facility]) [address] [place], [address], 08/31/2021 03:07:28 08/27/19 22 08/27/2021 COMP. METAB OLIC PANEL (14) AST (SGOT) 21 IU/L 0-40 Not Available [facility] ([facility]) [address] [place], [address], 08/31/2021 03:07:28 08/27/19 22 08/27/2021 COMP. METAB OLIC PANEL (14) ALT (SGPT) 17 IU/L 0-32 Not Available [facility] ([facility]) [address] [place], [address], 08/31/2021 03:07:28 07/07/19 23 07/07/2022 LIPID PANEL , STAND ANTHONY cholesterol, total 132 mg/dL <200 normal Not Available [facility] [address] [place], [address], 07/07/2022 08:34:15 07/07/19 23 07/07/2022 LIPID PANEL , STAND ANTHONY HDL cholesterol 68 mg/dL > or = 50 normal Not Available [facility] [address] [place], [address], 07/07/2022 08:34:15 07/07/1907/07/2022 LIPID PANEL , STAND ANTHONY triglyceride s 77 mg/dL <150 normal Not Available [facility] [address] [address] [place], [address], 07/07/2022 08:34:15 07/07/1907/07/2022 LIPID PANEL , STAND [...] 9): 2061- 2068 (http ://ed ucati on.Ger Haeys Hapticom. com/f aq/FA Q164) Not Available [facility] [address] [place], [address], 07/07/2022 08:34:15 07/07/1907/07/2022 LIPID PANEL , STAND ANTHONY chol/HDLC ratio 1.9 (calc ) <5.0 normal Not Available [facility] [address] [place], [address], 07/07/2022 08:34:15 07/07/1907/07/2022 LIPID PANEL , STAND ANTHONY non HDL cholesterol 64 mg/dL _(arabella c) <130 normal For patie nts with diabe yenny plus 1 major ASCVD risk facto r, treat ing to a non-H DL-C goal of <100 mg/dL (LDL- C of <70 mg/dL ) is consi dered a thera peuti c optio n. Not Available [facility] [address] [place], [address], 07/07/2022 08:34:15 07/07/19 23 07/07/2022 TSH W/REF AMY TO FT4 TSH w/reflex to FT4 1.55 mIU/L 0.40-4 .50 normal Not Available [facility] [address] , [place], [address], 07/07/2022 08:34:17 12/03/19 21 12/02/2020 XR, shoul tremaine No observ ation record ed. [id number] [address], [place], [address], 04/12/2022 05:18:19 06/17/19 22 06/16/2021 MAMMO , scree masoud, digit al, bilat eral No observ ation record ed. [id number] [address], [place], [address], 04/12/2022 05:18:19 11/09/19 22 11/01/2021 DEXA No observ ation record ed. [id number] Not Available 04/12/2022 05:18:19 03/28/19 23 03/28/2022 XR, arthr ogram , hip No observ ation record ed. [id number] [address], [place], [address], 04/12/2022 05:18:19 04/26/19 23 04/19/2022 XR, hip + pelvi s, unila teral No observ ation record ed. [email or web address] [address] [address], [place], [address], 04/26/2022 09:38:51 05/24/19 23 05/17/2022 XR, hip + pelvi s, bilat eral No observ ation record ed. [email or web address] [facility] [address], [place], [address], 05/23/2022 17:54:58 09/23/1909/22/2022 XR, hip, unila teral No observ ation record ed. [email or web address] [facility] [address], [place], [address], 09/22/2022 11:36:04 11/29/1911/28/2022 MAMMO , scree masoud, bilat eral No observ ation record ed. [facility] [address] [facility] [address], [place], [address], 11/30/2022 08:49:32 Result Notes None recorded. Problems Name Problem SNOMED Code Status Onset Date Resolution Date Notes Provider Name and Address Organization Details Recorded Time Edema of lower extremit y 068308566 Completed Not Available [facility] 3 05:11:07 Tricuspi d valve regurgit ation 093127218 Completed Not Available [facility] 3 05:11:07 History of total knee arthropl asty 46125882616 05 Active 2018 Not Available [facility] 3 17:52:04 Asthma 127500235 Active Not Available [facility] 3 17:52:04 Sciatica 46681715 Completed Not Available [facility] 3 05:11:08 Osteopen ia 635219720 Active 2017 Diagnose d Not Available [facility] 3 17:52:04 Systolic murmur 57702276 Active Not Available [facility] 3 17:52:04 Pain in left knee Active 2018 Not Available [facility] 3 17:52:04 Vitamin D deficien cy 10126295 Active Not Available [facility] 3 17:52:04 Migraine 60235319 Active Not Available [facility] 3 17:52:04 Osteoart hritis 405839747 Active Not Available [facility] 3 17:52:04 Hypothyr oidism 17636707 Active Not Available [facility] 3 17:52:04 Obesity 867773812 Active Not Available [facility] 3 17:52:04 Refracto ry migraine 142474362 Completed Not Available [facility] 3 05:11:08 Environm ental allergy 831324903 Active 2019 Not Available [facility] 3 17:52:04 Small vessel cerebrov ascular disease 515186053 Completed Not Available [facility] 3 05:11:08 Seasonal allergy 684308534 Active Not Available [facility] 3 17:52:04 Pain of hip region 68700952 Active Not Available [facility] 3 17:52:04 Hyperlip idemia 50053214 Active Not Available [facility] 3 17:52:04 Essentia l hyperten amilcar 97017360 Active Not Available [facility] 3 17:52:04 Aortic valve regurgit ation 01667613 Active Not Available [facility] 3 17:52:04 Allergic rhinitis 63854819 Active Not Available [facility] 3 17:52:04 Osteoart hritis of shoulder region 77725829 Active 2020 Not Available [facility] 3 17:52:04 Urinary tract infectio us disease 15784409 Active 2016 Not Available [facility] 3 17:52:04 Posterio r rhinorrh ea 29099324 Active Not Available [facility] 3 17:52:04 Postmeno pausal state 22125111 Active 2022 Not Available [facility] 3 17:52:04 Palpitat ions 46102461 Completed Not Available [facility] 3 05:11:09 Osteopor osis 25292872 Active 2022 Not Available [facility] 3 17:52:04 Problem Notes None recorded. Procedures Surgical History Date Name Laterality Status Provider Name and Address Organization Details Recorded Time 11/29/19 Most Recent Mammogram completed [address], [place], [address], [place] [facility] 11/29/2022 07:50:47 03/28/19 23 total replacement of right hip joint completed Not Available [facility] 04/12/2022 05:05:00 11/02/19 22 Most Recent Bone Density completed Not Available [facility] 04/12/2022 05:04:57 02/09/20 21 total shoulder replacement completed Not Available [facility] 04/12/2022 05:05:00 02/12/19 19 Knee Replacement completed Not Available [facility] 04/12/2022 05:05:00 06/23/19 17 Date of Last Colonoscopy completed Not Available [facility] 04/12/2022 05:04:57 06/23/19 17 Colonoscopy completed Not Available [facility] 04/13/19 23 05:05:00 Ear Tubes completed Not Available [facility] 0 04/12/2022 05:05:00 completed Not Available [facility] 0 04/12/2022 05:05:00 Eye Surgery completed Not Available [facility] 04/12/2022 05:05:00 Imaging Results Imaging Date Name Status LastModified by Organiz ation Details LastModified Time 03/28/2022 XR, arthrogram, hip completed [id number], [address], 04/12/2022 05:18:19 11/01/2021 DEXA completed [id number] Information not available 04/12/2022 05:18:19 06/16/2021 MAMMO, screening, digital, bilateral completed [id number] [place] [address], [address], 04/12/2022 05:18:19 12/02/2020 XR, shoulder completed [id number] [place] [address], [address], 04/12/2022 05:18:19 04/19/2022 XR, hip + pelvis, unilateral completed [email or web address] [address] [place] [address] [place], [address], 04/26/2022 09:38:51 05/17/2022 XR, hip + pelvis, bilateral completed [address], [address], 05/23/2022 17:54:58 09/22/2022 XR, hip, unilateral completed [address], [address], 09/22/2022 11:36:04 11/28/2022 MAMMO, screening, bilateral completed [address], [address], 11/30/2022 08:49:32 Procedure Notes None recorded. Medical Equipment None Reported. Allergies Allergen ID Allergen Name Allergen Category Reaction Reaction Severity Criticality Documentation Date Start Date Code Code System Note Provider Name and Address Organization Details Recorded Time 9484 Substance with sulfonami de structure and antibacte rial mechanism of action (substanc e) medicatio n rash Not available Not available 04/12/2022 02286 8003 SNOMED Not Available [facility] 3 05:17:55 9485 theophyll ine anhydrous medicatio n Not available Not available Not available 04/12/2022 18394 RxNorm shake s Not Available [facility] 3 05:17:55 9486 omeprazol e medicatio n Not available Not available Not available 04/12/2022 7646 RxNorm Not Available [facility] 3 05:17:55 9487 Bactrim medicatio n rash Not available Not available 04/12/2022 80156 9 RxNorm Not Available [facility] 3 05:17:55 9488 acetone medicatio n anaphylax is severe Not available 04/12/2022 178 RxNorm Not Available [facility] 3 05:17:55 Medications Name Sig Start Date [...] Not Available Not Available Not Available Fluvirin 1132-2262 45 mcg (15 mcg x 3)/0.5 mL intramuscu lar suspension ADM 0.5ML IM UTD active Not Available Not Available No t Available Fluvirin 4968-2124 45 mcg (15 mcg x 3)/0.5 mL [...] Date Recorded Body mass index (BMI) Body height Oxygen saturation Oxygen saturation in Arterial blood by Pulse oximetry Heart rate Body temperature Body weight Systolic blood pressure Diastolic blood pressure Provider Name and Address Organization Details Last Updated DateTime 1 38.3 kg/m2 170.18 cm 96 % 96 % 94 /min 97.3 [degF] 630435. 34 g 134 mm[Hg] 86 mm[Hg] Not Available [facility] 3 05:08:36 Date Recorded Body mass index (BMI) Body height Oxygen saturation Oxygen saturation in Arterial blood by Pulse oximetry Heart rate Body temperature Body weight Systolic blood pressure Diastolic blood pressure Provider Name and Address Organization Details Last Updated DateTime 1 37.6 kg/m2 170.18 cm 94 % 94 % 109 /min 96.7 [degF] 533304. 17 g 140 mm[Hg] 84 mm[Hg] Not Available [facility] 3 05:08:36 Date Recorded Body mass index (BMI) Body height Oxygen saturation Oxygen saturation in Arterial blood by Pulse oximetry Heart rate Body weight Systolic blood pressure Diastolic blood pressure Provider Name and Address Organization Details Last Updated DateTime 2 37.4 kg/m2 170.18 cm 96 % 96 % 94 /min 988493. 58 g 136 mm[Hg] 82 mm[Hg] Not Available [facility] 3 05:08:36 Date Recorded Body mass index (BMI) Body height Oxygen saturation Oxygen saturation in Arterial blood by Pulse oximetry Heart rate Respiratory rate Body temperature Body weight Systolic blood pressure Diastolic blood pressure Provider Name and Address Organization Details Last Updated DateTime 3 36.5 kg/m2 170.18 cm 98 % 98 % 105 /min 16 /min 97 [degF] 748324. 02 g 164 mm[Hg] 88 mm[Hg] Not Available [facility] 3 05:08:36 Date Recorded Body height Body mass index (BMI) Body weight Body temperature Heart rate Respiratory rate Oxygen saturation Oxygen saturation in Arterial blood by Pulse oximetry Pain severity - 0-10 verbal numeric rating [Score] - Reported Systolic blood pressure Diastolic blood pressure Provider Name and Address Organization Details Last Updated DateTime 170.18 cm 36.2 kg/m2 171793. 24 g 97.3 [degF] 88 /min 16 /min 93 % 93 % 0 140 mm[Hg] 80 mm[Hg] Alice Nixon RN [facility] [employer] [facility] 10:18:54 Social History Question Answer Notes LastModified by Organizat ion Details LastModified Time Tobacco Smoking Status Never Smoker Kerry Gravesprince davis, [facility] [employer] [facility] 07/18/2022 09:55:49 Do You Have An Advance Directive? Yes Information not available 07/18/2022 What Is Your Level Of Alcohol Consumption? None Socially Information not available 07/18/2022 Is Blood Transfusion Acceptable In An Emergency? Yes Information not available 07/18/2022 What Is Your Level Of Caffeine Consumption? Occasional 1 Cup In Am Information not available 07/18/2022 What Is Your Code Status? Full Code maria [email or web address] Information not available 07/18/2022 In The 14 Days Before Symptom Onset, Have You Had Close Contact With A Laboratory-conf jb TYSON-19 While That Case Was Ill? No Information not available 07/18/2022 Are You Currently Employed? No Information not available 07/18/2022 What Type Of Diet Are You Following? REGULAR Tries To Eat Healthy [id number] Information not available 04/12/2022 What Is The Highest Grade Or Level Of School You Have Completed Or The Highest Degree You Have Received? 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 60 Information not available 07/18/2022 Have There Been Any Changes To Your Family Or Social Situation? No [email or web address] Information not available 07/18/2022 Are There Any Guns Present In Your Home? No [email or web address] Information not available 07/18/2022 Do You Use Insect Repellent Routinely? Yes [email or web address] Information not available 07/18/2022 Where Do You Live? [place] Information not available 07/18/2022 Do You Have A Medical Power Of [employer]maker [employer]? Yes Information not available 07/18/2022 Do You Have Any Pets? No [email or web address] Information not available 07/18/2022 What Is Your Relationship Status? [id number] Information not available 04/12/2022 Do You Use Your Seat Belt Or Car Seat Routinely? Yes Information not available 07/18/2022 Do You Have Smoke And Carbon Monoxide Detectors In Your Home? Yes [email or web address] Information not available 07/18/2022 Are You Passively Exposed To Smoke? No [email or web address] Information not available 07/18/2022 Are There Any Smokers In Your House? No [email or web address] Information not available 07/18/2022 Do You Participate In Social Media? Yes Information not available 07/18/2022 What Types Of Sporting Activities Do You Participate In? Swimming Information not available 07/18/2022 Do You Feel Stressed (tense, Restless, Nervous, Or Anxious, Or Unable To Sleep At Night)? [id number] [email or web address] Information not available 07/18/2022 Do You Use Sunscreen Routinely? Yes [email or web address] Information not available 07/18/2022 Have You Recently Traveled Abroad? No [email or web address] Information not available 07/18/2022 Do You Have Any Dietary Restrictions? No [email or web address] Information not available 07/18/2022 Sex: Unknown Functional Status Question Answer Note LastModified by Organizat ion Details LastModified Time What is your exercise level? Occasional swimming Information not available 07/18/2022 Mental Status None recorded. Family History Relationship Description Onset Age of this Age Resolved Age Notes LastModified by Organization Details LastModified Time Father Hypertensive disorder [id number] Not available 04/12/2022 05:05:04 Father Atrial fibrillation Not available 07/2022 09:55:48 Mother Hypertensive disorder [id number] Not available 04/12/2022 05:05:04 Mother Atrial fibrillation [email or web address] Not available 07/2022 09:55:48 Paternal Grandmother Hypertensive disorder [id number] Not available 04/12/2022 05:05:04 Paternal Grandfather Hypertensive disorder [id number] Not available 04/12/2022 05:05:04 Paternal Uncle Myocardial infarction [id number] Not available 04/12/2022 05:05:04 Maternal Grandfather Alzheimer's disease Not available 2022 09:55:48 Maternal Grandfather Malignant neoplasm of prostate Not available 2022 09:55:48 Maternal Grandfather Malignant neoplasm of brain [email or web address] Not available 2022 09:55:48 Maternal Grandmother Malignant tumor of breast [email or web address] Not available 2022 09:55:48 Sister Malignant neoplasm of uterus [email or web address] Not available 2022 09:55:48 Medical History Condition Response ARTHRITIS Y HEADACHES/MIGRAINES Y DIZZINESS Y KIDNEY DISEASE Y ALLERGIES/HAYFEVER Y HYPERTENSION Y EYE PROBLEMS Y ANEMIA/BLOOD DISORDER Y EAR OR HEARING PROBLEMS Y ASTHMA Y BRONCHITIS Y Gynecological History Statement/Question Response [...] 50 mcg/0.25mL dose 1 completed Not Available [facility] 07/21/2022 17:52:05 Influenza, split virus, quadrivalent, preservative 1 completed Not Available [facility] 07/21/2022 17:52:05 Influenza, split virus, quadrivalent, preservative 0 completed Not Available [facility] 07/21/2022 17:52:05 Influenza, split virus, quadrivalent, preservative 9 completed Not Available [facility] 07/21/2022 17:52:05 Influenza, split virus, quadrivalent, preservative 8 completed Not Available [facility] 07/21/2022 17:52:05 Influenza, split virus, trivalent, preservative 5 completed Not Available [facility] 07/21/2022 17:52:05 Tdap 1 completed Not Available [facility] 07/21/2022 17:52:05 Influenza, split virus, quadrivalent, PF 4 completed Not Available [facility] 07/21/2022 17:52:05 pneumococcal polysaccharide PPV23 4 completed Not Available [facility] 07/21/2022 17:52:05 Past Encounters Encounter ID Performer Location Encounter Start Date Encounter Closed Date Diagnosis/Indication Diagnosis SNOMED-CT Code Diagnosis ICD10 Code Diagnosis Note [id number] Robb Rodrigues MD [facility] Gene dueñas [address] [place] [address] [place] [address] 07/20/2020 00:00:00 07/20/2020 11:04:56 [id number] Robb Rodrigues MD [facility] Gene lladrián [address] [place] [address] [place] [address] 01/20/2021 00:00:00 01/20/2021 11:06:33 [id number] Robb Rodrigues MD [facility] [place] [address] [place] [address] [place] [address] 07/20/2021 00:00:00 07/20/2021 11:29:22 [id number] Sandro De La Cruz MD [address] [address] 02/15/2022 00:00:00 02/15/2022 14:58:38 [id number] Alice Mcconnell NP [address] [address] 07/18/2022 09:52:42 07/18/2022 11:09:49 Hypothyroidism 44434790 E03.9 levothyrox ine 25 [facility] ok. Hyperlipidemia 40734952 E78.5 Rosuvastat in 5 mg po nightly.2022 good Essential hypertension 63507169 I10 Verapamil ER 180 mg po daily.Chlo rthalidone 50 mg Osteopenia 941966191 M85 .80 Imani wants pt treated for osteoporos is due to looking at bone health after dexa. Allergic rhinitis 059240 04 J30.9 stable. Osteoarthritis 396147271 M19.90 Migraine 31127655 G43.90 9 Stable. Vitamin D deficiency 347 12873 E55.9 Vit d 2000 Iu po daily.Calc ium 1100 po daily. Asthma 068467635 J45.90 9 Albuterol inhaler prn. Obesity 047610949 E66.9 Diet and exercise routinely. Osteoporosis 23707551 M8 1.0 Imani wants pt on medication [...] ID Guarantor Name 07/18/2022 1 [employer] PL[employer] - DOS PRIOR TO 02.12.23 (PPO) Nitin Cifuentes [id number] Marlen Cifuentes Notes Date Note Type Note [...] worse.Obesity- Diet and exercise when able. Alice Mcconnell NP [address] [facility], [facility] [address], [place], [address], [place] [facility] 07/18/2022 11:09:08 OBGyn Episode No OBEpisode recorded.
== END 2024-06-18 11:10 | disposition home or self-care (01) ==
LOC: ANHLAB 11:09
PROVIDERS: PCP Nurse Practitioner Adult Health; Visit Provider Orthopaedic Surgery
DX: M19.011 Primary osteoarthritis, right shoulder (principal); E78.5 Hyperlipidemia, unspecified; I10 Essential (primary) hypertension; I44.0 Atrioventricular block, first degree
CPT/HCPCS: 36415; 82040; 82565; 82947; 85014; 85018; 93005

== ENCOUNTER 2024-07-21 09:31 | Outpatient (CLI) | payer OTHER, SELFPAY ==
--- NOTE | ~2024-07-21 | NM_ITS ---
EXAMINATION: NM ulises stress w perfusion DATE: 07/21/2024 12:20 INDICATION: Preoperative evaluation. TECHNIQUE: Rest images were obtained following intravenous administration of 10.6 mCi Tc99m tetrofosm in (Myoview). The patient was infused intravenously with Lexiscan (Regadenoson). Then, 31.2 mCi Tc99m tetrofosmin (Myoview) was administered intravenously, and stress images were obtained. Data was yoel nstructed into short axis and horizontal and vertical long axis SPECT images. Gated SPECT images were also obtained. COMPARISON: None. FINDINGS: There is no definite reversible or fixed perfusion abnormality to suggest ischemia or infar ction. There is normal left ventricular chamber size, wall motion and ejection fraction. Left ventr icular ejection fraction measures >70%. IMPRESSION: 1. Normal myocardial perfusion at rest and during stress. 2. Left ventricular ejection fraction measuring >70%. Reviewed, dictated and finalized at location A.
--- NOTE | 2024-07-21 09:38 | EST_ITS ---
Patient Info Name: Marlen Pemberton Age: 63 years : 1960 Gender: Female Ht: 68 in Wt: 232 lbs BSA: 2.29 m2 HR: 70 bpm BP: 129 / 86 mmHg Exam Date: 07/21/2024 9:38 AM Patient Status: O Admit Date: 07/21/2024 Exam Type: CA stress ulises w NM A regadenoson stress test was performed. Staff Referring Physician: Leonora Terrazas Attending Provider: Leonora Terrazas Exercise Technologist: Genesis Mendieta Exercise Physician: Damon Yu DO Summary 1. 1. Negative lexiscan stress test for ischemic ST changes by ECG criteria. 2. 2. Stable hemodynamics throughout the test. 3. 3. Nuclear scan to follow and will be reported separately. Please correlate with it. 4. 4. Patient informed of the above results. Protocol: Lexiscan Stress ECG Details Stage: REST Duration (min): 0 min : 58 sec HR (bpm): 70 SBP (mmHg): 129 DBP (mmHg): 86 Stage: REST Duration (min): 10 min : 1 sec HR (bpm): 71 SBP (mmHg): 129 DBP (mmHg): 86 Stage: STAGE 1 Duration (min): 0 min : 59 sec HR (bpm): 88 SBP (mmHg): 136 DBP (mmHg): 63 Stage: RECOVERY Duration (min): 1 min : 0 sec HR (bpm): 88 SBP (mmHg): 136 DBP (mmHg): 63 Stage: RECOVERY Duration (min): 2 min : 0 sec HR (bpm): 85 SBP (mmHg): 136 DBP (mmHg): 63 Stage: RECOVERY Duration (min): 3 min : 0 sec HR (bpm): 89 SBP (mmHg): 134 DBP (mmHg): 70 Stage: RECOVERY Duration (min): 3 min : 31 sec HR (bpm): 88 SBP (mmHg): 134 DBP (mmHg): 70 Rest HR: 71 bpm Peak HR: 90 bpm Rest Sys BP: 129 mmHg Peak Sys BP: 136 mmHg Max Pred HR: 157 bpm % Max Pred HR: 57 % Target HR: 133 bpm Max RPP: 12,240 bpm*mmHg Termination Reason: Completed protocol Cardiac Symptoms: None Total Time: 1 min : 0 sec Rest Napier BP: 86 mmHg Peak Napier BP: 63 mmHg Total Dose: 0.4 mg Resting ECG Sinus rhythm, first degree AV block. Stress ECG No ST changes. Arrhythmias None. Report Signatures
--- OUTSIDE RECORDS SUMMARY | 2024-07-21 10:21 | XMS_ITS | Clinical Summary ---
Author Organization [facility] Address [address] [place] [address] Care Team Providers Care Wood Gang Sawyer Name Role Phone Kintigist Leonora FRANCO-GLASS BEVELER Primary Care Provider + Source Comments [facility],non-owned Affiliates and Associated Physician Practices is amultiple site organization consisting of ambulatory clinics and hospital sitesin [place], [place], [place] and [place]. This disclosure is being madepursuant to the Care Everywhere program and may not contain all information available regarding this patient. Last updated 17.[facility] Allergies Active Allergy Reactions Criticality Noted Date [...] once daily Active vitamin D, ergocalciferol, (DRISDOL) 53210 UNITS capsule Take 50,000 Units by mouth [...] mouth once daily Active rizatriptan, disintegrating, (MAXALT DISPLAY DECORATOR) 10 MG tablet Take 10 mg by [...] A M CDT Height 172.7 cm (5' 8) 08/22/2017 11:22 AM CDT Body Mass Index [...] HEMOGLOBIN A1C (EXTERNAL RESULT ENTRY) (06/19/2017) Pathologist [facility] Hemoglobin A1c (EXTERNAL RESULT) 5.4 4 - 6 % Blood BLOOD SPECIMEN / Unknown 06/19/2017 Historical Provider LAB - CHEMISTRY ORDERABLE S Final Result * HEPATITIS C RNA QUANTITATIVE PCR (09/08/2016 12:39 PM CDT) Pathologist [facility] Hepatitis C Virus RNA IU/mL HCV Not Detected IU/mL [facility] ([facility]) Test Information [facility] ([facility]) Comment:The quantitative ran ge of this assay is 15 IU/mL to 100 million IU/mL. 09/08/2016 12:3 9 PM CDT 09/08/2016 Narrative [facility] ([facility]) - 09/10/2016 6:39 AM CDT Performed at: [facility] [id number] Roller Skater: Leonid Starks MD, Phone: [phone] Arlene Chen MD LAB - CHEMISTR Y ORDERABLES Final Result [facility] ([facility]) [address] [place] [address] from Last 3 Months or Most Recently Relevant to Health Maintenance Insurance [employer] [facility] CARE Care Teams Wood Gang Sawyer Relationship Specialty Start Date End Date Leonora Terrazas APRN-CNP [address] [id number] PCP - General 08/22/17
--- OUTSIDE RECORDS SUMMARY | 2024-07-21 10:21 | XMS_ITS | Data Portability ---
Author Organization [place] [facility] [place], Main Office Address [address] [place] [address] Assessment Encounter Date Assessment Date Assessment LastModified [...] Orders Fosamax 70 mg tablet 023 023 [id number], [address] [facility], [place], [place], [id number], 11:01:13 Patient TargetsNo targets recorded. Patient Instructions Encounter Date Encounter Id Patient Instructions Last Modified By Organization Details Last Modified Time 07/18/2022 [id number] FU in 6 mo thyroid, lipid, htn, [...] /MS is recom giuseppe d: order code [id number] (rayray ents >2yrs ). See Note 1 Note 1 For addit ional infor fredy em refer to http: //[facility] ashok Montes stDia gnost ics.c om/fa q/FAQ 199 (This link is being provi ded for infor lucia john/ jadiel molina purpo ses only. ) Not Available [address], [address], 07/10/2020 07:17:19 07/10/19 21 07/10/2020 TSH, serum or plasm a TSH 1.44 mIU/L 0.40-4 .50 normal Not Available [address], [address], 07/10/2020 07:17:19 07/10/19 21 07/10/2020 hepat ic funct ion panel , serum protein, total 7.1 g/dL 6.1-8. 1 normal Not Available [address], [address], 07/10/2020 07:17:18 07/10/19 21 07/10/2020 hepat ic funct ion panel , serum albumin 4.3 g/dL 3.6-5. 1 normal Not Available [address], [address], 07/10/2020 07:17:18 07/10/19 21 07/10/2020 hepat ic funct ion panel , serum globulin 2.8 g/dL_ (calc ) 1.9-3. 7 normal Not Available [address], [address], 07/10/2020 07:17:18 07/10/19 21 07/10/2020 hepat ic funct ion panel , serum albumin/glob ulin ratio 1.5 (calc ) 1.0-2. 5 normal Not Available [address], [address], 07/10/2020 07:17:18 07/10/19 21 07/10/2020 hepat ic funct ion panel , serum bilirubin, total 0.5 mg/dL 0.2-1. 2 normal Not Available [address], [address], 07/10/2020 07:17:18 07/10/19 21 07/10/2020 hepat ic funct ion panel , serum bilirubin, direct 0.1 mg/dL < or = 0.2 normal Not Available [address], [address], 07/10/2020 07:17:18 07/10/19 21 07/10/2020 hepat ic funct ion panel , serum bilirubin, indirect 0.4 mg/dL _(arabella c) 0.2-1. 2 normal Not Available [address], [address], 07/10/2020 07:17:18 07/10/1907/10/2020 hepat ic funct ion panel , serum alkaline phosphatase 85 U/L 37-153 normal Not Available [address] [address] [place], [address], 07/10/2020 07:17:18 07/10/1907/10/2020 hepat ic funct ion panel , serum AST 31 U/L 10-35 normal Not Available [address] [address] [place], [address], 07/10/2020 07:17:18 07/10/1907/10/2020 hepat ic funct ion panel , serum ALT 32 U/L 6-29 high Not Available [address] [address] [place], [address], 07/10/2020 07:17:18 07/10/1907/10/2020 BMP, serum or plasm a glucose 94 mg/dL 65-139 normal Non-f astin g refer ence inter kang Not Available [address], [address], 07/10/2020 07:17:18 07/10/19 21 07/10/2020 BMP, serum or plasm a urea nitrogen (BUN) 14 mg/dL 7-25 normal Not Available [address], [address], 07/10/2020 07:17:18 07/10/1907/10/2020 BMP, serum or plasm a creatinine 0.68 mg/dL 0.50-1 .05 normal For patie nts >49 years of age, the refer ence limit for Creat inine is appro ximat xavi 13% highe r for peopl e ident ified as Afric an-Am ehsan n. Not Available [address] [address] [place], [address], 07/10/2020 07:17:18 07/10/1907/10/2020 BMP, serum or plasm a eGFR non-afr. fijian 96 mL/mi n/1.7 3m2 > or = 60 normal Not Available [facility] [address] [address] [place], [address], 07/10/2020 07:17:18 07/10/1907/10/2020 BMP, serum or plasm a eGFR 111 mL/mi n/1.7 3m2 > or = 60 normal Not Available [facility] [address] [address] [place], [address], 07/10/2020 07:17:18 07/10/19 21 07/10/2020 BMP, serum or plasm a BUN/creatini ne ratio not applic able (calc ) 6-22 Not Available [address], [address], 07/10/2020 07:17:18 07/10/19 21 07/10/2020 BMP, serum or plasm a sodium 140 mmol/ L 135-14 6 normal Not Available [address], [address], 07/10/2020 07:17:18 07/10/19 21 07/10/2020 BMP, serum or plasm a potassium 3.6 mmol/ L 3.5-5. 3 normal Not Available [address], [address], 07/10/2020 07:17:18 07/10/19 21 07/10/2020 BMP, serum or plasm a chloride 98 mmol/ L 98-110 normal Not Available [address], [address], 07/10/2020 07:17:18 07/10/19 21 07/10/2020 BMP, serum or plasm a carbon dioxide 33 mmol/ L 20-32 high Not Available [address], [address], 07/10/2020 07:17:18 07/10/19 21 07/10/2020 BMP, serum or plasm a calcium 9.9 mg/dL 8.6-10 .4 normal Not Available [address], [address], 07/10/2020 07:17:18 07/10/19 21 07/10/2020 lipid panel , serum cholesterol, total 209 mg/dL <200 high Not Available [address], [address], 07/10/2020 07:17:18 07/10/19 21 07/10/2020 lipid panel , serum HDL cholesterol 53 mg/dL > or = 50 normal Not Available [address], [address], 07/10/2020 07:17:18 07/10/1907/10/2020 lipid panel , serum triglyceride s 175 mg/dL <150 high Not Available [facility] [address], [address], 07/10/2020 07:17:18 07/10/1907/10/2020 lipid panel , serum [...] 2061- 2068 (http ://ed ucati on.Qu Freddy KiteBit. com/f aq/FA Q164) Not Available [facility] [address], [address], 07/10/2020 07:17:18 07/10/1907/10/2020 lipid panel , serum chol/HDLC ratio 3.9 (calc ) <5.0 normal Not Available [facility] [address], [address], 07/10/2020 07:17:18 07/10/1907/10/2020 lipid panel , serum non HDL cholesterol 156 mg/dL _(arabella c) <130 high For patie nts with diabe yenny plus 1 major ASCVD risk facto r, treat ing to a non-H DL-C goal of <100 mg/dL (LDL- C of <70 mg/dL ) is consi dered a carlotta malone optio n. Not Available [facility] [address] [place], [address], 07/10/2020 07:17:18 01/28/20 21 01/28/2021 VITAM IN [...] /MS is recom giuseppe d: order code [id number] (rayray ents >2yrs ). See Note 1 Note 1 For addit ional infor fredy em refer to http: //darek Chapman gnost ics.c om/fa q/FAQ 199 (This link is being provi ded for infor lucia john/ jadiel molina purpo ses only. ) Not Available [facility] [address] [address] [place], [address], 01/28/2021 12:47:55 01/28/20 21 01/28/2021 TSH TSH 2.24 mIU/L 0.40-4 .50 normal Not Available [facility] [address] [address] [place], [address], 01/28/2021 12:47:54 01/28/20 21 01/28/2021 LIPID PANEL , STAND ANTHONY cholesterol, total 222 mg/dL <200 high Not Available [facility] [address] [address] [place], [address], 01/28/2021 12:47:53 01/28/20 21 01/28/2021 LIPID PANEL , STAND ANTHONY HDL cholesterol 60 mg/dL > or = 50 normal Not Available [facility] [address] [place] [address], [address], 01/28/2021 12:47:53 01/28/20 21 01/28/2021 LIPID PANEL , STAND ANTHONY triglyceride s 170 mg/dL <150 high Not Available [address], [address], 01/28/2021 12:47:53 01/28/20 21 01/28/2021 LIPID PANEL [...] 2061- 2068 (http ://ed ucati on.Ger lee Isais. com/f aq/FA Q164) Not Available [address], [address], 01/28/2021 12:47:53 01/28/20 21 01/28/2021 LIPID PANEL , STAND ANTHONY chol/HDLC ratio 3.7 (calc ) <5.0 normal Not Available [facility] [address] [place] [address], [address], 01/28/2021 12:47:53 01/28/20 21 01/28/2021 LIPID PANEL , STAND ANTHONY non HDL cholesterol 162 mg/dL _(arabella c) <130 high For patie nts with diabe yenny plus 1 major ASCVD risk facto r, treat ing to a non-H DL-C goal of <100 mg/dL (LDL- C of <70 mg/dL ) is madelin laguerre peuti c optio n. Not Available [facility] [address], [place], [address], 01/28/2021 12:47:53 08/27/19 22 08/27/2021 VITAM IN [...] um and D. Alton li [place]: [facility] . 2. Angel Luis damon MF, Bib hamm [place], Rufino off-F usha i MONROE, et al. Evalu ation , treat ment, and preve ntion of vitam in D defic iency : an Endoc rine Socie ty clini arabella pract ice guide line. JCEM. 2010; 96(7) :1911 -30. Not Available [facility] ([facility]) [address] [facility], [place], [address], 08/31/2021 03:07:29 08/27/19 22 08/30/2021 THYRO ID STIMU LATIN G HORMO NE TSH-icma 2.3 uu/mL Refer ence Range : Non-P regna nt Adult 0.450 -4.50 0 Pregn justice First Trime ster 0.100 -4.00 0 Secon d Trime ster 0.200 -4.00 0 Third Trime ster 0.300 -4.50 0 Not Available [facility] [address] [facility], [place], [address], 08/31/2021 03:07:29 08/27/19 22 08/27/2021 LIPID PANEL cholesterol, total 216 mg/dL 100-19 9 above high normal Not Available [facility] ([facility]) [address] [place], [address], 08/31/2021 03:07:28 08/27/19 22 08/27/2021 LIPID PANEL triglyceride s 106 mg/dL 0-149 Not Available [facility] ([facility]) [address] [place], [address], 08/31/2021 03:07:28 08/27/19 22 08/27/2021 LIPID PANEL HDL cholesterol 59 mg/dL >39 Not Available [facility] ([facility]) [address] [place], [address], 08/31/2021 03:07:28 08/27/19 22 08/27/2021 LIPID PANEL VLDL cholesterol arabella 19 mg/dL 5-40 Not Available [facility] ([facility]) [address] [place], [address], 08/31/2021 03:07:28 08/27/19 22 08/27/2021 LIPID PANEL LDL chol calc ([facility]) 138 mg/dL 0-99 above high normal Not Available [facility] ([facility]) [address] [place], [address], 08/31/2021 03:07:28 08/27/19 22 08/27/2021 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 METAB OLIC PANEL (14) glucose 93 mg/dL 65-99 Not Available [facility] ([facility]) [address] [place], [address], 08/31/2021 03:07:28 08/27/19 22 08/27/2021 COMP. METAB OLIC PANEL (14) BUN 15 mg/dL 8-27 Not Available [facility] ([facility]) [address] [place], [address], 08/31/2021 03:07:28 08/27/19 22 08/27/2021 COMP. METAB OLIC PANEL (14) creatinine 0.66 mg/dL 0.57-1 .00 Not Available [facility] ([facility]) [address] [place], [address], 08/31/2021 03:07:28 08/27/19 22 08/27/2021 COMP. METAB OLIC PANEL (14) eGFR 100 mL/mi n/1.7 3 >59 Not Available [facility] ([facility]) [address] [place], [address], 08/31/2021 03:07:28 08/27/19 22 08/27/2021 COMP. METAB OLIC PANEL (14) BUN/creatini ne ratio 23 12-28 Not Available [facility] ([facility]) [address] [place], [address], 08/31/2021 03:07:28 08/27/19 22 08/27/2021 COMP. METAB OLIC PANEL (14) sodium 142 mmol/ L 134-14 4 Not Available [facility] ([facility]) [address] [place], [address], 08/31/2021 03:07:28 08/27/19 22 08/27/2021 COMP. METAB OLIC PANEL (14) potassium 4.0 mmol/ L 3.5-5. 2 Not Available [facility] ([facility]) [address] [place], [address], 08/31/2021 03:07:28 08/27/19 22 08/27/2021 COMP. METAB OLIC PANEL (14) chloride 99 mmol/ L 96-106 Not Available [facility] ([facility]) [address] [place], [address], 08/31/2021 03:07:28 08/27/19 22 08/27/2021 COMP. METAB OLIC PANEL (14) carbon dioxide, total 28 mmol/ L 20-29 Not Available [facility] ([facility]) [address] [place], [address], 08/31/2021 03:07:28 08/27/19 22 08/27/2021 COMP. METAB OLIC PANEL (14) calcium 9.4 mg/dL 8.7-10 .3 Not Available [facility] ([facility]) [address] [place], [address], 08/31/2021 03:07:28 08/27/19 22 08/27/2021 COMP. METAB OLIC PANEL (14) protein, total 6.6 g/dL 6.0-8. 5 Not Available [facility] ([facility]) [address] [place], [address], 08/31/2021 03:07:28 08/27/19 22 08/27/2021 COMP. METAB OLIC PANEL (14) albumin 4.1 g/dL 3.8-4. 8 Not Available [facility] ([facility]) [address] [place], [address], 08/31/2021 03:07:28 08/27/19 22 08/27/2021 COMP. METAB OLIC PANEL (14) globulin, total 2.5 g/dL 1.5-4. 5 Not Available [facility] ([facility]) [address] [place], [address], 08/31/2021 03:07:28 08/27/19 22 08/27/2021 COMP. METAB OLIC PANEL (14) A/G ratio 1.6 1.2-2. 2 Not Available [facility] ([facility]) [address] [place], [address], 08/31/2021 03:07:28 08/27/19 22 08/27/2021 COMP. METAB OLIC PANEL (14) bilirubin, total 0.3 mg/dL 0.0-1. 2 Not Available [facility] ([facility]) [address] [place], [address], 08/31/2021 03:07:28 08/27/19 22 08/27/2021 COMP. METAB OLIC PANEL (14) alkaline phosphatase 78 IU/L 44-121 Not Available [facility]) [address] [place], [address], 08/31/2021 03:07:28 08/27/19 22 08/27/2021 COMP. METAB OLIC PANEL (14) AST (SGOT) 21 IU/L 0-40 Not Available [facility] ([facility]) [address] [place], [address], 08/31/2021 03:07:28 08/27/19 22 08/27/2021 COMP. METAB OLIC PANEL (14) ALT (SGPT) 17 IU/L 0-32 Not Available [facility] ([facility]) [address] [place], [address], 08/31/2021 03:07:28 07/07/19 23 07/07/2022 LIPID PANEL , STAND ANTHONY cholesterol, total 132 mg/dL <200 normal Not Available [facility] [address] [place], [address], 07/07/2022 08:34:15 07/07/19 23 07/07/2022 LIPID PANEL , STAND ANTHONY HDL cholesterol 68 mg/dL > or = 50 normal Not Available [facility] [address] [place], [address], 07/07/2022 08:34:15 07/07/1907/07/2022 LIPID PANEL , STAND ANTHONY triglyceride s 77 mg/dL <150 normal Not Available [facility] [address] [address] [place], [address], 07/07/2022 08:34:15 07/07/1907/07/2022 LIPID PANEL , STAND [...] 2061- 2068 (http ://ed ucati on.Ger Hayes KiteBit. com/f aq/FA Q164) Not Available [facility] [address] [place], [address], 07/07/2022 08:34:15 07/07/1907/07/2022 LIPID PANEL , STAND ANTHONY chol/HDLC ratio 1.9 (calc ) <5.0 normal Not Available [facility] [address] [place], [address], 07/07/2022 08:34:15 07/07/1907/07/2022 LIPID PANEL , STAND ANTHONY non HDL cholesterol 64 mg/dL _(arabella c) <130 normal For patie nts with diabe yenny plus 1 major ASCVD risk facto r, treat ing to a non-H DL-C goal of <100 mg/dL (LDL- C of <70 mg/dL ) is consi dered a thera peuti c optio n. Not Available [facility] [address] [place], [address], 07/07/2022 08:34:15 07/07/19 23 07/07/2022 TSH W/REF AMY TO FT4 TSH w/reflex to FT4 1.55 mIU/L 0.40-4 .50 normal Not Available [facility] [address] , [place], [address], 07/07/2022 08:34:17 12/03/19 21 12/02/2020 XR, shoul tremaine No observ ation record ed. [id number] [address], [place], [address], 04/12/2022 05:18:19 06/17/19 22 06/16/2021 MAMMO , scree masoud, digit al, bilat eral No observ ation record ed. [id number] [address], [place], [address], 04/12/2022 05:18:19 11/09/19 22 11/01/2021 DEXA No observ ation record ed. [id number] Not Available 04/12/2022 05:18:19 03/28/19 23 03/28/2022 XR, arthr ogram , hip No observ ation record ed. [id number] [address], [place], [address], 04/12/2022 05:18:19 04/26/19 23 04/19/2022 XR, hip + pelvi s, unila teral No observ ation record ed. [email or web address] [address], [place], [address], 04/26/2022 09:38:51 05/24/19 23 05/17/2022 XR, hip + pelvi s, bilat eral No observ ation record ed. [email or web address] [facility] [address], [place], [address], 05/23/2022 17:54:58 09/23/1909/22/2022 XR, hip, unila teral No observ ation record ed. [email or web address] [facility] [address], [place], [address], 09/22/2022 11:36:04 11/29/1911/28/2022 MAMMO , scree masoud, bilat eral No observ ation record ed. [facility] [address] [facility] [address], [place], [address], 11/30/2022 08:49:32 Result Notes None recorded. Problems Name Problem SNOMED Code Status Onset Date Resolution Date Notes Provider Name and Address Organization Details Recorded Time Edema of lower extremit y 483059804 Completed Not Available [facility] 3 05:11:07 Tricuspi d valve regurgit ation 339088756 Completed Not Available [facility] 3 05:11:07 History of total knee arthropl asty 40112150217 05 Active 2018 Not Available [facility] 3 17:52:04 Asthma 865474625 Active Not Available [facility] 3 17:52:04 Sciatica 09200662 Completed Not Available [facility] 3 05:11:08 Osteopen ia 623636596 Active 2017 Diagnose d Not Available [facility] 3 17:52:04 Systolic murmur 03012960 Active Not Available [facility] 3 17:52:04 Pain in left knee Active 2018 Not Available [facility] 3 17:52:04 Vitamin D deficien cy 67815956 Active Not Available [facility] 3 17:52:04 Migraine 27492394 Active Not Available [facility] 3 17:52:04 Osteoart hritis 437325150 Active Not Available [facility] 3 17:52:04 Hypothyr oidism 87173812 Active Not Available [facility] 3 17:52:04 Obesity 208097772 Active Not Available [facility] 3 17:52:04 Refracto ry migraine 838760128 Completed Not Available [facility] 3 05:11:08 Environm ental allergy 450719285 Active 2019 Not Available [facility] 3 17:52:04 Small vessel cerebrov ascular disease 458801010 Completed Not Available [facility] 3 05:11:08 Seasonal allergy 704035574 Active Not Available [facility] 3 17:52:04 Pain of hip region 39716239 Active Not Available [facility] 3 17:52:04 Hyperlip idemia 52110135 Active Not Available [facility] 3 17:52:04 [facility]ia l hyperten amilcar 89467493 Active Not Available [facility] 3 17:52:04 Aortic valve regurgit ation 64868144 Active Not Available [facility] 3 17:52:04 Allergic rhinitis 99641818 Active Not Available [facility] 3 17:52:04 Osteoart hritis of shoulder region 60459979 Active 2020 Not Available [facility] 3 17:52:04 Urinary tract infectio us disease 39615782 Active 2016 Not Available [facility] 3 17:52:04 Posterio r rhinorrh ea 00691169 Active Not Available [facility] 3 17:52:04 Postmeno pausal state 83367744 Active 2022 Not Available [facility] 3 17:52:04 Palpitat ions 43118934 Completed Not Available [facility] 3 05:11:09 Osteopor osis 02732950 Active 2022 Not Available [facility] 3 17:52:04 Problem Notes None recorded. Procedures Surgical History Date Name Laterality Status Provider Name and Address Organization Details Recorded Time 11/29/19 Most Recent Mammogram completed [address], [place], [address], [place] [facility] 11/29/2022 07:50:47 03/28/19 23 total replacement of right hip joint completed Not Available [facility] 04/12/2022 05:05:00 11/02/19 22 Most Recent Bone Density completed Not Available [facility] 04/12/2022 05:04:57 02/09/20 21 total shoulder replacement completed Not Available [facility] 04/12/2022 05:05:00 02/12/19 19 Knee Replacement completed Not Available [facility] 04/12/2022 05:05:00 06/23/19 17 Date of Last Colonoscopy completed Not Available [facility] 04/12/2022 05:04:57 06/23/19 17 Colonoscopy completed Not Available [facility] 04/13/19 23 05:05:00 Ear Tubes completed Not Available [address] [place] [address] 04/12/2022 05:05:00 completed Not Available [address] [place] [address] 04/12/2022 05:05:00 Eye Surgery completed Not Available [facility] 04/12/2022 05:05:00 Imaging Results None recorded. Procedure Notes None recorded. Medical Equipment None Reported. Allergies Allergen ID Allergen Name Allergen Category Reaction Reaction Severity Criticality Documentation Date Start Date Code Code System Note Provider Name and Address Organization Details Recorded Time 9484 Substance with sulfonami de structure and antibacte rial mechanism of action (substanc e) medicatio n rash Not available Not available 04/12/2022 54241 8003 SNOMED Not Available [facility] 3 05:17:55 9485 theophyll ine anhydrous medicatio n Not available Not available Not available 04/12/2022 45571 RxNorm shake s Not Available [facility] 3 05:17:55 9486 omeprazol e medicatio n Not available Not available Not available 04/12/2022 7646 RxNorm Not Available [facility] 3 05:17:55 9487 Bactrim medicatio n rash Not available Not available 04/12/2022 62021 9 RxNorm Not Available [facility] 3 05:17:55 9488 acetone medicatio n anaphylax is severe Not available 04/12/2022 178 RxNorm Not Available [facility] 3 05:17:55 Medications Name Sig Start [...] Not Available Not Available Not Available Fluvirin 5983-4041 45 mcg (15 mcg x 3)/0.5 mL intramuscu lar suspension ADM 0.5ML IM UTD active Not Available Not Available No t Available Fluvirin 5626-2105 45 mcg (15 mcg x 3)/0.5 mL [...] % 105 /min 16 /min 97 [degF] 503754. 02 g 164 mm[Hg] 88 mm[Hg] Not Available [facility] 3 05:08:36 Date Recorded Body height Body mass index (BMI) Body weight Body temperature Heart rate Respiratory rate Oxygen saturation Oxygen saturation in Arterial blood by Pulse oximetry Systolic blood pressure Diastolic blood pressure Provider Name and Address Organization Details Last Updated DateTime 3 170.18 cm 36.2 kg/m2 413717. 24 g 97.3 [degF] 88 /min 16 /min 93 % 93 % 140 mm[Hg] 80 mm[Hg] Alice Nixon RN [place] [facility] [place] [employer] 3 10:18:54 Date Recorded Body mass index (BMI) Body height Oxygen saturation Oxygen saturation in Arterial blood by Pulse oximetry Heart rate Body temperature Body weight Systolic blood pressure Diastolic blood pressure Provider Name and Address Organization Details Last Updated DateTime 1 38.3 kg/m2 170.18 cm 96 % 96 % 94 /min 97.3 [degF] 933477. 34 g 134 mm[Hg] 86 mm[Hg] Not Available [facility] 3 05:08:36 Date Recorded Body mass index (BMI) Body height Oxygen saturation Oxygen saturation in Arterial blood by Pulse oximetry Heart rate Body weight Systolic blood pressure Diastolic blood pressure Provider Name and Address Organization Details Last Updated DateTime 2 37.4 kg/m2 170.18 cm 96 % 96 % 94 /min 964591. 58 g 136 mm[Hg] 82 mm[Hg] Not Available [facility] 3 05:08:36 Date Recorded Body mass index (BMI) Body height Oxygen saturation Oxygen saturation in Arterial blood by Pulse oximetry Heart rate Body temperature Body weight Systolic blood pressure Diastolic blood pressure Provider Name and Address Organization Details Last Updated DateTime 1 37.6 kg/m2 170.18 cm 94 % 94 % 109 /min 96.7 [degF] 288999. 17 g 140 mm[Hg] 84 mm[Hg] Not Available [facility] 3 05:08:36 Social History Question Answer Notes LastModified by Organizat ion Details LastModified Time Tobacco Smoking Status Never Smoker AMY [place] [employer] 07/18/2022 09:55:49 Do You Have An Advance Directive? Yes Information not available 07/18/2022 Is Blood Transfusion Acceptable In An Emergency? Yes Information not available 07/18/2022 What Is Your Level Of Caffeine Consumption? Occasional 1 Cup In Am Information not available 07/18/2022 What Is Your Code Status? Full Code Information not available 07/18/2022 In The 14 Days Before Symptom Onset, Have You Had Close Contact With A Laboratory-conf jb [facility] While That Case Was Ill? No Information not available 07/18/2022 What Type Of Diet Are You Following? REGULAR Tries To Eat Healthy [id number] Information not available 04/12/2022 What Is The Highest Grade Or Level Of School You Have Completed Or The Highest Degree You Have Received? [id number] Information not available 07/18/2022 How Many Days Of Moderate To Strenuous Exercise, Like A Brisk Walk, Did You Do In The Last 7 Days? 60 Information not available 07/18/2022 Have There Been Any Changes To Your Family Or Social Situation? No [email or web address] Information not available 07/18/2022 Are There Any Guns Present In Your Home? No [email or web address] Information not available 07/18/2022 Do You Use Insect Repellent Routinely? Yes Information not available 07/18/2022 Where Do You Live? [place] [email or web address] Information not available 07/18/2022 Do You Have A Medical Power Of Tape Recorder Mechanic? Yes Information not available 07/18/2022 Do You Have Any Pets? No [email or web address] Information not available 07/18/2022 What Is Your Relationship Status? [id number] Information not available 04/12/2022 Do You Use Your Seat Belt Or Car Seat Routinely? Yes Information not available 07/18/2022 Do You Have Smoke And Carbon Monoxide Detectors In Your Home? Yes [email or web address] Information not available 07/18/2022 Are You Passively Exposed To Smoke? No [email or web address] Information not available 07/18/2022 Are There Any Smokers In Your House? No [email or web address] Information not available 07/18/2022 Do You Participate In Social Media? Yes Information not available 07/18/2022 What Types Of Sporting Activities Do You Participate In? Swimming Information not available 07/18/2022 Do You Use Sunscreen Routinely? Yes [email or web address] Information not available 07/18/2022 Have You Recently Traveled Abroad? No [email or web address] Information not available 07/18/2022 Do You Have Any Dietary Restrictions? No Information not available 07/18/2022 Sex: Unknown Functional Status Question Answer Note LastModified by Organizat ion Details LastModified Time What is your level of alcohol consumption? None socially Information not available 07/18/2022 Are you currently employed? 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 Occasional swimming Information not available 07/18/2022 Mental Status Question Answer Note LastModified by Organization D etails LastModified Time Do you feel stressed (tense, restless, nervous, or anxious, or unable to sleep at night)? [id number] [email or web address] Information not available 07/18/2022 Family History Relationship Description Onset Age of this Age Resolved Age Notes LastModified by Organization Details LastModified Time Father Hypertensive disorder [id number] Not available 04/12/2022 05:05:04 Father Atrial fibrillation [email or web address] Not available 07/2022 09:55:48 Mother Hypertensive disorder [id number] [id number] Not available 04/12/2022 05:05:04 Mother Atrial fibrillation [email or web address] Not available 07/2022 09:55:48 Paternal Grandmother Hypertensive disorder [id number] Not available 04/12/2022 05:05:04 Paternal Grandfather Hypertensive disorder [id number] Not available 04/12/2022 05:05:04 Paternal Uncle Myocardial infarction [id number] Not available 04/12/2022 05:05:04 Maternal Grandfather Alzheimer's disease [email or web address] Not available 2022 09:55:48 Maternal Grandfather Malignant neoplasm of prostate [email or web address] Not available 2022 09:55:48 Maternal Grandfather Malignant neoplasm of brain Not available 2022 09:55:48 Maternal Grandmother Malignant tumor of breast [email or web address] Not available 2022 09:55:48 Sister Malignant neoplasm of uterus [email or web address] Not available 2022 09:55:48 Medical History Condition [...] 50 mcg/0.25mL dose 1 completed Not Available [facility] 07/21/2022 17:52:05 Influenza, split virus, quadrivalent, preservative 1 completed Not Available [facility] 07/21/2022 17:52:05 Influenza, split virus, quadrivalent, preservative 0 completed Not Available [facility] 07/21/2022 17:52:05 Influenza, split virus, quadrivalent, preservative 9 completed Not Available [facility] 07/21/2022 17:52:05 Influenza, split virus, quadrivalent, preservative 8 completed Not Available [facility] 07/21/2022 17:52:05 Influenza, split virus, trivalent, preservative 5 completed Not Available [facility] 07/21/2022 17:52:05 Tdap 1 completed Not Available [facility] 07/21/2022 17:52:05 Influenza, split virus, quadrivalent, PF 4 completed Not Available [facility] 07/21/2022 17:52:05 pneumococcal polysaccharide PPV23 4 completed Not Available [facility] 07/21/2022 17:52:05 Past Encounters Encounter ID Performer Location Encounter Start Date Encounter Closed Date Diagnosis/Indication Diagnosis SNOMED-CT Code Diagnosis ICD10 Code Diagnosis Note [id number] Robb Rodrigues MD [facility] [place] [address] [place] [address] [place] [address] 07/20/2020 00:00:00 07/20/2020 11:04:56 [id number] Robb Rodrigues MD [facility] [place] [address] [place] [address] [place] [address] 01/20/2021 00:00:00 01/20/2021 11:06:33 [id number] Robb Rodrigues MD [facility] [place] [address] [place] [address] [place] [address] 07/20/2021 00:00:00 07/20/2021 11:29:22 [id number] Sandro De La Cruz MD [address] [address] [place] [address] 02/15/2022 00:00:00 02/15/2022 14:58:38 [id number] Alice Mcconnell NP [address] [address] [place] [address] 07/18/2022 09:52:42 07/18/2022 11:09:49 Hypothyroidism 74399709 E03.9 levothyrox ine 25 mcg po daily.Chec ked 07/06/22 ok. Hyperlipidemia 12674306 E78.5 Rosuvastat in 5 mg po nightly.2022 good Essential hypertension 84356071 I10 Verapamil ER 180 mg po daily.Chlo rthalidone 50 mg Osteopenia 273222876 M85 .80 Imani wants pt treated for osteoporos is due to looking at bone health after dexa. Allergic rhinitis 905543 04 J30.9 stable. Osteoarthritis 865522990 M19.90 Migraine 98751617 G43.90 9 Stable. Vitamin D deficiency 347 46550 E55.9 Vit d 2000 Iu po daily.Calc ium 1100 po daily. Asthma 893400914 J45.90 9 Albuterol inhaler prn. Obesity 482634535 E66.9 Diet and exercise routinely. Osteoporosis 62774441 M8 1.0 Imani wants pt on medication [...] ID Guarantor Name 07/18/2022 1 [employer] HEALTH PLAN - DOS PRIOR TO 02.12.23 (PPO) Nitin Cifuentes [id number] Marlen Cifuentes Notes Date Note Type Note [...] exercise when able. Alice Mcconnell, [place] [address] [facility], [facility] [address], [place], [address], [facility] [employer] 07/18/2022 11:09:08 OBGyn Episode No OBEpisode recorded.
--- OUTSIDE RECORDS SUMMARY | 2024-07-21 10:21 | XMS_ITS | Patient Health Record ---
Author Organization [facility] [place] ([address]) Address [address] [place] [address] Care Team Providers Care Wooden Frame Builder Name Role Phone Leonora Lundy Primary Care Provider María Elena Maryam Paredes Unavailable [phone] Missael Ruiz Unavailable [phone] [facility], Provider Unavailable Unavailab le Allergies Allergen (clinical drug ingredient) Drug/Non Drug Allergy documented on EMR Reaction Allergy Type Onset Date Status omeprazole Omeprazole diarrhea Drug Allergy Activ e Sulfamethoxazole hives Drug Allergy Active albuterol Ventolin HFA other reaction Drug Allergy Active Reason For Referral No Information Medications Medication SIG (Take, Route, Frequency, Duration) Notes Start Date End Date Status Flonase Allergy Relief 50 MCG/ACT 2 spray(s) intranasally Qday Active VALACYCLOVIR 1 g 1 tab(s) orally 2 times a day for 10 day(s) Not-Taking EpiPen 2-Anatoly 0.3 MG/0.3ML as directed intramuscularly once Active RIZATRIPTAN 10 mg 1 tab(s) orally once a day Not-Taking TRIAMCINOLONE TOPICAL 0.1% 1 jackson applied topically 3 times a day Active Triamcinolone Acetonide 0.1 % 1 jackson applied topically 3 times a day Active LEVOTHYROXINE 25 mcg (0.025 mg) 1 tab(s) orally once a day for 30 day(s) Not-Taking ZyrTEC Allergy 10 MG 1 tab(s) orally onc e a day Active ROSUVASTATIN 5 mg 1 tab(s) orally once a day Not-Taking FOSAMAX 70 mg 1 tab(s) orally once a week Not-Taking CHLORTHALIDONE 50 mg 1 tab(s) orally onc e a day for 30 day(s) Not-Taking Hydroxychloroquine Sulfate 200 MG as directed Orally Active BREZTRI AEROSPHERE 160 mcg-4.8 mcg-9 mcg/inh 2 puff(s) inhaled 2 times a day0 for 90 days Active Trelegy Ellipta 200 MCG-62.5 MCG-25 MCG/INH INHALE 1 PUFF BY MOUTH EVERY DAY for 90 *Please review and pick correct strength-formul ation from [employer] options. If intended option is not shown, discontinue and re-order from Quick Search* Not-Taking Xopenex HFA 45 MCG/ACT 2 puffs Inhalatio n every 4 hrs for 30 days Active SIT (TRADITIONAL) variable per schedule SC per schedule for to be determined Active Ventolin HFA 108 (90 Base) MCG/ACT 2 puff(s) inhaled every 6 hours for 30 day(s) Not-Taking MONTELUKAST 10 mg 1 tab(s) orally once a day Active AZELASTINE HYDROCHLORIDE NASAL 137 mcg/inh 2 spray(s) intranasally 2 times a day Not-Taking EPIPEN 2-ANATOLY 0.3 mg as directed intramuscularly once Active Azelastine HCl 137 MCG/SPRAY 2 spray(s) intranasally 2 times a day for 30 days Active FAMOTIDINE 40 mg 1 tab(s) orally 1 hour prior to SCIT Active Breztri Aerosphere 160-9-4.8 MCG/ACT INHALE 2 PUFFS BY MOUTH TWICE A DAY for 30 Active FLONASE 50 mcg/inh 2 spray(s) intranasally Qday Active Verapamil HCl ER 180 MG 1 cap(s) orally once a day for 30 day(s) Active NASAL WASHES N/A as directed intranasally as needed Active Blair Nasal Moisturizer *Please review and pick correct strength-formul ation from [employer] options. If intended option is not shown, discontinue and re-order from Quick Search* Active valACYclovir HCl 1 GM 1 tab(s) orally 2 times a day for 10 day(s) Active ZYRTEC 10 mg 1 tab(s) orally once a day Active Rizatriptan Benzoate 10 MG 1 tab(s) orally once a day Active Triamcinolone Acetonide 0.1 % 1 application Externally Twice a day for 5 days 5 Active Rosuvastatin Calcium 5 MG 1 tab(s) orally once a day Active Azelastine HCl 137 MCG/SPRAY 2 sprays in each nostril Nasally Twice a day for 30 days As needed 5 Active AZELASTINE HYDROCHLORIDE NASAL 137 mcg/inh 2 spray(s) intranasally 2 times a day for 30 days Not-Taking Chlorthalidone 50 MG 1 tab(s) orally onc e a day for 30 day(s) Active Levothyroxine Sodium 25 MCG 1 tab(s) orally once a day for 30 days Active LEVALBUTEROL TARTRATE HFA 45 MCG/INH 2 PUFF(S) INHALED EVERY 4 HOURS for 30 DAYS *Please review for potential replacement for e-prescription and drug interaction check* Active TRELEGY ELLIPTA 200 mcg-62.5 mcg-25 mcg/inh INHALE 1 PUFF BY MOUTH EVERY DAY for 90 Not-Taking Fosamax 70 MG 1 tab(s) orally once a week Active VENTOLIN HFA 90 mcg/inh 2 puff(s) inhale d every 6 hours for 30 day(s) Not-Taking Famotidine 40 MG 1 tab(s) orally 1 hour prior to SCIT Active VERAPAMIL 180 mg/24 hours 1 cap(s) orally once a day for 30 day(s) Not-Taking Montelukast Sodium 10 MG 1 tab(s) orally once a day Active 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 Not-Taking Immunizations Vaccine Route Administration Date Status [...] W/U Status Risk Notes Problem Idiopathic urticaria (05543395) Idiopathic urticaria (L50.1) Active confirmed Problem Angioneurotic edema (24239351) Angioneurotic edema, initial encounter (T78.3XXA) Active confirmed Problem Eruption of skin (818509733) Rash and other nonspecific skin eruption (R21) Active confirmed Problem Chronic allergic conjunctivitis (60899393) Other chronic allergic conjunctivitis (H10.45) Active confirmed Problem Allergic rhinitis caused by pollen (disorder) (78069246) Allergic rhinitis due to pollen (J30.1) Active confirmed Problem Allergic rhinitis caused by animal hair and dander (431872151000276) Allergic rhinitis due to animal (cat) (dog) hair and dander (J30.81) Active confirmed Problem Allergic rhinitis (51681916) Other allergic rhinitis (J30.89) Active confirmed Problem Chronic rhinitis (48434542) Chronic rhinitis (J31.0) Active confirmed Problem Uncomplicated mild persistent asthma (494537116) Mild persistent asthma, uncomplicated (J45.30) Active confirmed Problem Allergic contact dermatitis caused by plant material (disorder) (4268671274922218 1) Allergic contact dermatitis due to plants, except food (L23.7) Active confirmed Problem Allergic contact dermatitis (303681458) Allergic contact dermatitis due to other agents (L23.89) Active confirmed Problem Elevated blood pressure reading without diagnosis of hypertension (536481043) Elevated blood-pressure reading, without diagnosis of hypertension (R03.0) Active confirmed Problem Allergic rhinitis caused by pollen (disorder) (06207301) Allergic rhinitis due to pollen (J30.1) Active confirmed Problem Allergic rhinitis caused by animal hair and dander (326822893939334) Allergic rhinitis due to animal (cat) (dog) hair and dander (J30.81) Active confirmed Problem Allergic rhinitis (77784788) Other allergic rhinitis (J30.89) Active confirmed Problem Uncomplicated moderate persistent asthma (982510961) Moderate persistent asthma, uncomplicated (J45.40) Active confirmed Problem Chronic allergic conjunctivitis (73229550) Other chronic allergic conjunctivitis (H10.45) Active confirmed Vital Signs Respiratory Rate 17 /min 05/22/2024 Oximetry 96 % 05/22/2024 Blood pressure diastolic 76 mm Hg 05/22/2024 Height 67 in 05/22/2024 Blood pressure systolic 137 mm Hg 05/22/2024 Weight 237 lbs 05/22/2024 BMI 37.12 kg/m2 05/22/2024 Encounters Encounter Location Date Provider Diagnosis [address] [address] 07/28/2023 Provider [facility] [address] [address] 08/22/2023 Missael Ruiz Allergic rhinitis du e to pollen J30.1 ; Allergic rhinitis due to animal (cat) (dog) hair and dander J30.81 ; Other allergic rhinitis J30.89 and Other chronic allergic conjunctivitis H10.[address] [address] 09/24/2023 Missael Ruiz Allergic rhinitis du e to pollen J30.1 ; Allergic rhinitis due to animal (cat) (dog) hair and dander J30.81 ; Other allergic rhinitis J30.89 and Other chronic allergic conjunctivitis H10.[address] [address] 10/23/2023 Missael Ruiz Allergic rhinitis du e to pollen J30.1 ; Allergic rhinitis due to animal (cat) (dog) hair and dander J30.81 ; Other allergic rhinitis J30.89 and Other chronic allergic conjunctivitis H10.[address] [address] 11/22/2023 Maryam Young Moderate persistent asthma, uncomplicated [...] blood-pressure reading, without diagnosis of hypertension R03.0 [facility] [address] [place] [address] 12/20/2023 Missael Ruiz Allergic rhinitis du e to pollen J30.1 ; Allergic rhinitis due to animal (cat) (dog) hair and dander J30.81 ; Other allergic rhinitis J30.89 and Other chronic allergic conjunctivitis H10.45 [facility] [address] [place] [address] 12/27/2023 Missael Ruiz Allergic rhinitis du e to pollen J30.1 ; Allergic rhinitis due to animal (cat) (dog) hair and dander J30.81 ; Other allergic rhinitis J30.89 and Other chronic allergic conjunctivitis H10.45 [facility] [address] [place] [address] 01/03/2024 Missael Joseph Allergic rhinitis du e to pollen J30.1 ; Allergic rhinitis due to animal (cat) (dog) hair and dander J30.81 ; Other allergic rhinitis J30.89 and Other chronic allergic conjunctivitis H10.45 [facility] [address] [place] [address] 01/31/2024 Missael Joseph Allergic rhinitis du e to pollen J30.1 ; Allergic rhinitis due to animal (cat) (dog) hair and dander J30.81 ; Other allergic rhinitis J30.89 and Other chronic allergic conjunctivitis H10.45 [facility] [address] [place] [address] 02/28/2024 Missael Joseph Allergic rhinitis du e to pollen J30.1 ; Allergic rhinitis due to animal (cat) (dog) hair and dander J30.81 ; Other allergic rhinitis J30.89 and Other chronic allergic conjunctivitis H10.45 [facility] [address] [place] [phone] 03/27/2024 Missaelyun Ruiz Allergic rhinitis du e to pollen J30.1 ; Allergic rhinitis due to animal (cat) (dog) hair and dander J30.81 ; Other allergic rhinitis J30.89 and Other chronic allergic conjunctivitis H10.45 [facility] [address] [place] [address] 04/24/2024 Missael Ruiz Allergic rhinitis du e to pollen J30.1 ; Allergic rhinitis due to animal (cat) (dog) hair and dander J30.81 ; Other allergic rhinitis J30.89 and Other chronic allergic conjunctivitis H10.[address] [address] 05/22/2024 Maryam Young Moderate persistent asthma, uncomplicated J45.40 ; Chronic rhinitis J31.0 ; Allergic rhinitis due to pollen J30.1 ; Allergic rhinitis due to animal (cat) (dog) hair and dander J30.81 ; Other allergic rhinitis J30.89 ; Other chronic allergic conjunctivitis H10.45 ; Allergic contact dermatitis due to other agents L23.89 and Allergic contact dermatitis due to plants, except food L23.7 [facility] [address] [place] [address] 06/19/2024 Missael Ruiz Allergic rhinitis du e to pollen J30.1 ; Allergic rhinitis due to animal (cat) (dog) hair and dander J30.81 ; Other allergic rhinitis J30.89 and Other chronic allergic conjunctivitis H10.45 [facility] [address] [place] [phone] 07/17/2024 Missael Ruiz Allergic rhinitis du e to pollen J30.1 ; Allergic rhinitis due to animal (cat) (dog) hair and dander J30.81 ; Other allergic rhinitis J30.89 and Other chronic allergic conjunctivitis H10.[address] [address] 10/23/2023 Maryam Young Moderate persistent asthma, uncomplicated J45.[address] [address] 11/22/2023 Maryam Young [address] [address] 12/31/2023 Maryam Young Moderate persistent asthma, uncomplicated J45.[address] [address] 11/12/2023 Maryam ANN - [facility] [address] [facility] [address] [place] [address] 11/20/2023 Maryam ANN - [place] [address] [address] 11/20/2023 Maryam Trujillo Assessments Encounter Date Diagnosis (ICD Code) Assessment Notes Treatment Notes Treatment Clinical Notes Section Notes 08/22/2023 Allergic rhinitis due to pollen (ICD-10 - J30.1) 09/24/2023 Allergic rhinitis due to pollen (ICD-10 [...] - J45.40) 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 As above since 2021 she was having reduction in lung function + increased episodes of dyspnea, coughing, and mucus production. She feels GUILLERMO makes breathing worse.Stepped up to Trelegy in 11/2021 clinically improved [...] Trelegy. 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 As above since 2021 she was having reduction in lung function + increased episodes of dyspnea, coughing, and mucus production. She feels GUILLERMO makes breathing worse.Stepped up to Trelegy in 11/2021 clinically improved but no improvement on spirometry. I sent her to Pulmonary questioning her diagnosis of asthm and to r/o restrictive lung disease. Did not tolerate after PFT. It showed mild restriction with normal DLCO. Records requested for melvinw. Suspects she needs a methacholine challenge. This [...] Trelegy. Again want input by Pulmonary -IgE=33 HXO=025 -last CXR was normal 06/19/2024 Allergic rhinitis due to pollen (ICD-10 - J30.1) 07/17/2024 Allergic rhinitis due to pollen (ICD-10 - J30.1) 07/17/2024 Allergic rhinitis due to animal (cat) (dog) hair and dander (ICD-10 - J30.81) 06/19/2024 Allergic rhinitis due to animal (cat) (dog) hair and dander (ICD-10 - J30.81) 05/22/2024 Allergic rhinitis due to pollen (ICD-10 [...] hair and dander (ICD-10 - J30.81) 08/22/2023 Other allergic rhinitis (ICD-10 - J30.89) [...] 04/24/2024 Other allergic rhinitis (ICD-10 - J30.89) 06/19/2024 Other allergic rhinitis (ICD-10 - J30.89) 05/22/2024 Allergic rhinitis due to animal (cat) (dog) hair and dander (ICD-10 - J30.81) Follow allergen avoidance, meds and continue SCIT as an adjunctive treatment to current regimen. 07/17/2024 Other allergic rhinitis (ICD-10 - J30.89) 06/19/2024 Other chronic allergic conjunctivitis (ICD-10 - H10.45) 07/17/2024 Other chronic allergic conjunctivitis (ICD-10 - H10.45) 05/22/2024 Other allergic rhinitis (ICD-10 - J30.89) [...] (FREE) 01/27/2021 Next Appt Details Provider Name:Missael Ruiz , 08/14/2024 10:30:00 AM, [address], [place], [address], Provider Name:Maryam Trujillo , 11/20/2024 10:00:00 AM, [address], [place], [address], Insurance Providers Payer Name Payer Address Payer Phone Subscriber Number Group Number Insured Name Patient Relationship to Insured Coverage Start Date Coverage End Date [employer] [address] [place] [address] [phone] [id number] Nitin Pemberton Spouse - patient is the [...]
--- OUTSIDE RECORDS SUMMARY | 2024-07-21 10:21 | XMS_ITS | CONTINUITY OF CARE DOCUMENT ---
Author Name rachid rashid Address Unknown Organization [facility] Address [address] [place] [address] Phone [phone] Care Team Providers Care Paper Twister Name Role Phone Nazario Cooney MD Unavailable [phone] SHENG WINN Unavailable SHENG WINN Unavailable PROBLEMS Condition Status Date Provider Notes Family History of Hypertension: completed - Us alexis Cooney MD Family History of Hypertension: completed - Us alexis Cooney MD Family History of Hypertension: completed - Us alexis Cooney MD HTN essential active Nazario Cooney MD Hypercholesterolemia active Madelin angeler Asthma, chronic active Nazario Cooney MD Edema, peripheral active Nazario Cooney MD Palpitations active Nazario Cooney MD Shortness of breath on exertion active Chuck Cooney MD Aortic regurgitation, [id number] active Nazario Cooney MD Arthritis active Nazario Cooney MD Preoperative cardiovascular examination active Nazario Cooney MD ENCOUNTERS Date Type Provider Location Encounter Diag nosis 9 - 9 In-person encounter Office Visit Nazario Cooney MD [facility] Family History of Hypertension:Family History of Hypertension:Family History of Hypertension:ArthritisPreoperative cardiovascular examination 9 - 9 In-person encounter Office Visit Nazario Cooney MD [facility] 4 - 4 In-person encounter Office Visit Nazario Cooney MD [facility] 5 - 5 In-person encounter Office Visit Nazario Cooney MD [facility] 5 - 5 In-person encounter Office Visit Nazario Cooney MD [facility] 2 - 2 In-person encounter Office Visit Nazario Cooney MD [facility] 4 - 4 In-person encounter Office Visit Nazario Cooney MD [facility] HTN essentialHypercholesterolemiaAsthma, chronicEdema, peripheralPalpitationsShortness of breath on exertionAortic regurgitation, [id number] VITAL SIGNS Date Observation Value Provider Body Mass Index (Ratio) 36.79 kg/m2 Chuck Cooney MD blood pressure, diastolic 85 mm[Hg] Britney Mejias blood pressure, systolic 163 mm[Hg] Elaine Iverson blood pressure, cuff size regular Raisa Marcelino blood pressure, diastolic 85 mm[Hg] Raisa Marcelino blood pressure, systolic 163 mm[Hg] Champ Marcelino oxygen saturation, oximetry 98 % Nicci Marcelino respiratory rate E&M 18 /min Lilliana Marcelino pulse rate 107 /min [place] tomlin weight E&M 242 [lb_av] Nicci tomlin height E&M 68 [in_i] Nicci tomlin Body Mass Index (Ratio) 36.03 kg/m2 Chuck Cooney MD blood pressure, resting Yes Mary Paiz oxygen saturation, oximetry 96 % Jeannie Paiz respiratory rate E&M 18 /min [facility] Paiz blood pressure, diastolic 102 mm[Hg] To ns Paiz blood pressure, systolic 175 mm[Hg] Ton [facility] pulse rate 106 /min [facility] weight E&M 237 [lb_av] [facility] height E&M 68 [in_i] [facility] Body Mass Index (Ratio) 33.30 kg/m2 Chuck Cooney MD blood pressure, cuff size regular Cy zunilda Ricardo blood pressure, diastolic 80 mm[Hg] Cy zunilda Ricardo blood pressure, systolic 152 mm[Hg] Shira liz Ricardo oxygen saturation, oximetry 97 % Jayne Ricardo respiratory rate E&M 16 /min Jayneliz Ricardo pulse rate 93 /min Jayne Maximcarmela l weight E&M 219 [lb_av] Jayneliz Panbel l height E&M 68 [in_i] Jayneliz Panbel l Body Mass Index (Ratio) 36.40 kg/m2 Chuck Cooney MD blood pressure, diastolic 95 mm[Hg] Essence Doe blood pressure, systolic 176 mm[Hg] Emerald Doe oxygen saturation, oximetry 97 % Pura Doe respiratory rate E&M 18 /min Juan Doe pulse rate 108 /min Pura lopez weight E&M 239.4 [lb_av] Pura berry height E&M 68 [in_i] Pura lopez blood pressure, diastolic 87 mm[Hg] Me miller Ignacia blood pressure, systolic 146 mm[Hg] Taihsa reillyzoie Beth pulse rate 92 /min Latricia Beth oxygen saturation, oximetry 95 % Latricia Beth respiratory rate E&M 15 /min Latricia Beth Body Mass Index (Ratio) 36.64 kg/m2 Alice pacheco Beth weight E&M 241 [lb_av] Latricia Beth blood pressure, diastolic 103 mm[Hg] Me miller Beth blood pressure, systolic 151 mm[Hg] Taisha Beth blood pressure, diastolic 92 mm[Hg] Essence Doe blood pressure, systolic 169 mm[Hg] Emerald Doe pulse rate 91 /min Pura lopez oxygen saturation, oximetry 97 % Pura Doe respiratory rate E&M 16 /min Juan Doe Body Mass Index (Ratio) 36.58 kg/m2 Ivonne Doe weight E&M 240.6 [lb_av] Pura berry height E&M 68 [in_i] Pura Chaudhary melodyzyoa ALLERGIES Allergy Name Onset Date Reaction Criticality Status SULFA High Criticality active HISTORY OF MEDICATION USE Medication Status Instructions Dates Provider Indications Com ments azelastine 137 mcg (0.1 %) aerosol,spray active [place] as directed Nicci Marcelino CYCLOBENZAPRINE HCL 10 MG ORAL TABLET active Take 1 tablet once a day Jayne Ricardo VITAMIN D2 TABLET active Take 1 tablet once a week Jayne Ricardo GLUCOSAMINE-MSM TABLET active Take 1 tablet daily Jyane Ricardo PREDNISONE completed dose pack - Jayne Ricardo Z PACK completed as directed - Jayne Ricardo QVAR 40 MCG/ACT INHALATION AEROSOL SOLUTION active 2 puffs twice daily Pura Doe PROAIR HFA AEROSOL SOLUTION active as directed Pura Doe FLUNISOLIDE 25 MCG/ACT (0.025%) NASAL SOLUTION active as needed Pura Doe VALACYCLOVIR HCL 1 GM ORAL TABLET active as needed Pura Doe SIMVASTATIN 10 MG ORAL TABLET active ONE TAB. AT BEDTIME Pura Doe MONTELUKAST SODIUM 10 MG ORAL TABLET active once daily Pura Doe verapamil 180 mg capsule,ext rel. pellets 24 hr active TAKE 1 CAPSULE BY MOUTH DAILY Fabgama Aden CHLORTHALIDONE 25 MG ORAL TABLET active ONE TAB. 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 Smoking History: Lorrie núñez has never smoked. 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 Smoking History: Lorrie núñez has never smoked. 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 Smoking History: Lorrie núñez has never smoked. 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 Smoking History: Lorrie núñez has never smoked. 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 Smoking History: Lorrie núñez has never smoked. Nazario Cooney MD social history reviewed E&M revi ewed - no changes required Nazario Cooney MD smoking status Never smoker Nazario Cooney MD FUNCTIONAL STATUS Date Observation Value Provider periodic limb movement index absent (0) Latricia Beth FAMILY HISTORY Family Member Condition Full Sister Family History of Hy pertension: Mother Family History of Hy pertension: Father Family History of Hy pertension: INSURANCE PROVIDERS Payer name Policy type / Coverage type [place] red republican ID Adiana [id number] ADVANCE DIRECTIVES Name Date DISCUSSED - NO DECISION MADE TREATMENT PLAN Date Name Performer [id number], N o recurrence. Nazario Cooney MD [id number],S, H er updated medication list for this problem includes: Simvastatin 10 Mg Oral Tablet (Simvastatin) ..... One tab. at bedtime Nazario Cooney MD [id number],S, S lighty elevated in the office today. Patient reports that it generally runs lower. She has white coat hypertension. BP today: 163/85 P rior BP: 175/102 (10/06/2019) Her updated medication list for this problem includes: Verapamil 180 Mg Capsule,ext Rel. Pellets 24 Hr (Verapamil) ..... Take 1 capsule by mouth daily Chlorthalidone 25 Mg Oral Tablet (Chlorthalidone) ..... One tab. daily Nazario Cooney MD [id number],S, R epeated echo. Shows no progression Nazario Cooney MD Cardiology: N o recurrence. Nazario Cooney MD Cardiology: H er updated medication list for this problem includes: Simvastatin 10 Mg Oral Tablet (Simvastatin) ..... One tab. at bedtime Nazario Cooney MD Cardiology: S lighty elevated in the office today. Patient reports that it generally runs lower. She has white coat hypertension. BP today: 163/85 P rior BP: 175/102 (10/06/2019) & #13;Her updated medication list for this problem includes: Verapamil 180 Mg Capsule,ext Rel. Pellets 24 Hr (Verapamil) ..... Take 1 capsule by mouth daily Chlorthalidone 25 Mg Oral Tablet (Chlorthalidone) ..... One tab. daily Nazario Cooney MD Cardiology: R epeated echo. Shows no progression Nazario Cooney MD Cardiology:Repeated echo. Shows no progression Nazario Cooney MD Cardiology: H er updated medication list for this problem includes: Simvastatin 10 Mg Oral Tablet (Simvastatin) ..... One tab. at bedtime Nazario Cooney MD Cardiology:Slighty e levated in the office today. Patient reports that it generally runs lower. She has white coat hypertension. B P today: 175/102 P rior BP: 152/80 (05/17/2018) Prior 10 Yr Risk Heart Disease: Not enough information (11/30/2014) Nazario Cooney MD Cardiology follow up :Repeat BP 154/86 on L arm. Will increase verapamil to 180 mg once daily. BP today: 152/80 P rior BP: 176/95 (02/17/2016) Prior 10 Yr Risk Heart Disease: Not enough information (11/30/2014) Nazario Cooney MD Cardiology follow up:Will repeat echo. Nazario Cooney MD Cardiology:On Simvastatin. Nazario Cooney MD Cardiology:Will see her after 2 years and will have an echo on arrival. Nazario Cooney MD Cardiology:176/95. Elevated BP l ikely related to her URI. Nazario Cooney MD Cardiology: B P today: 146/87 P rior BP: 151/103 (11/30/2014) Nazario Cooney MD Cardiology:Normal ex ercise stress test (11/30/2014) P oor exercise tolerance Nazario Cooney MD Cardiology:Had PFT today, result s pending Nazario Cooney MD Cardiology:mild per TTE (11/12) Nazario Cooney MD Cardiology:Changed H CTZ 25mg q.d. to Chlorthalidone 25mg q.d. Nazario Cooney MD Cardiology: B P today: 169/92 Nazario Cooney MD Date Name Complete Echo Complete Echo Complete Echo STR - Routine Complete Echo HISTORY OF PROCEDURES Procedure Date Procedure Name Provider Procedure Notes S tatus EKG Nazario Cooney MD completed EKG Nazario Cooney MD completed EKG Nazario Cooney MD completed EKG Nazario Cooney MD completed SNOMED-CT: 51398395 Physical Exam, Performed: Pulse Exam of Foot Nazario Cooney MD completed EKG Nazario Cooney MD completed SNOMED-CT: 337200463 398942 Current Medications Documented Nazario Cooney MD completed SNOMED-CT: 536454573 645633 Current Medications Documented Nazario Cooney MD completed SNOMED-CT: 60046123 Physical Exam, Performed: Pulse Exam of Foot Nazario Cooney MD completed BLOOD COUNT HEMOGLOBIN Nazario Cooney MD completed FVC - 68867 Nazario Cooney MD complete d FRC - 72298 Nazario Cooney MD complete d DLCO - 61225 Nazario Cooney MD complet ed SNOMED-CT: 401042090 921642 Current Medications Documented Nazario Cooney MD completed Stress EKG Tasha Cerna MD completed
== END 2024-07-21 09:32 | disposition home or self-care (01) ==
PROVIDERS: PCP Nurse Practitioner Adult Health; Visit Provider Nurse Practitioner Adult Health
DX: Z01.818 Encounter for other preprocedural examination (principal)
CPT/HCPCS: 78452; 93017; A9502; J2785

== ENCOUNTER 2024-08-25 07:46 | Outpatient (CLI) | payer OTHER, SELFPAY ==
--- OUTSIDE RECORDS SUMMARY | 2024-08-25 07:51 | XMS_ITS | Clinical Summary ---
Author Organization [facility] Address [address] [place] [address] Care Team Providers Care Java J2Ee Software Engineer Name Role Phone Kintigist Leonora FRANCO-HELIOTHERAPIST Primary Care Provider + Source Comments [facility] [employer],non-owned Affiliates and Associated Physician Practices is amultiple site organization consisting of ambulatory clinics and hospital sitesin [place], [place], [place] and [place]. This disclosure is being madepursuant to the Care Everywhere program and may not contain all information available regarding this patient. Last updated 17.[facility] [employer] Allergies Active Allergy Reactions Criticality Noted Date [...] once daily Active vitamin D, ergocalciferol, (DRISDOL) 71399 UNITS capsule Take 50,000 Units by mouth [...] mouth once daily Active rizatriptan, disintegrating, (MAXALT GAS ENGINE OPERATOR) 10 MG tablet Take 10 mg [...] season) 2023 DEPRESSION SCREENING 02/13/2024 INFLUENZA VACCINE (#1) 2024 Respiratory Syncytial Virus (RSV) Vaccine Pt: [...] HEMOGLOBIN A1C (EXTERNAL RESULT ENTRY) (06/19/2017) Pathologist [facility] Hemoglobin A1c (EXTERNAL RESULT) 5.4 4 - 6 % Blood BLOOD SPECIMEN / Unknown 06/19/2017 Historical Provider LAB - CHEMISTRY ORDERABLE S Final Result * HEPATITIS C RNA QUANTITATIVE PCR (09/08/2016 12:39 PM CDT) Pathologist [facility] Hepatitis C Virus RNA IU/mL HCV Not Detected IU/mL [facility] ([facility]) Test Information [facility] ([facility]) Comment:The quantitative ran ge of this assay is 15 IU/mL to 100 million IU/mL. 09/08/2016 12:3 9 PM CDT 09/08/2016 Narrative [facility] ([facility]) - 09/10/2016 6:39 AM CDT Performed at: [facility] [id number] Jive Developer: Leonid Starks MD, Phone: [phone] Arlene Chen MD LAB - CHEMISTR Y ORDERABLES Final Result [facility] ([facility]) [address] [place] [address] from Last 3 Months or Most Recently Relevant to Health Maintenance Insurance [facility] Care Teams Java J2Ee Software Engineer Relationship Specialty Start Date End Date Leonora Terrazas APRN-CNP [address] [id number] PCP - General 08/22/17
--- OUTSIDE RECORDS SUMMARY | 2024-08-25 07:51 | XMS_ITS | Clinical Summary ---
Author Organization [facility] Address [address] [place] [phone] Care Team Providers Care Dry Room Operator Name Role Phone Leonora Terrazas NP Primary Care Provider [phone] Allergies Active Allergy Reactions Criticality Noted Date [...] on file Legal Sex Female 8:43 AM RATE QUOTING OPERATOR Gender Identity Not on file Sexual Orientation Not on file Obstetrics History Last Filed Vital Signs Vital Sign Reading Time Taken Comments Blood Pressure 131/76 02/25/2016 7:18 AM RATE QUOTING OPERATOR Pulse 89 02/25/2016 7:18 AM RATE QUOTING OPERATOR Temperature - - Respiratory Rate - - Oxygen Saturation 93% 02/25/2016 7:18 AM RATE QUOTING OPERATOR Inhaled Oxygen Concentration - - Weight 104.3 kg (229 lb 15 oz) 11/25/2020 12:07 PM CDT Height 172.7 cm (5' 8) 11/25/2020 12:07 PM CDT Body Mass Index 34.96 11/25/2020 12:07 PM CDT Plan of Treatment Not on file Insurance CIGNA IBEW CIGNA IBEW CIGNA IBEW CIGYANG IBEW Care Teams Dry Room Operator Relationship Specialty Start Date End Date Leonora Terrazas NP PCP - General 10/03/16
--- OUTSIDE RECORDS SUMMARY | 2024-08-25 07:51 | XMS_ITS | Referral Summary ---
Author Organization [facility] Address [address] [place] [phone] Care Team Providers Care Sales Agent Protective Service Name Role Phone Leonora Terrazas NP Primary Care Provider Allergies Active Allergy Reactions Criticality Noted Date [...] on file Legal Sex Female 8:43 AM COUPON REDEMPTION CLERK Gender Identity Not on file Sexual Orientation Not on file Last Filed Vital Signs Vital Sign Reading Time Taken Comments Blood Pressure 131/76 02/25/2016 7:18 AM COUPON REDEMPTION CLERK Pulse 89 02/25/2016 7:18 AM COUPON REDEMPTION CLERK Temperature - - Respiratory Rate - - Oxygen Saturation 93% 02/25/2016 7:18 AM COUPON REDEMPTION CLERK Inhaled Oxygen Concentration - - Weight 104.3 kg (229 lb 15 oz) 11/25/2020 12:07 PM CDT Height 172.7 cm (5' 8) 11/25/2020 12:07 PM CDT Body Mass Index 34.96 11/25/2020 12:07 PM CDT Plan of Treatment Not on file Insurance CIGNA IBEW CIGNA IBEW CIGNA IBEW CIGNA IBEW Care Teams Sales Agent Protective Service Relationship Specialty Start Date End Date Leonora Terrazas NP PCP - General 10/03/16
--- OUTSIDE RECORDS SUMMARY | 2024-08-25 07:52 | XMS_ITS | Data Portability ---
Author Organization [place] [facility] [email or web address], Main Office Address [address] [place] [address] Assessment Encounter Date Assessment Date Assessment LastModified [...] Orders Fosamax 70 mg tablet 023 023 [id number], [address] [facility], [place], [place], [id number], 11:01:13 Patient TargetsNo targets recorded. Patient Instructions Encounter Date Encounter Id Patient Instructions Last Modified By Organization Details Last Modified Time 07/18/2022 [id number] FU in 6 mo thyroid, lipid, htn, [...] /MS is recom giuseppe d: order code [id number] (rayray ents >2yrs ). See Note 1 Note 1 For addit ional infor fredy em refer to http: //[facility] ashok Montes stDia gnost ics.c om/fa q/FAQ 199 (This link is being provi ded for infor lucia john/ jadiel padillao ses only. ) Not Available [employer] [address], [address], 07/10/2020 07:17:19 07/10/1907/10/2020 TSH, serum or plasm a TSH 1.44 mIU/L 0.40-4 .50 normal Not Available [address] [place], [address], 07/10/2020 07:17:19 07/10/1907/10/2020 hepat ic funct ion panel , serum protein, total 7.1 g/dL 6.1-8. 1 normal Not Available [employer] [address], [address], 07/10/2020 07:17:18 07/10/19 21 07/10/2020 hepat ic funct ion panel , serum albumin 4.3 g/dL 3.6-5. 1 normal Not Available [address], [address], 07/10/2020 07:17:18 07/10/19 21 07/10/2020 hepat ic funct ion panel , serum globulin 2.8 g/dL_ (calc ) 1.9-3. 7 normal Not Available [employer] [address], [address], 07/10/2020 07:17:18 07/10/19 21 07/10/2020 hepat ic funct ion panel , serum albumin/glob ulin ratio 1.5 (calc ) 1.0-2. 5 normal Not Available [address] [address] [place], [address], 07/10/2020 07:17:18 07/10/19 21 07/10/2020 hepat ic funct ion panel , serum bilirubin, total 0.5 mg/dL 0.2-1. 2 normal Not Available [address] [address] [place], [address], 07/10/2020 07:17:18 07/10/19 21 07/10/2020 hepat ic funct ion panel , serum bilirubin, direct 0.1 mg/dL < or = 0.2 normal Not Available [address] [address] [place], [address], 07/10/2020 07:17:18 07/10/19 21 07/10/2020 hepat ic funct ion panel , serum bilirubin, indirect 0.4 mg/dL _(arabella c) 0.2-1. 2 normal Not Available [address] [address] [place], [address], 07/10/2020 07:17:18 07/10/19 21 07/10/2020 hepat ic funct ion panel , serum alkaline phosphatase 85 U/L 37-153 normal Not Available [facility] [address] [address] [place], [address], 07/10/2020 07:17:18 07/10/1907/10/2020 hepat ic funct ion panel , serum AST 31 U/L 10-35 normal Not Available [address] [address] [place], [address], 07/10/2020 07:17:18 07/10/19 21 07/10/2020 hepat ic funct ion panel , serum ALT 32 U/L 6-29 high Not Available [address] [address] [place], [address], 07/10/2020 07:17:18 07/10/1907/10/2020 BMP, serum or plasm a glucose 94 mg/dL 65-139 normal Non-f astin g refer ence inter kang Not Available [address], [address], 07/10/2020 07:17:18 07/10/1907/10/2020 BMP, serum or plasm a urea nitrogen (BUN) 14 mg/dL 7-25 normal Not Available [address] [address] [place], [address], 07/10/2020 07:17:18 07/10/1907/10/2020 BMP, serum or plasm a creatinine 0.68 mg/dL 0.50-1 .05 normal For patie nts >49 years of age, the refer ence limit for Creat inine is appro ximat xavi 13% highe r for peopl e ident ified as Afric an-Am ehsan n. Not Available [address] [address] [place], [address], 07/10/2020 07:17:18 07/10/1907/10/2020 BMP, serum or plasm a eGFR non-afr. puerto rican 96 mL/mi n/1.7 3m2 > or = 60 normal Not Available [facility] [address] [address] [place], [address], 07/10/2020 07:17:18 07/10/1907/10/2020 BMP, serum or plasm a eGFR 111 mL/mi n/1.7 3m2 > or = 60 normal Not Available [facility] [address] [address] [place], [address], 07/10/2020 07:17:18 07/10/19 21 07/10/2020 BMP, serum or plasm a BUN/creatini ne ratio not applic able (calc ) 6-22 Not Available [address], [address], 07/10/2020 07:17:18 07/10/19 21 07/10/2020 BMP, serum or plasm a sodium 140 mmol/ L 135-14 6 normal Not Available [address], [address], 07/10/2020 07:17:18 07/10/19 21 07/10/2020 BMP, serum or plasm a potassium 3.6 mmol/ L 3.5-5. 3 normal Not Available [address], [address], 07/10/2020 07:17:18 07/10/19 21 07/10/2020 BMP, serum or plasm a chloride 98 mmol/ L 98-110 normal Not Available [address], [address], 07/10/2020 07:17:18 07/10/19 21 07/10/2020 BMP, serum or plasm a carbon dioxide 33 mmol/ L 20-32 high Not Available [address], [address], 07/10/2020 07:17:18 07/10/19 21 07/10/2020 BMP, serum or plasm a calcium 9.9 mg/dL 8.6-10 .4 normal Not Available [address], [address], 07/10/2020 07:17:18 07/10/19 21 07/10/2020 lipid panel , serum cholesterol, total 209 mg/dL <200 high Not Available [address], [address], 07/10/2020 07:17:18 07/10/19 21 07/10/2020 lipid panel , serum HDL cholesterol 53 mg/dL > or = 50 normal Not Available [address], [address], 07/10/2020 07:17:18 07/10/19 21 07/10/2020 lipid panel , serum triglyceride s 175 mg/dL <150 high Not Available [employer] [address], [address], 07/10/2020 07:17:18 07/10/1907/10/2020 lipid panel , serum LDL-choleste rol 127 mg/dL _(arabella c) high Refer ence range : <100 Cuca able range <100 mg/dL for prima ry preve ntion ; <70 mg/dL for patie nts with CHD or diabe tic patie nts with > or = 2 CHD risk facto rs. LDL-C is now calcu lated using the Jennifer doe-Hop kins calcu finn n, which is a valid ated novel metho d provi janet heather r accur acy than the Fried ignacia equat ion in the estim ation of LDL-C . Jennifer doe SS et al. MARNIE. 2013; 310(1 9): 2061- 2068 (http ://ed ucati on.Ger Hayes [facility]. [place]umblebee/f aq/FA Q164) Not Available [employer] [address], [address], 07/10/2020 07:17:18 07/10/1907/10/2020 lipid panel , serum chol/HDLC ratio 3.9 (calc ) <5.0 normal Not Available [address], [address], 07/10/2020 07:17:18 07/10/1907/10/2020 lipid panel , serum non HDL cholesterol 156 mg/dL _(arabella c) <130 high For patie nts with diabe yenny plus 1 major ASCVD risk facto r, treat ing to a non-H DL-C goal of <100 mg/dL (LDL- C of <70 mg/dL ) is consi florence chaidezo n. Not Available [employer] [address] [place], [address], 07/10/2020 07:17:18 01/28/20 21 01/28/2021 VITAM IN [...] /MS is recom giuseppe d: order code [id number] (rayray ents >2yrs ). See Note 1 Note 1 For addit ional infor fredy em refer to http: //darek Montes stDia gnost ics.c om/fa q/FAQ 199 (This link is being provi ded for infor lucia john/ jadiel molina purpo ses only. ) Not Available [employer] [address] [address] [place], [address], 01/28/2021 12:47:55 01/28/20 21 01/28/2021 TSH TSH 2.24 mIU/L 0.40-4 .50 normal Not Available [employer] [address] [address] [place], [address], 01/28/2021 12:47:54 01/28/20 21 01/28/2021 LIPID PANEL , STAND ANTHONY cholesterol, total 222 mg/dL <200 high Not Available [employer] [facility] [address] [address] [place], [address], 01/28/2021 12:47:53 01/28/20 21 01/28/2021 LIPID PANEL , STAND ANTHONY HDL cholesterol 60 mg/dL > or = 50 normal Not Available [facility] [address] [place], [address], 01/28/2021 12:47:53 01/28/20 21 01/28/2021 LIPID PANEL , STAND ANTHONY triglyceride s 170 mg/dL <150 high Not Available [address] [address] [facility] [place], [address], 01/28/2021 12:47:53 01/28/20 21 01/28/2021 LIPID PANEL [...] 2061- 2068 (http ://ed ucati on.Ger lee [employer]. com/f aq/FA Q164) Not Available [address] [address] [place], [address], 01/28/2021 12:47:53 01/28/20 21 01/28/2021 LIPID PANEL , STAND ANTHONY chol/HDLC ratio 3.7 (calc ) <5.0 normal Not Available [facility] [address] [facility] [place], [address], 01/28/2021 12:47:53 01/28/20 21 01/28/2021 LIPID PANEL , STAND ANTHONY non HDL cholesterol 162 mg/dL _(arabella c) <130 high For patie nts with diabe yenny plus 1 major ASCVD risk facto r, treat ing to a non-H DL-C goal of <100 mg/dL (LDL- C of <70 mg/dL ) is consberto laguerre peutberto c optio n. Not Available [employer] [facility] [address] [address], [place], [address], 01/28/2021 12:47:53 08/27/19 22 08/27/2021 VITAM IN [...] 1. IOM (Inst itute of Medic ine). 2010. Dieta ry refer ence emmanuel es for calci um and D. Alton li [place]: [facility] . 2. Angel Luis damon MF, Bib hamm [place], Rufino off-F errar i MONROE, et al. Evalu ation , treat ment, and preve ntion of vitam in D defic iency : an Endoc rine Socie ty clini arabella pract ice guide line. JCEM. 2010; 96(7) :1911 -30. Not Available [facility] ([facility]) [address] [facility], [place], [address], 08/31/2021 03:07:29 08/27/19 22 08/30/2021 THYRO ID STIMU LATIN G HORMO NE TSH-icma 2.3 uu/mL Refer ence Range : Non-P regna nt Adult 0.450 -4.50 0 Pregn justice First Trime ster 0.100 -4.00 0 Secon d Trime ster 0.200 -4.00 0 Third Trime ster 0.300 -4.50 0 Not Available [facility] [address] [facility], [place], [address], 08/31/2021 03:07:29 08/27/19 22 08/27/2021 LIPID PANEL cholesterol, total 216 mg/dL 100-19 9 above high normal Not Available [facility] ([facility]) [address] [place], [address], 08/31/2021 03:07:28 08/27/19 22 08/27/2021 LIPID PANEL triglyceride s 106 mg/dL 0-149 Not Available [facility] ([facility]) [address] [place], [address], 08/31/2021 03:07:28 08/27/19 22 08/27/2021 LIPID PANEL HDL cholesterol 59 mg/dL >39 Not Available [facility] ([facility]) [address] [place], [address], 08/31/2021 03:07:28 08/27/19 22 08/27/2021 LIPID PANEL VLDL cholesterol arabella 19 mg/dL 5-40 Not Available [facility] ([facility]) [address] [place], [address], 08/31/2021 03:07:28 08/27/19 22 08/27/2021 LIPID PANEL LDL chol calc ([facility]) 138 mg/dL 0-99 above high normal Not Available [facility] ([facility]) [address] [place], [address], 08/31/2021 03:07:28 08/27/19 22 08/27/2021 LIPID PANEL 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 METAB OLIC PANEL (14) glucose 93 mg/dL 65-99 Not Available [facility] ([facility]) [address] [place], [address], 08/31/2021 03:07:28 08/27/19 22 08/27/2021 COMP. METAB OLIC PANEL (14) BUN 15 mg/dL 8-27 Not Available [facility] ([facility]) [address] [place], [address], 08/31/2021 03:07:28 08/27/19 22 08/27/2021 COMP. METAB OLIC PANEL (14) creatinine 0.66 mg/dL 0.57-1 .00 Not Available [facility] ([facility]) [address] [facility], [place], [address], 08/31/2021 03:07:28 08/27/19 22 08/27/2021 COMP. METAB OLIC PANEL (14) eGFR 100 mL/mi n/1.7 3 >59 Not Available [facility] ([facility]) [address] [place], [address], 08/31/2021 03:07:28 08/27/19 22 08/27/2021 COMP. METAB OLIC PANEL (14) BUN/creatini ne ratio 23 12-28 Not Available [facility] ([facility]) [address] [place], [address], 08/31/2021 03:07:28 08/27/19 22 08/27/2021 COMP. METAB OLIC PANEL (14) sodium 142 mmol/ L 134-14 4 Not Available [facility] ([facility]) [address] [place], [address], 08/31/2021 03:07:28 08/27/19 22 08/27/2021 COMP. METAB OLIC PANEL (14) potassium 4.0 mmol/ L 3.5-5. 2 Not Available [facility] ([facility]) [address] [place], [address], 08/31/2021 03:07:28 08/27/19 22 08/27/2021 COMP. METAB OLIC PANEL (14) chloride 99 mmol/ L 96-106 Not Available [facility] ([facility]) [address] [place], [address], 08/31/2021 03:07:28 08/27/19 22 08/27/2021 COMP. METAB OLIC PANEL (14) carbon dioxide, total 28 mmol/ L 20-29 Not Available [facility] ([facility]) [address] [place], [address], 08/31/2021 03:07:28 08/27/19 22 08/27/2021 COMP. METAB OLIC PANEL (14) calcium 9.4 mg/dL 8.7-10 .3 Not Available [facility] ([facility]) [address] [place], [address], 08/31/2021 03:07:28 08/27/19 22 08/27/2021 COMP. METAB OLIC PANEL (14) protein, total 6.6 g/dL 6.0-8. 5 Not Available [facility] ([facility]) [address] [place], [address], 08/31/2021 03:07:28 08/27/19 22 08/27/2021 COMP. METAB OLIC PANEL (14) albumin 4.1 g/dL 3.8-4. 8 Not Available [facility] ([facility]) [address] [place], [address], 08/31/2021 03:07:28 08/27/19 22 08/27/2021 COMP. METAB OLIC PANEL (14) globulin, total 2.5 g/dL 1.5-4. 5 Not Available [facility] ([facility]) [address] [place], [address], 08/31/2021 03:07:28 08/27/19 22 08/27/2021 COMP. METAB OLIC PANEL (14) A/G ratio 1.6 1.2-2. 2 Not Available [facility] ([facility]) [address] [place], [address], 08/31/2021 03:07:28 08/27/19 22 08/27/2021 COMP. METAB OLIC PANEL (14) bilirubin, total 0.3 mg/dL 0.0-1. 2 Not Available [facility] ([facility]) [address] [place], [address], 08/31/2021 03:07:28 08/27/19 22 08/27/2021 COMP. METAB OLIC PANEL (14) alkaline phosphatase 78 IU/L 44-121 Not Available [facility]) [address] [place], [address], 08/31/2021 03:07:28 08/27/19 22 08/27/2021 COMP. METAB OLIC PANEL (14) AST (SGOT) 21 IU/L 0-40 Not Available [facility] ([facility]) [address] [place], [address], 08/31/2021 03:07:28 08/27/19 22 08/27/2021 COMP. METAB OLIC PANEL (14) ALT (SGPT) 17 IU/L 0-32 Not Available [facility] ([facility]) [address] [place], [address], 08/31/2021 03:07:28 07/07/19 23 07/07/2022 LIPID PANEL , STAND ANTHONY cholesterol, total 132 mg/dL <200 normal Not Available [facility] [address] [place], [address], 07/07/2022 08:34:15 07/07/19 23 07/07/2022 LIPID PANEL , STAND ANTHONY HDL cholesterol 68 mg/dL > or = 50 normal Not Available [facility] [address] [place], [address], 07/07/2022 08:34:15 07/07/1907/07/2022 LIPID PANEL , STAND ANTHONY triglyceride s 77 mg/dL <150 normal Not Available [employer] [address] [address] [place], [address], 07/07/2022 08:34:15 07/07/1907/07/2022 LIPID PANEL , STAND ANTHONY LDL-choleste rol 48 mg/dL _(arabella c) normal Refer ence range : <100 Cuca able range <100 mg/dL for prima ry preve ntion ; <70 mg/dL for patie nts with CHD or diabe tic patie nts with > or = 2 CHD risk facto rs. LDL-C is now calcu lated using the Jennifer doe-[facility] aylin briseno n, which is a valid ated novel metho d joe gonzales heather r accur acy than the Fried ignacia equat ion in the estim ation of LDL-C . Jennifer doe SS et al. MARNIE. 2013; 310(1 9): 2061- 2068 (http ://ed ucati on.Qu Freddy [facility]. com/f aq/FA Q164) Not Available [employer] [facility] [address] [place], [address], 07/07/2022 08:34:15 07/07/1907/07/2022 LIPID PANEL , STAND ANTHONY chol/HDLC ratio 1.9 (calc ) <5.0 normal Not Available [employer] [facility] [address] [place], [address], 07/07/2022 08:34:15 07/07/1907/07/2022 LIPID PANEL , STAND ANTHONY non HDL cholesterol 64 mg/dL _(arabella c) <130 normal For patie nts with diabe yenny plus 1 major ASCVD risk facto r, treat ing to a non-H DL-C goal of <100 mg/dL (LDL- C of <70 mg/dL ) is consi dered a thera peuti c optio n. Not Available [facility] [address] [place], [address], 07/07/2022 08:34:15 07/07/19 23 07/07/2022 TSH W/REF AMY TO FT4 TSH w/reflex to FT4 1.55 mIU/L 0.40-4 .50 normal Not Available [facility] [address] , [place], [address], 07/07/2022 08:34:17 12/03/19 21 12/02/2020 XR, shoul tremaine No observ ation record ed. [id number] [address], [place], [address], 04/12/2022 05:18:19 06/17/19 22 06/16/2021 MAMMO , scree masoud, digit al, bilat eral No observ ation record ed. [id number] [address], [place], [address], 04/12/2022 05:18:19 11/09/19 22 11/01/2021 DEXA No observ ation record ed. [id number] Not Available 04/12/2022 05:18:19 03/28/19 23 03/28/2022 XR, arthr ogram , hip No observ ation record ed. [id number] [facility], [place], [address], 04/12/2022 05:18:19 04/26/19 23 04/19/2022 XR, hip + pelvi s, unila teral No observ ation record ed. [email or web address] [address] [facility] [place], [address], 04/26/2022 09:38:51 05/24/19 23 05/17/2022 XR, hip + pelvi s, bilat eral No observ ation record ed. [email or web address] [facility] [address], [place], [address], 05/23/2022 17:54:58 09/23/1909/22/2022 XR, hip, unila teral No observ ation record ed. [email or web address] [facility] [address] [facility] [address], [place], [address], 09/22/2022 11:36:04 11/29/1911/28/2022 MAMMO , scree masoud, bilat eral No observ ation record ed. [facility] [address] [facility] [address], [place], [address], 11/30/2022 08:49:32 Result Notes None recorded. Problems Name Problem SNOMED Code Status Onset Date Resolution Date Notes Provider Name and Address Organization Details Recorded Time Edema of lower extremit y 348459055 Completed Not Available [facility] 3 05:11:07 Tricuspi d valve regurgit ation 855080339 Completed Not Available [facility] 3 05:11:07 History of total knee arthropl asty 16145019131 05 Active 2018 Not Available [facility] 3 17:52:04 Asthma 018741216 Active Not Available [facility] 3 17:52:04 Sciatica 18952013 Completed Not Available [facility] 3 05:11:08 Osteopen ia 157149745 Active 2017 Diagnose d Not Available [facility] 3 17:52:04 Systolic murmur 41361093 Active Not Available [facility] 3 17:52:04 Pain in left knee Active 2018 Not Available [facility] 3 17:52:04 Vitamin D deficien cy 41058988 Active Not Available [facility] 3 17:52:04 Migraine 68714133 Active Not Available [facility] 3 17:52:04 Osteoart hritis 848056229 Active Not Available [facility] 3 17:52:04 Hypothyr oidism 85096570 Active Not Available [facility] 3 17:52:04 Obesity 909994495 Active Not Available [facility] 3 17:52:04 Refracto ry migraine 321020041 Completed Not Available [facility] 3 05:11:08 Environm ental allergy 020954706 Active 2019 Not Available [facility] 3 17:52:04 Small vessel cerebrov ascular disease 576765795 Completed Not Available [facility] 3 05:11:08 Seasonal allergy 345269863 Active Not Available [facility] 3 17:52:04 Pain of hip region 02264695 Active Not Available [facility] 3 17:52:04 Hyperlip idemia 38567124 Active Not Available [facility] 3 17:52:04 Essentia l hyperten mailcar 59598558 Active Not Available [facility] 3 17:52:04 Aortic valve regurgit ation 92922858 Active Not Available [facility] 3 17:52:04 Allergic rhinitis 71692372 Active Not Available [facility] 3 17:52:04 Osteoart hritis of shoulder region 40991617 Active 2020 Not Available [facility] 3 17:52:04 Urinary tract infectio us disease 41477236 Active 2016 Not Available [facility] 3 17:52:04 Posterio r rhinorrh ea 06051480 Active Not Available [facility] of [facility] 3 17:52:04 Postmeno pausal state 48199865 Active 2022 Not Available [facility] 3 17:52:04 Palpitat ions 54172558 Completed Not Available [facility] 3 05:11:09 Osteopor osis 29173309 Active 2022 Not Available [facility] 3 17:52:04 Problem Notes None recorded. Procedures Surgical History Date Name Laterality Status Provider Name and Address Organization Details Recorded Time 11/29/19 Most Recent Mammogram completed Alice Mcconnell NP [address], [place], [address], [facility] [employer] [facility] 11/29/2022 07:50:47 03/28/19 23 total replacement of right hip joint completed Not Available [facility] 04/12/2022 05:05:00 11/02/19 22 Most Recent Bone Density completed Not Available [facility] 04/12/2022 05:04:57 02/09/20 21 total shoulder replacement completed Not Available [facility] 04/12/2022 05:05:00 02/12/19 19 Knee Replacement completed Not Available [facility] 04/12/2022 05:05:00 06/23/19 17 Date of Last Colonoscopy completed Not Available [facility] 04/12/2022 05:04:57 06/23/19 17 Colonoscopy completed Not Available [facility] 04/13/19 23 05:05:00 Ear Tubes completed Not Available [address] [address] 04/12/2022 05:05:00 completed Not Available [address] [address] 04/12/2022 05:05:00 Eye Surgery completed Not Available [facility] 04/12/2022 05:05:00 Imaging Results None [...] n rash Not available Not available 04/12/2022 80929 8003 SNOMED Not Available [facility] license of [facility] 3 05:17:55 9485 theophyll ine anhydrous medicatio n Not available Not available Not available 04/12/2022 06451 RxNorm shake s Not Available [facility] 3 05:17:55 9486 omeprazol e medicatio n Not available Not available Not available 04/12/2022 7646 RxNorm Not Available [facility] 3 05:17:55 9487 Bactrim medicatio n rash Not available Not available 04/12/2022 76601 9 RxNorm Not Available [facility] 3 05:17:55 9488 acetone medicatio n anaphylax is severe Not available 04/12/2022 178 RxNorm Not Available [facility] 3 05:17:55 Medications Name Sig [...] Not Available Not Available Not Available Fluvirin 6623-5932 45 mcg (15 mcg x 3)/0.5 mL intramuscu lar suspension ADM 0.5ML IM UTD active Not Available Not Available No t Available Fluvirin 8487-5796 45 mcg (15 mcg x 3)/0.5 mL [...] Respiratory rate Body temperature Body weight Systolic And Diastolic Provider Name and Address Organization Details Last Updated DateTime 3 36.5 kg/m2 170.18 cm 98 % 98 % 105 /min 16 /min 97 [degF] 242818. 02 g 164/88 mm[Hg] Not Available [facility] 3 05:08:36 Date Recorded Body height Body mass index (BMI) Body weight Body temperature Heart rate Respiratory rate Oxygen saturation Oxygen saturation in Arterial blood by Pulse oximetry Systolic And Diastolic Provider Name and Address Organization Details Last Updated DateTime 3 170.18 cm 36.2 kg/m2 085151. 24 g 97.3 [degF] 88 /min 16 /min 93 % 93 % 140/80 mm[Hg] Alice Nixon RN [place] [facility] 3 10:18:54 Date Recorded Body mass index (BMI) Body height Oxygen saturation Oxygen saturation in Arterial blood by Pulse oximetry Heart rate Body temperature Body weight Systolic And Diastolic Provider Name and Address Organization Details Last Updated DateTime 1 38.3 kg/m2 170.18 cm 96 % 96 % 94 /min 97.3 [degF] 997984. 34 g 134/86 mm[Hg] Not Available [facility] 3 05:08:36 Date Recorded Body mass index (BMI) Body height Oxygen saturation Oxygen saturation in Arterial blood by Pulse oximetry Heart rate Body weight Systolic And Diastolic Provider Name and Address Organization Details Last Updated DateTime 2 37.4 kg/m2 170.18 cm 96 % 96 % 94 /min 413750. 58 g 136/82 mm[Hg] Not Available [facility] 3 05:08:36 Date Recorded Body mass index (BMI) Body height Oxygen saturation Oxygen saturation in Arterial blood by Pulse oximetry Heart rate Body temperature Body weight Systolic And Diastolic Provider Name and Address Organization Details Last Updated DateTime 1 37.6 kg/m2 170.18 cm 94 % 94 % 109 /min 96.7 [degF] 355198. 17 g 140/84 mm[Hg] Not Available [facility] 3 05:08:36 Social History Question Answer Notes LastModified by Organizat ion Details LastModified Time Tobacco Smoking Status Never Smoker AMY [facility] [email or web address] 07/18/2022 09:55:49 Do You Have An Advance [...] You Following? REGULAR Tries To Eat Healthy [id number] Information not available 04/12/2022 What Is The Highest Grade Or Level Of School You Have Completed Or The Highest Degree You Have Received? [id number] Information not available 07/18/2022 How Many Days Of Moderate To Strenuous Exercise, Like A Brisk Walk, Did You Do In The Last 7 Days? 60 Information not available 07/18/2022 Have There Been Any Changes To Your Family Or Social Situation? No Information not available 07/18/2022 Are There Any Guns Present In Your Home? No [email or web address] Information not available 07/18/2022 Do You Use Insect Repellent Routinely? Yes [email or web address] Information not available 07/18/2022 Where Do You Live? [facility] [email or web address] Information not available 07/18/2022 Do You Have A Medical Power Of Manager Helpdesk? Yes Information not available 07/18/2022 Do You Have Any Pets? No [email or web address] Information not available 07/18/2022 What Is Your Relationship Status? [id number] Information not available 04/12/2022 Do You Use Your Seat Belt Or Car Seat Routinely? Yes Information not available 07/18/2022 Do You Have Smoke And Carbon Monoxide Detectors In Your Home? Yes [email or web address] Information not available 07/18/2022 Are You Passively Exposed To Smoke? No [email or web address] Information not available 07/18/2022 Are There Any Smokers In Your House? No [email or web address] Information not available 07/18/2022 Do You Participate In Social Media? Yes Information not available 07/18/2022 What Types Of Sporting Activities Do You Participate In? Swimming Information not available 07/18/2022 Do You Use Sunscreen Routinely? Yes Information not available 07/18/2022 Have You Recently Traveled Abroad? No [email or web address] Information not available 07/18/2022 Do You Have Any Dietary Restrictions? No [email or web address] Information not available 07/18/2022 Sex: Unknown Functional Status Question Answer Note LastModified by Organizat ion Details LastModified Time What is your level of alcohol consumption? None socially Information not available 07/18/2022 Are you currently employed? 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 Occasional swimming Information not available 07/18/2022 Mental Status Question Answer Note LastModified by Organization D etails LastModified Time Do you feel stressed (tense, restless, nervous, or anxious, or unable to sleep at night)? [id number] [email or web address] Information not available 07/18/2022 Family History Relationship Description Onset Age of this Age Resolved Age Notes LastModified by Organization Details LastModified Time Father Hypertensive disorder [email or web address] [id number] Not available 04/12/2022 05:05:04 Father Atrial fibrillation Not available 07/2022 09:55:48 Mother Hypertensive disorder [email or web address] [id number] Not available 04/12/2022 05:05:04 Mother Atrial fibrillation [email or web address] Not available 07/2022 09:55:48 Paternal Grandmother Hypertensive disorder [id number] [id number] Not available 04/12/2022 05:05:04 Paternal Grandfather Hypertensive disorder [email or web address] [id number] Not available 04/12/2022 05:05:04 Paternal Uncle Myocardial infarction [email or web address].299 [id number] Not available 04/12/2022 05:05:04 Maternal Grandfather Alzheimer's disease Not available 2022 09:55:48 Maternal Grandfather Malignant neoplasm of prostate [email or web address] Not available 2022 09:55:48 Maternal Grandfather Malignant neoplasm of brain [email or web address] Not available 2022 09:55:48 Maternal Grandmother Malignant tumor of breast Not available 2022 09:55:48 Sister Malignant neoplasm of uterus [email or web address] Not available 2022 09:55:48 Medical History Condition [...] 50 mcg/0.25mL dose 1 completed Not Available [facility] 07/21/2022 17:52:05 Influenza, split virus, quadrivalent, preservative 1 completed Not Available [facility] 07/21/2022 17:52:05 Influenza, split virus, quadrivalent, preservative 0 completed Not Available [facility] 07/21/2022 17:52:05 Influenza, split virus, quadrivalent, preservative 9 completed Not Available [facility] 07/21/2022 17:52:05 Influenza, split virus, quadrivalent, preservative 8 completed Not Available On license of [facility] 07/21/2022 17:52:05 Influenza, split virus, trivalent, preservative 5 completed Not Available On license of [facility] 07/21/2022 17:52:05 Tdap 1 completed Not Available On license of [facility] 07/21/2022 17:52:05 Influenza, split virus, quadrivalent, PF 4 completed Not Available On license of [facility] 07/21/2022 17:52:05 pneumococcal polysaccharide PPV23 4 completed Not Available On license of [facility] 07/21/2022 17:52:05 Past Encounters Encounter ID Performer Location Encounter Start Date Encounter Closed Date Diagnosis/Indication Diagnosis SNOMED-CT Code Diagnosis ICD10 Code Diagnosis Note [id number] Robb Rodrigues MD [facility] [place] due[facility]as [facility] [place] [address] [address] 07/20/2020 00:00:00 07/20/2020 11:04:56 [id number] Robb Rodrigues MD [facility] [place] [facility] [place] [place] [address] 01/20/2021 00:00:00 01/20/2021 11:06:33 [id number] Robb Rodrigues MD [facility] [place] [facility] [place] [place] [address] 07/20/2021 00:00:00 07/20/2021 11:29:22 [id number] Sandro De La Cruz MD [facility] [address] [place] [address] 02/15/2022 00:00:00 02/15/2022 14:58:38 [id number] Alice Mcconnell NP [facility] [address] [place] [address] 07/18/2022 09:52:42 07/18/2022 11:09:49 Hypothyroidism 81344378 E03.9 levothyrox ine 25 mcg po daily.Chec ked 07/06/22 ok. Hyperlipidemia 74657665 E78.5 Rosuvastat in 5 mg po nightly.2022 good Essential hypertension 60916498 I10 Verapamil ER 180 mg po daily.Chlo rthalidone 50 mg Osteopenia 878469493 M85 .80 Imani wants pt treated for osteoporos is due to looking at bone health after dexa. Allergic rhinitis 265774 04 J30.9 stable. Osteoarthritis 673632564 M19.90 Migraine 87696063 G43.90 9 Stable. Vitamin D deficiency 347 30216 E55.9 Vit d 2000 Iu po daily.Calc ium 1100 po daily. Asthma 782105106 J45.90 9 Albuterol inhaler prn. Obesity 776930597 E66.9 Diet and exercise routinely. Osteoporosis 44901324 M8 1.0 Imani wants pt on medication [...] None Recorded Advance Directives Directive Y: Payers Insurance Date Sequence Insurance Name Policy Number Policy Henning Covered Member ID Henning Member ID Guarantor Name 07/15/2022 1 [employer] HEALTH PLAN - DOS PRIOR TO 02.12.23 (PPO) Nitin Cifuentes [id number] Marlen Cifuentes Notes Date Note Type Note [...] exercise when able. Alice Mcconnell, HALI [address] [facility] [address], [place], [address], [facility] 07/18/2022 11:09:08 OBGyn Episode No OBEpisode recorded.
--- OUTSIDE RECORDS SUMMARY | 2024-08-25 07:52 | XMS_ITS | Patient Health Record ---
Author Organization [facility] [place] ([address]) Address [address] [place] [address] Care Team Providers Care Regional Guide Name Role Phone Leonora Lundy Primary Care Provider Maryam Maldonado Unavailable [phone] Missael Ruiz Unavailable [phone] Allergies Allergen (clinical drug ingredient) Drug/Non Drug [...] mcg/inh INHALE 1 PUFF BY MOUTH EVERY DAY; Duration: 90 Not-Taking VENTOLIN HFA 90 mcg/inh 2 puff(s) inhale d every 6 hours; Duration: 30 day(s) Not-Taking AZELASTINE HYDROCHLORIDE NASAL 137 mcg/inh 2 spray(s) intranasally 2 times a day; Duration: 30 days Not-Taking Triamcinolone Acetonide 0.1 % 1 application Externally Twice a day; Duration: 5 days 5 Active Azelastine HCl 137 MCG/SPRAY 2 sprays in each nostril Nasally Twice a day; Duration: 30 days As needed 5 Active Levothyroxine Sodium 25 MCG 1 tab(s) orally once a day; Duration: 30 days Active Rosuvastatin Calcium 5 MG 1 tab(s) orally once a day Active TRIAMCINOLONE TOPICAL 0.1% 1 jackson applied topically 3 times a day Active valACYclovir HCl 1 GM 1 tab(s) orally 2 times a day; Duration: 10 day(s) Active ZYRTEC 10 mg 1 tab(s) orally once a day Active Rizatriptan Benzoate 10 MG 1 tab(s) orally once a day Active FLONASE 50 mcg/inh 2 spray(s) intranasally Qday Active Verapamil HCl ER 180 MG 1 cap(s) orally once a day; Duration: 30 day(s) Active VALACYCLOVIR 1 g 1 tab(s) orally 2 times a day; Duration: 10 day(s) Not-Taking NASAL WASHES N/A as directed intranasally as needed Active RIZATRIPTAN 10 mg 1 tab(s) orally once a day Not-Taking EPIPEN 2-ANATOLY 0.3 mg as directed intramuscularly once Active VERAPAMIL 180 mg/24 hours 1 cap(s) orally once a day; Duration: 30 day(s) Not-Taking 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 Not-Taking Famotidine 40 MG 1 tab(s) orally 1 hour prior to SCIT Active Montelukast Sodium 10 MG 1 tab(s) orally once a day Active LEVALBUTEROL TARTRATE HFA 45 MCG/INH 2 PUFF(S) INHALED EVERY 4 HOURS; Duration: 30 DAYS *Please review for potential replacement for e-prescription and drug interaction check* Active Fosamax 70 MG 1 tab(s) orally once a week Active Chlorthalidone 50 MG 1 tab(s) orally onc e a day; Duration: 30 day(s) Active Xopenex HFA 45 MCG/ACT 2 puffs Inhalatio n every 4 hrs; Duration: 30 days Active FOSAMAX 70 mg 1 tab(s) orally once a week Not-Taking Hydroxychloroquine Sulfate 200 MG as directed Orally Active CHLORTHALIDONE 50 mg 1 tab(s) orally onc e a day; Duration: 30 day(s) Not-Taking Triamcinolone Acetonide 0.1 % 1 jackson applied topically 3 times a day Active LEVOTHYROXINE 25 mcg (0.025 mg) 1 tab(s) orally once a day; Duration: 30 day(s) Not-Taking ZyrTEC Allergy 10 MG 1 tab(s) orally onc e a day Active ROSUVASTATIN 5 mg 1 tab(s) orally once a day Not-Taking Flonase Allergy Relief 50 MCG/ACT 2 spray(s) intranasally Qday Active EpiPen 2-Anatoly 0.3 MG/0.3ML as directed intramuscularly once Active Grimes Nasal Moisturizer *Please review and pick correct strength-formul ation from [employer] options. If intended option is not shown, discontinue and re-order from Quick Search* Active Azelastine HCl 137 MCG/SPRAY 2 spray(s) intranasally 2 times a day; Duration: 30 days Active FAMOTIDINE 40 mg 1 tab(s) orally 1 hour prior to SCIT Active Breztri Aerosphere 160-9-4.8 MCG/ACT INHALE 2 PUFFS BY MOUTH TWICE A DAY; Duration: 30 Active SIT (TRADITIONAL) variable per schedule SC per schedule; Duration: to be determined Active Ventolin HFA 108 (90 Base) MCG/ACT 2 puff(s) inhaled every 6 hours; Duration: 30 day(s) Not-Taking MONTELUKAST 10 mg 1 tab(s) orally once a day Active AZELASTINE HYDROCHLORIDE NASAL 137 mcg/inh 2 spray(s) intranasally 2 times a day Not-Taking BREZTRI AEROSPHERE 160 mcg-4.8 mcg-9 mcg/inh 2 puff(s) inhaled 2 times a day0; Duration: 90 days Active Trelegy Ellipta 200 MCG-62.5 MCG-25 MCG/INH INHALE 1 PUFF BY MOUTH EVERY DAY; Duration: 90 *Please review and pick correct strength-formul ation from [employer] options. If intended option is not shown, discontinue and re-order from Quick Search* Not-Taking Immunizations Vaccine Route Administration Date Status [...] W/U Status Risk Notes Problem Idiopathic urticaria (57441343) Idiopathic urticaria (L50.1) Active confirmed Problem Angioneurotic edema (08663046) Angioneurotic edema, initial encounter (T78.3XXA) Active confirmed Problem Eruption of skin (949237737) Rash and other nonspecific skin eruption (R21) Active confirmed Problem Chronic allergic conjunctivitis (04646736) Other chronic allergic conjunctivitis (H10.45) Active confirmed Problem Allergic rhinitis caused by pollen (disorder) (19937279) Allergic rhinitis due to pollen (J30.1) Active confirmed Problem Allergic rhinitis caused by animal hair and dander (284692534386542) Allergic rhinitis due to animal (cat) (dog) hair and dander (J30.81) Active confirmed Problem Allergic rhinitis (79389082) Other allergic rhinitis (J30.89) Active confirmed Problem Chronic rhinitis (01244115) Chronic rhinitis (J31.0) Active confirmed Problem Uncomplicated mild persistent asthma (107661069) Mild persistent asthma, uncomplicated (J45.30) Active confirmed Problem Allergic contact dermatitis caused by plant material (disorder) (1474173135755437 1) Allergic contact dermatitis due to plants, except food (L23.7) Active confirmed Problem Allergic contact dermatitis (941789481) Allergic contact dermatitis due to other agents (L23.89) Active confirmed Problem Elevated blood pressure reading without diagnosis of hypertension (005059673) Elevated blood-pressure reading, without diagnosis of hypertension (R03.0) Active confirmed Problem Allergic rhinitis caused by pollen (disorder) (49068708) Allergic rhinitis due to pollen (J30.1) Active confirmed Problem Allergic rhinitis caused by animal hair and dander (312051259594650) Allergic rhinitis due to animal (cat) (dog) hair and dander (J30.81) Active confirmed Problem Allergic rhinitis (23459726) Other allergic rhinitis (J30.89) Active confirmed Problem Uncomplicated moderate persistent asthma (158827247) Moderate persistent asthma, uncomplicated (J45.40) Active confirmed Problem Chronic allergic conjunctivitis (95260672) Other chronic allergic conjunctivitis (H10.45) Active confirmed Vital Signs Respiratory Rate 17 /min 05/22/2024 Oximetry 96 % 05/22/2024 Blood pressure diastolic 76 mm Hg 05/22/2024 Height 67 in 05/22/2024 Blood pressure systolic 137 mm Hg 05/22/2024 Weight 237 lbs 05/22/2024 BMI 37.12 kg/m2 05/22/2024 Encounters Encounter Location Date Provider Diagnosis [facility] [address] [place] [address] 09/24/2023 Missael Ruiz Allergic rhinitis du e to pollen J30.1 ; Allergic rhinitis due to animal (cat) (dog) hair and dander J30.81 ; Other allergic rhinitis J30.89 and Other chronic allergic conjunctivitis H10.45 [facility] [email or web address] [place] [address] 10/23/2023 Missael Ruiz Allergic rhinitis du e to pollen J30.1 ; Allergic rhinitis due to animal (cat) (dog) hair and dander J30.81 ; Other allergic rhinitis J30.89 and Other chronic allergic conjunctivitis H10.45 [facility] [email or web address] [place] [address] 11/22/2023 Maryam Young Moderate persistent asthma, uncomplicated [...] blood-pressure reading, without diagnosis of hypertension R03.0 [facility] [email or web address] [place] [address] 12/20/2023 Missael Ruiz Allergic rhinitis du e to pollen J30.1 ; Allergic rhinitis due to animal (cat) (dog) hair and dander J30.81 ; Other allergic rhinitis J30.89 and Other chronic allergic conjunctivitis H10.45 [facility] [address] [place] [address] 12/27/2023 Missael Ruiz Allergic rhinitis du e to pollen J30.1 ; Allergic rhinitis due to animal (cat) (dog) hair and dander J30.81 ; Other allergic rhinitis J30.89 and Other chronic allergic conjunctivitis H10.45 [facility] [address] [place] [id number] 01/03/2024 Missael Ruiz Allergic rhinitis du e to pollen J30.1 ; Allergic rhinitis due to animal (cat) (dog) hair and dander J30.81 ; Other allergic rhinitis J30.89 and Other chronic allergic conjunctivitis H10.45 [facility] [address] [place] [address] 01/31/2024 Missael Joseph Allergic rhinitis du e to pollen J30.1 ; Allergic rhinitis due to animal (cat) (dog) hair and dander J30.81 ; Other allergic rhinitis J30.89 and Other chronic allergic conjunctivitis H10.45 [facility] [address] [place] [address] 02/28/2024 Misasel Ruiz Allergic rhinitis du e to pollen J30.1 ; Allergic rhinitis due to animal (cat) (dog) hair and dander J30.81 ; Other allergic rhinitis J30.89 and Other chronic allergic conjunctivitis H10.45 [facility] [address] [place] [phone] 03/27/2024 Missael Ruiz Allergic rhinitis du e to pollen J30.1 ; Allergic rhinitis due to animal (cat) (dog) hair and dander J30.81 ; Other allergic rhinitis J30.89 and Other chronic allergic conjunctivitis H10.45 [facility] [address] [place] [address] 04/24/2024 Missaelyun Ruiz Allergic rhinitis du e to pollen J30.1 ; Allergic rhinitis due to animal (cat) (dog) hair and dander J30.81 ; Other allergic rhinitis J30.89 and Other chronic allergic conjunctivitis H10.45 [facility] [address] [place] [address] 05/22/2024 Maryam Young Moderate persistent asthma, uncomplicated J45.40 ; Chronic rhinitis J31.0 ; Allergic rhinitis due to pollen J30.1 ; Allergic rhinitis due to animal (cat) (dog) hair and dander J30.81 ; Other allergic rhinitis J30.89 ; Other chronic allergic conjunctivitis H10.45 ; Allergic contact dermatitis due to other agents L23.89 and Allergic contact dermatitis due to plants, except food L23.7 [facility] [address] [place] [address] 06/19/2024 Missael Ruiz Allergic rhinitis du e to pollen J30.1 ; Allergic rhinitis due to animal (cat) (dog) hair and dander J30.81 ; Other allergic rhinitis J30.89 and Other chronic allergic conjunctivitis H10.45 [facility] [address] [place] [address] 07/17/2024 Missael Ruiz Allergic rhinitis du e to pollen J30.1 ; Allergic rhinitis due to animal (cat) (dog) hair and dander J30.81 ; Other allergic rhinitis J30.89 and Other chronic allergic conjunctivitis H10.45 [facility] [address] [place] [address] 08/14/2024 Missael Ruiz Allergic rhinitis du e to pollen J30.1 ; Allergic rhinitis due to animal (cat) (dog) hair and dander J30.81 ; Other allergic rhinitis J30.89 and Other chronic allergic conjunctivitis H10.45 [facility] [address] [place] [address] 10/23/2023 Maryam Young Moderate persistent asthma, uncomplicated J45.[address] [address] 11/22/2023 Maryam Young [facility] [address] [place] [address] 12/31/2023 Maryam Young Moderate persistent asthma, uncomplicated J45.40 [facility] [place] [address] [place] [address] 11/12/2023 Maryam Trujillo [facility] [place] [address] [place] [address] 11/20/2023 Maryam Trujillo [facility] [place] [address] [place] [address] 11/20/2023 Maryam Trujillo Assessments Encounter Date Diagnosis (ICD Code) Assessment Notes Treatment Notes Treatment Clinical Notes Section Notes 09/24/2023 Allergic rhinitis due to pollen (ICD-10 - J30.1) 10/23/2023 Moderate persistent asthma, uncomplicated (ICD-10 - J45.40) 10/23/2023 Allergic rhinitis due to pollen (ICD-10 - J30.1) 11/22/2023 Chronic rhinitis (ICD-10 - J31.0) Previously treated with nasal washes and Mupirocin with clean q-tip BID x 5 days. Then switch to AYR, now using PRN 12/20/2023 Allergic rhinitis due to pollen (ICD-10 - J30.1) 11/22/2023 Moderate persistent asthma, uncomplicated (ICD-10 - J45.40) Asthma diagnosis carried from prior consultant education in [place] since 1991. As above since 2021 she [...] restriction with normal DLCO. Records requested for rekarenw. Suspects she needs a methacholine challenge. This [...] Trelegy. Again want input by Pulmonary -IgE=33 ZRD=593 -last CXR was normal 12/27/2023 Allergic rhinitis due to pollen (ICD-10 - J30.1) 01/03/2024 Allergic rhinitis due to pollen (ICD-10 - J30.1) 01/31/2024 Allergic rhinitis due to pollen (ICD-10 - J30.1) 02/28/2024 Allergic rhinitis due to pollen (ICD-10 - J30.1) 03/27/2024 Allergic rhinitis due to pollen (ICD-10 - J30.1) 04/24/2024 Allergic rhinitis due to pollen (ICD-10 - J30.1) 12/31/2023 Moderate persistent asthma, uncomplicated (ICD-10 - J45.40) 05/22/2024 Chronic rhinitis (ICD-10 - J31.0) Previously treated with nasal washes and Mupirocin with clean q-tip BID x 5 days. Then switch to AYR, now using PRN 06/19/2024 Allergic rhinitis due to pollen (ICD-10 - J30.1) 07/17/2024 Allergic rhinitis due to pollen (ICD-10 - J30.1) 05/22/2024 Moderate persistent asthma, uncomplicated (ICD-10 - J45.40) Asthma diagnosis carried from prior consultant education in [place] since 1991. As above since 2021 she [...] Trelegy. Again want input by Pulmonary -IgE=33 NTB=400 -last CXR was normal 08/14/2024 Allergic rhinitis due to pollen (ICD-10 - J30.1) 08/14/2024 Allergic rhinitis due to animal (cat) (dog) hair and dander (ICD-10 - J30.81) 07/17/2024 Allergic rhinitis due to animal (cat) [...] hair and dander (ICD-10 - J30.81) 09/24/2023 Other allergic rhinitis (ICD-10 - J30.89) 10/23/2023 Other allergic rhinitis (ICD-10 - J30.89) 12/20/2023 Other allergic rhinitis (ICD-10 - J30.89) 11/22/2023 Allergic rhinitis due to animal (cat) (dog) hair and dander (ICD-10 - J30.81) Follow allergen avoidance, meds and continue SCIT as an adjunctive treatment to current regimen. 12/27/2023 Other allergic rhinitis (ICD-10 - J30.89) 01/03/2024 Other allergic rhinitis (ICD-10 - J30.89) 01/31/2024 Other allergic rhinitis (ICD-10 - J30.89) 02/28/2024 Other allergic rhinitis (ICD-10 - J30.89) 03/27/2024 Other allergic rhinitis (ICD-10 - J30.89) 04/24/2024 Other allergic rhinitis (ICD-10 - J30.89) 05/22/2024 Allergic rhinitis due to animal (cat) (dog) hair and dander (ICD-10 - J30.81) Follow allergen avoidance, meds and continue SCIT as an adjunctive treatment to current regimen. 06/19/2024 Other allergic rhinitis (ICD-10 - J30.89) 07/17/2024 Other allergic rhinitis (ICD-10 - J30.89) 08/14/2024 Other allergic rhinitis (ICD-10 - J30.89) 06/19/2024 Other chronic allergic conjunctivitis (ICD-10 - H10.45) 08/14/2024 Other chronic allergic conjunctivitis (ICD-10 - H10.45) 07/17/2024 Other chronic allergic conjunctivitis (ICD-10 - H10.45) 05/22/2024 Other allergic rhinitis (ICD-10 - J30.89) Follow allergen avoidance, meds and continue SCIT as an adjunctive treatment to current regimen. 01/03/2024 Other chronic allergic conjunctivitis (ICD-10 - H10.45) 04/24/2024 Other chronic allergic conjunctivitis (ICD-10 - [...] Swab (FREE) 01/27/2021 Next Appt Details Provider Name:Maryam Lyle Trujillo , 11/20/2024 10:00:00 AM, [facility] [address], [address], Insurance Providers Payer Name Payer Address Payer Phone Subscriber Number Group Number Insured Name Patient Relationship to Insured Coverage Start Date Coverage End Date [place] [address] [place] [address] [id number] Nitin Pemberton Spouse - patient is the [...]
[2024-08-25 09:15] LABS: Hematocrit 40.8 % (37.0-47.0); Hemoglobin 13.1 g/dL (12.0-15.0); Immature Granulocyte Percent A 0.3 % (0-0.5); Lymphocytes Absolute Auto 1.51 K/mm3 (0.9-3.2); Mean Corpuscular HGB Conc 32.1 g/dl (32-36); Mean Corpuscular Hemoglobin 31.0 pg (26-34); Mean Corpuscular Volume 96.7 fl (80-100); Nucleated Red Blood Cells Absolute Auto 0.000 K/mm3 (0.0-0.012); Nucleated Red Blood Cells Perc 0.0 % (0.0-0.2); Platelet Count Result 247 k/mm3 (150-375); Red Blood Count 4.22 M/mm3 (4.2-5.4); White Blood Count 7.3 K/mm3 (4.5-10.0)
[2024-08-25 10:47] LABS: MRSA (PCR) NOT DETECTED (NOT DETECTE)
== END 2024-08-25 07:47 | disposition home or self-care (01) ==
LOC: ANHSURGERY 07:49
PROVIDERS: PCP Nurse Practitioner Adult Health; Visit Provider Orthopaedic Surgery
DX: Z01.818 Encounter for other preprocedural examination (principal); M19.011 Primary osteoarthritis, right shoulder
CPT/HCPCS: 36415; 85025; 87641

== ENCOUNTER 2024-09-18 03:10 | Day surgery (SDC) | payer OTHER, SELFPAY ==
--- NOTE | 2024-08-25 07:48 | PC.NURSE ---
Report to the Outpatient Waiting Room, entrance under the green pavilion located off [facility], at time _8:30 am on date __09/18/24 . Planned Procedure Time: __10:30 am .? Time changes happen often and if your time is changed the preop area will call you the afternoon before. - You and your visitor will be asked to self-screen and do not enter if you have any COVID symptoms. Please call surgeon if you need to reschedule. - A mask is optional within the hospital at this time. Patients may have clear liquids (water, carbonated beverages, clear teas, apple juice) until 3 hours prior to surgery (7:30 am ) with a maximum of 20 ounces. - No food from midnight until time of surgery and no smoking, or chewing tobacco (or any form of nicotine). No chewing gum, candy or mints. - Take only the following medications with a SIP of water on the morning of surgery: _BREZTRI INHALER_,LEVOTHYROXINE, DO NOT STOP ANY OF YOUR OTHER PRESCRIPTION MEDICATIONS PRIOR TO SURGERY EXCEPT THE FOLLOWING Hold all vitamins and supplements for 3 days per anesthesiologist.LAST DOSE 09/14/24 Medications to discontinue per physician _PT STATES HOLD LEFLUNOMIDE 2 WKS PRE OP PER PLATEN BUILDER UP LAST DOSE 09/03/24 Please no make-up, nail malian, hairspray, perfume, deodorant, or body powder the day of surgery.? No jewelry (including any body piercings) or valuables the day of surgery, leave them at home.? Please take a shower or bath the night before, or the morning of, surgery with an antibacterial soap.? Wear comfortable, loose fitting clothing.? Children are encouraged to wear pajamas. - Jewelry must be removed prior to entering the operating room.? Rings and piercings that are not removed may be cut off. - The hospital will not accept responsibility for valuables.? - Please leave all valuables, including medications, at home the day of surgery. If you are going home after surgery, a licensed chain saw driver must drive you home.? - NO public transportation without another adult if you receive anesthesia. - We recommend that an adult stay with you for 24 hours following discharge. - We also recommend that you do not drive, make important decision, drink alcoholic beverages, or take any drugs that were not prescribed by your health care provider for at least 24 hours after your discharge time. Follow any additional instructions given to you from your surgeon. VERBAL AND WRITTEN instructions given to __PATIENT and asked if any additional questions and then verbalized understanding. Patient advised to call surgeon office or pre surgery nurse liaison [phone] if any additional questions.
[2024-08-25 07:53] VITALS: BMI 36.7
[2024-08-25 08:44] VITALS: BP 120/63; PULSE 68; RESP 18; TEMP 36.5; O2SAT 98
[2024-09-18] VITALS (16 sets, daily range): BP systolic 123–149; BP diastolic 54–80; PULSE 70–98; RESP 12–22; TEMP 36.1–36.8; O2SAT 95–98; BMI 36.0
--- NOTE | ~2024-09-18 | XR_ITS ---
EXAMINATION: XR shoulder RT min 2V DATE: 09/18/2024 13:24 INDICATION: Right reverse total shoulder arthroplasty postoperative TECHNIQUE: 2 views right shoulder FINDINGS: There is a right reversed total shoulder arthroplasty in expected position. Subcutaneous g as with soft tissue swelling are consistent with recent surgery. IMPRESSION: 1. Recent reverse total right shoulder arthroplasty. Reviewed, dictated and finalized at location A.
--- OUTSIDE RECORDS SUMMARY | 2024-09-18 03:12 | XMS_ITS | Clinical Summary ---
Author Organization [facility] Address [address] [place] [address] Care Team Providers Care Gusset Folder Name Role Phone Kintigist Leonora FRANCO-FINANCIAL OPERATIONS CLERK Primary Care Provider + Source Comments [facility] [employer],non-owned Affiliates and Associated Physician Practices is amultiple site organization consisting of ambulatory clinics and hospital sitesin [place], [place] and [place]. This disclosure is being madepursuant to the Care Everywhere program and may not contain all information available regarding this patient. Last updated 17.[facility] [employer] [facility] Allergies Active Allergy Reactions Criticality Noted Date [...] once daily Active vitamin D, ergocalciferol, (DRISDOL) 21897 UNITS capsule Take 50,000 Units by mouth [...] mouth once daily Active rizatriptan, disintegrating, (MAXALT FOREPART RASPER) 10 MG tablet Take 10 mg by [...] RNA IU/mL HCV Not Detected IU/mL [facility] ([facility]) Test Information [facility] ([facility]) Comment:The quantitative ran ge of this assay is 15 IU/mL to 100 million IU/mL. 09/08/2016 12:3 9 PM CDT 09/08/2016 Narrative [facility] ([facility]) - 09/10/2016 6:39 AM CDT Performed at: [facility] [id number] Outside Sales Executive: Leonid Starks MD, Phone: [phone] Arlene Chen MD LAB - CHEMISTR Y ORDERABLES Final Result [facility] ([facility]) [address] [place] [address] from Last 3 Months or Most Recently Relevant to Health Maintenance Insurance [facility] CARE Care Teams Gusset Folder Relationship Specialty Start Date End Date Leonora Terrazas APRN-CNP [address] [address] PCP - General 08/22/17
--- OUTSIDE RECORDS SUMMARY | 2024-09-18 03:12 | XMS_ITS | Clinical Summary ---
Author Organization [facility] Address [address] [place] [address] Care Team Providers Care Garment Form Assembler Name Role Phone Leonora Terrazas NP Primary Care Provider [phone] Allergies Active Allergy Reactions Criticality Noted Date [...] on file Legal Sex Female 8:43 AM RAG BOILER Gender Identity Not on file Sexual Orientation Not on file Obstetrics History Last Filed Vital Signs Vital Sign Reading Time Taken Comments Blood Pressure 131/76 02/25/2016 7:18 AM RAG BOILER Pulse 89 02/25/2016 7:18 AM RAG BOILER Temperature - - Respiratory Rate - - Oxygen Saturation 93% 02/25/2016 7:18 AM RAG BOILER Inhaled Oxygen Concentration - - Weight 104.3 kg (229 lb 15 oz) 11/25/2020 12:07 PM CDT Height 172.7 cm (5' 8) 11/25/2020 12:07 PM CDT Body Mass Index 34.96 11/25/2020 12:07 PM CDT Plan of Treatment Not on file Insurance CIGNA IBEW CIGNA IBEW CIGNA IBEW CIGYANG IBEW Care Teams Garment Form Assembler Relationship Specialty Start Date End Date Leonora Terrazas NP PCP - General 10/03/16
--- OUTSIDE RECORDS SUMMARY | 2024-09-18 03:13 | XMS_ITS | Patient Health Record ---
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 Name Role Phone Leonora Lundy Primary Care Provider Maryam Maldonado Unavailable [phone] Missael Ruiz Unavailable [phone] Allergies Allergen (clinical drug ingredient) Drug/Non Drug Allergy documented on EMR Reaction Allergy Type Onset Date Status omeprazole Omeprazole diarrhea Drug Allergy Activ e Sulfamethoxazole hives Drug Allergy Active albuterol Ventolin HFA other reaction Drug Allergy Active Reason For Referral No Information Medications Medication SIG (Take, Route, Frequency, Duration) Notes Start Date End Date Status Breztri Aerosphere 160-9-4.8 MCG/ACT INHALE 2 PUFFS BY MOUTH TWICE A DAY Inhalation Twice a day; Duration: 30 days Active Ventolin HFA 108 (90 Base) MCG/ACT 2 puff(s) inhaled every 6 hours; Duration: 30 day(s) Not-Taking BREZTRI AEROSPHERE 160 mcg-4.8 mcg-9 mcg/inh 2 puff(s) inhaled 2 times a day0; Duration: 90 days Active Trelegy Ellipta 200 MCG-62.5 MCG-25 MCG/INH INHALE 1 PUFF BY MOUTH EVERY DAY; Duration: 90 *Please review and pick correct strength-formul ation from [employer] options. If intended option is not shown, discontinue and re-order from Quick Search* Not-Taking MONTELUKAST 10 mg 1 tab(s) orally once a day Active AZELASTINE HYDROCHLORIDE NASAL 137 mcg/inh 2 spray(s) intranasally 2 times a day Not-Taking Hydroxychloroquine Sulfate 200 MG as directed Orally Active CHLORTHALIDONE 50 mg 1 tab(s) orally onc e a day; Duration: 30 day(s) Not-Taking Xopenex HFA 45 MCG/ACT 2 puffs Inhalatio n every 4 hrs; Duration: 30 days Active FOSAMAX 70 mg 1 tab(s) orally once a week Not-Taking ZYRTEC 10 mg 1 tab(s) orally once a day Active Rizatriptan Benzoate 10 MG 1 tab(s) orally once a day Active TRIAMCINOLONE TOPICAL 0.1% 1 jackson applied topically 3 times a day Active valACYclovir HCl 1 GM 1 tab(s) orally 2 times a day; Duration: 10 day(s) Active NASAL WASHES N/A as directed intranasally as needed Active Blairs Nasal Moisturizer *Please review and pick correct strength-formul ation from [employer] options. If intended option is not shown, discontinue and re-order from Quick Search* Active FLONASE 50 mcg/inh 2 spray(s) intranasally Qday Active Verapamil HCl ER 180 MG 1 cap(s) orally once a day; Duration: 30 day(s) Active FAMOTIDINE 40 mg 1 tab(s) orally 1 hour prior to SCIT Active EPIPEN 2-ANATOLY 0.3 mg as directed intramuscularly once Active Azelastine HCl 137 MCG/SPRAY 2 spray(s) intranasally 2 times a day; Duration: 30 days Active SIT (TRADITIONAL) variable per schedule SC per schedule; Duration: to be determined Active VERAPAMIL 180 mg/24 hours 1 cap(s) orally once a day; Duration: 30 day(s) Not-Taking LEVALBUTEROL TARTRATE HFA 45 MCG/INH 2 PUFF(S) INHALED EVERY 4 HOURS; Duration: 30 DAYS *Please review for potential replacement for e-prescription and drug interaction check* Active TRELEGY ELLIPTA 200 mcg-62.5 mcg-25 mcg/inh INHALE 1 PUFF BY MOUTH EVERY DAY; Duration: 90 Not-Taking 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 Not-Taking Chlorthalidone 50 MG 1 tab(s) orally onc e a day; Duration: 30 day(s) Active AZELASTINE HYDROCHLORIDE NASAL 137 mcg/inh 2 spray(s) intranasally 2 times a day; Duration: 30 days Not-Taking Fosamax 70 MG 1 tab(s) orally once a week Active VENTOLIN HFA 90 mcg/inh 2 puff(s) inhale d every 6 hours; Duration: 30 day(s) Not-Taking Rosuvastatin Calcium 5 MG 1 tab(s) orally once a day Active Azelastine HCl 137 MCG/SPRAY 2 sprays in each nostril Nasally Twice a day; Duration: 30 days As needed 5 Active Levothyroxine Sodium 25 MCG 1 tab(s) orally once a day; Duration: 30 days Active Triamcinolone Acetonide 0.1 % 1 application Externally Twice a day; Duration: 5 days 5 Active ZyrTEC Allergy 10 MG 1 tab(s) orally onc e a day Active ROSUVASTATIN 5 mg 1 tab(s) orally once a day Not-Taking Triamcinolone Acetonide 0.1 % 1 jackson applied topically 3 times a day Active LEVOTHYROXINE 25 mcg (0.025 mg) 1 tab(s) orally once a day; Duration: 30 day(s) Not-Taking EpiPen 2-Anatoly 0.3 MG/0.3ML as directed intramuscularly once Active RIZATRIPTAN 10 mg 1 tab(s) orally once a day Not-Taking Flonase Allergy Relief 50 MCG/ACT 2 spray(s) intranasally Qday Active VALACYCLOVIR 1 g 1 tab(s) orally 2 times a day; Duration: 10 day(s) Not-Taking Montelukast Sodium 10 MG 1 tab(s) orally once a day Active Famotidine 40 MG 1 tab(s) orally 1 hour prior to SCIT Active Immunizations Vaccine Route Administration Date Status Comme nts DTaP < 7 y/o Unknown 09[birth year]26/1965 Administered Portal Inf ormation Allergy Immunotherapy Weekly Unknown 02/12/2005 Administered Portal Informati on NOC Pneumovax 23 Unknown 10/29/2013 Administered Portal Information H1N1 Influenza Unknown 10/28/2009 Administered Portal I nformation NOC Influenza-Afluria PFS Unknown 11/04/2020 Administer ed NOC Tdap Unknown 09/12/2010 Administered Portal Infor mation Influenza Unknown 12/27/2014 Administered Portal Infor mation FluZone Quadrivalent Unknown 10/30/2018 Administered Po rtal Information NOC Fluzone Quadrivalent Unknown 11/27/2019 Refused COVID-19 (Moderna) Unknown 04/14/2020 Administered COVID-19 (Moderna) Unknown 05/17/2020 Administered Social History Tobacco Use: Social History Observation [...] W/U Status Risk Notes Problem Idiopathic urticaria (98056244) Idiopathic urticaria (L50.1) Active confirmed Problem Angioneurotic edema (84231783) Angioneurotic edema, initial encounter (T78.3XXA) Active confirmed Problem Eruption of skin (312059783) Rash and other nonspecific skin eruption (R21) Active confirmed Problem Chronic allergic conjunctivitis (17943139) Other chronic allergic conjunctivitis (H10.45) Active confirmed Problem Allergic rhinitis caused by pollen (disorder) (08357067) Allergic rhinitis due to pollen (J30.1) Active confirmed Problem Allergic rhinitis caused by animal hair and dander (055732700382657) Allergic rhinitis due to animal (cat) (dog) hair and dander (J30.81) Active confirmed Problem Allergic rhinitis (75524370) Other allergic rhinitis (J30.89) Active confirmed Problem Chronic rhinitis (33466689) Chronic rhinitis (J31.0) Active confirmed Problem Uncomplicated mild persistent asthma (695335661) Mild persistent asthma, uncomplicated (J45.30) Active confirmed Problem Allergic contact dermatitis caused by plant material (disorder) (4220094152960431 1) Allergic contact dermatitis due to plants, except food (L23.7) Active confirmed Problem Allergic contact dermatitis (295563693) Allergic contact dermatitis due to other agents (L23.89) Active confirmed Problem Elevated blood pressure reading without diagnosis of hypertension (426823413) Elevated blood-pressure reading, without diagnosis of hypertension (R03.0) Active confirmed Problem Allergic rhinitis caused by pollen (disorder) (44842705) Allergic rhinitis due to pollen (J30.1) Active confirmed Problem Allergic rhinitis caused by animal hair and dander (945108658085865) Allergic rhinitis due to animal (cat) (dog) hair and dander (J30.81) Active confirmed Problem Allergic rhinitis (48051179) Other allergic rhinitis (J30.89) Active confirmed Problem Uncomplicated moderate persistent asthma (318595738) Moderate persistent asthma, uncomplicated (J45.40) Active confirmed Problem Chronic allergic conjunctivitis (55441691) Other chronic allergic conjunctivitis (H10.45) Active confirmed Vital Signs Respiratory Rate 17 /min 05/22/2024 Blood pressure diastolic 76 mm Hg 05/22/2024 Oximetry 96 % 05/22/2024 Height 67 in 05/22/2024 Blood pressure systolic 137 mm Hg 05/22/2024 Weight 237 lbs 05/22/2024 BMI 37.12 kg/m2 05/22/2024 Encounters Encounter Location Date Provider Diagnosis [facility] [address] [place] [phone] 09/24/2023 Missael Ruiz Allergic rhinitis du e to pollen J30.1 ; Allergic rhinitis due to animal (cat) (dog) hair and dander J30.81 ; Other allergic rhinitis J30.89 and Other chronic allergic conjunctivitis H10.45 [facility] [address] [place] [phone] 10/23/2023 Missael Ruiz Allergic rhinitis du e to pollen J30.1 ; Allergic rhinitis due to animal (cat) (dog) hair and dander J30.81 ; Other allergic rhinitis J30.89 and Other chronic allergic conjunctivitis H10.45 [facility] [address] [place] [phone] 11/22/2023 Maryam Young Moderate persistent asthma, uncomplicated [...] reading, without diagnosis of hypertension R03.0 [facility] [address] [place] [phone] 12/20/2023 Missael Ruiz Allergic rhinitis du e to pollen J30.1 ; Allergic rhinitis due to animal (cat) (dog) hair and dander J30.81 ; Other allergic rhinitis J30.89 and Other chronic allergic conjunctivitis H10.45 [facility] [address] [place] [phone] 12/27/2023 Missael Ruiz Allergic rhinitis du e to pollen J30.1 ; Allergic rhinitis due to animal (cat) (dog) hair and dander J30.81 ; Other allergic rhinitis J30.89 and Other chronic allergic conjunctivitis H10.45 [facility] [address] [place] [phone] 01/03/2024 Missael Joseph Allergic rhinitis du e to pollen J30.1 ; Allergic rhinitis due to animal (cat) (dog) hair and dander J30.81 ; Other allergic rhinitis J30.89 and Other chronic allergic conjunctivitis H10.45 [facility] [address] [place] [phone] 01/31/2024 Missael Joseph Allergic rhinitis du e to pollen J30.1 ; Allergic rhinitis due to animal (cat) (dog) hair and dander J30.81 ; Other allergic rhinitis J30.89 and Other chronic allergic conjunctivitis H10.45 [facility] [address] [place] [phone] 02/28/2024 Missaelyun Ruiz Allergic rhinitis du e to pollen J30.1 ; Allergic rhinitis due to animal (cat) (dog) hair and dander J30.81 ; Other allergic rhinitis J30.89 and Other chronic allergic conjunctivitis H10.45 [facility] [address] [place] [phone] 03/27/2024 Missaelyun Ruiz Allergic rhinitis du e to pollen J30.1 ; Allergic rhinitis due to animal (cat) (dog) hair and dander J30.81 ; Other allergic rhinitis J30.89 and Other chronic allergic conjunctivitis H10.45 [facility] [address] [place] [phone] 04/24/2024 Missael Ruiz Allergic rhinitis du e to pollen J30.1 ; Allergic rhinitis due to animal (cat) (dog) hair and dander J30.81 ; Other allergic rhinitis J30.89 and Other chronic allergic conjunctivitis H10.45 [facility] [address] [place] [phone] 05/22/2024 Maryam Trujillo Moderate persistent asthma, uncomplicated J45.40 ; Chronic rhinitis J31.0 ; Allergic rhinitis due to pollen J30.1 ; Allergic rhinitis due to animal (cat) (dog) hair and dander J30.81 ; Other allergic rhinitis J30.89 ; Other chronic allergic conjunctivitis H10.45 ; Allergic contact dermatitis due to other agents L23.89 and Allergic contact dermatitis due to plants, except food L23.7 [facility] [address] [place] [phone] 06/19/2024 Missael Ruiz Allergic rhinitis du e to pollen J30.1 ; Allergic rhinitis due to animal (cat) (dog) hair and dander J30.81 ; Other allergic rhinitis J30.89 and Other chronic allergic conjunctivitis H10.45 [facility] [address] [place] [phone] 07/17/2024 Missael Ruiz Allergic rhinitis du e to pollen J30.1 ; Allergic rhinitis due to animal (cat) (dog) hair and dander J30.81 ; Other allergic rhinitis J30.89 and Other chronic allergic conjunctivitis H10.45 [facility] [address] [place] [phone] 08/14/2024 Missael Ruiz Allergic rhinitis du e to pollen J30.1 ; Allergic rhinitis due to animal (cat) (dog) hair and dander J30.81 ; Other allergic rhinitis J30.89 and Other chronic allergic conjunctivitis H10.45 [facility] [address] [place] [phone] 09/11/2024 Missael Ruiz Allergic rhinitis du e to pollen J30.1 ; Allergic rhinitis due to animal (cat) (dog) hair and dander J30.81 ; Other allergic rhinitis J30.89 and Other chronic allergic conjunctivitis H10.45 [facility] [address] [place] [phone] 10/23/2023 Maryam Trujillo Moderate persistent asthma, uncomplicated J45.[address] [phone] 11/22/2023 Maryam Trujillo [facility] [address] [place] [phone] 12/31/2023 Maryam Trujillo Moderate persistent asthma, uncomplicated J45.[address] [phone] 09/16/2024 Maryam Trujillo Moderate persisten t asthma, uncomplicated J45.40 [facility] [address] [place] [phone] 11/12/2023 Maryam Trujillo [facility] [address] [place] [phone] 11/20/2023 Maryam Trujillo [facility] [address] [place] [phone] 11/20/2023 Maryam Trujillo Assessments Encounter Date Diagnosis [...] - J45.40) Asthma diagnosis carried from prior teen counselor in [place] since 1991. As above since 2021 she [...] Trelegy. Again want input by Pulmonary -IgE=33 AJZ=134 -last CXR was normal 12/20/2023 Allergic rhinitis [...] - J45.40) Asthma diagnosis carried from prior teen counselor in [place] since 1991. As above since 2021 she [...] Trelegy. Again want input by Pulmonary -IgE=33 CYH=110 -last CXR was normal 06/19/2024 Allergic rhinitis due to pollen (ICD-10 - J30.1) 07/17/2024 Allergic rhinitis due to pollen (ICD-10 - J30.1) 08/14/2024 Allergic rhinitis due to pollen (ICD-10 - J30.1) 09/11/2024 Allergic rhinitis due to pollen (ICD-10 - J30.1) 09/16/2024 Moderate persistent asthma, uncomplicated (ICD-10 - J45.40) 09/11/2024 Allergic rhinitis due to animal (cat) (dog) hair and dander (ICD-10 - J30.81) 08/14/2024 Allergic rhinitis due to animal (cat) [...] 08/14/2024 Other allergic rhinitis (ICD-10 - J30.89) 09/11/2024 Other allergic rhinitis (ICD-10 - J30.89) 09/11/2024 Other chronic allergic conjunctivitis (ICD-10 - H10.45) 08/14/2024 Other chronic allergic conjunctivitis (ICD-10 - H10.45) 06/19/2024 Other chronic allergic conjunctivitis (ICD-10 - [...] (FREE) 01/27/2021 Next Appt Details Provider Name:Maryam Trujillo , 11/20/2024 10:00:00 AM, [address] [facility], [address], [address], Insurance Providers Payer Name Payer Address Payer Phone Subscriber Number Group Number Insured Name Patient Relationship to Insured Coverage Start Date Coverage End Date [employer] [address] [place] [address] [id number] Nitin Pemberton Spouse - patient is the [...]
--- NOTE | 2024-09-18 06:57 | WPDHPUPDATE1 ---
History and Physical Update Update Date/Time: 09/18/24 06:57 History and Physical has been reviewed, including an updated exam of the patient. There are NO changes in the patient's condition. Risks, benefits, and alternatives have been discussed and questions answered. Patient agrees to proceed with procedure.
[2024-09-18] MEDS: ACETAMINOPHEN 500 MG TABLET 1000 MG PO (09:10)
[2024-09-18] MEDS: LACTATED RINGERS 1,000 ML 30 ML IV CONT ×2 (09:15→12:35)
--- NOTE | 2024-09-18 09:15 | WPDANESEPPF ---
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 Patient Data Age: 64 Gender: F Height: 1.71 m Weight: 108 kg Last Vital Signs Temp 36.5 C 08/25/24 08:44 Pulse 68 08/25/24 08:44 Resp 18 08/25/24 08:44 BP 120/63 08/25/24 08:44 Pulse Ox 98 08/25/24 08:44 O2 Del Method Room Air 08/25/24 08:44 Allergies Allergy/AdvReac Type Severity Reaction Status Date / Time acetone Allergy Severe ANAPHYLAXIS Verified 09/18/24 09:35 albuterol Allergy Severe Fainting Verified 09/18/24 09:35 omeprazole Allergy Unknown Diarrhea Verified 09/18/24 09:35 pollen extracts Allergy Unknown Sneezing/ Verified 09/18/24 09:35 SHORTNESS OF BREATH Sulfa (Sulfonamide Allergy Unknown Rash AND Verified 09/18/24 09:35 Antibiotics) HIVES NSAIDS (Non-Steroidal AdvReac Unknown HX GI BLEED Verified 09/18/24 09:35 Anti-Inflamma Home Medications ?Medication ?Instructions ?Recorded ?Confirmed ?Type cetirizine 10 mg tablet (Zyrtec) 10 mg PO DAILY 01/12/21 09/18/24 History fluticasone furoate 27.5 1 spray intranasal DAILY 01/12/21 09/18/24 History mcg/actuation nasal spray,suspension (Flonase Sensimist) rizatriptan 10 mg disintegrating 10 mg PO PRN PRN Migraine Headache 01/12/21 08/25/24 History tablet azelastine 137 mcg (0.1 %) nasal 137 mcg intranasal Q12H PRN 03/06/22 08/25/24 History spray Allergies multivitamin 1 tablet PO DAILY 03/06/22 09/18/24 History triamcinolone acetonide 0.1 % 1 applic topical BID PRN rash 01/08/23 08/25/24 History topical cream epinephrine 0.3 mg/0.3 mL 0.3 ml IM PRN 01/25/23 08/25/24 History injection, auto-injector budesonide 160 mcg-glycopyr 9 2 inh inhalation BID 03/28/23 09/18/24 History mcg-formot 4.8 mcg/actuation HFA inhaler (Breztri Aerosphere) valacyclovir 1 gram tablet 1,000 mg PO DAILY PRN Cold Sores 04/03/23 08/25/24 Rx #30 tabs alendronate 70 mg tablet See Rx Instructions .Route 05/19/24 09/18/24 Rx .COMPLEX #12 tabs montelukast 10 mg tablet See Rx Instructions .Route 05/26/24 09/18/24 Rx .COMPLEX #90 tabs verapamil 180 mg tablet,extended See Rx Instructions .Route 05/26/24 09/18/24 Rx release .COMPLEX #90 tabs chlorthalidone 50 mg tablet See Rx Instructions .Route 06/04/24 09/18/24 Rx .COMPLEX #90 tabs rosuvastatin 5 mg tablet See Rx Instructions .Route 06/11/24 09/18/24 Rx .COMPLEX #90 tabs hydroxychloroquine 200 mg tablet 400 mg PO DAILY 07/30/24 09/18/24 History (Plaquenil) leflunomide 20 mg tablet 20 mg PO DAILY 07/30/24 09/18/24 History tramadol 50 mg tablet 50 mg PO Q8H PRN pain #60 tabs 08/20/24 08/25/24 Rx acetaminophen 650 mg 1,300 mg PO Q12H PRN pain 08/25/24 08/25/24 History tablet,extended release (8 Hour Pain Reliever) vitamin D3 125 mcg (5,000 1 cap PO DAILY 08/25/24 09/18/24 History unit)-vitamin K2 180 mcg capsule (K2-D3 Max) levothyroxine 25 mcg tablet 25 mcg PO DAILY #90 tabs 09/04/24 09/18/24 Rx Patient hx anesthesia problems: post op nausea/vomiting Family hx anesthesia problems: none Results Review: All pre-operative results and documents have been reviewed as part of the pre-operative evaluation. [facility] Past Medical History Medical History (Updated 09/18/24 @ 09:13 by Louie Mclean DO) JAIMEE (obstructive sleep apnea) Allergic rhinitis Hyperlipidemia Obesity Migraine Hypertension Hypothyroid Asthma Surgical History Surgical History History of total right hip replacement (~03/28/22) History of eye surgery (~1977) History of (~1984) History of myringotomy (~1986) Marino - w/Tube Placement History of adenoidectomy (~1986) History of kyphoplasty (~11/29/17) History of total left knee replacement (~07/30/18) Presence of left artificial knee joint Family History Family History Father Family history of chronic obstructive pulmonary disease Family history of congestive heart failure Other Family history of atrial fibrillation Family history of malignant neoplasm Family history of osteoarthritis Hypertension Social History Social History Smoking status: Never smoker Additional smoking assessment comments: DENIES ANY FORM OF TOBACCO USE Alcohol intake: never Substance use: never Other substance usage details: CBD GELS AT HS Do You Feel Safe in your Home?: Yes Lack of Transportation: No Lack of Food: Never True Current Housing: I Have Housing Concerned About Future Housing: No Difficulty Paying Gas/Electric Bills: No Difficulty Paying for Meds: No Currently Unemployed: No Education: Master's Degree or Higher Difficulty w/ Childcare or Family Care: No Living arrangements: with family Spiritual care concerns: No Anes - Eval Final PreProcedure Day of Procedure 09/18/24 09:15 Patient weight: obese Heart: regular rate and rhythm Lungs: clear to auscultation Airway: Mallampati scale class II Neurological: alert and oriented Last oral intake: >/= 8 hours ASA classification: III Emergent: no Anesthetic plan: proceed Anesthesia type and monitoring: general ETT and standard monitoring Results Review: All pre-operative results and documents have been reviewed as part of the pre-operative evaluation. Informed Consent: The patient's anesthetic plan and its attendant risks and benefits were discussed with the patient/family/POA. Questions were solicited and answers provided to the satisfaction of the patient/family/POA.
--- NOTE | 2024-09-18 09:15 | WPDANESPNB ---
Anes - Peripheral Nerve Block Date/Time: 09/18/24 09:15 I have discussed with the patient/family/POA the placement of a peripheral nerve block for post-operative pain management, including associated risks, benefits, complications, and side effects. Alternative methods of post-operative analgesia were detailed. Questions were solicited and answers provided to the satisfaction of the patient/family/POA. Time-Out: A pre-procedural Time-Out was completed immediately before starting the procedure and confirmed: Patient Identification, Site, Procedure, Patient Position and the Availability of Requisite Equipment. Clinical Indications: Acute post-operative pain management requested by the operative surgeon. Nerve Block Insertion Note Anes-nerve block: interscalene right Patient position: supine Skin prep: chlorhexidine Needle: 22 gauge, stimulating, insulated echogenic needle. Needle length: 50 mm Technique: ultrasound Injectate: bupivacaine 0.5% with epi 5 mcg/ml (20cc- no epi) Observations: tolerated well Complications: none Procedure start time:: 1000 Procedure end time:: 1005
[2024-09-18] MEDS: TRANEXAMIC ACID 1,000MG/ISO100 1,000 MG/100 ML BAG 200 MG IVPB (09:30)
[2024-09-18] MEDS: ceFAZolin 2 GM in SODIUM CHLORIDE 0.9% IV 50 ML 100 ML IVPB (10:08)
[2024-09-18] MEDS: SODIUM CHLORIDE 0.9% IV 38.7 ML, MORPHINE SULFATE INJ (*CRX) 2 MG, ROPivacaine HCL 1% 2... INFILTRATE (10:46)
[2024-09-18] MEDS: VANCOMYCIN HCL 1,000 MG VIAL 1000 MG TOPICAL (10:47)
[2024-09-18] MEDS: GENTAMICIN BONE CEMENT REFOBACIN 1 EACH TOPICAL (11:49)
--- NOTE | 2024-09-18 13:25 | W.PM.PROC2 ---
Procedure Note - Detailed Date of Procedure 09/18/24 Pre-op Diagnosis Rheumatoid arthritis right shoulder Post-op Diagnosis Same Procedure Performed Reverse total shoulder arthroplasty, right Surgeon Raoul Chong MD Anesthesia General and Regional (Interscalene block.) Findings Severe disease with superior and anterior glenoid erosion. 10 degree augment placed at the 1:30 position superior and anterior on the glenoid. Osteopenia. Supplemental cement placed on the humeral stem. Description of Procedure The patient was given an interscalene block in the preoperative area. Preoperative antibiotics were given. The patient was transferred to the operating room and a general anesthetic was administered. The beach chair position was used at 45 degrees. All bony prominences were padded. The head was carefully stabilized on the [facility] heading machine operator. A sterile prep and drape was performed in the usual manner with ChloraPrep. A longitudinal incision was created at the anterior shoulder just lateral to the deltopectoral interval. Careful dissection was performed to expose the interval and protect the cephalic vein. The vein was retracted medially. Anterior circumflex vessel branches were suture ligated. The biceps was tenodesed. A subscapularis tenotomy was performed. The inferior capsule was released, exposing the humeral head. Osteophytes were removed. Care was taken to stay on bone to protect the axillary nerve. The neck anteversion and inclination were carefully assessed. Version was between 20? and 30?. The anatomic head cut was taken with the oscillating saw. The cut protector was placed, and attention was turned to the glenoid. Retractors were placed. Releases were carried out for exposure. The subscapularis was mobilized, the inferior capsule and long head of triceps released, and the superior and middle glenohumeral ligaments released as well. Labral tissue was resected as needed. Version and inclination were corrected according to preoperative templating. The sizing template was used to assess the baseplate position low on the glenoid, with an approximate 5 degrees correction of anteversion and 10 degrees of inclination. A guide pin was placed. Minimal reaming was used to accomplish a flat surface without violating the subchondral bone. The boss was drilled, and the real component was impacted into position. The central compression screw was placed. Supplemental locking screws were placed anteriorly, and inferiorly. The posterior superior quadrant once very short screw and was avoided to minimize risk stress fracture and nerve irritation, based on the 3D preop plan. The glenosphere was impacted into the taper. Attention was turned to the humerus. The guide pin was placed, central drilling performed, and the broach trial inserted. The proximal humerus was reamed for the inset component. The humeral components were trialed. The real humeral stem, tray, and insert were impacted into position. Supplemental cement was placed on the stem due to osteopenia. The shoulder was copiously irrigated periodically with pulsatile lavage. The shoulder was reduced and stability confirmed. 1 gram of Vancomycin powder was placed in the joint. The biceps tenodesis was tenodesed. The remaining tissue was closed with 2-0 Vicryl, 3-0 Stratafix and 4-0 Stratafix, and steri-strips. A sterile silver occlusive dressing and shoulder immobilizer were placed. The patient was transferred to the recovery room. Implants Shoulder [employer] reverse TSA size 1 stem. +0 polyethylene insert. 10 augmented baseplate. 33 + 3 mm glenosphere. Estimated Blood Loss 100 Drains No Pathology None sent Complications No immediate complications Condition Stable Disposition PACU [facility] Billing Surgery - Charge Forward: Surgery Billing
--- NOTE | 2024-09-18 14:12 | ADMGEN ---
This patient, Marlen Cifuentes, was admitted to [facility] Surg Room 328-01. Patient/family oriented to hospital policies and general routines including ID bracelet, bed and alarms, visiting hours, pain management, procedures, bathroom and other care routines, personal items, smoking policy, room service/diet, and visiting hours. Information on how to activate the Rapid Response Team has been discussed. Patient/Family are encouraged to report perceived risks to care and to ask questions if they do not understand what they are told or what they should do.
[2024-09-18] MEDS: ACETAMINOPHEN 325 MG TABLET 650 MG PO ×2 (14:27→18:11)
[2024-09-18] MEDS: ceFAZolin 2 GM in DEXTROSE 5% IN WATER 50 ML 100 ML IVPB (18:09)
[2024-09-18] MEDS: oxyCODONE/ACETAMINOPHEN (*CRX) 5-325 MG TABLET 1 TABLET PO (18:10)
[2024-09-18] MEDS: SENNA/DOCUSATE SODIUM TABLET 2 TAB PO (18:11)
[2024-09-18] MEDS: FLUTICASONE/UMECLIDIN/VILANTER 100-62.5-25 MCG ELLIPTA 2 PUFF INHALATION (20:25)
[2024-09-18] MEDS: WATER FOR IRRIGATION, STERILE 500 ML BOTTLE (20:31)
[2024-09-19] VITALS (7 sets, daily range): BP systolic 128–146; BP diastolic 61–76; PULSE 68–96; RESP 16–18; TEMP 36.5–36.8; O2SAT 93–99
[2024-09-19] MEDS: ACETAMINOPHEN 325 MG TABLET 650 MG PO ×3 (00:04→11:58)
[2024-09-19] MEDS: ceFAZolin 2 GM in DEXTROSE 5% IN WATER 50 ML 100 ML IVPB ×2 (02:29→11:57)
[2024-09-19] MEDS: LEVOTHYROXINE SODIUM 25 MCG TABLET PO (06:03)
[2024-09-19 06:38] LABS: Hematocrit 41.4 % (37.0-47.0); Hemoglobin 13.3 g/dL (12.0-15.0); Immature Granulocyte Percent A 0.4 % (0-0.5); Lymphocytes Absolute Auto 1.19 K/mm3 (0.9-3.2); Mean Corpuscular HGB Conc 32.1 g/dl (32-36); Mean Corpuscular Hemoglobin 31.7 pg (26-34); Mean Corpuscular Volume 98.8 fl (80-100); Nucleated Red Blood Cells Absolute Auto 0.000 K/mm3 (0.0-0.012); Nucleated Red Blood Cells Perc 0.0 % (0.0-0.2); Platelet Count Result 254 k/mm3 (150-375); Red Blood Count 4.19 M/mm3 (4.2-5.4); White Blood Count 16.2 K/mm3 (4.5-10.0)
[2024-09-19 07:05] LABS: Anion Gap 6 mmol/L (4-12); Blood Urea Nitrogen 11 mg/dL (7-17); Calcium 8.9 mg/dL (8.4-10.2); Carbon Dioxide 30 mmol/L (22-30); Chloride 99 mmol/L (98-107); Estimated CRCL calculation 114 ml/min; Estimated Glomerular Filt Rate > 60; Glucose 110 mg/dL (65-110); Potassium 3.3 mmol/L (3.4-5.0); Sodium 135 mmol/L (137-145)
[2024-09-19] MEDS: oxyCODONE/ACETAMINOPHEN (*CRX) 5-325 MG TABLET 1 TABLET PO (07:15)
[2024-09-19] MEDS: FLUTICASONE/UMECLIDIN/VILANTER 100-62.5-25 MCG ELLIPTA 2 PUFF INHALATION (08:56)
[2024-09-19] MEDS: CHLORTHALIDONE 25 MG TABLET 50 MG PO (09:31)
[2024-09-19] MEDS: ASPIRIN 81 MG ENTERIC TABLET PO (09:31)
[2024-09-19] MEDS: MONTELUKAST SODIUM 10 MG TABLET BY MOUTH (09:31)
[2024-09-19] MEDS: VERAPAMIL HCL 180 MG TABLET ER BY MOUTH (09:31)
[2024-09-19] MEDS: SENNA/DOCUSATE SODIUM TABLET 2 TAB PO (09:31)
[2024-09-19] MEDS: HYDROXYCHLOROQUINE SULFATE 200 MG TABLET 400 MG PO (09:31)
[2024-09-19] MEDS: ROSUVASTATIN 5 MG TABLET BY MOUTH (09:31)
[2024-09-19] MEDS: MULTIVITAMINS THERAPEUTIC TAB (*BKC) 1 TABLET PO (09:32)
[2024-09-19] MEDS: FLUTICASONE PROPIONATE 0.05% NA SPR 16 GM BTL (*BKC) 2 SPRAY NASAL (09:32)
[2024-09-19] MEDS: LORATADINE 10 MG TABLET PO (09:32)
--- NOTE | 2024-09-19 09:57 | PCPTNOTE ---
RN held PT at this time stating patient was not feeling well and unable to participate in PT. PT will continue to follow.
[2024-09-19] MEDS: oxyCODONE/ACETAMINOPHEN (*CRX) 10-325 MG TABLET 1 TAB PO (11:34)
== END 2024-09-19 13:47 | disposition home or self-care (01) ==
LOC: ANHSURGERY 10:18 → ANH3MEDSUR 13:54
PROVIDERS: PCP Nurse Practitioner Adult Health; Visit Provider Orthopaedic Surgery
PROC: (CPT 23472; principal; 2024-09-18 10:30)
DX: M19.011 Primary osteoarthritis, right shoulder (principal); E78.5 Hyperlipidemia, unspecified; I10 Essential (primary) hypertension; E03.9 Hypothyroidism, unspecified; J45.909 Unspecified asthma, uncomplicated; G47.33 Obstructive sleep apnea (adult) (pediatric); F12.90 Cannabis use, unspecified, uncomplicated; G89.18 Other acute postprocedural pain; E66.9 Obesity, unspecified; Z68.36 Body mass index [BMI] 36.0-36.9, adult; Z79.51 Long term (current) use of inhaled steroids; Z79.83 Long term (current) use of bisphosphonates; Z79.891 Long term (current) use of opiate analgesic; Z98.890 Other specified postprocedural states; Z80.9 Family history of malignant neoplasm, unspecified; Z82.49 Family history of ischemic heart disease and other diseases of the circulatory system
CPT/HCPCS: 64415; 23472; 36415; 73030; 80048; 85025; 86850; 86900; 86901; 94640; 97110; 97116; 97161; 97165; 97530; 97535; J0690; A4565; A9270; C1713; C1776; J0166; J1100; J1938; J2250; J2270; J2405; J2704; J2795; J3010; J3373; J7120

== ENCOUNTER 2024-09-27 11:26 | Emergency (ER) | payer OTHER, SELFPAY ==
--- OUTSIDE RECORDS SUMMARY | 2024-09-27 11:28 | XMS_ITS | Clinical Summary ---
Author Organization [facility] Address [address] [place] [id number] Care Team Providers Care [employer] District Supervisor Name Role Phone Leonora Terrazas NP Primary Care Provider [phone] Allergies Active Allergy Reactions Criticality Noted Date [...] on file Legal Sex Female 8:43 AM WATER MECHANIC Gender Identity Not on file Sexual Orientation Not on file Obstetrics History Last Filed Vital Signs Vital Sign Reading Time Taken Comments Blood Pressure 131/76 02/25/2016 7:18 AM WATER MECHANIC Pulse 89 02/25/2016 7:18 AM WATER MECHANIC Temperature - - Respiratory Rate - - Oxygen Saturation 93% 02/25/2016 7:18 AM WATER MECHANIC Inhaled Oxygen Concentration - - Weight 104.3 kg (229 lb 15 oz) 11/25/2020 12:07 PM CDT Height 172.7 cm (5' 8) 11/25/2020 12:07 PM CDT Body Mass Index 34.96 11/25/2020 12:07 PM CDT Plan of Treatment Not on file Insurance [employer] IBEW CIGNA IBEW CIGNA IBEW CIGYANG IBEW Care Teams [employer] Supervisor Relationship Specialty Start Date End Date Leonora Terrazas NP PCP - General 10/03/16
--- OUTSIDE RECORDS SUMMARY | 2024-09-27 11:28 | XMS_ITS | Clinical Summary ---
Author Organization [facility] Address [address] [place] [address] Care Team Providers Care Veneer Stock Layer Name Role Phone Kintigist Leonora FRANCO-MINE CAR REPAIRER Primary Care Provider + Source Comments [facility],non-owned Affiliates and Associated Physician Practices is amultiple site organization consisting of ambulatory clinics and hospital sitesin [place], [place], [place] and [place]. This disclosure is being madepursuant to the Care Everywhere program and may not contain all information available regarding this patient. Last updated 17.[facility] Allergies Active Allergy Reactions Criticality Noted Date [...] once daily Active vitamin D, ergocalciferol, (DRISDOL) 61815 UNITS capsule Take 50,000 Units by mouth [...] mouth once daily Active rizatriptan, disintegrating, (MAXALT TELECOMMUNICATIONS CLERK) 10 MG tablet Take 10 mg by [...] HEMOGLOBIN A1C (EXTERNAL RESULT ENTRY) (06/19/2017) Pathologist [facility] Hemoglobin A1c (EXTERNAL RESULT) 5.4 4 - 6 % Blood BLOOD SPECIMEN / Unknown 06/19/2017 Historical Provider LAB - CHEMISTRY ORDERABLE S Final Result * HEPATITIS C RNA QUANTITATIVE PCR (09/08/2016 12:39 PM CDT) Pathologist [facility] Hepatitis C Virus RNA IU/mL HCV Not Detected IU/mL [facility] ([facility]) Test Information [facility] ([facility]) Comment:The quantitative ran ge of this assay is 15 IU/mL to 100 million IU/mL. 09/08/2016 12:3 9 PM CDT 09/08/2016 Narrative [facility] ([facility]) - 09/10/2016 6:39 AM CDT Performed at: [facility] [id number] Sourcing Associate: Leonid Starks MD, Phone: [phone] Arlene Chen MD LAB - CHEMISTR Y ORDERABLES Final Result [facility] ([facility]) [address] [place] [id number] from Last 3 Months or Most Recently Relevant to Health Maintenance Insurance [facility] Care Teams Veneer Stock Layer Relationship Specialty Start Date End Date Leonora Terrazas APRN-CNP [address] [id number] PCP - General 08/22/17
--- OUTSIDE RECORDS SUMMARY | 2024-09-27 11:29 | XMS_ITS | Patient Health Record ---
Author Organization [facility] ([address]) Address [address] [place] [address] Care Team Providers Care Head Cashier Name Role Phone Leonora Lundy Primary Care Provider Maryam Maldonado Unavailable [phone] Missael Ruiz Unavailable [phone] Allergies Allergen (clinical drug ingredient) Drug/Non Drug [...] N/A as directed intranasally as needed Active Mcclain Nasal Moisturizer *Please review and pick correct strength-formul ation from Daily Pic options. If intended option is not shown, discontinue and re-order from Quick Search* Active FLONASE 50 mcg/inh 2 spray(s) intranasally Qday Active Verapamil HCl ER 180 MG 1 cap(s) orally once a day; Duration: 30 day(s) Active FAMOTIDINE 40 mg 1 tab(s) orally 1 hour prior to SCIT Active EPIPEN 2-RAMYA 0.3 mg as directed intramuscularly once Active SIT (TRADITIONAL) variable per schedule SC [...] each nostril Nasally Twice a day; Duration: 90 days Active ZyrTEC Allergy 10 MG 1 tab(s) orally onc e a day Active ROSUVASTATIN 5 mg 1 tab(s) orally once a day Not-Taking Triamcinolone Acetonide 0.1 % 1 jackson applied topically 3 times a day Active LEVOTHYROXINE 25 mcg (0.025 mg) 1 tab(s) orally once a day; Duration: 30 day(s) Not-Taking EpiPen 2-Ramya 0.3 MG/0.3ML as directed intramuscularly [...] Date Status Comme nts COVID-19 (Moderna) Unknown 05/17/2020 Administered DTaP < [...] Weekly Unknown 02/12/2005 Administered Portal Informati on COVID-19 (Moderna) Unknown 04/14/2020 Administered Social History Tobacco Use: Social History [...] W/U Status Risk Notes Problem Idiopathic urticaria (70298331) Idiopathic urticaria (L50.1) Active confirmed Problem Angioneurotic edema (64685942) Angioneurotic edema, initial encounter (T78.3XXA) Active confirmed Problem Eruption of skin (598799804) Rash and other nonspecific skin eruption (R21) Active confirmed Problem Chronic allergic conjunctivitis (35673540) Other chronic allergic conjunctivitis (H10.45) Active confirmed Problem Allergic rhinitis caused by pollen (disorder) (18455049) Allergic rhinitis due to pollen (J30.1) Active confirmed Problem Allergic rhinitis caused by animal hair and dander (226502525583849) Allergic rhinitis due to animal (cat) (dog) hair and dander (J30.81) Active confirmed Problem Allergic rhinitis (31298183) Other allergic rhinitis (J30.89) Active confirmed Problem Chronic rhinitis (19618809) Chronic rhinitis (J31.0) Active confirmed Problem Uncomplicated mild persistent asthma (953683379) Mild persistent asthma, uncomplicated (J45.30) Active confirmed Problem Allergic contact dermatitis caused by plant material (disorder) (4201088169739535 1) Allergic contact dermatitis due to plants, except food (L23.7) Active confirmed Problem Allergic contact dermatitis (135584329) Allergic contact dermatitis due to other agents (L23.89) Active confirmed Problem Elevated blood pressure reading without diagnosis of hypertension (063539269) Elevated blood-pressure reading, without diagnosis of hypertension (R03.0) Active confirmed Problem Allergic rhinitis caused by pollen (disorder) (80273391) Allergic rhinitis due to pollen (J30.1) Active confirmed Problem Allergic rhinitis caused by animal hair and dander (700905012399652) Allergic rhinitis due to animal (cat) (dog) hair and dander (J30.81) Active confirmed Problem Allergic rhinitis (05401789) Other allergic rhinitis (J30.89) Active confirmed Problem Uncomplicated moderate persistent asthma (620763017) Moderate persistent asthma, uncomplicated (J45.40) Active confirmed Problem Chronic allergic conjunctivitis (50156279) Other chronic allergic conjunctivitis (H10.45) Active confirmed Vital Signs Respiratory Rate 17 /min 05/22/2024 Blood pressure diastolic 76 mm Hg 05/22/2024 Oximetry 96 % 05/22/2024 Height 67 in 05/22/2024 Blood pressure systolic 137 mm Hg 05/22/2024 Weight 237 lbs 05/22/2024 BMI 37.12 kg/m2 05/22/2024 Encounters Encounter Location Date Provider Diagnosis [facility] [address] [place] [phone] 07/17/2024 Missael Ruiz Allergic rhinitis du e to pollen J30.1 ; Allergic rhinitis due to animal (cat) (dog) hair and dander J30.81 ; Other allergic rhinitis J30.89 and Other chronic allergic conjunctivitis H10.45 [facility] [address] [place] [phone] 06/19/2024 Missael Ruiz Allergic rhinitis du e to pollen J30.1 ; Allergic rhinitis due to animal (cat) (dog) hair and dander J30.81 ; Other allergic rhinitis J30.89 and Other chronic allergic conjunctivitis H10.45 [facility] [address] [place] [phone] 04/24/2024 Missael Ruiz Allergic rhinitis du e to pollen J30.1 ; Allergic rhinitis due to animal (cat) (dog) hair and dander J30.81 ; Other allergic rhinitis J30.89 and Other chronic allergic conjunctivitis H10.45 [facility] [address] [place] [phone] 03/27/2024 Missael Ruiz Allergic rhinitis du e to pollen J30.1 ; Allergic rhinitis due to animal (cat) (dog) hair and dander J30.81 ; Other allergic rhinitis J30.89 and Other chronic allergic conjunctivitis H10.45 [facility] [address] [place] [phone] 02/28/2024 Missael Ruiz Allergic rhinitis du e to pollen J30.1 ; Allergic rhinitis due to animal (cat) (dog) hair and dander J30.81 ; Other allergic rhinitis J30.89 and Other chronic allergic conjunctivitis H10.45 [facility] [address] [place] [phone] 01/31/2024 Missael Ruiz Allergic rhinitis du e to pollen J30.1 ; Allergic rhinitis due to animal (cat) (dog) hair and dander J30.81 ; Other allergic rhinitis J30.89 and Other chronic allergic conjunctivitis H10.45 [facility] [address] [place] [phone] 01/03/2024 Missael Joseph Allergic rhinitis du e to pollen J30.1 ; Allergic rhinitis due to animal (cat) (dog) hair and dander J30.81 ; Other allergic rhinitis J30.89 and Other chronic allergic conjunctivitis H10.45 [facility] [address] [place] [phone] 12/27/2023 Missael Joseph Allergic rhinitis du e to pollen J30.1 ; Allergic rhinitis due to animal (cat) (dog) hair and dander J30.81 ; Other allergic rhinitis J30.89 and Other chronic allergic conjunctivitis H10.45 [facility] [address] [place] [phone] 12/20/2023 Missael Joseph Allergic rhinitis du e to pollen J30.1 ; Allergic rhinitis due to animal (cat) (dog) hair and dander J30.81 ; Other allergic rhinitis J30.89 and Other chronic allergic conjunctivitis H10.45 [facility] [address] [place] [phone] 10/23/2023 Missaelyun Ruiz Allergic rhinitis du e to pollen J30.1 ; Allergic rhinitis due to animal (cat) (dog) hair and dander J30.81 ; Other allergic rhinitis J30.89 and Other chronic allergic conjunctivitis H10.45 [facility] [address] [place] [phone] 09/11/2024 Missael Ruiz Allergic rhinitis du e to pollen J30.1 ; Allergic rhinitis due to animal (cat) (dog) hair and dander J30.81 ; Other allergic rhinitis J30.89 and Other chronic allergic conjunctivitis H10.45 [facility] [address] [place] [phone] 05/22/2024 Maryam Trujillo Moderate persistent asthma, uncomplicated J45.40 ; Chronic rhinitis J31.0 ; Allergic rhinitis due to pollen J30.1 ; Allergic rhinitis due to animal (cat) (dog) hair and dander J30.81 ; Other allergic rhinitis J30.89 ; Other chronic allergic conjunctivitis H10.45 ; Allergic contact dermatitis due to other agents L23.89 and Allergic contact dermatitis due to plants, except food L23.7 [facility] [address] [place] [phone] 11/22/2023 Maryam Trujillo Moderate persistent asthma, uncomplicated J45.40 [...] blood-pressure reading, without diagnosis of hypertension R03.0 [facility] [address] [place] [phone] 08/14/2024 Missael Ruiz Allergic rhinitis du e to pollen J30.1 ; Allergic rhinitis due to animal (cat) (dog) hair and dander J30.81 ; Other allergic rhinitis J30.89 and Other chronic allergic conjunctivitis H10.45 [facility] [address] [place] [phone] 11/20/2023 Maryam Ronnie [facility] [address] [place] [phone] 11/20/2023 Maryam Ronnie [facility] [address] [place] [phone] 11/12/2023 Maryam Trujillo [address] [address] 09/16/2024 Maryam Ronnie Moderate persisten t asthma, uncomplicated J45.40 [facility] [address] [place] [address] 12/31/2023 Maryam Trujillo Moderate persistent asthma, uncomplicated J45.40 [facility] [address] [place] [address] 11/22/2023 Maryam Trujillo [facility] [address] [place] [address] 10/23/2023 Maryamallan Trujillo Moderate persistent asthma, uncomplicated J45.40 Assessments Encounter Date Diagnosis (ICD Code) Assessment Notes Treatment Notes Treatment Clinical Notes Section Notes 12/27/2023 Allergic rhinitis due to pollen (ICD-10 [...] - J45.40) 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 As above since 2021 she [...] Trelegy. Again want input by Pulmonary -IgE=33 QBT=769 -last CXR was normal 09/11/2024 Allergic rhinitis due to pollen (ICD-10 - J30.1) 08/14/2024 Allergic rhinitis due to pollen (ICD-10 - J30.1) 07/17/2024 Allergic rhinitis due to pollen (ICD-10 - J30.1) 06/19/2024 Allergic rhinitis due to pollen (ICD-10 - J30.1) 09/16/2024 Moderate persistent asthma, uncomplicated (ICD-10 - J45.40) 05/22/2024 Chronic rhinitis (ICD-10 - J31.0) Previously treated with nasal washes and Mupirocin with clean q-tip BID x 5 days. 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 As above since 2021 she [...] Trelegy. Again want input by Pulmonary -IgE=33 CST=322 -last CXR was normal 02/28/2024 Allergic rhinitis due to pollen (ICD-10 - J30.1) 12/20/2023 Allergic rhinitis due to pollen (ICD-10 - J30.1) 12/31/2023 Moderate persistent asthma, uncomplicated (ICD-10 - J45.40) 10/23/2023 Allergic rhinitis due to pollen (ICD-10 - J30.1) 10/23/2023 Moderate persistent asthma, uncomplicated (ICD-10 - J45.40) 10/23/2023 Allergic rhinitis due to animal (cat) (dog) hair and dander (ICD-10 - J30.81) 12/20/2023 Allergic rhinitis due to animal (cat) (dog) hair and dander (ICD-10 - J30.81) 02/28/2024 Allergic rhinitis due to animal (cat) (dog) hair and dander (ICD-10 - J30.81) 03/27/2024 Allergic rhinitis due to animal (cat) (dog) hair and dander (ICD-10 - J30.81) 04/24/2024 Allergic rhinitis due to animal (cat) [...] PRN in peak seasons for increased symptoms 06/19/2024 Allergic rhinitis due to animal (cat) (dog) hair and dander (ICD-10 - J30.81) 07/17/2024 Allergic rhinitis due to animal (cat) (dog) hair and dander (ICD-10 - J30.81) 08/14/2024 Allergic rhinitis due to animal (cat) (dog) hair and dander (ICD-10 - J30.81) 09/11/2024 Allergic rhinitis due to animal (cat) [...] PRN in peak seasons for increased symptoms 01/31/2024 Allergic rhinitis due to animal (cat) (dog) hair and dander (ICD-10 - J30.81) 01/03/2024 Allergic rhinitis due to animal (cat) (dog) hair and dander (ICD-10 - J30.81) 12/27/2023 Allergic rhinitis due to animal (cat) (dog) hair and dander (ICD-10 - J30.81) 12/27/2023 Other allergic rhinitis (ICD-10 - J30.89) 01/03/2024 Other allergic rhinitis (ICD-10 - J30.89) 01/31/2024 Other allergic rhinitis (ICD-10 - J30.89) 11/22/2023 Allergic rhinitis due to animal (cat) (dog) hair and dander (ICD-10 - J30.81) Follow allergen avoidance, meds and continue SCIT as an adjunctive treatment to current regimen. 09/11/2024 Other allergic rhinitis (ICD-10 - J30.89) 08/14/2024 Other allergic rhinitis (ICD-10 - J30.89) 07/17/2024 Other allergic rhinitis (ICD-10 - J30.89) 06/19/2024 Other allergic rhinitis (ICD-10 - J30.89) 04/24/2024 Other allergic rhinitis (ICD-10 - J30.89) 05/22/2024 Allergic rhinitis due to animal (cat) (dog) hair and dander (ICD-10 - J30.81) Follow allergen avoidance, meds and continue SCIT as an adjunctive treatment to current regimen. 03/27/2024 Other allergic rhinitis (ICD-10 - J30.89) 02/28/2024 Other allergic rhinitis (ICD-10 - J30.89) 12/20/2023 Other allergic rhinitis (ICD-10 - J30.89) 10/23/2023 Other allergic rhinitis (ICD-10 - J30.89) 12/20/2023 Other chronic allergic conjunctivitis (ICD-10 - H10.45) 10/23/2023 Other chronic allergic conjunctivitis (ICD-10 - H10.45) 04/24/2024 Other chronic allergic conjunctivitis (ICD-10 - H10.45) 02/28/2024 Other chronic allergic conjunctivitis (ICD-10 - H10.45) 03/27/2024 Other chronic allergic conjunctivitis (ICD-10 - H10.45) 05/22/2024 Other allergic rhinitis (ICD-10 - J30.89) Follow allergen avoidance, meds and continue SCIT as an adjunctive treatment to current regimen. 09/11/2024 Other chronic allergic conjunctivitis (ICD-10 - H10.45) 06/19/2024 Other chronic allergic conjunctivitis (ICD-10 - H10.45) 07/17/2024 Other chronic allergic conjunctivitis (ICD-10 - H10.45) 08/14/2024 Other chronic allergic conjunctivitis (ICD-10 - H10.45) 12/27/2023 Other chronic allergic conjunctivitis (ICD-10 - H10.45) 11/22/2023 Other allergic rhinitis (ICD-10 - J30.89) Follow allergen avoidance, meds and continue SCIT as an adjunctive treatment to current regimen. 01/31/2024 Other chronic allergic conjunctivitis (ICD-10 - [...] contraindication in the setting of allergen immunotherapy 05/22/2024 Other 11/22/2023 Other Plan Of Treatment Pending Test Test Name Order Date Alpha-1 Antitrypsin Phenotyp ing (Grifols AlphaID-Alphakit) Buccal Swab (FREE) 10/21/2020 Alpha-1 Antitrypsin Phenotyp ing (Grifols AlphaID-Alphakit) Buccal Swab (FREE) 01/27/2021 Next Appt Details Provider Name:Maryam EdwardsLisseth Trujillo , 11/20/2024 10:00:00 AM, [address], [address], Insurance Providers Payer Name Payer Address Payer Phone Subscriber Number Group Number Insured Name Patient Relationship to Insured Coverage Start Date Coverage End Date [employer] [address] [place] [address] [id number] Nitin Pemberton Spouse - patient is the [...]
[2024-09-27 11:41] VITALS: BP 131/58; PULSE 74; RESP 18; TEMP 36.3; O2SAT 98
[2024-09-27 12:00] LABS: EDSTREPNEGPOS1 Negative (Negative)
[2024-09-27 12:06] LABS: EDCOVIDSCREEN Negative (Negative)
[2024-09-27 12:07] LABS: EDINFLUASCREEN Negative (Negative); EDINFLUBSCREEN Negative (Negative)
--- NOTE | 2024-09-27 12:19 | ED_ITS ---
HPI - URI/Sore Throat General Chief Complaint: Upper Respiratory Infection Stated Complaint: Lt Ear Pain/sore throat Time Seen by Provider: 09/27/24 12:00 Source: patient and RN notes reviewed Mode of arrival: ambulatory Limitations: no limitations History of Present Illness HPI Narrative: 64-year-old female presents Express Care complaining of congestion, left ear pain, sore throat for approximately 9-10 days. Patient says symptoms started when she was in hospital for a right shoulder surgery. Since then the symptoms have persisted and she has not gotten much better. Patient denies any chest pain, shortness of breath, nausea, vomiting, diarrhea, abdominal pain, or any other symptoms. Patient has been taking Tylenol with some relief. Related Data Home Medications ?Medication ?Instructions ?Recorded ?Confirmed ?Last Taken ?Type cetirizine 10 mg tablet (Zyrtec) 10 mg PO DAILY 01/12/21 09/18/24 09/17/24 History fluticasone furoate 27.5 1 spray intranasal DAILY 01/12/21 09/18/24 09/17/24 History mcg/actuation nasal spray,suspension (Flonase Sensimist) rizatriptan 10 mg disintegrating 10 mg PO PRN PRN Migraine Headache 01/12/21 08/25/24 Unknown History tablet azelastine 137 mcg (0.1 %) nasal 137 mcg intranasal Q12H PRN 03/06/22 08/25/24 Unknown History spray Allergies multivitamin 1 tablet PO DAILY 03/06/22 09/18/24 09/15/24 History triamcinolone acetonide 0.1 % 1 applic topical BID PRN rash 01/08/23 08/25/24 Unknown History topical cream epinephrine 0.3 mg/0.3 mL 0.3 ml IM PRN 01/25/23 08/25/24 Unknown History injection, auto-injector budesonide 160 mcg-glycopyr 9 2 inh inhalation BID 03/28/23 09/18/24 09/18/24 History mcg-formot 4.8 mcg/actuation HFA inhaler (Breztri Aerosphere) hydroxychloroquine 200 mg tablet 400 mg PO DAILY 07/30/24 09/18/24 09/17/24 History (Plaquenil) leflunomide 20 mg tablet 20 mg PO DAILY 07/30/24 09/18/24 09/17/24 History acetaminophen 650 mg 1,300 mg PO Q12H PRN pain 08/25/24 08/25/24 Unknown History tablet,extended release (8 Hour Pain Reliever) vitamin D3 125 mcg (5,000 1 cap PO DAILY 08/25/24 09/18/24 09/15/24 History unit)-vitamin K2 180 mcg capsule (K2-D3 Max) Allergies Allergy/AdvReac Type Severity Reaction Status Date / Time acetone Allergy Severe ANAPHYLAXIS Verified 09/27/24 11:42 albuterol Allergy Severe Fainting Verified 09/27/24 11:42 pollen extracts Allergy Unknown Sneezing/ Verified 09/27/24 11:42 SHORTNESS OF BREATH Sulfa (Sulfonamide Allergy Unknown Rash AND Verified 09/27/24 11:42 Antibiotics) HIVES NSAIDS (Non-Steroidal AdvReac Unknown HX GI BLEED Verified 09/27/24 11:42 Anti-Inflamma omeprazole AdvReac Unknown Diarrhea Verified 09/27/24 11:42 Review of Systems Review of Systems: CONSTITUTIONAL: Denies fever, chills, body aches, or sweats. EYES: Denies visual changes, redness, or discharge. ENT: Positive fo congestion, sore throat, or otalgia. Negative for rhinorrhea. CARDIOVASCULAR: Denies chest pain, palpitations, or edema. RESPIRATORY: Negative for dyspnea, wheezing, difficulty breathing, or cough. GASTROINTESTINAL: Denies abdominal pain, nausea, vomiting, or diarrhea. GENITOURINARY: Denies dysuria or hematuria. SKIN: Denies rash or itching. MUSCULOSKELETAL: Denies back pain, joint pain, or myalgia. NEUROLOGIC: Denies headache, numbness, loss of consciousness, or weakness. PSYCHIATRIC: Denies anxiety or depression. All other systems reviewed are negative, except as documented in HPI. [facility] Past Medical History Medical History JAIMEE (obstructive sleep apnea) Allergic rhinitis Hyperlipidemia Obesity Migraine Hypertension Hypothyroid Asthma Surgical History Surgical History Status post reverse total arthroplasty of right shoulder History of total right hip replacement (~03/28/22) History of eye surgery (~1977) History of (~1984) History of myringotomy (~1986) Marino - w/Tube Placement History of adenoidectomy (~1986) History of kyphoplasty (~11/29/17) History of total left knee replacement (~07/30/18) Presence of left artificial knee joint Family History Family History Father Family history of chronic obstructive pulmonary disease Family history of congestive heart failure Other Family history of atrial fibrillation Family history of malignant neoplasm Family history of osteoarthritis Hypertension Social History Social History Smoking status: Never smoker Additional smoking assessment comments: DENIES ANY FORM OF TOBACCO USE Alcohol intake: never Substance use: never Other substance usage details: CBD GELS AT HS Do You Feel Safe in your Home?: Yes Lack of Transportation: No Lack of Food: Never True Current Housing: I Have Housing Concerned About Future Housing: No Difficulty Paying Gas/Electric Bills: No Difficulty Paying for Meds: No Currently Unemployed: No Education: Master's Degree or Higher Difficulty w/ Childcare or Family Care: No Living arrangements: with family Spiritual care concerns: No Comments At the time of my signature, I reviewed and agree with the nursing past medical, surgical, social, and family history. There is no relevant family history pertinent to the patient complaint. Exam Narrative: GENERAL: This is a well-nourished, well-developed adult, in no apparent distress. They are non ill-appearing, nontoxic appearing. Patient is wearing a shoulder immobilizer to the right arm. HEAD: normocephalic, atraumatic. EYES: Sclera clear/white. Vision is grossly intact. Conjunctiva normal bilaterally. Extraocular movements intact. Pupils PERRLA. EARS: External ears normal, auditory canals clear and without drainage, TMs without erythema or perforation. Hearing grossly intact. NOSE: External nose normal with no obvious nasal discharge, nasal turbinates erythematous, no rhinorrhea. THROAT: Mucous membranes moist, posterior pharynx erythematous without exudate. Uvula is midline. Postnasal drip present. NECK: Neck supple, non-tender without lymphadenopathy, masses or thyromegaly. CARDIOVASCULAR: Regular rate and rhythm without murmurs, gallops, or rubs. Peripheral pulses strong and palpable. RESPIRATORY: Clear to auscultation. Breath sounds equal bilaterally. No wheezes, rales, or rhonchi. SKIN: warm, Dry, intact with no suspicious lesions or rash, good texture and turgor. NEURO: awake, alert, and oriented to person, place and time. There were no obvious focal neurologic abnormalities. EXTREMITIES: No joint tenderness, effusion, or edema noted. BACK: Nontender without deformity. Course Course Emergency Course: Portions of this record may have been created with voice recognition software Level of Care: Express Care Visit Vital Signs Vital signs: Vital Signs Temperature 97.4 F L 09/27/24 11:41 Pulse Rate 74 09/27/24 11:41 Respiratory Rate 18 09/27/24 11:41 Blood Pressure 131/58 L 09/27/24 11:41 Pulse Oximetry 98 09/27/24 11:41 Oxygen Delivery Room Air 09/27/24 11:41 Temperature 97.4 F L 09/27/24 11:41 Pulse Rate 74 09/27/24 11:41 Respiratory Rate 18 09/27/24 11:41 Blood Pressure 131/58 L 09/27/24 11:41 Pulse Oximetry 98 09/27/24 11:41 Oxygen Delivery Room Air 09/27/24 11:41 MDM - URI/Sore Throat MDM Narrative Medical decision making narrative: Rapid COVID, flu, strep negative. A throat culture pending. The patient's length of symptoms is likely she has a bacterial sinusitis. Will prescribe Augmentin. Discussed physical exam findings. Advised supportive measures and signs/symptoms to go to the ER. Pt is appropriate for outpt treatment and f/u. Differential Diagnosis Differential diagnosis: Likely upper respiratory infection, otitis media, sinusitis, viral infection and pharyngitis Lab Data Attestation: I reviewed the patient's lab results. Labs: Lab Results 09/27/24 09/27/24 Range/Units 11:58 12:05 POC Influenza A Ag Negative (Negative) POC Influenza B Ag Negative (Negative) POC SARS CoV-2 Ag Negative (Negative) POC Grp A Strep Screen Negative (Negative) Discharge Plan Discharge Clinical Impression: Sinusitis Patient Disposition: Home Condition: Stable Instructions: Antibiotic Form, Sinusitis (ED) Additional Instructions: Take the antibiotics as directed and complete the course even if you start to feel better. You may use a Neti pot saline rinse 3 times a day with lukewarm distilled water Continue to take Tylenol. Follow the instructions on the bottle Use a humidifier or vaporizer at night. Drink plenty of water. Use flonase 2 times per day for 5 days then as needed Take mucinex 2 times per day and be sure to take with 8oz of water. Follow up with Primary provider in 3-5 days Please go to the ER if he develops any difficulty breathing, worsening symptoms, dizziness, lightheadedness, loss of conscious, chest pain, shortness of breath, nausea, vomiting a or any other concerns Patient Language: Thai Prescriptions: New amoxicillin-pot clavulanate 875-125 mg tablet 1 tablet PO Q12H 7 Days Qty: 14 0RF No Action triamcinolone acetonide 0.1 % cream 1 applic TOPICAL BID PRN (Reason: rash) epinephrine 0.3 mg/0.3 mL auto-injector 0.3 ml IM PRN Flonase Sensimist 27.5 mcg/actuation spray,suspension 1 spray intranasal DAILY Patient Comments: TAKES AT HS Rx Instructions: into each nostril azelastine 137 mcg (0.1 %) aerosol,spray 137 mcg intranasal Q12H PRN (Reason: Allergies) Rx Instructions: administer into each nostril Breztri Aerosphere 160-9-4.8 mcg/actuation HFA aerosol inhaler 2 inh inhalation BID leflunomide 20 mg tablet 20 mg PO DAILY hydroxychloroquine [Plaquenil] 200 mg tablet 400 mg PO DAILY rizatriptan 10 mg tablet,disintegrating 10 mg PO PRN PRN (Reason: Migraine Headache) cetirizine [Zyrtec] 10 mg Tablet 10 mg PO DAILY multivitamin Tablet 1 tablet PO DAILY K2-D3 Max 125 mcg (5,000 unit)-180 mcg capsule 1 cap PO DAILY acetaminophen [8 Hour Pain Reliever] 650 mg tablet extended release 1,300 mg PO Q12H PRN (Reason: pain) aspirin [Enteric Coated Aspirin] 81 mg tablet,delayed release (DR/EC) 81 mg PO DAILY Qty: 14 0RF oxycodone-acetaminophen 5-325 mg tablet 1 - 2 tablet PO Q6H MDD 6 tablets PRN (Reason: pain) Qty: 30 0RF valacyclovir 1 gram tablet 1,000 mg PO DAILY PRN (Reason: Cold Sores) Qty: 30 2RF alendronate 70 mg tablet See Rx Instructions .ROUTE .COMPLEX Qty: 12 3RF Dose Instruction: TAKE 1 TABLET BY MOUTH WEEKLY Patient Comments: TAKES ON SUNDAYS Rx Instructions: TAKE 1 TABLET BY MOUTH WEEKLY verapamil 180 mg tablet extended release See Rx Instructions .ROUTE .COMPLEX Qty: 90 3RF Dose Instruction: TAKE 1 TABLET BY MOUTH AT BEDTIME Rx Instructions: TAKE 1 TABLET BY MOUTH AT BEDTIME montelukast 10 mg tablet See Rx Instructions .ROUTE .COMPLEX Qty: 90 3RF Dose Instruction: TAKE 1 TABLET BY MOUTH EVERY DAY Rx Instructions: TAKE 1 TABLET BY MOUTH EVERY DAY chlorthalidone 50 mg tablet See Rx Instructions .ROUTE .COMPLEX Qty: 90 3RF Dose Instruction: TAKE 1 TABLET BY MOUTH EVERY MORNING Rx Instructions: TAKE 1 TABLET BY MOUTH EVERY MORNING rosuvastatin 5 mg tablet See Rx Instructions .ROUTE .COMPLEX Qty: 90 3RF Dose Instruction: TAKE 1 TABLET BY MOUTH AT BEDTIME Rx Instructions: TAKE 1 TABLET BY MOUTH AT BEDTIME tramadol 50 mg tablet 50 mg PO Q8H PRN (Reason: pain) Qty: 60 0RF levothyroxine 25 mcg tablet 25 mcg PO DAILY Qty: 90 3RF Patient Comments: TAKES 12.5MCG DAILY Follow-up/Referrals: Leonora Terrazas APRN [Primary Care Provider] - Time of Disposition: 12:13
== END 2024-09-27 12:17 | disposition home or self-care (01) ==
PROVIDERS: PCP Nurse Practitioner Adult Health
DX: J32.9 Chronic sinusitis, unspecified (principal); Z20.822 Contact with and (suspected) exposure to COVID-19; E78.5 Hyperlipidemia, unspecified; I10 Essential (primary) hypertension; E03.9 Hypothyroidism, unspecified; J45.909 Unspecified asthma, uncomplicated; E66.9 Obesity, unspecified; Z68.33 Body mass index [BMI] 33.0-33.9, adult; Z96.652 Presence of left artificial knee joint; Z96.641 Presence of right artificial hip joint; Z96.611 Presence of right artificial shoulder joint
CPT/HCPCS: 87081; 87426; 87804; 87880; 99213; G0463

== ENCOUNTER 2025-01-02 14:05 | Emergency (ER) | payer OTHER, SELFPAY ==
--- OUTSIDE RECORDS SUMMARY | 2024-12-04 11:30 | XMS_ITS ---
Author Organization [facility] [employer] [place] ([address]) Address [address] [place] [address] Care Team Providers Care Retail Planner Name Role Phone Leonora Lundy Primary Care Provider María Elena Maryam Paredes Unavailable [phone] Missael Ruiz Unavailable [phone] REASON FOR VISIT SCIT - Traditional Schedule Allergy immunotherapy Social History Sex Assigned At : Social History Observation Description Sex Assigned At Female Encounters Encounter Location Date Provider Diagnosis [facility] [address] [place] [address] 12/04/2024 Missael Ruiz Allergic rhinitis du e to pollen J30.1 ; Allergic rhinitis due to animal (cat) (dog) hair and dander J30.81 ; Other allergic rhinitis J30.89 and Other chronic allergic conjunctivitis H10.45 Assessments Encounter Date Diagnosis (ICD Code) Assessment Notes Treatment Notes Treatment Clinical Notes Section Notes 12/04/2024 Allergic rhinitis due to pollen (ICD-10 - J30.1) 12/04/2024 Allergic rhinitis due to animal (cat) (dog) hair and dander (ICD-10 - J30.81) 12/04/2024 Other allergic rhinitis (ICD-10 - J30.89) 12/04/2024 Other chronic allergic conjunctivitis (ICD-10 - H10.45) Plan Of Treatment Next Appt Details Follow Up: 2 Weeks, Reason: Provider Name:Missael Ruiz , 01/05/2025 10:00:00 AM, [address], [address], [place], [address], Provider Name:Missael Menon Joseph , 01/15/2025 10:30:00 AM, [address] [facility], [address] [facility], [place], [address], Provider Name:Missael Menon Joseph , 02/16/2025 10:30:00 AM, [address] [facility], [address] [facility], [place], [address], Provider Name:Maryam EdwardsLisseth Trujillo , 05/21/2025 10:00:00 AM, [address] [facility], [address], [address], Progress Notes * Marlen PEMBERTONDOB:1960 ( 64 yo F)Acc No.[id number]:12/04/2024 SCIT-Aeroallergen Patient: Rick Marlen EMANUEL Provider: Lorrie Ruiz MD :1960 A ge:64 Y S ex:Female Date:12/04/2024 Address:[address] [place], [place] [id number] Pcp:Leonora Terrazas [facility]- Subjective: * Chief Complaints: * 1 . [...] Information: * Visit Code: * Procedure Codes: 88221 IMMUNOTHERAPY INJECTIONS. * Electronic signature of Janina Ruiz MD, FAAAAI on 01/02/2025 at 02:07 PM ROLE PLAYER Sign off status: Pending * Provider: Lorrie Ruiz MD Date: Generated for Sukhjinder zayas/Wale/Yumiko on: 03/04/2024 02:07 PM ROLE PLAYER History and Physical Notes * HPI (History [...]
--- OUTSIDE RECORDS SUMMARY | 2024-12-18 11:30 | XMS_ITS ---
Author Organization [facility] [employer] [facility] [place] ([address]) Address [address] [place] [address] Care Team Providers Care Television Production Clerk Name Role Phone Leonora Lundy Primary Care Provider María Elena Maryam Paredes Unavailable [phone] Missael Ruiz [phone] REASON FOR VISIT SCIT (Aeroallergen) Social History Sex Assigned At : Social History Observation Description Sex Assigned At Female Encounters Encounter Location Date Provider Diagnosis [facility] [address] [place] [address] 12/18/2024 Missael Ruiz Plan Of Treatment Next Appt Details Provider Name:Missael Ruiz , 01/05/2025 10:00:00 AM, [address] [employer], [address], [place], [address], Provider Name:Missael Ruiz , 01/15/2025 10:30:00 AM, [address], [address], [place], [address], Provider Name:Missael Ruiz , 02/16/2025 10:30:00 AM, [address] [employer], [address], [place], [address], Provider Name:Maryam Trujillo , 05/21/2025 10:00:00 AM, [address] [employer], [address], [place], [address], Progress Notes * Marlen PEMBERTONDOB:1960 ( 64 yo F)Acc No.[id number]:12/18/2024 SCIT-Aeroallergen Patient: Marlen LUI Provider: Lorrie Ruiz MD :1960 A ge:64 Y S ex:Female Date:12/18/2024 Address:[address] [place], [place] [id number] Pcp:Leonora Terrazas ANP- Subjective: * Chief Complaints: * 1 . SCIT (Aeroallergen). * Medical History: Objective: * Vitals: Assessment: Plan: * Treatment: * Billing Information: * Visit Code: * Procedure Codes: * Electronic signature of Janina Ruiz MD, FAAAAI on 01/02/2025 at 02:07 PM CAKE MAKER Sign off status: Pending * Provider: Lorrie Ruiz MD Date: 02/18/2024 Generated for Printi ng/Farockg/eTransmitting on: 03/04/2024 02:07 PM CAKE MAKER
--- OUTSIDE RECORDS SUMMARY | 2025-01-02 14:07 | XMS_ITS | Clinical Summary ---
Author Organization [facility] Address [address] [place] [address] Care Team Providers Care Ground Control Approach Technician Name Role Phone Kintigist Leonora FRANCO-MUSEUM PREPARATOR Primary Care Provider + Source Comments [facility],non-owned Affiliates and Associated Physician Practices is amultiple site organization consisting of ambulatory clinics and hospital sitesin [place], [place], [place] and [place]. This disclosure is being madepursuant to the Care Everywhere program and may not contain all information available regarding this patient. Last updated 17.[facility] Allergies Active Allergy Reactions Criticality Noted Date [...] once daily Active vitamin D, ergocalciferol, (DRISDOL) 38340 UNITS capsule Take 50,000 Units by mouth [...] mouth once daily Active rizatriptan, disintegrating, (MAXALT SALT CUTTER) 10 MG tablet Take 10 mg by [...] 08/20/1975 DTAP/TDAP/TD VACCINES (1 - Tdap) 08/20/1979 PAP SMEAR 1981 Cervical Cancer Screening 1990 PAP with HPV 1990 PNEUMOCOCCAL VACCINE 50+ (1 of 1 - PCV) 2010 ZOSTER VACCINE (1 of 2) 2010 SCREENING FOR DIABETES 06/19/2020 8, 06/19/2017 LIPID TESTING 06/19/2022 06/19/2017, 06/19/2017 DEPRESSION SCREENING 02/13/2024 COVID-19 VACCINE (1 - 2024-2 6 season) 2024 INFLUENZA VACCINE (#1) 2024 Respiratory Syncytial Virus [...] HEMOGLOBIN A1C (EXTERNAL RESULT ENTRY) (06/19/2017) Pathologist [facility] Hemoglobin A1c (EXTERNAL RESULT) 5.4 4 - 6 % Blood BLOOD SPECIMEN / Unknown 06/19/2017 Historical Provider LAB - CHEMISTRY ORDERABLE S Final Result * HEPATITIS C RNA QUANTITATIVE PCR (09/08/2016 12:39 PM CDT) Pathologist [facility] Hepatitis C Virus RNA IU/mL HCV Not Detected IU/mL [facility] ([facility]) Test Information [facility] ([facility]) Comment:The quantitative ran ge of this assay is 15 IU/mL to 100 million IU/mL. 09/08/2016 12:3 9 PM CDT 09/08/2016 Narrative [facility] ([facility]) - 09/10/2016 6:39 AM CDT Performed at: - [address] [id number] Loan Analyst: Leonid Starks MD, Phone: [phone] Arlene Chen MD LAB - CHEMISTR Y ORDERABLES Final Result [facility] ([facility]) [address] [place] [address] from Last 3 Months or Most Recently Relevant to Health Maintenance Insurance [facility] CARE Care Teams Ground Control Approach Technician Relationship Specialty Start Date End Date Leonora Terrazas APRN-CNP [address] [address] PCP - General 08/22/17
--- OUTSIDE RECORDS SUMMARY | 2025-01-02 14:07 | XMS_ITS | Clinical Summary ---
Author Organization [facility] Address [address] [place] [address] Care Team Providers Care Terrazzo Supervisor Name Role Phone Leonora Terrazas NP Primary Care Provider [phone] Allergies Active Allergy Reactions Criticality Noted Date [...] on file Legal Sex Female 8:43 AM ITALIAN LECTURER Gender Identity Not on file Sexual Orientation Not on file Last Filed Vital Signs Vital Sign Reading Time Taken Comments Blood Pressure 131/76 02/25/2016 7:18 AM ITALIAN LECTURER Pulse 89 02/25/2016 7:18 AM ITALIAN LECTURER Temperature - - Respiratory Rate - - Oxygen Saturation 93% 02/25/2016 7:18 AM ITALIAN LECTURER Inhaled Oxygen Concentration - - Weight 104.3 kg (229 lb 15 oz) 11/25/2020 12:07 PM CDT Height 172.7 cm (5' 8) 11/25/2020 12:07 PM CDT Body Mass Index 34.96 11/25/2020 12:07 PM CDT Plan of Treatment Not on file Insurance CIGNA IBEW CIGNA IBEW CIGNA IBEW CIGYANG IBEW Care Teams Terrazzo Supervisor Relationship Specialty Start Date End Date Leonora Terrazas NP PCP - General 10/03/16
--- OUTSIDE RECORDS SUMMARY | 2025-01-02 14:08 | XMS_ITS | Patient Health Record ---
Author Organization [facility] [employer] [facility] [place] ([id number]) Address [address] [place] [address] Care Team Providers Care House Supervisor Name Role Phone Leonora Lundy Primary Care Provider Maryam Maldonado Unavailable [phone] Missael Ruiz Unavailable [phone] Allergies Allergen (clinical drug ingredient) Drug/Non Drug Allergy documented on EMR Reaction Allergy Type Onset Date Status omeprazole Omeprazole diarrhea Drug Allergy Activ e Sulfamethoxazole hives Drug Allergy Active albuterol Ventolin HFA other reaction Drug Allergy Active Reason For Referral No Information Medications Medication SIG (Take, Route, Frequency, Duration) Notes Start Date End Date Status EPIPEN 2-ANATOLY 0.3 mg as directed intramuscularly once Active valACYclovir HCl 1 GM 1 tab(s) orally 2 times a day; Duration: 10 day(s) Active FAMOTIDINE 40 mg 1 tab(s) orally 1 hour prior to SCIT Active SIT (TRADITIONAL) variable per schedule SC per schedule; Duration: to be determined Active TRIAMCINOLONE TOPICAL 0.1% 1 jackson applied topically 3 times a day Active Fosamax 70 MG 1 tab(s) orally once a week Active VENTOLIN HFA 90 mcg/inh 2 puff(s) inhale d every 6 hours; Duration: 30 day(s) Not-Taking ZYRTEC 10 mg 1 tab(s) orally once a day Active Chlorthalidone 50 MG 1 tab(s) orally onc e a day; Duration: 30 day(s) Active AZELASTINE HYDROCHLORIDE NASAL 137 mcg/inh 2 spray(s) intranasally 2 times a day; Duration: 30 days Not-Taking FLONASE 50 mcg/inh 2 spray(s) intranasally Qday Active Levothyroxine Sodium 25 MCG 1 tab(s) orally once a day; Duration: 30 days Active NASAL WASHES N/A as directed intranasally as needed Active Rosuvastatin Calcium 5 MG 1 tab(s) orally once a day Active EpiPen 2-Anatoly 0.3 MG/0.3ML as directed intramuscularly once Active RIZATRIPTAN 10 mg 1 tab(s) orally once a day Not-Taking Famotidine 40 MG 1 tab(s) orally 1 hour prior to SCIT Active VERAPAMIL 180 mg/24 hours 1 cap(s) orally once a day; Duration: 30 day(s) Not-Taking Montelukast Sodium 10 MG 1 tab(s) orally once a day Active 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 Not-Taking LEVALBUTEROL TARTRATE HFA 45 MCG/INH 2 PUFF(S) INHALED EVERY 4 HOURS; Duration: 30 DAYS *Please review for potential replacement for e-prescription and drug interaction check* Active TRELEGY ELLIPTA 200 mcg-62.5 mcg-25 mcg/inh INHALE 1 PUFF BY MOUTH EVERY DAY; Duration: 90 Not-Taking LEVOTHYROXINE 25 mcg (0.025 mg) 1 tab(s) orally once a day; Duration: 30 day(s) Not-Taking ROSUVASTATIN 5 mg 1 tab(s) orally once a day Not-Taking Flonase Allergy Relief 50 MCG/ACT 2 spray(s) intranasally Qday Active VALACYCLOVIR 1 g 1 tab(s) orally 2 times a day; Duration: 10 day(s) Not-Taking Triamcinolone Acetonide 0.1 % 1 jackson applied topically 3 times a day Active ZyrTEC Allergy 10 MG 1 tab(s) orally onc e a day Active Azelastine HCl 137 MCG/SPRAY 2 sprays in each nostril Nasally Twice a day; Duration: 30 days As needed Active AZELASTINE HYDROCHLORIDE NASAL 137 mcg/inh 2 spray(s) intranasally 2 times a day Not-Taking traMADol HCl 50 MG 1 tablet as needed Orally every 8 hrs Active Trelegy Ellipta 200 MCG-62.5 MCG-25 MCG/INH INHALE 1 PUFF BY MOUTH EVERY DAY; Duration: 90 *Please review and pick correct strength-formul ation from [employer]Rates options. If intended option is not shown, discontinue and re-order from Quick Search* Not-Taking Leflunomide 20 MG 1 tablet Orally Once a day Active FOSAMAX 70 mg 1 tab(s) orally once a week Not-Taking Hydroxychloroquine Sulfate 200 MG as directed Orally Active CHLORTHALIDONE 50 mg 1 tab(s) orally onc e a day; Duration: 30 day(s) Not-Taking MONTELUKAST 10 mg 1 tab(s) orally once a day Active Holt Nasal Moisturizer *Please review and pick correct strength-formul ation from iRates options. If intended option is not shown, discontinue and re-order from Quick Search* Active BREZTRI AEROSPHERE 160 mcg-4.8 mcg-9 mcg/inh 2 puff(s) inhaled 2 times a day0; Duration: 90 days Active Breztri Aerosphere 160-9-4.8 MCG/ACT INHALE 2 PUFFS BY MOUTH TWICE A DAY Inhalation Twice a day; Duration: 30 days Active Xopenex HFA 45 MCG/ACT 2 puffs Inhalatio n every 4 hrs; Duration: 30 days Active Azelastine HCl 137 MCG/SPRAY 2 sprays in each nostril Nasally Twice a day; Duration: 90 days Active Triamcinolone Acetonide 0.1 % 1 application Externally Twice a day; Duration: 5 days Active Ventolin HFA 108 (90 Base) MCG/ACT 2 puff(s) inhaled every 6 hours; Duration: 30 day(s) Not-Taking Rizatriptan Benzoate 10 MG 1 tab(s) orally once a day Active Verapamil HCl ER 180 MG 1 cap(s) orally once a day; Duration: 30 day(s) Active Immunizations Vaccine Route Administration Date Status [...] stop date) Never Smoker NA - NA Sex Assigned At : Social History Observation Description Sex Assigned At Female Tobacco Control (Standard) Question Answer Notes Tobacco use: Nonsmoker AUDIT-C (Standard) Question Answer Notes Did you have a drink containing alcohol in the p ast year? No Points 0 Interpretation Negative Problems Problem Type SNOMED Code ICD Code Onset Dates Problem Status W/U Status Risk Notes Problem Idiopathic urticaria (95349660) Idiopathic urticaria (L50.1) Active confirmed Problem Angioneurotic edema (79854018) Angioneurotic edema, initial encounter (T78.3XXA) Active confirmed Problem Eruption of skin (075684175) Rash and other nonspecific skin eruption (R21) Active confirmed Problem Chronic allergic conjunctivitis (44776238) Other chronic allergic conjunctivitis (H10.45) Active confirmed Problem Allergic rhinitis caused by pollen (disorder) (64649816) Allergic rhinitis due to pollen (J30.1) Active confirmed Problem Allergic rhinitis caused by animal hair and dander (484993297712792) Allergic rhinitis due to animal (cat) (dog) hair and dander (J30.81) Active confirmed Problem Allergic rhinitis (84208745) Other allergic rhinitis (J30.89) Active confirmed Problem Chronic rhinitis (86654012) Chronic rhinitis (J31.0) Active confirmed Problem Uncomplicated mild persistent asthma (213387961) Mild persistent asthma, uncomplicated (J45.30) Active confirmed Problem Allergic contact dermatitis caused by plant material (disorder) (6311339376492105 1) Allergic contact dermatitis due to plants, except food (L23.7) Active confirmed Problem Allergic contact dermatitis (587199873) Allergic contact dermatitis due to other agents (L23.89) Active confirmed Problem Elevated blood pressure reading without diagnosis of hypertension (757262628) Elevated blood-pressure reading, without diagnosis of hypertension (R03.0) Active confirmed Problem Allergic rhinitis caused by pollen (disorder) (26706919) Allergic rhinitis due to pollen (J30.1) Active confirmed Problem Allergic rhinitis caused by animal hair and dander (490757400061889) Allergic rhinitis due to animal (cat) (dog) hair and dander (J30.81) Active confirmed Problem Allergic rhinitis (62763968) Other allergic rhinitis (J30.89) Active confirmed Problem Uncomplicated moderate persistent asthma (750385428) Moderate persistent asthma, uncomplicated (J45.40) Active confirmed Problem Chronic allergic conjunctivitis (26460665) Other chronic allergic conjunctivitis (H10.45) Active confirmed Vital Signs Respiratory Rate 17 /min 11/20/2024 Oximetry 95 % 11/20/2024 Blood pressure diastolic 79 mm Hg 11/20/2024 Height 67 in 11/20/2024 Blood pressure systolic 130 mm Hg 11/20/2024 Weight 235.8 lbs 11/20/2024 BMI 36.93 kg/m2 11/20/2024 Encounters Encounter Location Date Provider Diagnosis [facility] [address] [place] [address] 12/29/2024 Missael Ruiz Allergic rhinitis du e to pollen J30.1 ; Allergic rhinitis due to animal (cat) (dog) hair and dander J30.81 ; Other allergic rhinitis J30.89 and Other chronic allergic conjunctivitis H10.45 [facility] [address] [place] [phone] 11/27/2024 Missael Ruiz Allergic rhinitis du e to pollen J30.1 ; Allergic rhinitis due to animal (cat) (dog) hair and dander J30.81 ; Other allergic rhinitis J30.89 and Other chronic allergic conjunctivitis H10.45 [facility] [address] [place] [phone] 09/11/2024 Missael Ruiz Allergic rhinitis du e to pollen J30.1 ; Allergic rhinitis due to animal (cat) (dog) hair and dander J30.81 ; Other allergic rhinitis J30.89 and Other chronic allergic conjunctivitis H10.45 [facility] [address] [place] [phone] 08/14/2024 Missael Ruiz Allergic rhinitis du e to pollen J30.1 ; Allergic rhinitis due to animal (cat) (dog) hair and dander J30.81 ; Other allergic rhinitis J30.89 and Other chronic allergic conjunctivitis H10.45 [facility] [address] [place] [phone] 07/17/2024 Missael Ruiz Allergic rhinitis du e to pollen J30.1 ; Allergic rhinitis due to animal (cat) (dog) hair and dander J30.81 ; Other allergic rhinitis J30.89 and Other chronic allergic conjunctivitis H10.45 [facility] [address] [place] [address] 06/19/2024 Missael Ruiz Allergic rhinitis du e to pollen J30.1 ; Allergic rhinitis due to animal (cat) (dog) hair and dander J30.81 ; Other allergic rhinitis J30.89 and Other chronic allergic conjunctivitis H10.45 [facility] [address] [place] [phone] 04/24/2024 Missaelyun Ruiz Allergic rhinitis du e to pollen J30.1 ; Allergic rhinitis due to animal (cat) (dog) hair and dander J30.81 ; Other allergic rhinitis J30.89 and Other chronic allergic conjunctivitis H10.45 [facility] [address] [place] [phone] 03/27/2024 Missael Joseph Allergic rhinitis du e to pollen J30.1 ; Allergic rhinitis due to animal (cat) (dog) hair and dander J30.81 ; Other allergic rhinitis J30.89 and Other chronic allergic conjunctivitis H10.45 [facility] [address] [place] [phone] 02/28/2024 Missaelyun Ruiz Allergic rhinitis du e to pollen J30.1 ; Allergic rhinitis due to animal (cat) (dog) hair and dander J30.81 ; Other allergic rhinitis J30.89 and Other chronic allergic conjunctivitis H10.45 [facility] [address] [place] [phone] 01/31/2024 Missaelyun Ruiz Allergic rhinitis du e to pollen J30.1 ; Allergic rhinitis due to animal (cat) (dog) hair and dander J30.81 ; Other allergic rhinitis J30.89 and Other chronic allergic conjunctivitis H10.45 [facility] [address] [place] [address] 11/20/2024 Maryam Trujillo Moderate persistent asthma, uncomplicated J45.40 ; Chronic rhinitis J31.0 ; Allergic rhinitis due to pollen J30.1 ; Allergic rhinitis due to animal (cat) (dog) hair and dander J30.81 ; Other allergic rhinitis J30.89 ; Other chronic allergic conjunctivitis H10.45 ; Allergic contact dermatitis due to other agents L23.89 and Allergic contact dermatitis due to plants, except food L23.7 [facility] [address] [place] [address] 05/22/2024 Maryam Trujillo Moderate persistent asthma, uncomplicated J45.40 ; Chronic rhinitis J31.0 ; Allergic rhinitis due to pollen J30.1 ; Allergic rhinitis due to animal (cat) (dog) hair and dander J30.81 ; Other allergic rhinitis J30.89 ; Other chronic allergic conjunctivitis H10.45 ; Allergic contact dermatitis due to other agents L23.89 and Allergic contact dermatitis due to plants, except food L23.7 [facility] [address] [place] [address] 01/03/2024 Missael Ruiz Allergic rhinitis du e to pollen J30.1 ; Allergic rhinitis due to animal (cat) (dog) hair and dander J30.81 ; Other allergic rhinitis J30.89 and Other chronic allergic conjunctivitis H10.[address] [address] 09/16/2024 Maryam Trujillo Moderate persisten t asthma, uncomplicated J45.40 Assessments Encounter Date Diagnosis (ICD Code) Assessment Notes Treatment Notes Treatment Clinical Notes Section Notes 11/27/2024 Allergic rhinitis due to pollen (ICD-10 - J30.1) 12/29/2024 Allergic rhinitis due to pollen (ICD-10 - J30.1) 11/20/2024 Chronic rhinitis (ICD-10 - J31.0) Previously treated with nasal washes and Mupirocin with clean q-tip BID x 5 days. 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 As above since 2021 she [...] also just may be a weight issues. Seen by Cardiology for clearance. She does not tolerate albuterol. Would stick to Lealbuterol - will request records and send my note over to [facility]. Will request Pulmonary records -pulse ox readings at home between 96-94%. Normal in office today -Continue Breztri due to hoarseness and throat irritation with Trelegy. 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 As above since 2021 she [...] Trelegy. Again want input by Pulmonary -IgE=33 OGH=056 -last CXR was normal 04/24/2024 Allergic rhinitis due to pollen (ICD-10 - J30.1) 03/27/2024 Allergic rhinitis due to pollen (ICD-10 - J30.1) 02/28/2024 Allergic rhinitis due to pollen (ICD-10 - J30.1) 01/31/2024 Allergic rhinitis due to pollen (ICD-10 - J30.1) 01/03/2024 Allergic rhinitis due to pollen (ICD-10 - J30.1) 01/03/2024 Allergic rhinitis due to animal (cat) [...] (dog) hair and dander (ICD-10 - J30.81) 11/20/2024 Allergic rhinitis due to pollen (ICD-10 - J30.1) Marlen clearly suffers from atopic disease based upon skin testing. She continues on meds, avoidance measures and SCIT with great control of symptoms. Behind on shots due to surgery, leading to symptoms. -Dosing resumed today - Encouraged meds as above. Discussed increasing [...] PRN in peak seasons for increased symptoms 12/29/2024 Allergic rhinitis due to animal (cat) (dog) hair and dander (ICD-10 - J30.81) 11/27/2024 Allergic rhinitis due to animal (cat) (dog) hair and dander (ICD-10 - J30.81) 11/27/2024 Other allergic rhinitis (ICD-10 - J30.89) 12/29/2024 Other allergic rhinitis (ICD-10 - J30.89) 11/20/2024 Allergic rhinitis due to animal (cat) (dog) [...] adjunctive treatment to current regimen. 04/24/2024 Other allergic rhinitis (ICD-10 - J30.89) 03/27/2024 Other allergic rhinitis (ICD-10 - J30.89) 02/28/2024 Other allergic rhinitis (ICD-10 - J30.89) 01/31/2024 Other allergic rhinitis (ICD-10 - J30.89) 01/03/2024 Other allergic rhinitis (ICD-10 - J30.89) 01/03/2024 Other chronic allergic conjunctivitis (ICD-10 - H10.45) 01/31/2024 Other chronic allergic conjunctivitis (ICD-10 - H10.45) 02/28/2024 Other chronic allergic conjunctivitis (ICD-10 - H10.45) 03/27/2024 Other chronic allergic conjunctivitis (ICD-10 - H10.45) 04/24/2024 Other chronic allergic conjunctivitis (ICD-10 - H10.45) 05/22/2024 Other allergic rhinitis (ICD-10 - J30.89) Follow allergen avoidance, meds and continue SCIT as an adjunctive treatment to current regimen. 06/19/2024 Other chronic allergic conjunctivitis (ICD-10 - H10.45) 07/17/2024 Other chronic allergic conjunctivitis (ICD-10 - H10.45) 08/14/2024 Other chronic allergic conjunctivitis (ICD-10 - H10.45) 09/11/2024 Other chronic allergic conjunctivitis (ICD-10 - H10.45) 11/20/2024 Other allergic rhinitis (ICD-10 - J30.89) Follow allergen avoidance, meds and continue SCIT as an adjunctive treatment to current regimen. 11/27/2024 Other chronic allergic conjunctivitis (ICD-10 - H10.45) 12/29/2024 Other chronic allergic conjunctivitis (ICD-10 - H10.45) 11/20/2024 Other chronic allergic conjunctivitis (ICD-10 - H10.45) [...] prn triamcinolone. - Skin is clear today 11/20/2024 Allergic contact dermatitis due to other agents (ICD-10 - L23.89) S/p patch testing with several positives. She continues avoidance without any interval rashes - Continue prn triamcinolone. - Skin is clear today 11/20/2024 Allergic contact dermatitis due to plants, except [...] grow - No issues currently 05/22/2024 Other 11/20/2024 Other Plan Of Treatment Pending Test Test Name Order Date Alpha-1 Antitrypsin Phenotyp ing (Grifols AlphaID-Alphakit) Buccal Swab (FREE) 10/21/2020 Alpha-1 Antitrypsin Phenotyp ing (Grifols AlphaID-Alphakit) Buccal Swab (FREE) 01/27/2021 Next Appt Details Provider Name:Missael Ruiz , 01/05/2025 10:00:00 AM, [address] [facility], [place], [address], Provider Name:Missael Menon Win , 01/15/2025 10:30:00 AM, [address], [address], [place], [address], Provider Name:Missael Menon Joseph , 02/16/2025 10:30:00 AM, [address], [address], [place], [address], Provider Name:Maryam Trujillo , 05/21/2025 10:00:00 AM, [address], [address], [place], [address], Insurance Providers Payer Name Payer Address Payer Phone Subscriber Number Group Number Insured Name Patient Relationship to Insured Coverage Start Date Coverage End Date [employer]rell [address] [place] [address] [id number] Nitin Pemberton Spouse - patient is the [...] shoulder replacement 02/07/2021 Right hip replacement 03/28/2022 Shoulder surgery 09/19/24 Hospitalization History Reason Date(Month/Year) Gastric bleed 02/27/2015
--- OUTSIDE RECORDS SUMMARY | 2025-01-02 14:08 | XMS_ITS | Data Portability ---
Author Organization [place] [facility], Main Office Address [address] [place] [address] Assessment Encounter Date Assessment Date Assessment LastModified [...] Orders Fosamax 70 mg tablet 023 023 [id number], [address], [place], [place], [id number], 11:01:13 Patient TargetsNo targets recorded. Patient Instructions Encounter Date Encounter Id Patient Instructions Last Modified By Organization Details Last Modified Time 07/18/2022 [id number] FU in 6 mo thyroid, lipid, htn, [...] /MS is recom giuseppe d: order code [id number] (rayray ents >2yrs ). See Note 1 Note 1 For addit ional infor fredy em refer to http: //[facility] Montes stDia gnost ics.c om/fa q/FAQ 199 (This link is being provi ded for infor lucia john/ jadiel padillao ses only. ) Not Available [employer] [address], [address], 07/10/2020 07:17:19 07/10/1907/10/2020 TSH, serum or plasm a TSH 1.44 mIU/L 0.40-4 .50 normal Not Available [address] [place], [address], 07/10/2020 07:17:19 07/10/1907/10/2020 hepat ic funct ion panel , serum protein, total 7.1 g/dL 6.1-8. 1 normal Not Available [employer] [address], [address], 07/10/2020 07:17:18 07/10/19 21 07/10/2020 hepat ic funct ion panel , serum albumin 4.3 g/dL 3.6-5. 1 normal Not Available [address], [address], 07/10/2020 07:17:18 07/10/19 21 07/10/2020 hepat ic funct ion panel , serum globulin 2.8 g/dL_ (calc ) 1.9-3. 7 normal Not Available [employer] [address], [address], 07/10/2020 07:17:18 07/10/19 21 07/10/2020 hepat ic funct ion panel , serum albumin/glob ulin ratio 1.5 (calc ) 1.0-2. 5 normal Not Available [address] [address] [place], [address], 07/10/2020 07:17:18 07/10/19 21 07/10/2020 hepat ic funct ion panel , serum bilirubin, total 0.5 mg/dL 0.2-1. 2 normal Not Available [address] [address] [place], [address], 07/10/2020 07:17:18 07/10/19 21 07/10/2020 hepat ic funct ion panel , serum bilirubin, direct 0.1 mg/dL < or = 0.2 normal Not Available [address] [address] [place], [address], 07/10/2020 07:17:18 07/10/19 21 07/10/2020 hepat ic funct ion panel , serum bilirubin, indirect 0.4 mg/dL _(arabella c) 0.2-1. 2 normal Not Available [address] [address] [place], [address], 07/10/2020 07:17:18 07/10/19 21 07/10/2020 hepat ic funct ion panel , serum alkaline phosphatase 85 U/L 37-153 normal Not Available [facility] [employer] [address] [address] [place], [address], 07/10/2020 07:17:18 07/10/1907/10/2020 hepat ic funct ion panel , serum AST 31 U/L 10-35 normal Not Available [address] [address] [place], [address], 07/10/2020 07:17:18 07/10/19 21 07/10/2020 hepat ic funct ion panel , serum ALT 32 U/L 6-29 high Not Available [address] [address] [place], [address], 07/10/2020 07:17:18 07/10/1907/10/2020 BMP, serum or plasm a glucose 94 mg/dL 65-139 normal Non-f astin g refer ence inter kang Not Available [address], [address], 07/10/2020 07:17:18 07/10/1907/10/2020 BMP, serum or plasm a urea nitrogen (BUN) 14 mg/dL 7-25 normal Not Available [address] [address] [place], [address], 07/10/2020 07:17:18 07/10/1907/10/2020 BMP, serum or plasm a creatinine 0.68 mg/dL 0.50-1 .05 normal For patie nts >49 years of age, the refer ence limit for Creat inine is appro ximat xavi 13% highe r for peopl e ident ified as Afric an-Am ehsan n. Not Available [address] [address] [place], [address], 07/10/2020 07:17:18 07/10/1907/10/2020 BMP, serum or plasm a eGFR non-afr. martiniquais 96 mL/mi n/1.7 3m2 > or = 60 normal Not Available [facility] [address] [address] [place], [address], 07/10/2020 07:17:18 07/10/1907/10/2020 BMP, serum or plasm a eGFR 111 mL/mi n/1.7 3m2 > or = 60 normal Not Available [facility] [address] [address] [place], [address], 07/10/2020 07:17:18 07/10/19 21 07/10/2020 BMP, serum or plasm a BUN/creatini ne ratio not applic able (calc ) 6-22 Not Available [address], [address], 07/10/2020 07:17:18 07/10/19 21 07/10/2020 BMP, serum or plasm a sodium 140 mmol/ L 135-14 6 normal Not Available [address], [address], 07/10/2020 07:17:18 07/10/19 21 07/10/2020 BMP, serum or plasm a potassium 3.6 mmol/ L 3.5-5. 3 normal Not Available [address], [address], 07/10/2020 07:17:18 07/10/19 21 07/10/2020 BMP, serum or plasm a chloride 98 mmol/ L 98-110 normal Not Available [address], [address], 07/10/2020 07:17:18 07/10/19 21 07/10/2020 BMP, serum or plasm a carbon dioxide 33 mmol/ L 20-32 high Not Available [address], [address], 07/10/2020 07:17:18 07/10/19 21 07/10/2020 BMP, serum or plasm a calcium 9.9 mg/dL 8.6-10 .4 normal Not Available [address], [address], 07/10/2020 07:17:18 07/10/19 21 07/10/2020 lipid panel , serum cholesterol, total 209 mg/dL <200 high Not Available [address], [address], 07/10/2020 07:17:18 07/10/19 21 07/10/2020 lipid panel , serum HDL cholesterol 53 mg/dL > or = 50 normal Not Available [address], [address], 07/10/2020 07:17:18 07/10/19 21 07/10/2020 lipid panel , serum triglyceride s 175 mg/dL <150 high Not Available [employer] [address], [address], 07/10/2020 07:17:18 07/10/1907/10/2020 lipid panel , serum [...] 2061- 2068 (http ://ed ucati on.Ger [employer]. Wattio/f aq/FA Q164) Not Available [employer] [address], [address], 07/10/2020 07:17:18 07/10/1907/10/2020 lipid panel , serum chol/HDLC ratio 3.9 (calc ) <5.0 normal Not Available [address], [address], 07/10/2020 07:17:18 07/10/1907/10/2020 lipid panel , serum non HDL cholesterol 156 mg/dL _(arabella c) <130 high For patie nts with diabe yenny plus 1 major ASCVD risk facto r, treat ing to a non-H DL-C goal of <100 mg/dL (LDL- C of <70 mg/dL ) is consi florence chaidezo n. Not Available [employer] [address] [place], [address], 07/10/2020 07:17:18 01/28/20 21 01/28/2021 VITAM IN [...] /MS is recom giuseppe d: order code [id number] (rayray ents >2yrs ). See Note 1 Note 1 For addit ional infor fredy em refer to http: //darek Montes stDia gnost ics.c om/fa q/FAQ 199 (This link is being provi ded for infor lucia john/ jadiel molina purpo ses only. ) Not Available [employer] [address] [address] [place], [address], 01/28/2021 12:47:55 01/28/20 21 01/28/2021 TSH TSH 2.24 mIU/L 0.40-4 .50 normal Not Available [employer] [address] [address] [place], [address], 01/28/2021 12:47:54 01/28/20 21 01/28/2021 LIPID PANEL , STAND ANTHONY cholesterol, total 222 mg/dL <200 high Not Available [employer] [facility] [address] [address] [place], [address], 01/28/2021 12:47:53 01/28/20 21 01/28/2021 LIPID PANEL , STAND ANTHONY HDL cholesterol 60 mg/dL > or = 50 normal Not Available [facility] [address] [place], [address], 01/28/2021 12:47:53 01/28/20 21 01/28/2021 LIPID PANEL , STAND ANTHONY triglyceride s 170 mg/dL <150 high Not Available [address] [address] [place], [address], 01/28/2021 12:47:53 01/28/20 21 01/28/2021 LIPID PANEL [...] 2061- 2068 (http ://ed ucati on.Ger lee [employer]. com/f aq/FA Q164) Not Available [address] [address] [place], [address], 01/28/2021 12:47:53 01/28/20 21 01/28/2021 LIPID PANEL , STAND ANTHONY chol/HDLC ratio 3.7 (calc ) <5.0 normal Not Available [facility] [address] [place], [address], 01/28/2021 12:47:53 01/28/20 21 01/28/2021 LIPID PANEL , STAND ANTHONY non HDL cholesterol 162 mg/dL _(arabella c) <130 high For patie nts with diabe yenny plus 1 major ASCVD risk facto r, treat ing to a non-H DL-C goal of <100 mg/dL (LDL- C of <70 mg/dL ) is consberto laguerre peutberto c optio n. Not Available [employer] [facility] [address], [place], [address], 01/28/2021 12:47:53 08/27/19 22 08/27/2021 VITAM IN [...] um and D. Alton li [place]: [facility] Press . 2. Angel Luis damon MF, Bib hamm [place], Rufino off-F errar i [place], et al. Evalu ation , treat ment, and preve ntion of vitam in D defic iency : an Endoc rine Socie ty clini arabella pract ice guide line. JCEM. 2010; 96(7) :1911 -30. Not Available [facility] ([facility]) [address], [place], [address], 08/31/2021 03:07:29 08/27/19 22 08/30/2021 THYRO ID STIMU LATIN G HORMO NE TSH-icma 2.3 uu/mL Refer ence Range : Non-P regna nt Adult 0.450 -4.50 0 Pregn justice First Trime ster 0.100 -4.00 0 Secon d Trime ster 0.200 -4.00 0 Third Trime ster 0.300 -4.50 0 Not Available [facility] [address], [place], [address], 08/31/2021 03:07:29 08/27/19 22 08/27/2021 LIPID PANEL cholesterol, total 216 mg/dL 100-19 9 above high normal Not Available [facility] ([facility]) [address] [place], [address], 08/31/2021 03:07:28 08/27/19 22 08/27/2021 LIPID PANEL triglyceride s 106 mg/dL 0-149 Not Available [facility] ([facility]) [address] [place], [address], 08/31/2021 03:07:28 08/27/19 22 08/27/2021 LIPID PANEL HDL cholesterol 59 mg/dL >39 Not Available [facility] ([facility]) [address] [place], [address], 08/31/2021 03:07:28 08/27/19 22 08/27/2021 LIPID PANEL VLDL cholesterol arabella 19 mg/dL 5-40 Not Available [facility] ([facility]) [address] [place], [address], 08/31/2021 03:07:28 08/27/19 22 08/27/2021 LIPID PANEL LDL chol calc ([facility]) 138 mg/dL 0-99 above high normal Not Available [facility] ([facility]) [address] [place], [address], 08/31/2021 03:07:28 08/27/19 22 08/27/2021 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 METAB OLIC PANEL (14) glucose 93 mg/dL 65-99 Not Available [facility] ([facility]) [address] [place], [address], 08/31/2021 03:07:28 08/27/19 22 08/27/2021 COMP. METAB OLIC PANEL (14) BUN 15 mg/dL 8-27 Not Available [facility] ([facility]) [address] [place], [address], 08/31/2021 03:07:28 08/27/19 22 08/27/2021 COMP. METAB OLIC PANEL (14) creatinine 0.66 mg/dL 0.57-1 .00 Not Available [facility] ([facility]) [address] [facility], [place], [address], 08/31/2021 03:07:28 08/27/19 22 08/27/2021 COMP. METAB OLIC PANEL (14) eGFR 100 mL/mi n/1.7 3 >59 Not Available [facility] ([facility]) [address] [place], [address], 08/31/2021 03:07:28 08/27/19 22 08/27/2021 COMP. METAB OLIC PANEL (14) BUN/creatini ne ratio 23 12-28 Not Available [facility] ([facility]) [address] [place], [address], 08/31/2021 03:07:28 08/27/19 22 08/27/2021 COMP. METAB OLIC PANEL (14) sodium 142 mmol/ L 134-14 4 Not Available [facility] ([facility]) [address] [place], [address], 08/31/2021 03:07:28 08/27/19 22 08/27/2021 COMP. METAB OLIC PANEL (14) potassium 4.0 mmol/ L 3.5-5. 2 Not Available [facility] ([facility]) [address] [place], [address], 08/31/2021 03:07:28 08/27/19 22 08/27/2021 COMP. METAB OLIC PANEL (14) chloride 99 mmol/ L 96-106 Not Available [facility] ([facility]) [address] [place], [address], 08/31/2021 03:07:28 08/27/19 22 08/27/2021 COMP. METAB OLIC PANEL (14) carbon dioxide, total 28 mmol/ L 20-29 Not Available [facility] ([facility]) [address] [place], [address], 08/31/2021 03:07:28 08/27/19 22 08/27/2021 COMP. METAB OLIC PANEL (14) calcium 9.4 mg/dL 8.7-10 .3 Not Available [facility] ([facility]) [address] [place], [address], 08/31/2021 03:07:28 08/27/19 22 08/27/2021 COMP. METAB OLIC PANEL (14) protein, total 6.6 g/dL 6.0-8. 5 Not Available [facility] ([facility]) [address] [place], [address], 08/31/2021 03:07:28 08/27/19 22 08/27/2021 COMP. METAB OLIC PANEL (14) albumin 4.1 g/dL 3.8-4. 8 Not Available [facility] ([facility]) [address] [place], [address], 08/31/2021 03:07:28 08/27/19 22 08/27/2021 COMP. METAB OLIC PANEL (14) globulin, total 2.5 g/dL 1.5-4. 5 Not Available [facility] ([facility]) [address] [place], [address], 08/31/2021 03:07:28 08/27/19 22 08/27/2021 COMP. METAB OLIC PANEL (14) A/G ratio 1.6 1.2-2. 2 Not Available [facility] ([facility]) [address] [place], [address], 08/31/2021 03:07:28 08/27/19 22 08/27/2021 COMP. METAB OLIC PANEL (14) bilirubin, total 0.3 mg/dL 0.0-1. 2 Not Available [facility] ([facility]) [address] [place], [address], 08/31/2021 03:07:28 08/27/19 22 08/27/2021 COMP. METAB OLIC PANEL (14) alkaline phosphatase 78 IU/L 44-121 Not Available [facility] [address] [place], [address], 08/31/2021 03:07:28 08/27/19 22 08/27/2021 COMP. METAB OLIC PANEL (14) AST (SGOT) 21 IU/L 0-40 Not Available [facility] ([facility]) [address] [place], [address], 08/31/2021 03:07:28 08/27/19 22 08/27/2021 COMP. METAB OLIC PANEL (14) ALT (SGPT) 17 IU/L 0-32 Not Available [facility] ([facility]) [address] [place], [address], 08/31/2021 03:07:28 07/07/19 23 07/07/2022 LIPID PANEL , STAND ANTHONY cholesterol, total 132 mg/dL <200 normal Not Available [employer] [facility] [address] [place], [address], 07/07/2022 08:34:15 07/07/19 23 07/07/2022 LIPID PANEL , STAND ANTHONY HDL cholesterol 68 mg/dL > or = 50 normal Not Available [facility] [address] [place], [address], 07/07/2022 08:34:15 07/07/1907/07/2022 LIPID PANEL , STAND ANTHONY triglyceride s 77 mg/dL <150 normal Not Available [employer] [address] [address] [place], [address], 07/07/2022 08:34:15 07/07/1907/07/2022 LIPID PANEL , STAND ANTHONY LDL-choleste rol 48 mg/dL _(arabella c) normal Refer ence range : <100 Cuca able range <100 mg/dL for prima ry preve ntion ; <70 mg/dL for patie nts with CHD or diabe tic patie nts with > or = 2 CHD risk facto rs. LDL-C is now calcu lated using the Jennifer doe-[facility] aylin briseno n, which is a valid ated novel metho d joe gonzales heather r accur acy than the Fried ignacia equat ion in the estim ation of LDL-C . Jennifer doe SS et al. MARNIE. 2013; 310(1 9): 2061- 2068 (http ://ed ucati on.Qu Freddy [employer]. com/f aq/FA Q164) Not Available [employer] [facility] [address] [place], [address], 07/07/2022 08:34:15 07/07/1907/07/2022 LIPID PANEL , STAND ANTHONY chol/HDLC ratio 1.9 (calc ) <5.0 normal Not Available [employer] [facility] [address] [place], [address], 07/07/2022 08:34:15 07/07/1907/07/2022 LIPID PANEL , STAND ANTHONY non HDL cholesterol 64 mg/dL _(arabella c) <130 normal For patie nts with diabe yenny plus 1 major ASCVD risk facto r, treat ing to a non-H DL-C goal of <100 mg/dL (LDL- C of <70 mg/dL ) is consi dered a thera peuti c optio n. Not Available [facility] [address] [place], [address], 07/07/2022 08:34:15 07/07/19 23 07/07/2022 TSH W/REF AMY TO FT4 TSH w/reflex to FT4 1.55 mIU/L 0.40-4 .50 normal Not Available [facility] [address] [address] , [place], [address], 07/07/2022 08:34:17 12/03/19 21 12/02/2020 XR, shoul tremaine No observ ation record ed. [id number] [address], [place], [address], 04/12/2022 05:18:19 06/17/19 22 06/16/2021 MAMMO , scree masoud, digit al, bilat eral No observ ation record ed. [id number] [address], [place], [address], 04/12/2022 05:18:19 11/09/19 22 11/01/2021 DEXA No observ ation record ed. [id number] Not Available 04/12/2022 05:18:19 03/28/19 23 03/28/2022 XR, arthr ogram , hip No observ ation record ed. [id number] [facility], [place], [address], 04/12/2022 05:18:19 04/26/19 23 04/19/2022 XR, hip + pelvi s, unila teral No observ ation record ed. [email or web address] [address] [facility] [place], [address], 04/26/2022 09:38:51 05/24/19 23 05/17/2022 XR, hip + pelvi s, bilat eral No observ ation record ed. [email or web address] [facility] [address], [place], [address], 05/23/2022 17:54:58 09/23/1909/22/2022 XR, hip, unila teral No observ ation record ed. [email or web address] [facility] [address] [facility] [address], [place], [address], 09/22/2022 11:36:04 11/29/1911/28/2022 MAMMO , scree masoud, bilat eral No observ ation record ed. [facility] [address] [facility] [address], [place], [address], 11/30/2022 08:49:32 Result Notes None recorded. Problems Name Problem SNOMED Code Status Onset Date Resolution Date Notes Provider Name and Address Organization Details Recorded Time Edema of lower extremit y 249168105 Completed Not Available [facility] 3 05:11:07 Tricuspi d valve regurgit ation 276617296 Completed Not Available [facility] 3 05:11:07 Asthma 766678113 Active Not Available [facility] 3 17:52:04 Sciatica 48086201 Completed Not Available [facility] 3 05:11:08 Systolic murmur 89564984 Active Not Available [facility] 3 17:52:04 Vitamin D deficien cy 54497782 Active Not Available [facility] 3 17:52:04 Migraine 54262362 Active Not Available [facility] 3 17:52:04 Osteoart hritis 885010710 Active Not Available [facility] 3 17:52:04 Hypothyr oidism 61392336 Active Not Available [facility] 3 17:52:04 Obesity 292009697 Active Not Available [facility] 3 17:52:04 Refracto ry migraine 270340406 Completed Not Available [facility] 3 05:11:08 Small vessel cerebrov ascular disease 945808959 Completed Not Available [facility] 3 05:11:08 Seasonal allergy 811902915 Active Not Available [facility] 3 17:52:04 Pain of hip region 53054567 Active Not Available [facility] 3 17:52:04 Hyperlip idemia 40218357 Active Not Available [facility] 3 17:52:04 Essentia l hyperten amilcar 25891236 Active Not Available [facility] 3 17:52:04 Aortic valve regurgit ation 13501003 Active Not Available [facility] 3 17:52:04 Allergic rhinitis 71883726 Active Not Available [facility] 3 17:52:04 Posterio r rhinorrh ea 97495078 Active Not Available [facility] 3 17:52:04 Palpitat ions 53546822 Completed Not Available [facility] 3 05:11:09 Urinary tract infectio us disease 54309593 Active 2016 Not Available [facility] 3 17:52:04 Osteopen ia 526919881 Active 2017 Diagnose d Not Available [facility] 3 17:52:04 Pain in left knee Active [address] [facility] 3 17:52:04 History of total knee arthropl asty 96048869161 05 Active 2018 Not Available [facility] 3 17:52:04 Environm ental allergy 668654877 Active 2019 Not Available [facility] 3 17:52:04 Osteoart hritis of shoulder region 31334438 Active 2020 Not Available [facility] 3 17:52:04 Postmeno pausal state 52941444 Active 2022 Not Available [facility] 3 17:52:04 Osteopor osis 43510362 Active 2022 Not Available [facility] 3 17:52:04 Problem Notes None recorded. Procedures Surgical History Date Name Laterality Status Provider Name and Address Organization Details Recorded Time 11/29/19 Most Recent Mammogram completed Alice Mcconnell NP [address], [place], [address], [facility] [employer] [facility] 11/29/2022 07:50:47 03/28/19 23 total replacement of right hip joint completed Not Available [facility] 04/12/2022 05:05:00 11/02/19 22 Most Recent Bone Density completed Not Available [facility] 04/12/2022 05:04:57 02/09/20 21 total shoulder replacement completed Not Available [facility] 04/12/2022 05:05:00 02/12/19 19 Knee Replacement completed Not Available [facility] 04/12/2022 05:05:00 06/23/19 17 Date of Last Colonoscopy completed Not Available [facility] 04/12/2022 05:04:57 06/23/19 17 Colonoscopy completed Not Available [facility] 04/13/19 23 05:05:00 Ear Tubes completed Not Available [address] [place] [address] 04/12/2022 05:05:00 completed Not Available [place] [address] 04/12/2022 05:05:00 Eye Surgery completed Not Available [facility] 04/12/2022 05:05:00 Imaging Results None recorded. Procedure Notes None recorded. Medical Equipment None Reported. Allergies Allergen ID Allergen Name Allergen Category Reaction Reaction Severity Criticality Documentation Date Start Date Code Code System Note Provider Name and Address Organization Details Recorded Time 9484 Substance with sulfonami de structure and antibacte rial mechanism of action (substanc e) medicatio n rash Not available Not available 04/12/2022 [address] [facility] 3 05:17:55 9485 theophyll ine anhydrous medicatio n Not available Not available Not available 04/12/2022 83627 RxNorm shake s Not Available [facility] 3 05:17:55 9486 omeprazol e medicatio n Not available Not available Not available 04/12/2022 7646 RxNorm Not Available [facility] 3 05:17:55 9487 Bactrim medicatio n rash Not available Not available 04/12/2022 59992 9 RxNorm Not Available [facility] 3 05:17:55 9488 acetone medicatio n anaphylax is severe Not available 04/12/2022 [address] [facility] 3 05:17:55 Medications Name Sig Start Date [...] Not Available Not Available Not Available Fluvirin 9711-4461 45 mcg (15 mcg x 3)/0.5 mL intramuscu lar suspension ADM 0.5ML IM UTD active Not Available Not Available No t Available Fluvirin 4620-9668 45 mcg (15 mcg x 3)/0.5 mL [...] mass index (BMI) Body height Oxygen saturation Heart rate Respiratory rate Body temperature Body weight Systolic And Diastolic Provider Name and Address Organization Details Last Updated DateTime 3 36.5 kg/m2 170.18 cm 98 % 105 /min 16 /min 97 [degF] 143572. 02 g 164/88 mm[Hg] Not Available [facility] 3 05:08:36 Date Recorded Body height Body mass index (BMI) Body weight Body temperature Heart rate Respiratory rate Oxygen saturation Pain severity - 0-10 verbal numeric rating [Score] - Reported Systolic And Diastolic Provider Name and Address Organization Details Last Updated DateTime 3 170.18 cm 36.2 kg/m2 486720. 24 g 97.3 [degF] 88 /min 16 /min 93 % 0 140/80 mm[Hg] Alice Nixon RN [place] [facility] [employer] [facility] 3 10:18:54 Date Recorded Body mass index (BMI) Body height Oxygen saturation Heart rate Body temperature Body weight Systolic And Diastolic Provider Name and Address Organization Details Last Updated DateTime 1 38.3 kg/m2 170.18 cm 96 % 94 /min 97.3 [degF] 987015. 34 g 134/86 mm[Hg] Not Available [facility] 3 05:08:36 Date Recorded Body mass index (BMI) Body height Oxygen saturation Heart rate Body weight Systolic And Diastolic Provider Name and Address Organization Details Last Updated DateTime 2 37.4 kg/m2 170.18 cm 96 % 94 /min 022387. 58 g 136/82 mm[Hg] Not Available [facility] 3 05:08:36 Date Recorded Body mass index (BMI) Body height Oxygen saturation Heart rate Body temperature Body weight Systolic And Diastolic Provider Name and Address Organization Details Last Updated DateTime 1 37.6 kg/m2 170.18 cm 94 % 109 /min 96.7 [degF] 452363. 17 g 140/84 mm[Hg] Not Available [facility] 3 05:08:36 Social History Question Answer Notes LastModified by Organizat ion Details LastModified Time Tobacco Smoking Status Never Smoker AMY [place] [facility] [facility] 07/18/2022 09:55:49 Do You Have An [...] You Following? REGULAR Tries To Eat Healthy [id number] Information not available 04/12/2022 What Is The Highest Grade Or Level Of School You Have Completed Or The Highest Degree You Have Received? [id number] [email or web address] Information not available 07/18/2022 How Many Days Of Moderate To Strenuous Exercise, Like A Brisk Walk, Did You Do In The Last 7 Days? 60 Information not available 07/18/2022 Have There Been Any Changes To Your Family Or Social Situation? No [email or web address] Information not available 07/18/2022 Are There Any Guns Present In Your Home? No [email or web address] Information not available 07/18/2022 Do You Use Insect Repellent Routinely? Yes [email or web address] Information not available 07/18/2022 [facility] [email or web address] Information not available 07/18/2022 Do You Have A Medical Power Of Construction Producer? Yes Information not available 07/18/2022 Do You Have Any Pets? No Information not available 07/18/2022 What Is Your Relationship Status? [id number] Information not available 04/12/2022 Do You Use Your Seat Belt Or Car Seat Routinely? Yes Information not available 07/18/2022 Do You Have Smoke And Carbon Monoxide Detectors In Your Home? Yes [email or web address] Information not available 07/18/2022 Are You Passively Exposed To Smoke? No [email or web address] Information not available 07/18/2022 Are There Any Smokers In Your House? No [email or web address] Information not available 07/18/2022 Do You Participate In Social Media? Yes Information not available 07/18/2022 What Types Of Sporting Activities Do You Participate In? Swimming Information not available 07/18/2022 Do You Use Sunscreen Routinely? Yes [email or web address] Information not available 07/18/2022 Have You Recently Traveled Abroad? No [email or web address] Information not available 07/18/2022 Do You Have Any Dietary Restrictions? No [email or web address] Information not available 07/18/2022 Sex: Unknown Functional Status Question Answer Note LastModified by Organizat ion Details LastModified Time What is your level of alcohol consumption? None socially Information not available 07/18/2022 Are you currently employed? 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 Occasional swimming Information not available 07/18/2022 Mental Status Question Answer Note LastModified by Organization D etails LastModified Time Do you feel stressed (tense, restless, nervous, or anxious, or unable to sleep at night)? [id number] [email or web address] Information not available 07/18/2022 Family History Relationship Description Onset Age of this Age Resolved Age Notes LastModified by Organization Details LastModified Time Father Hypertensive disorder [id number] Not available 04/12/2022 05:05:04 Father Atrial fibrillation [email or web address] Not available 07/2022 09:55:48 Mother Hypertensive disorder [id number] Not available 04/12/2022 05:05:04 Mother Atrial fibrillation Not available 07/2022 09:55:48 Paternal Grandmother Hypertensive disorder [id number] Not available 04/12/2022 05:05:04 Paternal Grandfather Hypertensive disorder [id number] Not available 04/12/2022 05:05:04 Paternal Uncle Myocardial infarction [id number] Not available 04/12/2022 05:05:04 Maternal Grandfather Alzheimer's disease Not available 2022 09:55:48 Maternal Grandfather Malignant neoplasm of prostate Not available 2022 09:55:48 Maternal Grandfather Malignant neoplasm of brain Not available 2022 09:55:48 Maternal Grandmother Malignant neoplasm of breast [email or web address] Not available 2022 09:55:48 Sister Malignant neoplasm of uterus [email or web address] Not available 2022 09:55:48 Medical History Condition [...] 50 mcg/0.25mL dose 1 completed Not Available [facility] 07/21/2022 17:52:05 Influenza, split virus, quadrivalent, preservative 1 completed Not Available [facility] 07/21/2022 17:52:05 Influenza, split virus, quadrivalent, preservative 0 completed Not Available [facility] 07/21/2022 17:52:05 Influenza, split virus, quadrivalent, preservative 9 completed Not Available [facility] 07/21/2022 17:52:05 Influenza, split virus, quadrivalent, preservative 8 completed Not Available [facility] 07/21/2022 17:52:05 Influenza, split virus, trivalent, preservative 5 completed Not Available [facility] 07/21/2022 17:52:05 Tdap [address] [facility] 07/21/2022 17:52:05 Influenza, split virus, quadrivalent, PF 4 completed Not Available [facility] 07/21/2022 17:52:05 pneumococcal polysaccharide PPV23 [address] [facility] 07/21/2022 17:52:05 Past Encounters Encounter ID Performer Location Encounter Start Date Encounter Closed Date Diagnosis/Indication Diagnosis SNOMED-CT Code Diagnosis ICD10 Code Diagnosis IMO Codes Diagnosis Note [id number] Robb Rodrigues MD [facility] [address] [place] [address] [place] [address] 07/20/2020 00:00:00 07/20/2020 11:04:56 [id number] Robb Rodrigues MD [facility] [address] [place] [address] 01/20/2021 00:00:00 01/20/2021 11:06:33 [id number] Robb Rodrigues MD [facility] [place] [address] [place] [address] [place] [address] 07/20/2021 00:00:00 07/20/2021 11:29:22 [id number] Sandro De La Cruz MD [address] [address] 02/15/2022 00:00:00 02/15/2022 14:58:38 [id number] Alice Mcconnell NP [address] [address] 07/18/2022 09:52:42 07/18/2022 11:09:49 Hypothyroidism 68843511 E03.9 levothyrox ine 25 mcg po daily.[facility]23 ok. Hyperlipidemia 38013220 E78.5 Rosuvastat in 5 mg po nightly.2022 good Essential hypertension 76690958 I10 Verapamil ER 180 mg po daily.Chlo rthalidone 50 mg Osteopenia [id number] M85 .80 Imani wants pt treated for osteoporos is due to looking at bone health after dexa. Allergic rhinitis 404685 04 J30.9 stable. Osteoarthritis 819612120 M19.90 Migraine 10643189 G43.90 9 Stable. Vitamin D deficiency 347 06156 E55.9 Vit d 2000 Iu po daily.Calc ium 1100 po daily. Asthma 386072459 J45.90 9 Albuterol inhaler prn. Obesity 973195677 E66.9 Diet and exercise routinely. Osteoporosis 49556185 M8 1.0 Imani wants pt on medication [...] ID Guarantor Name 07/15/2022 1 [employer] - Do[employer]Remember PLAN - DOS PRIOR TO 02.12.23 (PPO) Nitin Cifuentes [id number] Marlen Cifuentes Notes Date Note Type Note Provider Name and Address Organization Details Recorded Time 07/18/2022 text/html Here for check up 6 mo, last office visit new patient [...] and exercise when able. Alice Mcconnell, HALI [address] [facility], [facility] [address], [place], [address], [facility] 07/18/2022 11:09:08 OBGyn Episode No OBEpisode recorded.
[2025-01-02 14:18] VITALS: BP 147/76; PULSE 99; RESP 18; TEMP 36.6; O2SAT 99
--- NOTE | 2025-01-02 14:41 | ED.FEMALEGU ---
HPI - Female Genitourinary General Chief complaint: Urogenital-Female Stated complaint: UTI Time Seen by Provider: 01/02/25 14:24 Source: patient, RN notes reviewed and old records reviewed Mode of arrival: ambulatory Limitations: no limitations History of Present Illness HPI Narrative: 64-year-old female patient presents today complaining of a urinary frequency, dysuria, and 1 episode of incontinence. Symptoms began this morning. Denies abdominal pain, back pain, fever. Reports history of frequent UTIs. She takes azo daily as well as a Women's probiotic. Related Data Home Medications ?Medication ?Instructions ?Recorded ?Confirmed ?Last Taken ?Type cetirizine 10 mg tablet (Zyrtec) 10 mg PO DAILY 01/12/21 11/03/24 09/17/24 History fluticasone furoate 27.5 1 spray intranasal DAILY 01/12/21 11/03/24 09/17/24 History mcg/actuation nasal spray,suspension (Flonase Sensimist) rizatriptan 10 mg disintegrating 10 mg PO PRN PRN Migraine Headache 01/12/21 11/03/24 Unknown History tablet azelastine 137 mcg (0.1 %) nasal 137 mcg intranasal Q12H PRN 03/06/22 11/03/24 Unknown History spray Allergies multivitamin 1 tablet PO DAILY 03/06/22 11/03/24 09/15/24 History triamcinolone acetonide 0.1 % 1 applic topical BID PRN rash 01/08/23 11/03/24 Unknown History topical cream epinephrine 0.3 mg/0.3 mL 0.3 ml IM PRN 01/25/23 11/03/24 Unknown History injection, auto-injector budesonide 160 mcg-glycopyr 9 2 inh inhalation BID 03/28/23 11/03/24 09/18/24 History mcg-formot 4.8 mcg/actuation HFA inhaler (Breztri Aerosphere) hydroxychloroquine 200 mg tablet 400 mg PO DAILY 07/30/24 11/03/24 09/17/24 History (Plaquenil) leflunomide 20 mg tablet 20 mg PO DAILY 07/30/24 11/03/24 09/17/24 History Held on 09/18/24. Instructions: Resume on 10/09/24. vitamin D3 125 mcg (5,000 1 cap PO DAILY 08/25/24 11/03/24 09/15/24 History unit)-vitamin K2 180 mcg capsule (K2-D3 Max) acetaminophen 650 mg 500 mg PO Q12H PRN pain 11/17/24 Unknown History tablet,extended release (8 Hour Pain Reliever) duloxetine 30 mg capsule,delayed mg PO 01/02/25 Unknown History release Allergies Allergy/AdvReac Type Severity Reaction Status Date / Time acetone Allergy Severe ANAPHYLAXIS Verified 01/02/25 14:19 albuterol Allergy Severe Fainting Verified 01/02/25 14:19 pollen extracts Allergy Unknown Sneezing/ Verified 01/02/25 14:19 SHORTNESS OF BREATH Sulfa (Sulfonamide Allergy Unknown Rash AND Verified 01/02/25 14:19 Antibiotics) HIVES NSAIDS (Non-Steroidal AdvReac Unknown HX GI BLEED Verified 01/02/25 14:19 Anti-Inflamma omeprazole AdvReac Unknown Diarrhea Verified 01/02/25 14:19 PMFSH Past Medical History Medical History JAIMEE (obstructive sleep apnea) Allergic rhinitis Hyperlipidemia Obesity Migraine Hypertension Hypothyroid Asthma Surgical History Surgical History Status post reverse total arthroplasty of right shoulder (~09/18/24) History of total right hip replacement (~03/28/22) History of eye surgery (~1977) History of (~1984) History of myringotomy (~1986) [place] - w/Tube Placement History of adenoidectomy (~1986) History of kyphoplasty (~11/29/17) History of total left knee replacement (~07/30/18) Presence of left artificial knee joint Family History Family History Father Family history of chronic obstructive pulmonary disease Family history of congestive heart failure Other Family history of atrial fibrillation Family history of malignant neoplasm Family history of osteoarthritis Hypertension Social History Social History Smoking status: Never smoker Additional smoking assessment comments: DENIES ANY FORM OF TOBACCO USE Alcohol intake: never Substance use: never Other substance usage details: CBD GELS AT HS Do You Feel Safe in your Home?: Yes Lack of Transportation: No Lack of Food: Never True Current Housing: I Have Housing Concerned About Future Housing: No Difficulty Paying Gas/Electric Bills: No Difficulty Paying for Meds: No Currently Unemployed: No Education: Master's Degree or Higher Difficulty w/ Childcare or Family Care: No Living arrangements: with family Spiritual care concerns: No Comments At time of signature, I have reviewed and agree with nursing past medical, surgical, social and family history unless otherwise noted. Please see nursing chart for further information. There is no relevant family history pertinent to the presenting complaint Exam Narrative: GENERAL: Well-appearing, well-nourished, and in no acute distress. HEAD: Normocephalic, atraumatic. EYES: EOMI. No redness or drainage. Conjunctivae normal. ENT: Mucous membranes pink and moist. NECK: Normal AROM. CHEST: No respiratory distress. Clear to auscultation. HEART: Regular rate and rhythm. No murmur appreciated..-CVAT ABDOMEN: Soft, nontender, nondistended, normal active bowel sounds. EXTREMITIES: Normal range of motion. No edema. SKIN: Warm, dry, no rash. Capillary refill normal. Normal skin turgor. NEURO: No focal deficits. Alert and oriented x3. Gait steady. PSYCH: Normal affect. No signs of depression or anxiety. Course Course Level of Care: Express Care Visit Vital Signs Vital signs: Vital Signs Temperature 97.9 F 01/02/25 14:18 Pulse Rate 99 01/02/25 14:18 Respiratory Rate 18 01/02/25 14:18 Blood Pressure 147/76 H 01/02/25 14:18 Pulse Oximetry 99 01/02/25 14:18 Oxygen Delivery Room Air 01/02/25 14:18 Temperature 97.9 F 01/02/25 14:18 Pulse Rate 99 01/02/25 14:18 Respiratory Rate 18 01/02/25 14:18 Blood Pressure 147/76 H 01/02/25 14:18 Pulse Oximetry 99 01/02/25 14:18 Oxygen Delivery Room Air 01/02/25 14:18 Reviewed MDM - Female Genitourinary MDM Narrative Medical decision making narrative: 64-year-old female patient presents today complaining of a urinary frequency, dysuria, and 1 episode of incontinence. Symptoms began this morning. Denies abdominal pain, back pain, fever. Reports history of frequent UTIs. She takes azo daily as well as a Women's probiotic. Normal physical exam. Urinalysis shows trace blood, trace protein, and 1+ leukocytes. Patient will be started on a course of Keflex while urine culture is pending. Patient agrees with plan vital signs stable with mildly elevated blood pressure. Anticipatory guidance given Differential Diagnosis Differential diagnosis: Likely urinary tract infection, vaginitis and cystitis Lab Data Attestation: I reviewed the patient's lab results. Lab results narrative: Urinalysis Glucose negative Bilirubin negative Ketones negative Specific gravity 1.025 Blood trace PH 7.5 Protein trace Urobilinogen 0.2 Nitrites negative Leukocyte esterase 1+ Critical Care Time Critical Care Time Critical Care Time: No Discharge Plan Discharge Clinical Impression: Urinary tract infection Qualifiers: Urinary tract infection type: acute cystitis Hematuria presence: with hematuria Qualified Code(s): N30.01 - Acute cystitis with hematuria Patient Disposition: Home Condition: Stable Instructions: Antibiotic Form, Urinary Tract Infection in Older Adults (ED) Additional Instructions: Your urine shows infection today. Take Keflex as prescribed until gone. Your urine will be sent of for a culture to identify what type of bacteria is causing your infection. If the culture shows that your medication will not get rid of your infection, you will be notified and a new antibiotic will be called in for you. If your symptoms worsen to include fever, sweats, chills, nausea, vomiting, severe abdominal or back pain, please go to the ER for further evaluation. Patient Language: Mosotho Prescriptions: New cephalexin 500 mg capsule 500 mg PO BID 7 Days Qty: 14 0RF No Action triamcinolone acetonide 0.1 % cream 1 applic TOPICAL BID PRN (Reason: rash) duloxetine 30 mg capsule,delayed release(DR/EC) PO epinephrine 0.3 mg/0.3 mL auto-injector 0.3 ml IM PRN Flonase Sensimist 27.5 mcg/actuation spray,suspension 1 spray intranasal DAILY Patient Comments: TAKES AT HS Rx Instructions: into each nostril azelastine 137 mcg (0.1 %) aerosol,spray 137 mcg intranasal Q12H PRN (Reason: Allergies) Rx Instructions: administer into each nostril Breztri Aerosphere 160-9-4.8 mcg/actuation HFA aerosol inhaler 2 inh inhalation BID leflunomide 20 mg tablet 20 mg PO DAILY hydroxychloroquine [Plaquenil] 200 mg tablet 400 mg PO DAILY rizatriptan 10 mg tablet,disintegrating 10 mg PO PRN PRN (Reason: Migraine Headache) cetirizine [Zyrtec] 10 mg Tablet 10 mg PO DAILY multivitamin Tablet 1 tablet PO DAILY K2-D3 Max 125 mcg (5,000 unit)-180 mcg capsule 1 cap PO DAILY acetaminophen [8 Hour Pain Reliever] 650 mg tablet extended release 500 mg PO Q12H PRN (Reason: pain) valacyclovir 1 gram tablet 1,000 mg PO DAILY PRN (Reason: Cold Sores) Qty: 30 2RF alendronate 70 mg tablet See Rx Instructions .ROUTE .COMPLEX Qty: 12 3RF Dose Instruction: TAKE 1 TABLET BY MOUTH WEEKLY Patient Comments: TAKES ON SUNDAYS Rx Instructions: TAKE 1 TABLET BY MOUTH WEEKLY verapamil 180 mg tablet extended release See Rx Instructions .ROUTE .COMPLEX Qty: 90 3RF Dose Instruction: TAKE 1 TABLET BY MOUTH AT BEDTIME Rx Instructions: TAKE 1 TABLET BY MOUTH AT BEDTIME montelukast 10 mg tablet See Rx Instructions .ROUTE .COMPLEX Qty: 90 3RF Dose Instruction: TAKE 1 TABLET BY MOUTH EVERY DAY Rx Instructions: TAKE 1 TABLET BY MOUTH EVERY DAY chlorthalidone 50 mg tablet See Rx Instructions .ROUTE .COMPLEX Qty: 90 3RF Dose Instruction: TAKE 1 TABLET BY MOUTH EVERY MORNING Rx Instructions: TAKE 1 TABLET BY MOUTH EVERY MORNING rosuvastatin 5 mg tablet See Rx Instructions .ROUTE .COMPLEX Qty: 90 3RF Dose Instruction: TAKE 1 TABLET BY MOUTH AT BEDTIME Rx Instructions: TAKE 1 TABLET BY MOUTH AT BEDTIME levothyroxine 25 mcg tablet 25 mcg PO DAILY Qty: 90 3RF Patient Comments: TAKES 12.5MCG DAILY Follow-up/Referrals: Leonora Terrazas APRN [Primary Care Provider, Family Practice] Time of Disposition: 14:41
[2025-01-05 11:48] LABS: EDUAAPPEAR Cloudy; EDUABILI Negative (Negative); EDUABLOOD Trace (Negative); EDUACOLOR1 Yellow; EDUAGLUCOSE Negative (Negative); EDUAKETONE Negative (Negative); EDUALEUKO 1+ (Negative); EDUANITRATE Negative (Negative); EDUAPH 7.5; EDUAPROTEIN Trace (Negative); EDUASPGRAVITY 1.025; EDUAUROBILI 0.2
== END 2025-01-02 14:43 | disposition home or self-care (01) ==
PROVIDERS: Emergency Provider Nurse Practitioner; PCP Nurse Practitioner Adult Health
DX: N30.01 Acute cystitis with hematuria (principal); E78.5 Hyperlipidemia, unspecified; I10 Essential (primary) hypertension; E03.9 Hypothyroidism, unspecified; J45.909 Unspecified asthma, uncomplicated; E66.9 Obesity, unspecified; Z68.35 Body mass index [BMI] 35.0-35.9, adult; Z96.652 Presence of left artificial knee joint; Z96.641 Presence of right artificial hip joint; Z96.611 Presence of right artificial shoulder joint
CPT/HCPCS: 81003; 87086; 99213; G0463

== ENCOUNTER 2025-01-23 11:46 | Outpatient (CLI) | payer OTHER, SELFPAY ==
--- NOTE | ~2025-01-23 | XR_ITS ---
EXAMINATION: XR hip LT 2V w AP pelvis, 01/23/2025 11:56 PIZZA HUT ASSISTANT HISTORY: M25.552 - Pain in left hip, CHRONIC PAIN COMPARISON: No comparisons available. Findings: No acute fracture or malalignment. Visualized right arthroplasty unremarkable. Severe left-sided degenerative changes Soft tissues unremarkable. Impression: No acute fracture or malalignment. Reviewed, dictated and finalized at location P. A HUT ASSISTANT Impression: No acute fracture or malalignment.
== END 2025-01-23 11:47 | disposition home or self-care (01) ==
PROVIDERS: PCP Nurse Practitioner Adult Health; Visit Provider Orthopaedic Surgery
DX: M25.552 Pain in left hip (principal)
CPT/HCPCS: 73502